=== PATIENT | female | born 1995 | race Caucasian/White ===

== ENCOUNTER 2020-03-01 15:00 | Emergency (ER) | payer MEDICAID, SELFPAY ==
[2020-03-01 15:03] VITALS: BP 136/85; PULSE 70; RESP 18; TEMP 36.8; O2SAT 98; BMI 29.0
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
--- NOTE | 2020-03-02 08:48 | DCPLANNER ---
cadd manager was asked to speak with patient about what options are available to her for shelters. cadd manager spoke with patient, offered to help patient get into a women's correction, patient stated that she did not want to go to a correction. Patient asked behavioral health case manager what her options were with [facility] in getting her court ordered rehab. cadd manager told patient that she would need to call [facility] and speak with them to find out what her options were with getting anything court ordered. cadd manager asked patient if there was anything else that behavioral health case manager could help patient with and she stated not right now. cadd manager did offer one more time to help patient get into a women's correction, but patient stated that she did not want to go to a women's correction that she wanted to go home.
== END 2020-03-01 16:05 | disposition home or self-care (01) ==
LOC: ER 15:37
PROVIDERS: Emergency Provider Nurse Practitioner Family
DX: R42 Dizziness and giddiness (principal); F12.20 Cannabis dependence, uncomplicated; Y04.8XXA Assault by other bodily force, initial encounter
CPT/HCPCS: 12345; 99281

== ENCOUNTER 2020-03-02 18:03 | Inpatient (IN) | payer MEDICAID, SELFPAY ==
[2020-03-02 18:19] VITALS: BP 139/97; PULSE 89; RESP 16; TEMP 36.8; O2SAT 96; BMI 29.0
--- NOTE | 2020-03-02 18:39 | ED_ITS ---
HPI - Psych General: Chief Complaint: Psychiatric Symptoms Stated Complaint: SI Time Seen by Provider: 03/02/20 18:29 Source: patient Mode of arrival: ambulatory Limitations: no limitations History of Present Illness: HPI Narrative: 24-year-old female states she been having increasing depression. She states she has had no will to live and has not had any energy to work or do anything. She states she been having increasing suicidal thoughts. She states she used to be on psych meds but has not been on any recently. Denies any worsening or improving factors. Associated symptoms: Reports depression Review of Systems Const: Denies: fever(s), chills, body aches or change in appetite Eyes: Denies: blurry vision or eye discomfort ENMT: Denies: throat pain or dental pain Card: Denies: chest pain Resp: Denies: dyspnea GI: Denies: abdominal pain, nausea, vomiting or diarrhea : Denies: dysuria Musc: Denies: neck pain or back pain Skin/Breast: Denies: rash Neuro: Denies: headache(s) Psych: Reports: depression Guy/Lymph: Denies: easy bruising All/Imm: Denies: urticaria Physical Exam Const: COMMON NORMALS: no acute distress, patient oriented x3 and healthy appearing HENMT: COMMON NORMALS: normocephalic and atraumatic HEAD & SCALP: normocephalic and atraumatic Eye: COMMON NORMALS: Equal, round and reactive pupils present and EOMs intact bilaterally PUPIL: Yes Equal, round and reactive pupils present Neck/C-Spine: COMMON NORMALS: full ROM and supple Chest: COMMONS NORMALS: normal inspection of the chest and normal palpation of entire chest wall Resp: COMMON NORMALS: normal respiratory effort, No retractions, No use of accessory muscles and clear to auscultation bilaterally AUSCULTATION: clear to auscultation bilaterally Cardio: COMMON NORMALS: regular rate, regular rhythm and No murmurs present (Cardio) RATE: regular rate RHYTHM: regular rhythm GI: COMMON NORMALS: Normal to inspection, nondistended, normoactive bowel sounds present, Soft to palpation, non-tender and no masses PALPATION: Yes Soft to palpation Extremity: COMMON NORMALS: normal to inspection and full ROM Neuro: COMMON NORMALS: patient oriented x3, moves all extremities and no focal motor deficits Psych: COMMON NORMALS: mental status grossly normal, Normal thought process present and cooperative MOOD & AFFECT: Yes depressed mood THOUGHT PROCESS: Normal thought process present THOUGHT CONTENT: Yes Suicidality present Skin: COMMON NORMALS: no rashes or lesions noted and no wounds GENERAL SKIN EXAM: no rashes or lesions noted MDM - Psych MDM Narrative: Medical decision making narrative: Patient presents here with suicidal ideation and voluntarily wants to get help. Patient medically cleared and I spoke to psychiatrist Dr. Soto and will admit to the MPU. She has been stable while here. Lab Data: Labs: Lab Results 03/02/20 03/02/20 03/02/20 Range/Units 18:32 18:32 19:14 WBC 8.9 (4.0-10.0) 10^3/ uL RBC 4.38 (4.1-5.3) 10^6/u L Hgb 12.8 (11.5-15.3) g/dL Hct 40.0 (37.0-47.0) % MCV 91.3 (81-99) fL MCH 29.2 (28.0-34.0) pg MCHC 32.0 (30.0-36.0) g/dL RDW 13.0 (12.1-15.1) % Plt Count 311 (130-400) 10^3/c mm MPV 11.1 H (7.4-10.4) fL Neut % (Auto) 53.0 % Lymph % (Auto) 39.1 % Rincon % (Auto) 5.1 % Eos % (Auto) 1.9 % Baso % (Auto) 0.7 % Neut # (Auto) 4.73 (1.8-7.7) 10^3/u L Lymph # (Auto) 3.5 (0.8-4.8) 10^3/u L Rincon # (Auto) 0.5 (0.2-0.9) 10^3/u L Eos # (Auto) 0.2 (0.0-0.8) 10^3/u L Baso # (Auto) 0.1 (0.0-0.1) 10^3/u L Nucleated RBC % (a uto) 0 % Nucleated RBCs # 0.0 /100WBC HCG, Qual Negative (Negative) Urine Opiates Scre en Negative (Negative) ng/mL Ur Barbiturates Sc reen Negative (Negative) ng/mL Ur Phencyclidine S crn Negative (Negative) ng/mL Ur Amphetamines Sc reen Positive H (Negative) ng/mL U Benzodiazepines Scrn Negative (Negative) ng/mL Urine Cocaine Scre en Negative (Negative) ng/mL U Marijuana (THC) Screen Positive H (Negative) ng/mL Discharge Plan Discharge Patient Disposition: Admitted As Inpatient Clinical Impression: Suicidal ideation Condition: Stable Coding Level of Care Code ED Android Ios Developer for Estrella Hou Exam Comprehensive
[2020-03-02 18:49] LABS: HCG Qualitative Urine. Negative (Negative)
[2020-03-02 19:25] VITALS: BP 123/54; PULSE 78; RESP 16; O2SAT 97
[2020-03-02 19:32] LABS: Amphetamines Screen Urine Positive (Negative); Barbiturates Screen Urine Negative (Negative); Benzodiazepines Screen Urine Negative (Negative); Cocaine Screen Urine Negative (Negative); Opiate Screen Urine Negative (Negative); PCP Screen Urine Negative (Negative); THC Screen Urine Positive (Negative)
[2020-03-02 19:39] LABS: Basophils # 0.1 10^3/uL (0.0-0.1); Basophils % 0.7 %; Eosinophils # 0.2 10^3/uL (0.0-0.8); Eosinophils % 1.9 %; Hemoglobin 12.8 g/dL (11.5-15.3); Lymphocytes # 3.5 10^3/uL (0.8-4.8); Lymphocytes % 39.1 %; Mean Corpuscular Hemoglobin 29.2 pg (28.0-34.0); Mean Corpuscular Volume 91.3 fL (81-99); Mean Platelet Volume 11.1 fL (7.4-10.4); Monocytes # 0.5 10^3/uL (0.2-0.9); Monocytes % 5.1 %; Neutrophils # 4.73 10^3/uL (1.8-7.7); Nucleated Red Blood Cells % 0 %; Platelet Count 311 10^3/cmm (130-400); Red Blood Count 4.38 10^6/uL (4.1-5.3); White Blood Count 8.9 10^3/uL (4.0-10.0)
[2020-03-02 19:52] LABS: Alanine Aminotransferase 16 U/L (0-33); Albumin Level 4.4 g/dL (3.5-5.2); Alkaline Phosphatase 86 IU/L (35-105); Anion Gap 12.5 (5-19); Aspartate Amino Transferase 15 U/L (0-32); Blood Urea Nitrogen 8 mg/dL (6-20); Calcium 9.3 mg/dL (8.5-10.5); Carbon Dioxide 28 mmol/L (22-29); Chloride 105 mmol/L (98-107); Globulin 2.6 g/dL (1.3-4.6); Glomerular Filtration Rate 120.8 mL/min (90-130); Glucose 132 mg/dL (65-115); Osmolality Calculated 294 mOsm/kg (285-295); Potassium 3.5 mmol/L (3.5-5.1); Salicylate 0.5 mg/dL (3-10); Sodium 142 mmol/L (136-145); Total Bilirubin 0.3 mg/dL (0.15-1.2)
[2020-03-02] MEDS: LORazepam 2 mg Tablet PO (19:55)
[2020-03-02 20:07] LABS: Acetaminophen < 5.0 ug/mL (10-30); Alcohol Level < 10 mg/dL (0-10)
[2020-03-02 20:30] VITALS: BP 125/76; PULSE 67; RESP 16; TEMP 36.8; O2SAT 96
[2020-03-02 21:06] VITALS: BP 128/94; PULSE 79; RESP 16; TEMP 36.8; O2SAT 97
[2020-03-02 22:00] VITALS: BP 128/94; PULSE 79; RESP 17; TEMP 36.8; O2SAT 95
[2020-03-03 05:28] VITALS: BP 111/80; PULSE 82; RESP 16; TEMP 37; O2SAT 99
[2020-03-03] MEDS: hyDROXYzine 25 mg Capsule 50 MG PO ×2 (12:31→21:33)
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
[2020-03-03 13:40] VITALS: BP 117/78; PULSE 80; RESP 18; TEMP 36.7; O2SAT 94
[2020-03-03] MEDS: OLANZapine 5 mg ODT PO (17:54)
--- NOTE | 2020-03-03 17:56 | PC.NURSE ---
PRN ZYPREXA PT AT NURSING STATION SCREAMING ABOUT NO ONE WAKING HER UP FOR DINNER. ADMINISTERED ZYPREXA ZYDIS 5 MG SUBLINGUAL. WILL MONITOR FOR MEDICATION EFFECTIVENESS.
[2020-03-03] MEDS: sennosides-docusate Tablet 1 TAB PO (18:47)
[2020-03-03] MEDS: escitalopram 10 mg Tablet PO (18:47)
[2020-03-03] MEDS: trazodone 50 mg Tablet PO (19:46)
[2020-03-03 20:06] VITALS: BP 125/70; PULSE 80; RESP 17; TEMP 36.5; O2SAT 96
[2020-03-03] MEDS: meclizine 25 mg tablet 12.5 MG PO (21:32)
[2020-03-04 06:00] VITALS: BP 132/83; PULSE 68; RESP 17; TEMP 36.6; O2SAT 96
[2020-03-04] MEDS: hyDROXYzine 25 mg Capsule 50 MG PO ×3 (08:01→20:51)
[2020-03-04] MEDS: escitalopram 10 mg Tablet PO (08:02)
[2020-03-04 13:41] VITALS: BP 102/67; PULSE 76; RESP 18; TEMP 37.4; O2SAT 96
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
[2020-03-04] MEDS: propranolol 20 mg Tablet 10 MG PO (19:19)
[2020-03-04] MEDS: acetaminophen 325 mg Tablet 650 MG PO (19:19)
--- NOTE | 2020-03-04 19:20 | PC.NURSE ---
PRN PROPRANOL ADMINISTERED PROPRANOL 10 MG PO FOR INCREASING ANXIETY. WILL MONITOR FOR MEDICATION EFFECTIVENESS.
[2020-03-04 20:14] VITALS: BP 129/85; PULSE 72; RESP 16; TEMP 36.5; O2SAT 96
[2020-03-04] MEDS: trazodone 50 mg Tablet PO (20:51)
[2020-03-05 06:00] VITALS: BP 126/78; PULSE 65; RESP 18; TEMP 36.4; O2SAT 97
[2020-03-05] MEDS: escitalopram 10 mg Tablet PO (08:53)
[2020-03-05] MEDS: hyDROXYzine 25 mg Capsule 50 MG PO ×3 (08:53→21:15)
[2020-03-05] MEDS: propranolol 20 mg Tablet 10 MG PO (11:09)
--- NOTE | 2020-03-05 12:33 | PC.NURSE ---
1109 PRN INDERAL Patient states she is anxious given Inderal 10 mg.
[2020-03-05] MEDS: sennosides-docusate Tablet 1 TAB PO (13:11)
[2020-03-05 13:54] VITALS: BP 142/75; PULSE 100; RESP 18; TEMP 36.9
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
[2020-03-05 20:10] VITALS: BP 113/76; PULSE 60; RESP 18; TEMP 36.6; O2SAT 96
[2020-03-06] MEDS: propranolol 20 mg Tablet 10 MG PO (02:09)
[2020-03-06] MEDS: hyDROXYzine 25 mg Capsule 50 MG PO ×3 (02:13→14:55)
[2020-03-06] MEDS: OLANZapine 5 mg ODT PO (02:13)
[2020-03-06] MEDS: haloperidol 5 mg Tablet PO (02:13)
[2020-03-06 06:00] VITALS: BP 98/65; PULSE 65; RESP 15; TEMP 36.9; O2SAT 97
[2020-03-06] MEDS: escitalopram 10 mg Tablet PO (09:18)
[2020-03-06 13:11] VITALS: BP 98/65; PULSE 65; RESP 15; TEMP 36.9; O2SAT 97
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
== END 2020-03-06 15:30 | disposition home or self-care (01) | DRG 880 ==
LOC: ER 19:43 → NP 19:51
PROVIDERS: Admitting Provider Psychiatry & Neurology Psychiatry; Emergency Provider Emergency Medicine; Visit Provider Psychiatry & Neurology Psychiatry
DX: F41.8 Other specified anxiety disorders (principal); R45.851 Suicidal ideations; F12.20 Cannabis dependence, uncomplicated; F15.10 Other stimulant abuse, uncomplicated
CPT/HCPCS: 12345; 80053; 80306; 80307; 81025; 85025; 99284; J8597

== ENCOUNTER 2020-09-04 10:15 | Inpatient (IN) | payer MEDICAID, SELFPAY ==
[2020-09-04 10:16] VITALS: BP 143/74; PULSE 69; RESP 18; TEMP 37.1; O2SAT 99; BMI 25.8
[2020-09-04] MEDS: LORazepam 1 mg Tablet PO (10:32)
[2020-09-04] MEDS: acetaminophen 500 mg Tablet 1000 MG PO (10:33)
[2020-09-04 10:51] LABS: Basophils # 0.1 10^3/uL (0.0-0.1); Basophils % 0.9 %; Eosinophils # 0.2 10^3/uL (0.0-0.8); Eosinophils % 3.1 %; Hemoglobin 12.2 g/dL (11.5-15.3); Lymphocytes % 31.1 %; Mean Corpuscular HGB Conc 31.3 g/dL (30.0-36.0); Mean Corpuscular Hemoglobin 29.2 pg (28.0-34.0); Mean Corpuscular Volume 93.3 fL (81-99); Mean Platelet Volume 10.8 fL (7.4-10.4); Monocytes # 0.4 10^3/uL (0.2-0.9); Monocytes % 5.6 %; Neutrophils # 3.77 10^3/uL (1.8-7.7); Neutrophils % 59.1 %; Nucleated Red Blood Cells % 0 %; Platelet Count 271 10^3/cmm (130-400); Red Blood Count 4.18 10^6/uL (4.1-5.3); White Blood Count 6.4 10^3/uL (4.0-10.0)
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
[2020-09-04 11:18] LABS: Alanine Aminotransferase 12 U/L (0-33); Albumin Level 3.9 g/dL (3.5-5.2); Alkaline Phosphatase 70 IU/L (35-105); Anion Gap 10.2 (5-19); Aspartate Amino Transferase 13 U/L (0-32); Blood Urea Nitrogen 5 mg/dL (6-20); Calcium 8.7 mg/dL (8.5-10.5); Carbon Dioxide 27 mmol/L (22-29); Chloride 107 mmol/L (98-107); Globulin 2.7 g/dL (1.3-4.6); Glomerular Filtration Rate 119.9 mL/min (90-130); Glucose 101 mg/dL (65-115); Osmolality Calculated 287 mOsm/kg (285-295); Potassium 4.2 mmol/L (3.5-5.1); Sodium 140 mmol/L (136-145); Total Bilirubin 0.3 mg/dL (0.15-1.2); Total Protein 6.6 g/dL (6.6-8.7)
[2020-09-04 11:33] LABS: Acetaminophen < 5.0 ug/mL (10-30); Salicylate < 0.3 mg/dL (3-10)
--- NOTE | 2020-09-04 11:42 | PC.PHAR ---
pt states she takes care of her own medications-pt states she stop taking all her meds a couple months ago-ext med history shows oxcarbazepine 600mg bid last filled on 05/22/20 30d/s-pt states she is only taking tylenol and aspirin prn
[2020-09-04 12:36] VITALS: BP 134/74; PULSE 88; RESP 18; O2SAT 98
[2020-09-04 13:08] VITALS: BP 112/78; PULSE 91; RESP 18; TEMP 36.6; O2SAT 97
[2020-09-04 18:25] LABS: Add Urine Microscopic? YES; Bilirubin Urine Neg (Negative); Blood Urine 3+ (Negative); Glucose Urine UA Norm (Normal); Ketones Urine 1+ (Negative); Leukocyte Esterase Urine Trace (Negative); Nitrate Urine Negative (Negative); Protein Urine 2+ (Negative); Urine Appearance Hazy (CLEAR); Urine Color Red (Yellow); Urobilinogen Urine Norm (Negative); pH Urine 8 (5-7)
[2020-09-04 18:26] LABS: Add Urine Culture? Yes; Bacteria Urine 2+ /hpf; RBC Urine 25-40 /hpf (0-2); Sulfosalicylic Acid Urine Positive (Negative); WBC Urine 15-25 /hpf (0-5)
[2020-09-04 18:35] LABS: Amphetamines Screen Urine Positive (Negative); Barbiturates Screen Urine Negative (Negative); Benzodiazepines Screen Urine Positive (Negative); Cocaine Screen Urine Negative (Negative); Opiate Screen Urine Negative (Negative); PCP Screen Urine Negative (Negative); THC Screen Urine Positive (Negative)
[2020-09-04 18:40] LABS: Alcohol Level < 10 mg/dL (0-10)
[2020-09-04 20:04] VITALS: BP 114/63; PULSE 97; RESP 18; TEMP 36.9; O2SAT 100
[2020-09-05 06:00] VITALS: RESP 18
--- NOTE | 2020-09-05 06:30 | PC.NURSE ---
pt refused vitals/0625/lauren/ 09/05/2020
[2020-09-05] MEDS: OLANZapine 5 mg ODT PO (09:12)
--- NOTE | 2020-09-05 09:26 | PC.NURSE ---
PRN MED PT GIVEN 5MG ZYPREXA FOR AGITATION, WILL CONTINUE TO MONITOR.
--- NOTE | 2020-09-05 09:51 | PC.NURSE ---
PRN MED MED AFFECTIVE, PT IN ROOM RESTING O S/S OF DISTRESS, WILL CONTINUE TO MONITOR.
[2020-09-05] MEDS: haloperidol inj 5 mg/mL INJ 1 mL IM (10:26)
[2020-09-05] MEDS: LORazepam 2 mg/mL INJ 1 mL IM (10:26)
[2020-09-05] MEDS: diphenhydrAMINE 50 mg/mL SDV 1mL IM (10:26)
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
--- NOTE | 2020-09-05 12:29 | PC.NURSE ---
PRN MEDS PT IN BED RESTING O S/S OF DISTRESS, WILL CONTINUE TO MONITOR.
[2020-09-05 13:29] VITALS: BP 110/60; PULSE 55; RESP 16; TEMP 36.8; O2SAT 99
[2020-09-05 19:49] VITALS: BP 94/65; PULSE 76; RESP 14; TEMP 36.9; O2SAT 95
[2020-09-05] MEDS: trazodone 50 mg Tablet PO (22:39)
--- NOTE | 2020-09-05 22:40 | PC.NURSE ---
pt came to desk requesting her sleeping pill. trazodone 50mg po given.
--- NOTE | 2020-09-06 01:10 | PC.NURSE ---
pt resting quietly with both eyes closed.
[2020-09-06 06:00] VITALS: BP 108/68; PULSE 80; RESP 14; TEMP 36.8; O2SAT 95
--- NOTE | 2020-09-06 10:22 | PM.NPN ---
Subjective NPU Subjective: Interval history: Patient initially lying in bed resting, becomes emotional but asked questions about contacting her Patient becomes angry yelling, he should be in [facility]... As well as saying multiple expletives Continues to communicate homicidal ideation towards her Denies any visual hallucinations but reports occasional auditory hallucinations of hearing things Patient reports sleeping well overnight, reports that her appetite is been poor Reports interval irritability, low mood Per staff, occasional verbal agitation but easily redirected Mental Status Exam MSE Comments: Lying in bed, initially calm and cooperative but occasionally irritable and angry with verbal agitation, no physical agitation Speech is low volume, normal rate, fair articulation, not pressured I feel horrible, congruent affect, not labile Alert and oriented to person, place, time, situation Memory and concentration are fair per interview Thought process, linear but brief, no flight of ideas Thought content, no delusions, does not appear to be attending to any internal stimuli, no suicidal but continues to report homicidal ideation towards her Insight and judgment appear to be limited Vitals/I&O/Wt Last Vital Signs Temp 98.3 F 09/06/20 06:00 Pulse 80 09/06/20 06:00 Resp 14 09/06/20 06:00 BP 108/68 09/06/20 06:00 Pulse Ox 95 09/06/20 06:00 Data NPU : 09/04/20 10:40 09/04/20 10:40 A&P Assessment and plan (1) Homicidal ideation: Status: Acute (2) Impulse control disorder: Status: Acute (3) Borderline personality disorder: Status: Acute Additional A&P Information Intermittent emotional outbursts, verbal agitation, reports transient auditory hallucinations, continues to communicate homicidal ideation towards START olanzapine 2.5 mg by mouth twice daily targeting mood, psychotic symptoms Patient would likely benefit from low-dose antidepressant but becomes extremely agitated when discussing this with her Involuntary Hold Information 96 Hour Hold: 96 Hour Involuntary Admission: No Attestations NPU Medical Necessity Statement*: Continues to require psychiatric hospitalization for medication stabilization, coordination for safe discharge Coding Level of Care Code Acute Can Pusher for g Fwd Diagnoses Homicidal ideation R45.850 Impulse control disorder F63.9 Borderline personality disorder F60.3
[2020-09-06] MEDS: OLANZapine 5 mg TABLET 2.5 MG PO ×2 (10:44→20:10)
[2020-09-06] MEDS: LORazepam 2 mg/mL INJ 1 mL IM (12:08)
[2020-09-06] MEDS: haloperidol inj 5 mg/mL INJ 1 mL IM (12:08)
[2020-09-06] MEDS: diphenhydrAMINE 50 mg/mL SDV 1mL IM (12:09)
--- NOTE | 2020-09-06 12:09 | PC.NURSE ---
Addendum entered by García De Los Santos RN 09/06/20 12:41: PRN MEDS PT IN BED SLEEPING/RESTING O S/S OR DISTRESS, WILL CONTINUE TO MONITOR. Original Note: PRN MEDS PT GIVEN 50MG BENADRYL, 5MG HALODOL, & 2MG ATIVAN, FOR [place]EL[place], AGITATION, ANXIETY, SCREAMING, CRYING & OUT OF CONTROL, WILL CONTINUE TO MONITOR.
[2020-09-06 14:00] VITALS: RESP 17
[2020-09-06 19:52] VITALS: RESP 15
[2020-09-07 06:00] VITALS: RESP 16
[2020-09-07] MEDS: OLANZapine 5 mg TABLET 2.5 MG PO ×2 (08:29→22:07)
[2020-09-07] MEDS: acetaminophen 325 mg Tablet 650 MG PO ×2 (12:29→18:01)
[2020-09-07 14:00] VITALS: BP 107/66; PULSE 96; RESP 18; TEMP 36.9; O2SAT 91
--- NOTE | 2020-09-07 16:54 | PM.NPN ---
Subjective NPU Subjective: Interval history: Mara presented today reporting that she has no real explanation for why she has been behaving the way she has. She spent most of her questions talking about when she would be discharged etc. We discussed the 21-day hold paperwork and the fact that we cannot consider discharging her until we got days when she was not requiring as needed medication especially in an IM capacity. She reported that she understood and was served her notice. Mental Status Exam MSE Comments: This is a well-nourished, well-developed white female with hospital scrubs on with limited grooming and eye contact. No abnormal movements except for psychomotor retardation. Mostly cooperative with exam in mild distress. Speech was decreased rate and volume. Mood described as I will note, affect subdued. Thought process organized. Thought content: Patient denied suicidal or homicidal ideation except towards her , there are no delusions reported or noted, she denied any auditory or visual hallucinations. Attention and concentration were limited and memory appeared viable number. She is alert and oriented x3. Insight and judgment are impaired, impulse control is impaired. Vitals/I&O/Wt Last Vital Signs Temp 98.5 F 09/07/20 14:00 Pulse 96 09/07/20 14:00 Resp 18 09/07/20 14:00 BP 107/66 09/07/20 14:00 Pulse Ox 91 09/07/20 14:00 Data NPU : 09/04/20 10:40 09/04/20 10:40 Micro: Microbiology 09/04/20 12:48 Urine Culture - Final Urine,Clean Catch Strep agalactiae - (group b) Microbiology 09/04/20 12:48 Urine,Clean Catch Urine Culture - Final Strep agalactiae - (group b) A&P Assessment and plan (1) Borderline personality disorder: Status: Acute (2) Impulse control disorder: Status: Acute (3) Homicidal ideation: Status: Acute (4) Major depression: Status: Acute (5) Cannabis abuse: Status: Acute (6) Methamphetamine abuse: Status: Acute Additional A&P Information This is a 25-year-old white female with a long history of mental health issues and poor impulse control who presents on a 96-hour hold with continued outburst in the hospital and meltdowns after phone calls with recent initiation of medication still in need of aggressive treatment. 1. Continue current medication. 2. Continue every 15 minute checks for safety. 3. Encourage individual, group and milieu therapies. 4. Encourage sober living treatment after discharge at the highest level of care to which she is willing to commit. Involuntary Hold Information 96 Hour Hold: 96 Hour Involuntary Admission: No Attestations NPU Medical Necessity Statement*: Inpatient hospitalization is medically necessary and the clinically appropriate intervention at this time. We will monitor medications and make changes as indicated. 21-day paperwork submitted. 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
[2020-09-07 22:00] VITALS: RESP 16
--- NOTE | 2020-09-07 23:37 | PC.NURSE ---
Patient out in the hallway [facility]. Respirations taken since patient was uncooperative.
[2020-09-07] MEDS: trazodone 50 mg Tablet PO (23:38)
[2020-09-08 06:00] VITALS: RESP 15
--- NOTE | 2020-09-08 08:21 | DCPLANNER ---
No IMM done due to pt on 96 hr hold and then 21 day hold.
[2020-09-08] MEDS: thiamine 100 mg Tablet PO (08:47)
[2020-09-08] MEDS: multivitamin therapeutic Tablet 1 TAB PO (08:47)
[2020-09-08] MEDS: folic acid 1 mg Tablet PO (08:47)
[2020-09-08] MEDS: OLANZapine 5 mg TABLET 2.5 MG PO ×2 (08:47→19:50)
[2020-09-08 14:00] VITALS: BP 127/79; PULSE 86; RESP 20; TEMP 36.6; O2SAT 97
--- NOTE | 2020-09-08 14:39 | P.PN_ITS ---
Subjective NPU Subjective: Interval history: Dianelys presents today reporting that she does not know why she has to stay. A lengthy conversation about the pulmonary hold and our need to see control behaviors that would indicate to us that she can be safe outside the hospital. She was somewhat phonetic in the conversation but ultimately endorsed that she understood. She reports that she is struggling with her mood dysregulation. Mental Status Exam MSE Comments: This is a well-nourished, well-developed white female with hospital scrubs on with limited grooming and eye contact. No abnormal movements except for psychomotor retardation. Mostly cooperative with exam in mild distress. Speech was decreased rate and volume. Mood described as I am here because I cannot control myself, affect subdued. Thought process organized. Thought content: Patient denied suicidal or homicidal ideation except towards her , there are no delusions reported or noted, she denied any auditory or visual hallucinations. Attention and concentration were limited and memory appeared viable number. She is alert and oriented x3. Insight and judgment are impaired, impulse control is impaired. Vitals/I&O/Wt Last Vital Signs Temp 97.8 F 09/08/20 14:00 Pulse 86 09/08/20 14:00 Resp 20 H 09/08/20 14:00 BP 127/79 09/08/20 14:00 Pulse Ox 97 09/08/20 14:00 Data NPU : 09/04/20 10:40 09/04/20 10:40 A&P Additional A&P Information (1) Borderline personality disorder: (2) Impulse control disorder: (3) Homicidal ideation: (4) Major depression: (5) Cannabis abuse: (6) Methamphetamine abuse: Additional A&P Information This is a 25-year-old white female with a long history of mental health issues and poor impulse control who presents on a 96-hour hold with continued outburst in the hospital and meltdowns after phone calls with recent initiation of medication still in need of aggressive treatment. 1. Continue current medication. 2. Continue every 15 minute checks for safety. 3. Encourage individual, group and milieu therapies. 4. Encourage sober living treatment after discharge at the highest level of care to which she is willing to commit. Involuntary Hold Information 96 Hour Hold: 96 Hour Involuntary Admission: No Attestations NPU Medical Necessity Statement*: Inpatient hospitalization is medically necessary and the clinically appropriate intervention at this time. We will monitor medications and make changes as indicated. 21-day hearing next Friday. Likely will stay 3 to 5 days.. Coding Level of Care Code Acute Flooring Installer for Estrella Hou
[2020-09-08 21:42] VITALS: BP 99/61; PULSE 89; RESP 19; TEMP 36.9; O2SAT 98
[2020-09-09] MEDS: trazodone 50 mg Tablet PO ×2 (01:02→20:54)
--- NOTE | 2020-09-09 01:24 | PC.NURSE ---
Addendum entered by Daphne Pat LPN 09/09/20 02:50: 0138 reassessed pt and observed pt sleeping on left side, will continue to monitor pt until end of shift Original Note: prn 0102 administered 50 mg PO trazadone for a sleep aid, will follow up with pt
[2020-09-09 05:47] VITALS: BP 111/73; PULSE 64; RESP 18; TEMP 36.6; O2SAT 94
[2020-09-09] MEDS: multivitamin therapeutic Tablet 1 TAB PO (08:42)
[2020-09-09] MEDS: thiamine 100 mg Tablet PO (08:42)
[2020-09-09] MEDS: OLANZapine 5 mg TABLET 2.5 MG PO ×2 (08:42→20:46)
[2020-09-09] MEDS: folic acid 1 mg Tablet PO (08:42)
[2020-09-09 14:00] VITALS: BP 116/79; PULSE 100; RESP 20; TEMP 36.9; O2SAT 96
--- NOTE | 2020-09-09 16:33 | P.PN_ITS ---
Subjective NPU Subjective: Interval history: Mara presents today reporting that she is feeling better and continues to endorse a desire to leave as soon as possible. She smiled for the first time this editorial writer and was endorsing an interest in doing better overall. She seems to have accepted her need to manage her emotions as a predicate to her discharge. We discussed the hearing again and the possibility that we could discharge her prior to the hearing if she is able to continue to do well. We discussed the risk-benefit and alternatives of increasing the medication tomorrow in order to filter pulp washer whether the lower dose or higher dose is better. Mental Status Exam MSE Comments: This is a well-nourished, well-developed white female with hospital scrubs on with limited grooming and eye contact. No abnormal movements except for resolving psychomotor retardation. Cooperative with exam in no acute distress. Speech was more normal rate and volume. Mood described as better, affect brighter. Thought process organized. Thought content: Patient denied suicidal or homicidal ideation, there are no delusions reported or noted, she denied any auditory or visual hallucinations. Attention and concentration were limited and memory appeared viable number. She is alert and oriented x3. Insight and judgment are limited, but improving, impulse control is limited. Vitals/I&O/Wt Last Vital Signs Temp 98.4 F 09/09/20 14:00 Pulse 100 09/09/20 14:00 Resp 17 09/09/20 22:00 BP 116/79 09/09/20 14:00 Pulse Ox 96 09/09/20 14:00 Data NPU : 09/04/20 10:40 09/04/20 10:40 A&P Additional A&P Information (1) Borderline personality disorder: (2) Impulse control disorder: (3) Homicidal ideation: (4) Major depression: (5) Cannabis abuse: (6) Methamphetamine abuse: Additional A&P Information This is a 25-year-old white female with a long history of mental health issues and poor impulse control who presents on a 96-hour hold with continued outburst in the hospital and meltdowns after phone calls with recent initiation of medica tion still in need of aggressive treatment. 1. Continue current medication. We will increase Zyprexa to 5 mg twice daily tomorrow. 2. Continue every 15 minute checks for safety. 3. Encourage individual, group and milieu therapies. 4. Encourage sober living treatment after discharge at the highest level of care to which she is willing to commit. Involuntary Hold Information 96 Hour Hold: 96 Hour Involuntary Admission: No Attestations NPU Medical Necessity Statement*: Inpatient hospitalization is medically necessary and the clinically appropriate intervention at this time. We will monitor medications and make changes as indicated. 21-day hearing next Friday. Likely will stay 2-4 days. Coding Level of Care Code Acute Nutrition Assistant for Estrella Hou
--- NOTE | 2020-09-09 20:55 | PC.NURSE ---
Pt requested trazodone for sleep . Trazodone 50mg po given.
[2020-09-09 22:00] VITALS: RESP 17; RESP 20
--- NOTE | 2020-09-09 22:00 | PC.NURSE ---
pt noted resting quietly with both eyes closed.
[2020-09-10 06:00] VITALS: BP 139/77; PULSE 82; RESP 17; TEMP 36.9; O2SAT 96
--- NOTE | 2020-09-10 08:28 | P.PN_ITS ---
Subjective NPU Subjective: Interval history: Mara presents today reporting that she is doing better. We discussed the risk benefits alternatives of increasing her Zyprexa to see if it is a better fit at a higher dose. She understood and agreed to proceed as documented in this note. She continues to be better at managing her anger and outbursts we discussed the possibility of discharge in the next 48 hours. Mental Status Exam MSE Comments: This is a well-nourished, well-developed white female with hospital scrubs on with improved grooming and eye contact. No abnormal movements except for resolving psychomotor retardation. Cooperative with exam in no acute distress. Speech was more normal rate and volume. Mood described as better, affect brighter. Thought process organized. Thought content: Patient denied suicidal or homicidal ideation, there are no delusions reported or noted, she denied any auditory or visual hallucinations. Attention and concentration were limited and memory appeared viable number. She is alert and oriented x3. Insight and judgment are limited, but improving, impulse control is limited. Vitals/I&O/Wt Last Vital Signs Temp 98.4 F 09/10/20 06:00 Pulse 82 09/10/20 06:00 Resp 17 09/10/20 06:00 BP 139/77 09/10/20 06:00 Pulse Ox 96 09/10/20 06:00 Weight last 48 hrs Weight 72.575 kg Data NPU : 09/04/20 10:40 09/04/20 10:40 A&P Additional A&P Information (1) Borderline personality disorder: (2) Impulse control disorder: (3) Homicidal ideation: (4) Major depression: (5) Cannabis abuse: (6) Methamphetamine abuse: Additional A&P Information This is a 25-year-old white female with a long history of mental health issues and poor impulse control who presents on a 96-hour hold with continued outburst in the hospital and meltdowns after phone calls with recent initiation of medication still in need of aggressive treatment. 1. Continue current medication. Increase Zyprexa 5 mg p.o. twice daily 2. Continue every 15 minute checks for safety. 3. Encourage individual, group and milieu therapies. 4. Encourage sober living treatment after discharge at the highest level of care to which she is willing to commit. Involuntary Hold Information 96 Hour Hold: 96 Hour Involuntary Admission: No Attestations NPU Medical Necessity Statement*: Inpatient hospitalization is medically necessary and the clinically appropriate intervention at this time. We will monitor medications and make changes as indicated. 21-day hearing next Friday. Likely will stay 1-3 days. Coding Level of Care Code Acute Building Guard Deputy Sheriff for Estrella Hou
[2020-09-10] MEDS: OLANZapine 5 mg TABLET PO ×2 (08:35→20:31)
[2020-09-10] MEDS: thiamine 100 mg Tablet PO (08:36)
[2020-09-10] MEDS: multivitamin therapeutic Tablet 1 TAB PO (08:36)
[2020-09-10] MEDS: folic acid 1 mg Tablet PO (08:36)
[2020-09-10 14:00] VITALS: BP 120/73; PULSE 116; RESP 20; TEMP 36.7; O2SAT 97
[2020-09-10] MEDS: acetaminophen 325 mg Tablet 650 MG PO (18:25)
[2020-09-10] MEDS: trazodone 50 mg Tablet PO (20:31)
--- NOTE | 2020-09-10 20:35 | PC.NURSE ---
pt requested Trazodone to help her sleep. Trazodone 50mg po give.
[2020-09-10 20:42] VITALS: BP 118/89; PULSE 93; RESP 16; TEMP 36.3; O2SAT 97
--- NOTE | 2020-09-10 21:33 | PC.NURSE ---
Pt in room resting quietly with both eyes closed.
[2020-09-11 05:59] VITALS: BP 119/74; PULSE 82; RESP 16; TEMP 36.7; O2SAT 97
[2020-09-11] MEDS: OLANZapine 5 mg TABLET PO (08:48)
[2020-09-11 13:09] VITALS: BP 117/70; PULSE 88; RESP 16; TEMP 36.7; O2SAT 98
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
[2020-09-11 18:30] VITALS: BP 117/70; PULSE 88; RESP 16; TEMP 36.7; O2SAT 98
[2020-09-11 20:12] VITALS: RESP 20
--- NOTE | 2020-09-11 20:14 | PC.NURSE ---
Pt escorted to ER waiting to hand off to family member.
== END 2020-09-11 20:17 | disposition home or self-care (01) | DRG 886 ==
LOC: ER 12:04 → NP 12:21
PROVIDERS: Admitting Provider Psychiatry & Neurology Psychiatry; Emergency Provider Family Medicine; Visit Provider Psychiatry & Neurology Psychiatry
DX: F63.9 Impulse disorder, unspecified (principal); F60.3 Borderline personality disorder; F32.9 Major depressive disorder, single episode, unspecified; R45.850 Homicidal ideations; F12.10 Cannabis abuse, uncomplicated; F15.10 Other stimulant abuse, uncomplicated; Z63.0 Problems in relationship with spouse or partner; Z86.59 Personal history of other mental and behavioral disorders; Z91.14 Patient's other noncompliance with medication regimen
CPT/HCPCS: 80053; 80306; 80307; 81001; 85025; 87086; 96372; 99285; J1200; J1630; J2060

== ENCOUNTER 2021-02-01 11:22 | Observation (INO) | payer MEDICAID, SELFPAY ==
[2021-02-01] VITALS (44 sets, daily range): BP systolic 107–132; BP diastolic 73–82; PULSE 62–78; RESP 15–27; TEMP 36.8; O2SAT 97–100; BMI 25.0
--- NOTE | 2021-02-01 11:50 | W.ED.PSYCH ---
HPI - Psych General: Chief Complaint: Psychiatric Symptoms Stated Complaint: JOSSUE COVID Time Seen by Provider: 02/01/21 11:26 History of Present Illness: HPI Narrative: This patient was transported to our emergency department by EMS. She apparently is living in a situation that is quite stressful for her. She states that the person she is living with has been very helpful to her and been very manipulative to her. She states that she is progressively become more and more upset by this and is culminated in her having thoughts of harming herself as well as potentially harming the other individual. She has had prior history of depression but takes no daily medications. She was had a prior hospitalization this year but she is somewhat evasive about answering all the questions. She is living with the father of her child who is parent other libertarian. She has a 1-year-old child with him who lives in the same home. She admits to use of marijuana and methamphetamine and her last use of these substances was 2 days ago. He states that others in the home use as well. She denies significant alcohol intake. She has no specific plan on how to harm her self but just states that she feels trapped in her current environment. She states that she was diagnosed as being Covid positive approximately 2 days ago. She has had symptoms of mild cough and body aches 2 days prior to that but is not had any other symptoms since that time. She is unimmunized against COVID-19. complaint: suicidal ideation and feels depressed Duration: getting worse Context: recent drug abuse, not taking psychiatric medications and significant life stressor Associated symptoms: Reports depression, homicidal ideation and suicidal ideation; Deny auditory hallucinations, visual hallucinations or delusions Review of Systems General: Reports: 10 or more systems reviewed and unremarkable except in HPI and below (She had depressive thoughts as noted in HPI with suicidal ideation homicida) Const: Denies: fever(s) or chills ENMT: Denies: throat pain, nasal discharge or nasal congestion Card: Denies: chest pain or palpitations : Denies: flank pain, difficulty voiding, dysuria or vaginal bleeding Skin/Breast: Denies: rash, pruritus or erythema Psych: Reports: depression, suicidal ideation and homicidal ideation; Denies: visual hallucinations or auditory hallucinations [facility] PFSH: Social History Smoking and tobacco status: unknown if ever smoked Physical Exam Narrative: EXAM NARRATIVE: She is intermittently tearful and outspoken. She does make fair eye contact. Speech is somewhat goal-directed but again intermittent tearfulness. Const: COMMON NORMALS: average body habitus, patient oriented x3 and alert GENERAL APPEARANCE: cooperative ORIENTATION/CONSCIOUSNESS: Yes oriented to person, Yes oriented to place and Yes oriented to time HENMT: COMMON NORMALS: normocephalic HEAD & SCALP: normocephalic FACE & SINUS: normal facial exam (Mask per protocol) Eye: COMMON NORMALS: Equal, round and reactive pupils present, EOMs intact bilaterally and no scleral icterus PUPIL: Yes Equal, round and reactive pupils present Neck/C-Spine: COMMON NORMALS: full ROM, no lymphadenopathy and no meningeal signs Chest: COMMONS NORMALS: normal inspection of the chest Resp: COMMON NORMALS: normal respiratory effort, No retractions and No use of accessory muscles Cardio: COMMON NORMALS: regular rate, regular rhythm and Peripheral pulses 2+ throughout RATE: regular rate RHYTHM: regular rhythm PERIPHERAL PULSES: Peripheral pulses 2+ throughout GI: COMMON NORMALS: Normal to inspection, nondistended, normoactive bowel sounds present : COMMON NORMALS: Yes no CVA tenderness BLADDER/KIDNEY EXAM: Yes no CVA tenderness Back/Pelvis: COMMON NORMALS: no CVA tenderness, thoracic and lumbar spine normal to inspection and thoraco-lumbar ROM normal Extremity: COMMON NORMALS: normal to inspection, full ROM and no joint enlargement Neuro: COMMON NORMALS: patient oriented x3 SENSORIUM/ORIENTATION: Yes alert, Yes oriented to person, Yes oriented to place and Yes oriented to time MENINGEAL SIGNS: Yes no meningeal signs SENSORY EXAM: No sensory level loss detected MOTOR EXAM: 5/5 motor strength present throughout and no tremor noted Psych: COMMON NORMALS: Normal thought process present ATTITUDE: Yes evasive ACTIVITY/MOTOR BEHAVIOR: Yes appropriate eye contact MOOD & AFFECT: Yes tearful and Yes Labile affect present THOUGHT PROCESS: Normal thought process present THOUGHT CONTENT: Yes Suicidality present, Yes Homicidality present, No delusions and No Hallucination(s) present MEMORY/COGNITION: Yes memory grossly intact Course Reevaluation(s): Reevaluation #1: patient's become very outspoken and verbal and screaming that she needs a lobotomy etc. We will go ahead and medicate with 5 mg of Haldol IM. Additional Reevaluation(s): Patient is more calm at this time. Consultations: Consultation #1: Spoke with on-call psychiatrist Dr. Soto who agreed to accept the patient. Vital Signs: Vital signs: Vital Signs Temperature 98.2 F 02/01/21 11:27 Pulse Rate 70 02/01/21 11:27 Respiratory Rate 18 02/01/21 11:27 Blood Pressure 128/73 02/01/21 11:27 Pulse Oximetry 99 02/01/21 11:27 MDM - Psych Lab Data: Labs: Lab Results 02/01/21 02/01/21 02/01/21 11:50 11:50 12:00 WBC 4.3 10^3/uL 10^3/ uL (4.0-10.0) RBC 4.78 10^6/uL 10^6 /uL (4.1-5.3) Hgb 14.1 g/dL g/dL (11.5-15.3) Hct 44.0 % % (37.0-47.0) MCV 92.1 fl fl (81-99) MCH 29.5 pg pg (28.0-34.0) MCHC 32.0 g/dL g/dL (30.0-36.0) RDW 12.9 % % (12.1-15.1) Plt Count 194 10^3/cmm 10^3 /cmm (130-400) MPV 11.1 fL H fL (7.4-10.4) Neut % (Auto) 40.0 % % Lymph % (Auto) 51.6 % % Jewell % (Auto) 7.2 % % Eos % (Auto) 0.5 % % Baso % (Auto) 0.5 % % Neut # (Auto) 1.71 10^3/uL L 10 ^3/uL (1.8-7.7) Lymph # (Auto) 2.2 10^3/uL 10^3/ uL (0.8-4.8) Jewell # (Auto) 0.3 10^3/uL 10^3/ uL (0.2-0.9) Eos # (Auto) 0.0 10^3/uL 10^3/ uL (0.0-0.8) Baso # (Auto) 0.0 10^3/uL 10^3/ uL (0.0-0.1) Nucleated RBC % (a uto) 0 % % Nucleated RBCs # 0.0 /100WBC /100W BC Sodium 140 mmol/L mmol/L (136-145) Potassium 4.0 mmol/L mmol/L (3.5-5.1) Chloride 103 mmol/L mmol/L (98-107) Carbon Dioxide 28 mmol/L mmol/L (22-29) Anion Gap 13.0 (5-19) BUN 6 mg/dL mg/dL (6-20) Creatinine 0.6 mg/dL mg/dL (0.5-0.9) GFR Calculation 119.9 mL/min mL/m in (90-130) Glucose 101 mg/dL mg/dL (65-115) Calculated Osmolal ity 288 mOsm/kg mOsm/ kg (285-295) Calcium 9.0 mg/dL mg/dL (8.5-10.5) Total Bilirubin 0.3 mg/dL mg/dL (0.15-1.2) AST 30 U/L U/L (0-32) ALT 48 U/L H U/L (0-33) Alkaline Phosphata se 81 IU/L IU/L (35-105) Total Protein 7.6 g/dL g/dL (6.6-8.7) Albumin 4.1 g/dL g/dL (3.5-5.2) Globulin 3.5 g/dL g/dL (1.3-4.6) HCG, Qual Salicylates < 0.3 mg/dL L mg/ dL (3-10) Urine Opiates Scre en Acetaminophen < 5.0 ug/mL L ug/ mL (10-30) Ur Barbiturates Sc reen Ur Phencyclidine S crn Ur Amphetamines Sc reen U Benzodiazepines Scrn Urine Cocaine Scre en U Marijuana (THC) Screen SARS-CoV-2 Ag (Rap id) Negative (Negative) 02/01/21 02/01/21 13:33 13:33 WBC RBC Hgb Hct MCV MCH MCHC RDW Plt Count MPV Neut % (Auto) Lymph % (Auto) Jewell % (Auto) Eos % (Auto) Baso % (Auto) Neut # (Auto) Lymph # (Auto) Jewell # (Auto) Eos # (Auto) Baso # (Auto) Nucleated RBC % (a uto) Nucleated RBCs # Sodium Potassium Chloride Carbon Dioxide Anion Gap BUN Creatinine GFR Calculation Glucose Calculated Osmolal ity Calcium Total Bilirubin AST ALT Alkaline Phosphata se Total Protein Albumin Globulin HCG, Qual Negative (Negative) Salicylates Urine Opiates Scre en Negative ng/mL ng /mL (Negative) Acetaminophen Ur Barbiturates Sc reen Negative ng/mL ng /mL (Negative) Ur Phencyclidine S crn Negative ng/mL ng /mL (Negative) Ur Amphetamines Sc reen Positive ng/mL H ng/mL (Negative) U Benzodiazepines Scrn Negative ng/mL ng /mL (Negative) Urine Cocaine Scre en Negative ng/mL ng /mL (Negative) U Marijuana (THC) Screen Positive ng/mL H ng/mL (Negative) SARS-CoV-2 Ag (Rap id) Discharge Plan Discharge Patient Disposition: Admitted As Inpatient Clinical Impression: Suicidal ideation, Methamphetamine abuse, Cannabis abuse, Borderline personality disorder Condition: Stable Prescriptions: No Action aspirin 325 mg Tablet 325 mg PO PRN RF: 0 Tylenol Extra Strength 500 mg Tablet 1,000 mg PO PRN RF: 0 trazodone 50 mg Tablet 50 mg PO BEDTIME PRN (Reason: insomnia) 30 Days Qty: 30 RF: 1 olanzapine 5 mg Tablet 5 mg PO 0900,2100 30 Days Qty: 60 RF: 1 Coding Level of Care Code ED Director Technical for [facility] Fwd Exam Comprehensive
--- NOTE | 2021-02-01 12:08 | ECG_ITS ---
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 Measurements Intervals [place] Rate: 75 P: 77 RI: 137 QRS: 90 QRSD: 81 T: 43 QT: 384 QTc: 431 Interpretive Statements SINUS RHYTHM NONSPECIFIC T-WAVE ABNORMALITY Compared to ECG 03/12/2018 11:57:40 ST (T wave) deviation no longer present Early repolarization no longer present T-wave abnormality still present Electronically Signed On 02-02-2021 5:43:20 CDT by Marion Elizabeth M.D. [id number]
[2021-02-01 12:16] LABS: Basophils % 0.5 %; Eosinophils % 0.5 %; Hemoglobin 14.1 g/dL (11.5-15.3); Lymphocytes # 2.2 10^3/uL (0.8-4.8); Lymphocytes % 51.6 %; Mean Corpuscular Hemoglobin 29.5 pg (28.0-34.0); Mean Corpuscular Volume 92.1 fl (81-99); Mean Platelet Volume 11.1 fL (7.4-10.4); Monocytes # 0.3 10^3/uL (0.2-0.9); Monocytes % 7.2 %; Neutrophils # 1.71 10^3/uL (1.8-7.7); Nucleated Red Blood Cells % 0 %; Platelet Count 194 10^3/cmm (130-400); Red Blood Count 4.78 10^6/uL (4.1-5.3); Red Cell Distribution Width 12.9 % (12.1-15.1); White Blood Count 4.3 10^3/uL (4.0-10.0)
[2021-02-01 12:27] LABS: Alanine Aminotransferase 48 U/L (0-33); Albumin Level 4.1 g/dL (3.5-5.2); Alkaline Phosphatase 81 IU/L (35-105); Aspartate Amino Transferase 30 U/L (0-32); Blood Urea Nitrogen 6 mg/dL (6-20); Carbon Dioxide 28 mmol/L (22-29); Chloride 103 mmol/L (98-107); Globulin 3.5 g/dL (1.3-4.6); Glomerular Filtration Rate 119.9 mL/min (90-130); Glucose 101 mg/dL (65-115); Osmolality Calculated 288 mOsm/kg (285-295); Sodium 140 mmol/L (136-145); Total Bilirubin 0.3 mg/dL (0.15-1.2); Total Protein 7.6 g/dL (6.6-8.7)
[2021-02-01 12:30] LABS: Acetaminophen < 5.0 ug/mL (10-30); Salicylate < 0.3 mg/dL (3-10)
[2021-02-01 12:51] LABS: Slide Review Slide Review Perform
[2021-02-01 13:22] LABS: SARS Covid-2 Antigen Negative (Negative)
[2021-02-01 13:44] LABS: HCG Qualitative Urine. Negative (Negative)
[2021-02-01] MEDS: haloperidol inj 5 mg/mL INJ 1 mL IM (13:47)
[2021-02-01 13:52] LABS: Amphetamines Screen Urine Positive (Negative); Barbiturates Screen Urine Negative (Negative); Benzodiazepines Screen Urine Negative (Negative); Cocaine Screen Urine Negative (Negative); Opiate Screen Urine Negative (Negative); PCP Screen Urine Negative (Negative); THC Screen Urine Positive (Negative)
--- NOTE | 2021-02-01 16:49 | P.HP_ITS ---
Providers/Chief Complaint Chief Complaint: SI, COVID History of Present Illness Mara Diop is a 25 year old female with past medical history of borderline personality disorder came in with chief complaint of stress at home, primarily she was to be admitted under psychiatry, needed admission to medical floor as her Covid PCR has been positive at an outside facility 2 days back, she went to get tested as she was having fatigue, non productive cough,loss of taste. rapid antigen done today is negative. Repeat Covid PCR has been sent, psychiatry attending Dr. Soto is of the o blanka that once the PCR is back and if negative she can return to [facility], till that time she needs to be kept in isolation at medical floor. Currently she is complaining of mild cough, denies any ther Covid-like symptoms, saturating well on room air, afebrile, hemodynamically stable. Her other vitals and labs have been reviewed. Review of Systems Const: Denies: fever(s), chills, body aches, change in appetite or diaphoresis Card: Denies: palpitations, edema, swelling of feet/ankles, dyspnea on exertion, orthopnea or leg pain with exertion Resp: Denies: dyspnea, productive cough, wheezing or pain on inspiration GI: Denies: abdominal pain, nausea, vomiting, diarrhea or constipation : Denies: flank pain Musc: Denies: back pain, extremity pain or extremity swelling Neuro: Denies: headache(s), difficulty walking or confusion Medications/Allergies Home Medications Medication Instructions Recorded Confirmed Last Taken Type trazodone 50 mg PO BEDTIME PRN 30 Days #30 09/11/20 02/01/21 Unknown Rx tab Allergies Allergy/AdvReac Type Severity Reaction Status Date / Time No Known Allergies Allergy Verified 02/01/21 14:48 PFSH Acute PFSH: Social History Smoking and tobacco status: unknown if ever smoked Vitals/I&O/Wt Last Vital Signs Temp 98.2 F 02/01/21 11:27 Pulse 70 02/01/21 11:27 Resp 18 02/01/21 11:27 BP 128/73 02/01/21 11:27 Pulse Ox 99 02/01/21 11:27 Weight last 48 hrs Weight 70.307 kg Physical Exam Const: COMMON NORMALS: patient oriented x3 HENMT: COMMON NORMALS: normocephalic and atraumatic HEAD & SCALP: normocephalic and atraumatic Resp: COMMON NORMALS: clear to auscultation bilaterally AUSCULTATION: clear to auscultation bilaterally Cardio: COMMON NORMALS: regular rate, regular rhythm, S1 normal heart sound present, S2 normal heart sound present, No gallops present (Cardio), No murmurs present (Cardio), No rub (Cardio) and Peripheral pulses 2+ throughout RATE: regular rate RHYTHM: regular rhythm HEART SOUNDS: S1 normal heart sound present and S2 normal heart sound present PERIPHERAL PULSES: Peripheral pulses 2+ throughout GI: COMMON NORMALS: Normal to inspection, nondistended, normoactive bowel sounds present, Soft to palpation, non-tender, No hepatosplenomegaly present and no masses AUSCULTATION: Yes normoactive bowel sounds PALPATION: Yes Soft to palpation and Yes No hepatosplenomegaly present RECTAL EXAM: deferred Extremity: COMMON NORMALS: no clubbing, cyanosis or edema and no pedal edema Neuro: COMMON NORMALS: patient oriented x3 Data : 02/01/21 11:50 02/01/21 11:50 A&P Assessment and plan (1) COVID-19: Currently awaiting repeat Covid PCR. No clinical Covid-like symptoms. Status: Acute (2) Suicidal ideation: Appreciate psychiatry consult Status: Acute (3) Methamphetamine abuse: Status: Acute (4) Cannabis abuse: Status: Acute (5) Impulse control disorder: Status: Acute (6) Borderline personality disorder: Status: Acute (7) Major depression: Status: Acute Attestations Medical Necessity Statement*: Patient needs to be in hospital for SI. Anticipated length of stay greater than 2 midnights. Coding Level of Care Code Acute Director Quality Assurance for [facility] Fwd Exam Detailed Diagnoses COVID-19 U07.1 Suicidal ideation R45.851 Methamphetamine abuse F15.10 Cannabis abuse F12.10 Impulse control disorder F63.9 Borderline personality disorder F60.3 Major depression F32.9
[2021-02-01] MEDS: OLANZapine 5 mg ODT PO (17:07)
[2021-02-01] MEDS: enoxaparin 40 mg/0.4 mL Syringe SUBCUT (17:37)
[2021-02-02] VITALS (74 sets, daily range): BP systolic 111–157; BP diastolic 73–113; PULSE 61–106; RESP 0–28; TEMP 35.9–36.9; O2SAT 96–100
[2021-02-02 04:57] LABS: Basophils % 0.5 %; Eosinophils # 0.1 10^3/uL (0.0-0.8); Eosinophils % 1.2 %; Hematocrit 43.7 % (37.0-47.0); Hemoglobin 13.9 g/dL (11.5-15.3); Lymphocytes # 2.6 10^3/uL (0.8-4.8); Lymphocytes % 61.8 %; Mean Corpuscular HGB Conc 31.8 g/dL (30.0-36.0); Mean Corpuscular Hemoglobin 29.2 pg (28.0-34.0); Mean Corpuscular Volume 91.8 fl (81-99); Mean Platelet Volume 11.4 fL (7.4-10.4); Monocytes # 0.3 10^3/uL (0.2-0.9); Monocytes % 7.1 %; Neutrophils # 1.23 10^3/uL (1.8-7.7); Neutrophils % 29.2 %; Nucleated Red Blood Cells % 0 %; Platelet Count 181 10^3/cmm (130-400); Red Blood Count 4.76 10^6/uL (4.1-5.3); Red Cell Distribution Width 12.9 % (12.1-15.1); White Blood Count 4.2 10^3/uL (4.0-10.0)
[2021-02-02 05:17] LABS: Blood Urea Nitrogen 7 mg/dL (6-20); Calcium 8.5 mg/dL (8.5-10.5); Carbon Dioxide 23 mmol/L (22-29); Chloride 104 mmol/L (98-107); Glomerular Filtration Rate 191.5 mL/min (90-130); Glucose 89 mg/dL (65-115); Osmolality Calculated 281 mOsm/kg (285-295); Sodium 137 mmol/L (136-145)
[2021-02-02 05:20] LABS: Anion Gap 14.1 (5-19)
[2021-02-02 05:21] LABS: Potassium 4.1 mmol/L (3.5-5.1)
[2021-02-02 06:06] LABS: Slide Review Slide Review Perform
[2021-02-02] MEDS: hyDROXYzine 25 mg Capsule 50 MG PO ×2 (10:19→18:07)
--- NOTE | 2021-02-02 11:05 | PC.NURSE ---
Patient stated, I just want to go home. I want to see my daughter. It was a mistake coming to the hospital. I can not get comfortable . Raised the head of bed for the patient for comfort. Patient stated stated that she can not get comfortable and said that she is anxious. Gave the patient Vistaril. Tried to call the Patient's father and mother with video and phone chat, so the patient could see her daughter. Was not able to get in contact with them. The patient stated that her tongue felt swollen. Assessed the patient and could not see the back the throat because of the tongue. Patient stated that she did not have this trouble when eating breakfast this morning. Patient does not have any itchiness, hives, or rash. Patient is stable and oxygen is in the high 90s. Patient stated that she has had Vistaril before. Notified the doctor. Patient up to commode. Heart rate is 100, oxygen is 97%, respiration is 14, and blood pressure is 112/99 (106).
--- NOTE | 2021-02-02 11:25 | PC.NURSE ---
Reassessed patient. The swelling of the tongue has decreased. Able to see the back of the throat. Patient still does not have itchiness, hives, rash, or redness. Patient states that she feels that her tongue feels better. Oxygen is 100%, heart rate at 95, and respirations at 18. Patient is back in bed.
--- NOTE | 2021-02-02 11:30 | PC.CHAP ---
Pastoral Care Encounter/Spiritual Assessment Type of Contact [] Declined csr visit [] Patient/Family/Request visit [] Outpatient visit [] Follow-up visit [] Physician referral [] Code/Alert [x] Routine visit [] Staff referral [] Actively dying [] Patient sleeping [] Family support [] [] Out of room [] Palliative care [] [] Receiving care in room [] Pre-surgical visit [] Trauma [] Long length of stay [x] ICU visit [x] Other: covid Relational/Emotional Strength [] Patient feels connected with others/family/visitors/staff [] Distress [] Loneliness/isolation [] Abandonment Spirituality of Patient [] Person of Briseida [] Attends Scientologist of their Briseida [] Believes in Prayer [] Reads Bible or Church materials [] There are Spiritual issues to be addressed Pai Gow Manager Interventions [x] Prayer [] Active listening [] Non-anxious presence [] Spiritual/emotional support [] Crisis/trauma care [] Spiritual counseling [] Bereavement support [] Provided bereavement packet [] Provided Bible/devotional materials [] Provided toy/stuffed animal, coloring book to patient or family member [] Provided Communion [] Anointing/[place] [] Salvation [x] Completed spiritual assessment [] Other: Impact on Illness or Injury [] Angry [] Fearful [] Anxious [] Often cries [] Exhaustion [] Unable to work [] Unable to attend oriental orthodox [] Unable to walk/stand [] Unable to read [] Unable to drive [] Unable to eat/drink [] Unable to sleep [] Unable to be with family [] Patient intubated [] Other: Summary Time spent with patient
--- NOTE | 2021-02-02 12:13 | PC.NURSE ---
Called patient's parents, Josefa and Ascencion, asking if they have [employer] or Face time in order for the patient to see her daughter. Josefa said that the patient's daughter is not with her. Called Ascencion next. Ascencion stated that the patient's daughter is with her father. Asked if I could get the patient's daughter's father's number, but Ascencion stated that he does not have a phone. Updated Ascencion on the patient. Explained that the doctor report stated that the patient would stay in the hospital for at least two nights and that the reason for admin to the hospital is suicidal ideation, stated that a consult with a [facility] doctor was done, stated that the patient ate around half her breakfast, stated that the patient's labs are all normal except for her low creatinine, and asked if he had any questions. Explained to the patient that Joseaf and Ascencion were called. Explained that her daughter is with the father, and that when asked about a phone number Ascencion stated that the daughter's father did not have a phone.
--- NOTE | 2021-02-02 15:32 | PM.PN ---
Subjective Subjective: Interval history: No acute events overnight. Medications: Reviewed: Yes Vitals/I&O/Wt Last Vital Signs Temp 96.7 F L 02/02/21 12:00 Pulse 95 02/02/21 14:00 Resp 13 02/02/21 14:00 BP 136/96 02/02/21 14:00 Pulse Ox 100 02/02/21 14:00 02/02/21 02/02/21 02/02/21 06:59 14:59 22:59 Intake Total 597 / 597 Output Total 0 / 0 1000 / 1000 Balance 0 / 0 -403 / -403 Weight last 48 hrs Weight 70.307 kg Weight 70.307 kg Physical Exam Const: COMMON NORMALS: patient oriented x3 HENMT: COMMON NORMALS: normocephalic and atraumatic HEAD & SCALP: normocephalic and atraumatic Resp: COMMON NORMALS: clear to auscultation bilaterally AUSCULTATION: clear to auscultation bilaterally Cardio: COMMON NORMALS: regular rate, regular rhythm, S1 normal heart sound present, S2 normal heart sound present, No gallops present (Cardio), No murmurs present (Cardio), No rub (Cardio) and Peripheral pulses 2+ throughout RATE: regular rate RHYTHM: regular rhythm HEART SOUNDS: S1 normal heart sound present and S2 normal heart sound present PERIPHERAL PULSES: Peripheral pulses 2+ throughout GI: COMMON NORMALS: Normal to inspection, nondistended, normoactive bowel sounds present, Soft to palpation, non-tender, No hepatosplenomegaly present and no masses AUSCULTATION: Yes normoactive bowel sounds PALPATION: Yes Soft to palpation and Yes No hepatosplenomegaly present RECTAL EXAM: deferred Extremity: COMMON NORMALS: no clubbing, cyanosis or edema and no pedal edema Neuro: COMMON NORMALS: patient oriented x3 Data : 02/02/21 04:27 02/02/21 04:27 A&P Assessment and plan (1) COVID-19: Currently awaiting repeat Covid PCR. No clinical Covid-like symptoms. Status: Acute (2) Suicidal ideation: Appreciate psychiatry consult Status: Acute (3) Methamphetamine abuse: Status: Acute (4) Cannabis abuse: Status: Acute (5) Impulse control disorder: Status: Acute (6) Borderline personality disorder: Status: Acute (7) Major depression: Status: Acute Attestations Medical Necessity Statement*: Currently awaiting Covid PCR. Coding Level of Care Code Acute Clerical Proofreader for [facility] Fwd Diagnoses COVID-19 U07.1 Suicidal ideation R45.851 Methamphetamine abuse F15.10 Cannabis abuse F12.10 Impulse control disorder F63.9 Borderline personality disorder F60.3 Major depression F32.9
[2021-02-02] MEDS: enoxaparin 40 mg/0.4 mL Syringe SUBCUT (16:40)
--- NOTE | 2021-02-02 17:51 | PC.NURSE ---
Patient did not swallow and stated that her jaw is locked up.
--- NOTE | 2021-02-02 18:26 | PC.NURSE ---
All charting was reviewed and confirmed.
--- NOTE | 2021-02-02 18:30 | PC.NURSE ---
Patient stated that she felt like she was unable to swallow. Patient stated that she felt a restriction of swallowing during lunch as well. Patient refused to eat her dinner afterwards. At times the patient slobbers when drinking water. The patient also is able to swallow without coughing or clearing throat afterwards. Patient states that her jaw is locked up and that she feels anxiety. Patient is able to use incentive spectrometry and fluter valve. When using then the jaw returns to normal position. The patient opens mouth and states that it can not return to normal.
--- NOTE | 2021-02-02 18:54 | PC.NURSE ---
Shift Note Frequent safety and comfort rounds continue. Orders and/or nursing care completed as indicated. Patient monitored for response to intervention and treatment(s). Education provided includes reason for hospital stay, medications, and plan of care. Patient verbalized understanding. Patient spent most of the day sleeping. Patient had anxiety during this shift.
--- NOTE | 2021-02-02 19:16 | PC.NURSE ---
Nursing Note: Received Report from Day shift nurse (Melissa BARAJAS). Pt asleep upon arrival not really waking up for assessment. See chart for complete vs and assessments. Pt. currently resting with eyes closed; resp even and non labored. No distress noted at this time.
[2021-02-03] VITALS (27 sets, daily range): BP systolic 103–143; BP diastolic 59–102; PULSE 60–104; RESP 8–22; TEMP 36.6–37.1; O2SAT 93–100
[2021-02-03 05:24] LABS: Anion Gap 13.8 (5-19); Blood Urea Nitrogen 9 mg/dL (6-20); Calcium 8.8 mg/dL (8.5-10.5); Carbon Dioxide 24 mmol/L (22-29); Chloride 105 mmol/L (98-107); Glomerular Filtration Rate 191.5 mL/min (90-130); Glucose 88 mg/dL (65-115); Osmolality Calculated 286 mOsm/kg (285-295); Potassium 3.8 mmol/L (3.5-5.1); Sodium 139 mmol/L (136-145)
[2021-02-03 05:46] LABS: Basophils % 0.4 %; Eosinophils # 0.1 10^3/uL (0.0-0.8); Eosinophils % 1.1 %; Hematocrit 42.5 % (37.0-47.0); Hemoglobin 13.5 g/dL (11.5-15.3); Lymphocytes # 2.7 10^3/uL (0.8-4.8); Lymphocytes % 58.2 %; Mean Corpuscular HGB Conc 31.8 g/dL (30.0-36.0); Mean Corpuscular Hemoglobin 28.8 pg (28.0-34.0); Mean Corpuscular Volume 90.6 fl (81-99); Mean Platelet Volume 11.5 fL (7.4-10.4); Monocytes # 0.3 10^3/uL (0.2-0.9); Neutrophils # 1.52 10^3/uL (1.8-7.7); Neutrophils % 33.3 %; Nucleated Red Blood Cells % 0 %; Platelet Count 190 10^3/cmm (130-400); Red Blood Count 4.69 10^6/uL (4.1-5.3); Red Cell Distribution Width 12.6 % (12.1-15.1); White Blood Count 4.6 10^3/uL (4.0-10.0)
--- NOTE | 2021-02-03 06:10 | PC.NURSE ---
Nurse Note: Shift Summary: Pt alert and oriented x4, moves all extremities and follows commands. Affect flat. Slept majority of shift, resp even and non labored. All vs and assesments as charted. Denies pain. No distress noted at this time.
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
[2021-02-03] MEDS: hyDROXYzine 25 mg Capsule 50 MG PO ×2 (08:24→16:21)
[2021-02-03] MEDS: bisacodyl 5 mg Tablet 10 MG PO (08:31)
--- NOTE | 2021-02-03 08:56 | PC.NURSE ---
Patient stated, I can't believe I done this. This is the most miserable thing ever When asked what makes the patient say that and what can be done to alleviate boredom the patient stated, Its not the boredom, it's the uncomfortableness. I hate it.
--- NOTE | 2021-02-03 15:06 | PM.PN ---
Subjective Subjective: Interval history: No acute events overnight. Medications: Reviewed: Yes Vitals/I&O/Wt Last Vital Signs Temp 97.8 F 02/03/21 14:00 Pulse 85 02/03/21 14:00 Resp 16 02/03/21 14:00 BP 113/72 02/03/21 14:00 Pulse Ox 97 02/03/21 14:00 02/03/21 02/03/21 02/03/21 06:59 14:59 22:59 Intake Total 120 / 1197 835 / 835 Output Total 750 / 1750 600 / 600 Balance -630 / -553 235 / 235 Weight last 48 hrs Weight 70.307 kg Physical Exam Const: COMMON NORMALS: patient oriented x3 HENMT: COMMON NORMALS: normocephalic and atraumatic HEAD & SCALP: normocephalic and atraumatic Resp: COMMON NORMALS: clear to auscultation bilaterally AUSCULTATION: clear to auscultation bilaterally Cardio: COMMON NORMALS: regular rate, regular rhythm, S1 normal heart sound present, S2 normal heart sound present, No gallops present (Cardio), No murmurs present (Cardio), No rub (Cardio) and Peripheral pulses 2+ throughout RATE: regular rate RHYTHM: regular rhythm HEART SOUNDS: S1 normal heart sound present and S2 normal heart sound present PERIPHERAL PULSES: Peripheral pulses 2+ throughout GI: COMMON NORMALS: Normal to inspection, nondistended, normoactive bowel sounds present, Soft to palpation, non-tender, No hepatosplenomegaly present and no masses AUSCULTATION: Yes normoactive bowel sounds PALPATION: Yes Soft to palpation and Yes No hepatosplenomegaly present RECTAL EXAM: deferred Extremity: COMMON NORMALS: no clubbing, cyanosis or edema and no pedal edema Neuro: COMMON NORMALS: patient oriented x3 Data : 02/03/21 04:20 02/03/21 04:20 A&P Assessment and plan (1) COVID-19: Currently awaiting repeat Covid PCR. No clinical Covid-like symptoms. Status: Acute (2) Suicidal ideation: Appreciate psychiatry consult Status: Acute (3) Methamphetamine abuse: Status: Acute (4) Cannabis abuse: Status: Acute (5) Impulse control disorder: Status: Acute (6) Borderline personality disorder: Status: Acute (7) Major depression: Status: Acute Coding Level of Care Code Acute Wire Straightening Machine Operator for Chg Fwd Diagnoses COVID-19 U07.1 Suicidal ideation R45.851 Methamphetamine abuse F15.10 Cannabis abuse F12.10 Impulse control disorder F63.9 Borderline personality disorder F60.3 Major depression F32.9
[2021-02-03 15:07] LABS: Quest SARS-CoV-2 RNA DETECTED (NOT DETECTED)
[2021-02-03] MEDS: enoxaparin 40 mg/0.4 mL Syringe SUBCUT (16:21)
[2021-02-03] MEDS: escitalopram 10 mg Tablet PO (17:19)
--- NOTE | 2021-02-03 17:32 | PM.DCS ---
Discharge Providers Date of Admission: 02/01/21 16:45 Date of Discharge: February 03, 2021 Attending Provider at Admission: Jose Soto MD Attending Provider at Discharge: Karthik Thorne MD Diagnoses at Discharge Discharge Diagnosis (1) COVID-19: Status: Acute (2) Suicidal ideation: Status: Resolved (3) Methamphetamine abuse: Status: Acute (4) Cannabis abuse: Status: Acute (5) Impulse control disorder: Status: Acute (6) Borderline personality disorder: Status: Acute (7) Major depression: Status: Acute Reason for Visit Reason for Visit: SI, COVID Hospital Course Hospital Course Mara Diop is a 25 year old female with past medical history of borderline personality disorder came in with chief complaint of stress at home, primarily she was to be admitted under psychiatry, needed admission to medical floor as her Covid PCR has been positive at an outside facility 2 days back, she went to get tested as she was having fatigue, non productive cough,loss of taste. rapid antigen done today is negative. Repeat Covid PCR was sent, psychiatry attending Dr. Soto was of the opinion that once the PCR is back and if negative she can return to NPU, till that time she needs to be kept in isolation at medical floor. Currently she is complaining of mild cough, denies any ther Covid-like symptoms, saturating well on room air, afebrile, hemodynamically stable. She was kept in medicines with psychiatry on consult. Psychiatry cleared her for discharge as she was no longer suicidal or homicidal.There was no need for hospital stay with regards to her diagnosis of Covid-19, as she was completely asymptomatic. Repeat Covid PCR was positive.She has been asked to quarantine herself for 2 weeks and to monitor her symptoms.Patient was discharged in stable condition to home.She will continue to follow psychiatry as an outpatient. Physical Exam Const: COMMON NORMALS: patient oriented x3 HENMT: COMMON NORMALS: normocephalic and atraumatic HEAD & SCALP: normocephalic and atraumatic Resp: COMMON NORMALS: clear to auscultation bilaterally EFFORT & INSPECTION: Yes symmetric chest movement AUSCULTATION: clear to auscultation bilaterally Cardio: COMMON NORMALS: regular rate, regular rhythm, S1 normal heart sound present, S2 normal heart sound present, No gallops present (Cardio), No murmurs present (Cardio), No rub (Cardio) and Peripheral pulses 2+ throughout RATE: regular rate RHYTHM: regular rhythm HEART SOUNDS: S1 normal heart sound present and S2 normal heart sound present PERIPHERAL PULSES: Peripheral pulses 2+ throughout GI: COMMON NORMALS: Normal to inspection, nondistended, normoactive bowel sounds present, Soft to palpation, non-tender, No hepatosplenomegaly present and no masses AUSCULTATION: Yes normoactive bowel sounds PALPATION: Yes Soft to palpation and Yes No hepatosplenomegaly present RECTAL EXAM: deferred Extremity: COMMON NORMALS: no clubbing, cyanosis or edema and no pedal edema Neuro: COMMON NORMALS: patient oriented x3 Discharge Data Data Completed and Pending: Pending at discharge Category Date Time Status Basic Metabolic P jeff AM LABS Lab 02/04/21 04:00 Ordered Complete Blood Co unt w/Auto AM LABS Lab 02/04/21 04:00 Ordered Labs from last 24 hours 02/03/21 02/03/21 02/01/21 04:20 04:20 16:45 WBC 4.6 RBC 4.69 Hgb 13.5 Hct 42.5 MCV 90.6 MCH 28.8 MCHC 31.8 RDW 12.6 Plt Count 190 MPV 11.5 H Neut % (Auto) 33.3 Lymph % (Auto) 58.2 [place] % (Auto) 7.0 Eos % (Auto) 1.1 Baso % (Auto) 0.4 Neut # (Auto) 1.52 L Lymph # (Auto) 2.7 [place] # (Auto) 0.3 Eos # (Auto) 0.1 Baso # (Auto) 0.0 Nucleated RBC % (a uto) 0 Nucleated RBCs # 0.0 Sodium 139 Potassium 3.8 Chloride 105 Carbon Dioxide 24 Anion Gap 13.8 BUN 9 Creatinine 0.4 L GFR Calculation 191.5 H Glucose 88 Calculated Osmolal ity 286 Calcium 8.8 SARS-CoV-2 RNA (RT -PCR) Detected A Vitals: Last Vital Signs Temp 98.4 F 02/03/21 16:00 Pulse 70 02/03/21 16:00 Resp 15 02/03/21 16:00 BP 113/82 02/03/21 16:00 Pulse Ox 96 02/03/21 16:00 Discharge Plan Discharge Patient Disposition: Home Condition: Stable Prescriptions: New Lexapro 5 mg tablet 5 mg PO DAILY Qty: 30 RF: 1 Zyprexa 5 mg tablet 5 mg PO DAILY Qty: 30 RF: 1 Continued trazodone 50 mg Tablet 50 mg PO BEDTIME PRN (Reason: insomnia) 30 Days Qty: 30 RF: 1 Discharge Orders: Discharge Order (Routine); Ordered 02/03/21 Ordered By: Karthik Thorne Referrals: Jose Soto MD [Physician] - 2 weeks Discharge Diet: Regular Discharge Activity: Resume usual activity Patient Instructions: Depression (ED), Help Prevent Suicide (GEN), Suicide Prevention (ED), Opioid Safety Discharge Attestations Time Spent in Discharge Care*: less than 30 min Specific Discharge Activities: educating patient, educating and/or supporting family/caregiver, discussing with pcp/other providers, discussing with corrections caseworker/social workers/dc planners, documenting/other paperwork and evaluating patient/reviewing data Status at Discharge: Cognitive status at discharge: cognitively intact, Behavioral status at discharge: cooperative, Functional status at discharge: independent ambulation Overall status at discharge: patient is back to baseline Quality Metrics Clinical Quality Measures During this hospital stay, did patient experience: None Coding Level of Care Code Acute Chg FW DC note Diagnoses COVID-19 U07.1 Suicidal ideation R45.851 Methamphetamine abuse F15.10 Cannabis abuse F12.10 Impulse control disorder F63.9 Borderline personality disorder F60.3 Major depression F32.9
--- NOTE | 2021-02-03 18:32 | PC.NURSE ---
All charting reviewed and confirmed.
--- NOTE | 2021-02-03 18:52 | PC.NURSE ---
Shift Note Frequent safety and comfort rounds continue. Orders and/or nursing care completed as indicated. Patient monitored for response to intervention and treatment(s). Education provided includes medication, care plan, and discharge plan. Patient verbalized understanding. Patient took medication for anxiety twice this shift. Patient stated a desire to go home. Patient expressed happiness when discharge was ordered. Patient talked to mother once this shift. Patient talked to father multiple times this shift. Patient voiced understanding to quarantining for two weeks due to positive Covid results. Rounded with Dr. Soto and Mati. Patient waiting for father to come, because he is her ride for discharge. Report given to JENN Zavaleta.
--- NOTE | 2021-02-03 19:47 | DCPLANNER ---
Nursing Note: Discharge: Pt discharged to home at this time. All vs and assessments as charted. Pt transported per w/c per threat monitoring analyst to Hospital entrance where ride awaits. No distress noted at time of discharge.
--- NOTE | 2021-02-06 14:23 | PC.SOCIAL ---
discharge follow up call, pts father returned the call, policy writer sales had called his phone, because patients phone was no longer in service. patient was out shopping for a car. policy writer sales let father know that patient was positive for covid and she was advised to be in isolation x2 weeks, father wasn't aware of this. policy writer sales asked father to have patient call policy writer sales.
== END 2021-02-03 19:46 | disposition home or self-care (01) | DRG 178 ==
LOC: ER 14:28 → ICU 19:24
PROVIDERS: Admitting Provider Psychiatry & Neurology Psychiatry; Emergency Provider Emergency Medicine; Visit Provider Internal Medicine
DX: U07.1 COVID-19 (principal); R45.851 Suicidal ideations; F32.9 Major depressive disorder, single episode, unspecified; F60.3 Borderline personality disorder; F15.10 Other stimulant abuse, uncomplicated; F12.10 Cannabis abuse, uncomplicated; F63.9 Impulse disorder, unspecified
CPT/HCPCS: 36415; 80048; 80053; 80306; 80307; 81025; 85025; 87426; 87635; 93005; 94664; 96372; 99285; G0378; J1630; J1650

== ENCOUNTER 2021-06-11 14:14 | Inpatient (IN) | payer MEDICAID, SELFPAY ==
[2021-06-11 14:15] VITALS: BP 139/77; PULSE 87; RESP 16; TEMP 36.8; O2SAT 100; BMI 24.7
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
[2021-06-11] MEDS: LORazepam 2 mg/mL INJ 1 mL 1 MG IM (14:52)
[2021-06-11] MEDS: haloperidol inj 5 mg/mL INJ 1 mL IM (14:52)
--- NOTE | 2021-06-11 15:04 | PC.PHAR ---
pt unable to verify medications-medications entered are meds that shows has been filled recently on ext med history-notes are made in the pharmacy comments
[2021-06-11 15:17] LABS: Amphetamines Screen Urine Positive (Negative); Barbiturates Screen Urine Negative (Negative); Benzodiazepines Screen Urine Negative (Negative); Cocaine Screen Urine Negative (Negative); Opiate Screen Urine Negative (Negative); PCP Screen Urine Negative (Negative); THC Screen Urine Positive (Negative)
[2021-06-11 15:22] LABS: Basophils # 0.1 10^3/uL (0.0-0.1); Basophils % 0.5 %; Eosinophils # 0.1 10^3/uL (0.0-0.8); Eosinophils % 1.1 %; Hemoglobin 12.2 g/dL (11.5-15.3); Lymphocytes # 2.6 10^3/uL (0.8-4.8); Lymphocytes % 25.2 %; Mean Corpuscular HGB Conc 32.1 g/dL (30.0-36.0); Mean Corpuscular Hemoglobin 28.9 pg (28.0-34.0); Mean Platelet Volume 9.6 fL (7.4-10.4); Monocytes # 0.5 10^3/uL (0.2-0.9); Monocytes % 5.1 %; Neutrophils # 6.87 10^3/uL (1.8-7.7); Neutrophils % 67.8 %; Nucleated Red Blood Cells % 0 %; Platelet Count 323 10^3/cmm (130-400); Red Blood Count 4.22 10^6/uL (4.1-5.3); Red Cell Distribution Width 12.9 % (12.1-15.1); White Blood Count 10.1 10^3/uL (4.0-10.0)
[2021-06-11 15:44] LABS: Alanine Aminotransferase 15 U/L (0-33); Albumin Level 4.5 g/dL (3.5-5.2); Alkaline Phosphatase 71 IU/L (35-105); Anion Gap 14.9 (5-19); Aspartate Amino Transferase 20 U/L (0-32); Blood Urea Nitrogen 11 mg/dL (6-20); Calcium 9.5 mg/dL (8.5-10.5); Carbon Dioxide 24 mmol/L (22-29); Chloride 105 mmol/L (98-107); Globulin 2.8 g/dL (1.3-4.6); Glomerular Filtration Rate 100.4 mL/min (90-130); Glucose 88 mg/dL (65-115); Osmolality Calculated 289 mOsm/kg (285-295); Potassium 3.9 mmol/L (3.5-5.1); Sodium 140 mmol/L (136-145); Total Bilirubin 0.7 mg/dL (0.15-1.2); Total Protein 7.3 g/dL (6.6-8.7)
[2021-06-11 15:46] LABS: Acetaminophen < 5.0 ug/mL (10-30); Alcohol Level < 10 mg/dL (0-10); HCG, Serum Qual Negative (Negative); Salicylate < 0.3 mg/dL (3-10)
[2021-06-11 16:43] VITALS: BP 116/72; PULSE 85; RESP 16; O2SAT 98
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
[2021-06-11] MEDS: OLANZapine 5 mg TABLET PO (21:29)
[2021-06-11 22:00] VITALS: BP 114/55; PULSE 101; RESP 18; TEMP 37.3
[2021-06-12] MEDS: escitalopram 10 mg Tablet 5 MG PO (05:13)
[2021-06-12 06:00] VITALS: BP 109/69; PULSE 74; RESP 17; TEMP 37; O2SAT 94
--- NOTE | 2021-06-12 08:26 | PC.OT ---
OT EVALUATION ORDERS RECEIVED. PATIENT IS SLEEPING SOUNDLY; SNORING. WILL ATTEMPT AGAIN AT A LATER TIME
[2021-06-12] MEDS: lamoTRIgine 25 mg Tablet 50 MG PO (08:51)
[2021-06-12] MEDS: meloxicam 7.5 mg tablet 15 MG PO (08:51)
[2021-06-12] MEDS: lisinopril 10 mg Tablet PO (08:51)
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
[2021-06-12 13:27] VITALS: BP 102/62; PULSE 88; RESP 17; TEMP 36.8; O2SAT 97
[2021-06-12] MEDS: lurasidone 20 mg Tablet PO (16:58)
[2021-06-12] MEDS: OLANZapine 5 mg TABLET PO (20:18)
[2021-06-12 20:41] VITALS: BP 109/68; PULSE 76; RESP 17; TEMP 36.7; O2SAT 97
[2021-06-13 06:00] VITALS: BP 110/71; PULSE 98; RESP 18; TEMP 36.3; O2SAT 99
[2021-06-13] MEDS: lisinopril 10 mg Tablet PO (08:26)
[2021-06-13] MEDS: sertraline 50 mg Tablet PO (08:26)
[2021-06-13] MEDS: lamoTRIgine 25 mg Tablet 50 MG PO (08:26)
[2021-06-13] MEDS: meloxicam 7.5 mg tablet 15 MG PO (08:26)
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
[2021-06-13 14:00] VITALS: BP 124/74; PULSE 83; RESP 16; TEMP 36.8; O2SAT 96
[2021-06-13] MEDS: lurasidone 20 mg Tablet PO (16:05)
[2021-06-13] MEDS: acetaminophen 325 mg Tablet 650 MG PO (16:05)
[2021-06-13] MEDS: cyclobenzaprine 10 mg Tablet 5 MG PO (16:06)
[2021-06-13] MEDS: OLANZapine 5 mg TABLET PO (20:36)
[2021-06-13 21:48] VITALS: BP 135/76; PULSE 90; RESP 16; TEMP 36.5; O2SAT 96
[2021-06-14 06:00] VITALS: BP 122/77; PULSE 87; RESP 16; TEMP 36.3; O2SAT 98
[2021-06-14] MEDS: lisinopril 10 mg Tablet PO (09:31)
[2021-06-14] MEDS: meloxicam 7.5 mg tablet 15 MG PO (09:31)
[2021-06-14] MEDS: lamoTRIgine 25 mg Tablet 50 MG PO (09:31)
[2021-06-14] MEDS: sertraline 50 mg Tablet PO (09:32)
[2021-06-14 14:00] VITALS: BP 111/71; PULSE 77; RESP 16; TEMP 36.4; O2SAT 97
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
[2021-06-14] MEDS: lurasidone 20 mg Tablet PO (17:53)
[2021-06-14] MEDS: OLANZapine 5 mg TABLET PO (21:24)
[2021-06-14] MEDS: docusate sodium 100 mg Capsule 200 MG PO (21:24)
[2021-06-14 22:00] VITALS: BP 116/76; PULSE 82; RESP 18; TEMP 36.8; O2SAT 98
[2021-06-15 06:00] VITALS: BP 111/70; PULSE 95; RESP 16; TEMP 36.6
[2021-06-15] MEDS: meloxicam 7.5 mg tablet 15 MG PO (09:41)
[2021-06-15] MEDS: lisinopril 10 mg Tablet PO (09:41)
[2021-06-15] MEDS: sertraline 50 mg Tablet PO (09:41)
[2021-06-15] MEDS: lamoTRIgine 25 mg Tablet 50 MG PO (09:41)
[2021-06-15] MEDS: docusate sodium 100 mg Capsule 200 MG PO ×2 (11:26→20:19)
[2021-06-15] MEDS: hyDROXYzine 25 mg Capsule 50 MG PO (11:26)
[2021-06-15] MEDS: OLANZapine 5 mg ODT PO (13:25)
[2021-06-15 14:00] VITALS: BP 137/91; PULSE 99; RESP 16; TEMP 36.8; O2SAT 98
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
[2021-06-15] MEDS: lurasidone 20 mg Tablet PO (16:47)
[2021-06-15] MEDS: OLANZapine 5 mg TABLET PO (20:19)
[2021-06-15 20:55] VITALS: BP 110/68; PULSE 83; RESP 15; TEMP 37.2; O2SAT 98
[2021-06-16 06:00] VITALS: BP 121/77; PULSE 76; RESP 16; O2SAT 98
[2021-06-16] MEDS: hyDROXYzine 25 mg Capsule 50 MG PO (06:42)
--- NOTE | 2021-06-16 06:42 | PC.NURSE ---
Patient came to the nurse's station and asked for something for anxiety. I asked her why she is anxious and she said people . I asked her if something happened to get her anxious. Her reply was, I woke up . She said in a very deep sarcastic tone, Isn't it great. It's gonna be great . She got some chocolate milk and vistaril and walked away from the desk.
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
[2021-06-16] MEDS: lamoTRIgine 25 mg Tablet 50 MG PO (10:29)
[2021-06-16] MEDS: sertraline 50 mg Tablet PO (10:29)
[2021-06-16] MEDS: lisinopril 10 mg Tablet PO (10:29)
[2021-06-16] MEDS: meloxicam 7.5 mg tablet 15 MG PO (10:29)
[2021-06-16 10:46] VITALS: BP 121/77; PULSE 76; RESP 16; O2SAT 98
[2021-06-16] MEDS: OLANZapine 5 mg ODT PO (13:44)
== END 2021-06-16 14:11 | disposition home or self-care (01) | DRG 881 ==
LOC: ER 15:59 → NP 06-12 02:54
PROVIDERS: Admitting Provider Psychiatry & Neurology Psychiatry; Emergency Provider Physician Assistant; Visit Provider Psychiatry & Neurology Psychiatry
DX: F32.9 Major depressive disorder, single episode, unspecified (principal); R45.851 Suicidal ideations; T74.11XA Adult physical abuse, confirmed, initial encounter; F15.10 Other stimulant abuse, uncomplicated; F12.10 Cannabis abuse, uncomplicated; F63.9 Impulse disorder, unspecified; F60.3 Borderline personality disorder; Z63.0 Problems in relationship with spouse or partner; Z86.16 Personal history of COVID-19
CPT/HCPCS: 80053; 80306; 80307; 84703; 85025; 96372; 97150; 97165; 99285; J1630; J2060

== ENCOUNTER 2021-07-06 17:11 | Inpatient (IN) | payer MEDICAID, SELFPAY ==
[2021-07-06 17:26] VITALS: BP 152/98; PULSE 93; RESP 18; TEMP 35.9; O2SAT 98; BMI 29.0
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
[2021-07-06 17:44] LABS: Basophils # 0.1 10^3/uL (0.0-0.1); Basophils % 0.6 %; Eosinophils # 0.1 10^3/uL (0.0-0.8); Eosinophils % 0.6 %; Hematocrit 42.5 % (37.0-47.0); Hemoglobin 13.9 g/dL (11.5-15.3); Lymphocytes # 3.5 10^3/uL (0.8-4.8); Lymphocytes % 27.8 %; Mean Corpuscular HGB Conc 32.7 g/dL (30.0-36.0); Mean Corpuscular Hemoglobin 29.5 pg (28.0-34.0); Mean Corpuscular Volume 90.2 fl (81-99); Mean Platelet Volume 9.8 fL (7.4-10.4); Monocytes # 0.6 10^3/uL (0.2-0.9); Monocytes % 4.5 %; Neutrophils # 8.34 10^3/uL (1.8-7.7); Neutrophils % 66.2 %; Nucleated Red Blood Cells % 0 %; Platelet Count 426 10^3/cmm (130-400); Red Blood Count 4.71 10^6/uL (4.1-5.3); Red Cell Distribution Width 13.1 % (12.1-15.1); White Blood Count 12.6 10^3/uL (4.0-10.0)
[2021-07-06 18:06] LABS: Amphetamines Screen Urine Negative (Negative); Barbiturates Screen Urine Negative (Negative); Benzodiazepines Screen Urine Negative (Negative); Cocaine Screen Urine Negative (Negative); Opiate Screen Urine Negative (Negative); PCP Screen Urine Negative (Negative); THC Screen Urine Positive (Negative)
[2021-07-06 18:12] LABS: Alanine Aminotransferase 15 U/L (0-33); Albumin Level 4.7 g/dL (3.5-5.2); Alkaline Phosphatase 86 IU/L (35-105); Anion Gap 17.1 (5-19); Aspartate Amino Transferase 15 U/L (0-32); Blood Urea Nitrogen 13 mg/dL (6-20); Calcium 10.1 mg/dL (8.5-10.5); Carbon Dioxide 22 mmol/L (22-29); Chloride 101 mmol/L (98-107); Globulin 3.2 g/dL (1.3-4.6); Glomerular Filtration Rate 146.9 mL/min (90-130); Glucose 103 mg/dL (65-115); Lipase 23 U/L (13-60); Osmolality Calculated 282 mOsm/kg (285-295); Potassium 4.1 mmol/L (3.5-5.1); Sodium 136 mmol/L (136-145); Thyroid Stimulating Hormone 2.37 uIU/mL (0.27-4.20); Total Bilirubin 0.6 mg/dL (0.15-1.2); Total Protein 7.9 g/dL (6.6-8.7)
[2021-07-06 18:48] LABS: HCG, Serum Qual Negative (Negative)
[2021-07-06 18:53] LABS: Acetaminophen < 5.0 ug/mL (10-30); Salicylate < 0.3 mg/dL (3-10)
[2021-07-06] MEDS: hyDROXYzine 25 mg Capsule 50 MG PO (19:29)
[2021-07-06 19:51] VITALS: BP 129/76; PULSE 104; RESP 20; TEMP 36.7; O2SAT 20
[2021-07-06] MEDS: OLANZapine 5 mg ODT PO (20:20)
[2021-07-06 22:00] VITALS: BP 129/76; PULSE 104; RESP 20; TEMP 36.7; O2SAT 96
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
[2021-07-07 06:00] VITALS: RESP 17
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
[2021-07-07] MEDS: sertraline 50 mg Tablet PO (09:38)
[2021-07-07] MEDS: OLANZapine 5 mg ODT PO (09:38)
[2021-07-07 14:00] VITALS: BP 123/67; PULSE 70; RESP 17; TEMP 36.6; O2SAT 95
[2021-07-07] MEDS: lurasidone 20 mg Tablet PO (17:48)
[2021-07-07 20:32] VITALS: RESP 18
[2021-07-07] MEDS: OLANZapine 5 mg TABLET PO (20:47)
[2021-07-07] MEDS: lamoTRIgine 25 mg Tablet PO (20:47)
[2021-07-08 06:00] VITALS: RESP 16
[2021-07-08] MEDS: sertraline 50 mg Tablet PO (09:21)
[2021-07-08] MEDS: OLANZapine 5 mg ODT PO ×2 (10:06→17:07)
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
[2021-07-08] MEDS: docusate sodium 100 mg Capsule PO (12:17)
[2021-07-08] MEDS: hyDROXYzine 25 mg Capsule 50 MG PO (12:17)
[2021-07-08 14:00] VITALS: BP 144/86; PULSE 123; RESP 18; TEMP 36.6; O2SAT 96
--- NOTE | 2021-07-08 15:01 | PC.NURSE ---
PRN Medications Patient voices increase in anxiety this AM at 1000 AM, Zydis given SL as ordered. Upon assessment reports minimal effectiveness. At 1200 NOON patient reports increased anxiety. RN gave Vistiral 500 MG As ordered. Upon assessment voices effectiveness of anti-anxiety medication. No other concerns voiced.
[2021-07-08] MEDS: lurasidone 20 mg Tablet PO (17:07)
[2021-07-08] MEDS: OLANZapine 5 mg TABLET PO (21:06)
[2021-07-08] MEDS: lamoTRIgine 25 mg Tablet 50 MG PO (21:06)
[2021-07-08] MEDS: trazodone 50 mg Tablet PO (21:07)
[2021-07-09 06:00] VITALS: RESP 18
[2021-07-09] MEDS: meloxicam 7.5 mg tablet 15 MG PO (08:36)
[2021-07-09] MEDS: lamoTRIgine 25 mg Tablet 50 MG PO (08:37)
[2021-07-09] MEDS: sertraline 50 mg Tablet PO ×2 (08:37)
[2021-07-09] MEDS: lisinopril 10 mg Tablet PO (08:37)
[2021-07-09] MEDS: docusate sodium 100 mg Capsule PO (09:56)
[2021-07-09] MEDS: hyDROXYzine 25 mg Capsule 50 MG PO ×2 (09:56→17:30)
--- NOTE | 2021-07-09 09:57 | PC.NURSE ---
Addendum entered by Sarah Fuller LPN 07/09/21 14:53: PRN MED EFFECTIVE NO FURTHER C/O ANXIETY Original Note: PRN VISTARIL 50 MG GIVEN PO PER PT C/O STATED ANXIETY
--- NOTE | 2021-07-09 11:45 | NPU.GN ---
[facility] Unit Group Topic:Mental Health discussion General Mood of Group: Mara did attend and participate in group today. Hygiene was ok and so was demeanor. Mara completed [facility] paperwork with this CSS to get services.
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
[2021-07-09 14:48] VITALS: BP 123/77; PULSE 113; RESP 18; TEMP 36.7; O2SAT 96
[2021-07-09] MEDS: lurasidone 20 mg Tablet PO (16:17)
--- NOTE | 2021-07-09 17:31 | PC.NURSE ---
PRN VISTARIL 50 MG GIVEN PO PER PT C/O STATED ANXIETY
[2021-07-09] MEDS: OLANZapine 5 mg TABLET PO (20:51)
[2021-07-09] MEDS: lamoTRIgine 25 mg Tablet 100 MG PO (20:51)
[2021-07-09 21:23] VITALS: BP 135/75; PULSE 100; RESP 16; TEMP 37.1; O2SAT 96
[2021-07-10 06:00] VITALS: RESP 17
[2021-07-10] MEDS: meloxicam 7.5 mg tablet 15 MG PO (07:42)
[2021-07-10] MEDS: docusate sodium 100 mg Capsule PO (07:42)
[2021-07-10] MEDS: sertraline 50 mg Tablet PO (07:42)
[2021-07-10] MEDS: lisinopril 10 mg Tablet PO (07:42)
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
[2021-07-10 09:18] VITALS: RESP 17
[2021-07-10 10:31] VITALS: BP 135/75; PULSE 100; RESP 17; O2SAT 96
--- NOTE | 2021-07-10 11:16 | NPU.GN ---
[facility] Group Topic:Positive Coping Skills General Mood of Group: Mara did attend group today. She was social and her hygiene was ok. Her demeanor was ok.
== END 2021-07-10 13:02 | disposition home or self-care (01) | DRG 881 ==
LOC: ER 18:33 → NP 19:06
PROVIDERS: Admitting Provider Psychiatry & Neurology Psychiatry; Emergency Provider Emergency Medicine; Visit Provider Psychiatry & Neurology Psychiatry
DX: F32.A Depression, unspecified (principal); R45.851 Suicidal ideations; R45.850 Homicidal ideations; F60.3 Borderline personality disorder; F15.10 Other stimulant abuse, uncomplicated; F19.10 Other psychoactive substance abuse, uncomplicated; Z69.81 Encounter for mental health services for victim of other abuse
CPT/HCPCS: 80053; 80306; 80307; 83690; 84439; 84443; 84703; 85025; 97150; 97165; 99285

== ENCOUNTER → 2021-08-29 11:34 | Outpatient (BNVA) | payer MEDICAID, SELFPAY | PROVIDERS: Visit Provider Counselor Mental Health | DX: F60.3 Borderline personality disorder (principal); F15.10 Other stimulant abuse, uncomplicated | CPT/HCPCS: 90791 ==

== ENCOUNTER 2021-09-23 11:36 | Inpatient (IN) | payer MEDICAID, SELFPAY ==
[2021-09-23 11:51] VITALS: BP 143/87; PULSE 89; RESP 18; TEMP 36.6; O2SAT 99; BMI 29.9
--- NOTE | 2021-09-23 12:08 | ED_ITS ---
HPI - General Adult General: Chief complaint: Altered Mental Status Stated complaint: SI Time Seen by Provider: 09/23/21 11:37 History of Present Illness: 26yo patient w/ hx of depression presenting for worsening depression and suicidal ideation. Patient is currently homeless and released from [facility] rehab for meth use. Patient reports that she has thoughts of hurting herself but does not have any active plan. Patient would like to get help. On arrival, the patient is AAOx3 and cooperative with my evaluation. No focal complaints of chest pain, shortness of breath, palpitat ions, N/V, focal GI/ complaints. Currently denies HI. No complaints of hallucinations. Onset: acute on chronic Duration: ongoing Location: home Severity: severe Associated symptoms: Deny chest pain, dyspnea, nausea, rash, palpitations or vomiting Review of Systems Const: Denies: fever(s) or chills Eyes: Denies: change in vision ENMT: Denies: mouth pain Card: Denies: chest pain or palpitations Resp: Denies: dyspnea or non-productive cough GI: Denies: abdominal pain, nausea, vomiting or diarrhea : Denies: dysuria Musc: Denies: extremity pain Skin/Breast: Denies: rash or new lesions Neuro: Denies: weakness in extremities Psych: Reports: depression Guy/Lymph: Denies: easy bruising PFSH ED PFSH: Medical History Borderline personality disorder Cannabis abuse COVID-19 Impulse control disorder Major depression Methamphetamine abuse Psychiatric care Suicidal ideation Social History Smoking and tobacco status: unknown if ever smoked Physical Exam Const: COMMON NORMALS: alert HENMT: COMMON NORMALS: atraumatic HEAD & SCALP: atraumatic MOUTH: moist mucous membranes not abnormal Eye: COMMON NORMALS: EOMs intact bilaterally and conjunctivae normal CONJUNCTIVA: Yes conjunctivae normal Neck/C-Spine: COMMON NORMALS: full ROM and supple Resp: COMMON NORMALS: normal respiratory effort and clear to auscultation bilaterally AUSCULTATION: clear to auscultation bilaterally Cardio: COMMON NORMALS: regular rate RATE: regular rate GI: COMMON NORMALS: Soft to palpation and non-tender PALPATION: Yes Soft to palpation Extremity: COMMON NORMALS: full ROM Neuro: SENSORIUM/ORIENTATION: Yes alert MOTOR EXAM: No Abnormal motor strength present and Other motor observations present (no focal motor deficits) Psych: COMMON NORMALS: speech normal SPEECH: Yes normal speech MOOD & AFFECT: Yes depressed mood Course Vital Signs: Vital signs: Vital Signs Temperature 97.9 F 09/25/21 11:10 Pulse Rate 69 09/25/21 11:10 Respiratory Rate 16 09/25/21 11:10 Blood Pressure 114/78 09/25/21 11:10 Pulse Oximetry 97 09/25/21 11:10 MDM - General Adult Medical Decision Making [26]yo patient w/ hx of depression and prior polysubstance use presenting for worsening depression and SI. HDS, exam within normal limit Thoughts are linear and organized, and the patient has no AH/VH, or HI. Clinically the patient displays no overt toxidrome; they are well appearing, with low suspicion for toxic ingestion given history and exam. Symptoms unlikely 2/2 anemia, hypothyroidism, infection, or ICH. Workup: CBC, CMP, Lipase, salicylate/tylenol, HCG, ]UDS Lab findings: wnl [1:30pm] On reassessment, labs and workup wnl. Patient is hemodynamically stable with no acute medical complaints. Case discussed with psychiatric provider Dr. Lomeli at [facility] psych inpatient with recommendation for admission Disposition: Psych Lab Data : 09/23/21 11:50 09/23/21 11:50 Laboratory Results WBC 10.2 10^3/uL (4.0-10.0) H 09/23/21 11:50 RBC 4.72 10^6/uL (4.1-5.3) 09/23/21 11:50 Hgb 14.0 g/dL (11.5-15.3) 09/23/21 11:50 Hct 42.0 % (37.0-47.0) 09/23/21 11:50 MCV 89.0 fl (81-99) 09/23/21 11:50 MCH 29.7 pg (28.0-34.0) 09/23/21 11:50 MCHC 33.3 g/dL (30.0-36.0) 09/23/21 11:50 RDW 12.2 % (12.1-15.1) 09/23/21 11:50 Plt Count 324 10^3/cmm (130-400) 09/23/21 11:50 MPV 10.3 fL (7.4-10.4) 09/23/21 11:50 Neut % (Auto) 57.4 % 09/23/21 11:50 Lymph % (Auto) 35.4 % 09/23/21 11:50 Brown % (Auto) 5.3 % 09/23/21 11:50 Eos % (Auto) 1.0 % 09/23/21 11:50 Baso % (Auto) 0.6 % 09/23/21 11:50 Neut # (Auto) 5.85 10^3/uL (1.8-7.7) 09/23/21 11:50 Lymph # (Auto) 3.6 10^3/uL (0.8-4.8) 09/23/21 11:50 Brown # (Auto) 0.5 10^3/uL (0.2-0.9) 09/23/21 11:50 Eos # (Auto) 0.1 10^3/uL (0.0-0.8) 09/23/21 11:50 Baso # (Auto) 0.1 10^3/uL (0.0-0.1) 09/23/21 11:50 Nucleated RBC % (auto) 0 % 09/23/21 11:50 Nucleated RBCs # 0.0 /100WBC 09/23/21 11:50 Sodium 139 mmol/L (136-145) 09/23/21 11:50 Potassium 3.9 mmol/L (3.5-5.1) 09/23/21 11:50 Chloride 104 mmol/L (98-107) 09/23/21 11:50 Carbon Dioxide 25 mmol/L (22-29) 09/23/21 11:50 Anion Gap 13.9 (5-19) 09/23/21 11:50 BUN 10 mg/dL (6-20) 09/23/21 11:50 Creatinine 0.6 mg/dL (0.5-0.9) 09/23/21 11:50 GFR Calculation 119.0 mL/min (90-130) 09/23/21 11:50 Glucose 117 mg/dL (65-115) H 09/23/21 11:50 Calculated Osmolality 288 mOsm/kg (285-295) 09/23/21 11:50 Calcium 9.3 mg/dL (8.5-10.5) 09/23/21 11:50 Total Bilirubin 0.6 mg/dL (0.15-1.2) 09/23/21 11:50 AST 18 U/L (0-32) 09/23/21 11:50 ALT 13 U/L (0-33) 09/23/21 11:50 Alkaline Phosphatase 76 IU/L (35-105) 09/23/21 11:50 Total Protein 7.9 g/dL (6.6-8.7) 09/23/21 11:50 Albumin 4.6 g/dL (3.5-5.2) 09/23/21 11:50 Globulin 3.3 g/dL (1.3-4.6) 09/23/21 11:50 Lipase 29 U/L (13-60) 09/23/21 11:50 HCG, Qual Negative (Negative) 09/23/21 11:50 Salicylates 0.7 mg/dL (3-10) L 09/23/21 11:50 Urine Opiates Screen Negative ng/mL (Negative) 09/23/21 11:45 Acetaminophen < 5.0 ug/mL (10-30) L 09/23/21 11:50 Ur Barbiturates Screen Negative ng/mL (Negative) 09/23/21 11:45 Ur Phencyclidine Scrn Negative ng/mL (Negative) 09/23/21 11:45 Ur Amphetamines Screen Negative ng/mL (Negative) 09/23/21 11:45 U Benzodiazepines Scrn Negative ng/mL (Negative) 09/23/21 11:45 Urine Cocaine Screen Negative ng/mL (Negative) 09/23/21 11:45 U Marijuana (THC) Screen Positive ng/mL (Negative) H 09/23/21 11:45 Discharge Plan Discharge Patient Disposition: Admitted As Inpatient Admit Provider: Bautista Lomeli Clinical Impression: Depression with suicidal ideation Condition: Stable Discharge Diet: Regular Discharge Activity: Resume usual activity Coding Level of Care Code ED Supervisor [place] for [place] Fwd Exam Comprehensive
[2021-09-23 12:16] LABS: Basophils # 0.1 10^3/uL (0.0-0.1); Basophils % 0.6 %; Eosinophils # 0.1 10^3/uL (0.0-0.8); Lymphocytes # 3.6 10^3/uL (0.8-4.8); Lymphocytes % 35.4 %; Mean Corpuscular HGB Conc 33.3 g/dL (30.0-36.0); Mean Corpuscular Hemoglobin 29.7 pg (28.0-34.0); Mean Platelet Volume 10.3 fL (7.4-10.4); Monocytes # 0.5 10^3/uL (0.2-0.9); Monocytes % 5.3 %; Neutrophils # 5.85 10^3/uL (1.8-7.7); Neutrophils % 57.4 %; Nucleated Red Blood Cells % 0 %; Platelet Count 324 10^3/cmm (130-400); Red Blood Count 4.72 10^6/uL (4.1-5.3); Red Cell Distribution Width 12.2 % (12.1-15.1); White Blood Count 10.2 10^3/uL (4.0-10.0)
[2021-09-23 12:25] LABS: Amphetamines Screen Urine Negative (Negative); Barbiturates Screen Urine Negative (Negative); Benzodiazepines Screen Urine Negative (Negative); Cocaine Screen Urine Negative (Negative); Opiate Screen Urine Negative (Negative); PCP Screen Urine Negative (Negative); THC Screen Urine Positive (Negative)
[2021-09-23 12:28] LABS: HCG, Serum Qual Negative (Negative)
[2021-09-23 12:31] LABS: Alanine Aminotransferase 13 U/L (0-33); Albumin Level 4.6 g/dL (3.5-5.2); Alkaline Phosphatase 76 IU/L (35-105); Anion Gap 13.9 (5-19); Aspartate Amino Transferase 18 U/L (0-32); Blood Urea Nitrogen 10 mg/dL (6-20); Calcium 9.3 mg/dL (8.5-10.5); Carbon Dioxide 25 mmol/L (22-29); Chloride 104 mmol/L (98-107); Globulin 3.3 g/dL (1.3-4.6); Glucose 117 mg/dL (65-115); Lipase 29 U/L (13-60); Osmolality Calculated 288 mOsm/kg (285-295); Potassium 3.9 mmol/L (3.5-5.1); Salicylate 0.7 mg/dL (3-10); Sodium 139 mmol/L (136-145); Total Bilirubin 0.6 mg/dL (0.15-1.2); Total Protein 7.9 g/dL (6.6-8.7)
[2021-09-23 12:37] LABS: Acetaminophen < 5.0 ug/mL (10-30)
[2021-09-23 13:38] VITALS: BP 136/61; PULSE 66; RESP 18; TEMP 36.4; O2SAT 94
[2021-09-23 14:51] VITALS: BP 140/90; PULSE 87; RESP 17; O2SAT 98
[2021-09-23] MEDS: OLANZapine 5 mg ODT PO (15:11)
--- NOTE | 2021-09-23 15:40 | PC.NURSE ---
Patient with c/o anxiety. Patient is pacing the halls and has anxious affect. Zydis 5 mg sl given for this.
[2021-09-23 20:49] VITALS: BP 99/63; PULSE 76; RESP 16; TEMP 36.8; O2SAT 99
[2021-09-24 06:00] VITALS: BP 124/82; PULSE 92; RESP 16; TEMP 36.6; O2SAT 98
[2021-09-24] MEDS: lisinopril 10 mg Tablet PO (08:02)
[2021-09-24] MEDS: meloxicam 7.5 mg tablet 15 MG PO (08:02)
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
[2021-09-24 14:00] VITALS: BP 115/76; PULSE 91; RESP 20; TEMP 36.6; O2SAT 98
[2021-09-24] MEDS: OLANZapine 5 mg ODT PO (18:27)
--- NOTE | 2021-09-24 18:30 | PC.NURSE ---
Patient at nurses station with c/o anxiety. Patient is pacing the halls. Zydis 5 mg sl given for this.
[2021-09-24 19:39] VITALS: BP 114/78; PULSE 69; RESP 16; TEMP 36.6; O2SAT 97
[2021-09-24] MEDS: hyDROXYzine 25 mg Capsule 50 MG PO (20:28)
[2021-09-24] MEDS: trazodone 50 mg Tablet PO (20:29)
[2021-09-25] MEDS: lisinopril 10 mg Tablet PO (07:56)
[2021-09-25] MEDS: meloxicam 7.5 mg tablet 15 MG PO (07:56)
[2021-09-25] MEDS: cyclobenzaprine 10 mg Tablet 5 MG PO (07:57)
--- NOTE | 2021-09-25 07:57 | PC.NURSE ---
PRN FLEXERIL 5 MG GIVEN PO PER PT C/O SPASMS
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
[2021-09-25 11:10] VITALS: BP 114/78; PULSE 69; RESP 16; TEMP 36.6; O2SAT 97
== END 2021-09-25 13:21 | disposition home or self-care (01) | DRG 881 ==
LOC: ER 12:08 → NP 13:33
PROVIDERS: Admitting Provider Psychiatry & Neurology Psychiatry; Emergency Provider Emergency Medicine; Visit Provider Psychiatry & Neurology Psychiatry
DX: F32.A Depression, unspecified (principal); R45.851 Suicidal ideations; R45.850 Homicidal ideations; Z59.01 Sheltered homelessness; F15.10 Other stimulant abuse, uncomplicated; F60.3 Borderline personality disorder
CPT/HCPCS: 80053; 80306; 80307; 83690; 84703; 85025; 97150; 97165; 99285

== ENCOUNTER → 2021-11-17 10:40 | Outpatient (BNVA) | payer MEDICAID, SELFPAY | PROVIDERS: Visit Provider Family Medicine Adult Medicine | DX: Z34.90 Encounter for supervision of normal pregnancy, unspecified, unspecified trimester (principal) | CPT/HCPCS: 81025 ==

== ENCOUNTER 2021-11-21 13:51 | Emergency (ER) | payer MEDICAID, SELFPAY ==
[2021-11-21 14:07] VITALS: BP 148/83; PULSE 90; RESP 18; TEMP 36.6; O2SAT 99; BMI 31.4
[2021-11-21 14:22] VITALS: BP 148/83; PULSE 90; RESP 18; TEMP 36.6; O2SAT 99
--- NOTE | 2021-11-21 14:22 | ED_ITS ---
HPI - Back Pain/Injury General: Chief Complaint: Back Pain/Injury Stated Complaint: Lower back pain, hip area Time Seen by Provider: 11/21/21 14:15 Source: patient Mode of arrival: ambulatory Limitations: no limitations History of Present Illness: Patient is a 26-year-old female who presents to ED today with a complaint of chronic lower back pain. Patient states she has had pain for approximately 2 years now. She states over the past 2 weeks it seems to be worse. She states the pain to her lower back is similar to her chronic pain only worse in severity. She does have radiation into her right buttock and down the posterior lateral aspect of her right leg to about her knee. Patient is ambulatory without any difficulty. She has an appointment with PCP scheduled for 12/13. [facility] and [facility] on [facility]. MD elicited complaint: back pain Pertinent past history: prior back pain Onset (ago): year(s) Timing: constant Severity: moderate Similar Symptoms Previously: Yes Location: lumbar spine and right lower back Radiation: buttocks and right upper leg Exacerbating factors: movement and lifting Relieving factors: none Associated symptoms: Reports no associated symptoms; Deny abdominal pain, chills, difficulty walking, dysuria, fatigue, fever(s) or hematuria Work related injury: No Review of Systems Const: Denies: fever(s), chills, body aches, fatigue or malaise Card: Denies: chest pain Resp: Denies: dyspnea GI: Denies: abdominal pain : Denies: flank pain, dysuria or hematuria Musc: Reports: back pain; Denies: neck pain, extremity pain, extremity swelling, joint pain, joint swelling, joint redness, joint warmth or limited range of motion Skin/Breast: Denies: rash Neuro: Denies: headache(s), weakness in extremities, sensory changes, lack of coordination or difficulty walking PFS ED PFSH: Medical History Borderline personality disorder Cannabis abuse COVID-19 Evaluation regarding contraception options Impulse control disorder Major depression Methamphetamine abuse Psychiatric care Suicidal ideation Social History Smoking and tobacco status: current every day smoker Physical Exam Const: COMMON NORMALS: no acute distress, average body habitus, patient oriented x3, no limitations, alert and well nourished GENERAL APPEARANCE: cooperative Neck/C-Spine: COMMON NORMALS: full ROM, no lymphadenopathy and no meningeal signs GENERAL: Yes normal visual inspection CERVICAL SPINE: Yes cervical ROM normal, No Cervical spine tenderness and No Paracervical muscle tenderness : COMMON NORMALS: Yes no CVA tenderness BLADDER/KIDNEY EXAM: Yes no CVA tenderness Back/Pelvis: COMMON NORMALS: no CVA tenderness THORACIC SPINE/UPPER BACK: Yes normal to inspection, No thoracic spinal tenderness, No paraspinal muscle tenderness and No paraspinal muscle spasm LUMBAR SPINE/LOWER BACK: No lumbar spinal tenderness, Yes paraspinal muscle tenderness Lumbar paraspinal muscle tenderness: right and No paraspinal muscle spasm PELVIS: Yes buttock abnormal (TTP R buttock) SACROILIAC JOINTS: Yes SI joint(s) abnormal (TTP R) SACRUM: no tenderness COCCYX: no tenderness Neuro: COMMON NORMALS: patient oriented x3 SENSORIUM/ORIENTATION: Yes alert MENINGEAL SIGNS: Yes no meningeal signs Course Vital Signs: Vital signs: Vital Signs Temperature 97.8 F 11/21/21 14:22 Pulse Rate 90 11/21/21 14:22 Respiratory Rate 18 11/21/21 14:22 Blood Pressure 148/83 11/21/21 14:22 Pulse Oximetry 99 11/21/21 14:22 Oxygen Delivery Me thod 11/21/21 14:22 MDM - Back Pain/Injury Medical Decision Making Patient here with acute on chronic lower back pain. She was recently put on anti-inflammatories and relaxers. We will add steroids. She can follow-up with her PCP on her scheduled visit. I do not see any indication for emergent imagin g on today's visit based on chronicity of symptoms. Discharge Plan Discharge Patient Disposition: Home Clinical Impression: Acute exacerbation of chronic low back pain Condition: Stable Prescriptions: New methylprednisolone [Medrol (Ronal)] 4 mg tablets,dose pack See Rx Instructions .ROUTE .COMPLEX Qty: 21 0RF Rx Instructions: orally per package directions No Action trazodone 50 mg Tablet 50 mg PO BEDTIME PRN (Reason: insomnia) 30 Days Qty: 30 1RF Discharge Orders: Discharge ED (Routine); Ordered 11/21/21 Ordered By: Bonita Morrissey Coding Level of Care Code ED [place] Pin Worker for g Fwmedardo
== END 2021-11-21 14:52 | disposition home or self-care (01) ==
PROVIDERS: Emergency Provider Physician Assistant
DX: G89.29 Other chronic pain (principal); M54.50 Low back pain, unspecified; F17.210 Nicotine dependence, cigarettes, uncomplicated
CPT/HCPCS: 99283

== ENCOUNTER → 2022-01-01 14:17 | Outpatient (BNVA) | payer MEDICAID, SELFPAY | PROVIDERS: Visit Provider Psychiatry & Neurology Neurology | DX: F60.3 Borderline personality disorder (principal) | CPT/HCPCS: 80061; 83036 ==

== ENCOUNTER 2022-01-17 10:41 | Emergency (ER) | payer MEDICAID, SELFPAY ==
[2022-01-03 16:36] VITALS: BP 138/88; BMI 35.0
--- NOTE | 2022-01-17 11:03 | W.ED.GENADLT ---
HPI - General Adult General: Chief complaint: Psychiatric Symptoms Stated complaint: HI Time Seen by Provider: 01/17/22 11:00 History of Present Illness: HPI: [26]yo patient w/ hx of OCD and prior substance use presenting to the emergency room from assisted living for concerns of homicidal ideation. Patient tells me that she was really upset with her service coordinator elderly facility and has plans to hurt this coordinator. Patient tells me that she plans to punch this person if she sees this person again. on arrival, the patient is AAOx3 and cooperative with my evaluation. No focal complaints of chest pain, shortness of breath, palpitations, N/V, focal GI/ complaints. Currently denies HI. No complaints of hallucinations. Onset: acute Duration: ongoing Location: home Severity: severe Associated symptoms: Deny chest pain, dyspnea, nausea, rash, palpitations or vomiting Review of Systems Const: Denies: fever(s) or chills Eyes: Denies: change in vision ENMT: Denies: mouth pain Card: Denies: chest pain or palpitations Resp: Denies: dyspnea or non-productive cough GI: Denies: abdominal pain, nausea, vomiting or diarrhea : Denies: dysuria Musc: Denies: extremity pain Skin/Breast: Denies: rash or new lesions Neuro: Denies: weakness in extremities Psych: Reports: homicidal ideation and other (Normal mood) Guy/Lymph: Denies: easy bruising PFSH ED PFSH: Medical History Borderline personality disorder Cannabis abuse COVID-19 Evaluation regarding contraception options Impulse control disorder Major depression Methamphetamine abuse Psychiatric care Suicidal ideation Family History Other Diabetes Lung disease Rheumatoid arthritis Social History Smoking and tobacco status: current every day smoker e-cigarettes E-Cigarette Details: with nicotine E-cig/vape details: 1 week to go through a tank Quit status (tobacco): considering quitting Second hand smoke exposure: Yes Smoking risk assessment/counseling performed?: Yes Alcohol intake: former Year of sobriety/quit date alcohol: 2021 Adopted: No Caregiver/support person: No Lives independently: No Household members: other Details: SOC Housing: Homeless Marital status: Single Number of children: 2 Highest education level completed: Some College, No Degree service: No Current occupational status: employed 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 Pets and animals: No History of recent travel: No Leisure activites: music Sexually active: No Current gender identity: Female Briseida/Oriental Orthodox: None Special briseida needs: No Agree to transfusion: Yes Financial difficulty paying for basics: Somewhat Hard Female Reproductive History: Para: 2 Spontaneous abortions: Yes Physical Exam Const: COMMON NORMALS: alert HENMT: COMMON NORMALS: atraumatic HEAD & SCALP: atraumatic MOUTH: moist mucous membranes not abnormal Eye: COMMON NORMALS: EOMs intact bilaterally and conjunctivae normal CONJUNCTIVA: Yes conjunctivae normal Neck/C-Spine: COMMON NORMALS: full ROM and supple Resp: COMMON NORMALS: normal respiratory effort and clear to auscultation bilaterally AUSCULTATION: clear to auscultation bilaterally Cardio: COMMON NORMALS: regular rate RATE: regular rate GI: COMMON NORMALS: Soft to palpation and non-tender PALPATION: Yes Soft to palpation Extremity: COMMON NORMALS: full ROM Neuro: SENSORIUM/ORIENTATION: Yes alert MOTOR EXAM: No Abnormal motor strength present and Other motor observations present (no focal motor deficits) Psych: COMMON NORMALS: speech normal SPEECH: Yes normal speech MOOD & AFFECT: Yes euthymic mood Course Vital Signs: Vital signs: Vital Signs Temperature 97.9 F 01/17/22 11:06 Pulse Rate 98 01/17/22 11:06 Respiratory Rate 16 01/17/22 11:06 Blood Pressure 119/83 01/17/22 11:06 Pulse Oximetry 97 01/17/22 11:06 Oxygen Delivery Me thod 01/17/22 11:06 MDM - General Adult Medical Decision Making [26]yo patient w/ hx of OCD and prior polysubstance use presenting for homocidal thoughts with possible plan. HDS, exam within normal limit Thoughts are linear and organized, and the patient has no AH/VH, or HI. Clinically the patient displays no overt toxidrome; they are well appearing, with low suspicion for toxic ingestion given history and exam. Symptoms unlikely 2/2 anemia, hypothyroidism, infection, or ICH. Workup: CBC, CMP, Lipase, salicylate/tylenol, serum ethanol, UDS Lab findings: wnl [12:45pm] On reassessment, labs and workup wnl. Patient is hemodynamically stable with no acute medical complaints. Case discussed with psychiatric provider Dr. Ching at [facility] inpatient who evaluated patient via telepsych and recommended discharge with close follow-up. Dr. Ching recommended zoloft 50mg Qdaily, hydroxyzine 25mg TID, and trazodone 50mg for agitation and anxiety. I have given patient follow up with our foster care case manager to be seen by our outpatient [facility] for homicidal ideation. Patient aware of a call from our foster care case manager to schedule for appointment(s) and verbalizes understanding of the importance of following up. zoloft 50mg Qdaily, hydroxyzine 25mg TID PRN anxiety and agitation, and trazodone 50mg PRN agitation and anxiety. Disposition: Discharge Lab Data : 01/17/22 12:15 01/17/22 12:15 Laboratory Results WBC 8.6 10^3/uL (4.0-10.0) 01/17/22 12:15 RBC 4.51 10^6/uL (4.1-5.3) 01/17/22 12:15 Hgb 13.7 g/dL (11.5-15.3) 01/17/22 12:15 Hct 42.0 % (37.0-47.0) 01/17/22 12:15 MCV 93.1 fl (81-99) 01/17/22 12:15 MCH 30.4 pg (28.0-34.0) 01/17/22 12:15 MCHC 32.6 g/dL (30.0-36.0) 01/17/22 12:15 RDW 13.0 % (12.1-15.1) 01/17/22 12:15 Plt Count 267 10^3/cmm (130-400) 01/17/22 12:15 MPV 9.9 fL (7.4-10.4) 01/17/22 12:15 Neut % (Auto) 59.2 % 01/17/22 12:15 Lymph % (Auto) 34.9 % 01/17/22 12:15 [place] % (Auto) 4.4 % 01/17/22 12:15 Eos % (Auto) 0.9 % 01/17/22 12:15 Baso % (Auto) 0.5 % 01/17/22 12:15 Neut # (Auto) 5.09 10^3/uL (1.8-7.7) 01/17/22 12:15 Lymph # (Auto) 3.0 10^3/uL (0.8-4.8) 01/17/22 12:15 [place] # (Auto) 0.4 10^3/uL (0.2-0.9) 01/17/22 12:15 Eos # (Auto) 0.1 10^3/uL (0.0-0.8) 01/17/22 12:15 Baso # (Auto) 0.0 10^3/uL (0.0-0.1) 01/17/22 12:15 Nucleated RBC % (auto) 0 % 01/17/22 12:15 Nucleated RBCs # 0.0 /100WBC 01/17/22 12:15 Sodium 140 mmol/L (136-145) 01/17/22 12:15 Potassium 4.2 mmol/L (3.5-5.1) 01/17/22 12:15 Chloride 106 mmol/L (98-107) 01/17/22 12:15 Carbon Dioxide 25 mmol/L (22-29) 01/17/22 12:15 Anion Gap 13.2 (5-19) 01/17/22 12:15 BUN 12 mg/dL (6-20) 01/17/22 12:15 Creatinine 0.6 mg/dL (0.5-0.9) 01/17/22 12:15 GFR Calculation 119.0 mL/min (90-130) 01/17/22 12:15 Glucose 98 mg/dL (65-115) 01/17/22 12:15 Calculated Osmolality 290 mOsm/kg (285-295) 01/17/22 12:15 Calcium 9.9 mg/dL (8.5-10.5) 01/17/22 12:15 Total Bilirubin 0.9 mg/dL (0.15-1.2) 01/17/22 12:15 AST 19 U/L (0-32) 01/17/22 12:15 ALT 18 U/L (0-33) 01/17/22 12:15 Alkaline Phosphatase 72 U/L (35-105) 01/17/22 12:15 Total Protein 7.7 g/dL (6.6-8.7) 01/17/22 12:15 Albumin 4.4 g/dL (3.5-5.2) 01/17/22 12:15 Globulin 3.3 g/dL (1.3-4.6) 01/17/22 12:15 Lipase 34 U/L (13-60) 01/17/22 12:15 Urine HCG, Qual Negative (Negative) 01/17/22 13:26 Salicylates < 0.3 mg/dL (3-10) L 01/17/22 12:15 Acetaminophen < 5.0 ug/mL (10-30) L 01/17/22 12:15 Discharge Plan Discharge Patient Disposition: Home Clinical Impression: Aggressive behavior Condition: Stable Prescriptions: New Zoloft 50 mg tablet 25 mg PO DAILY 14 Days Qty: 14 0RF hydroxyzine HCl 25 mg tablet 25 mg PO Q8H PRN (Reason: agitation) Qty: 21 0RF trazodone 50 mg tablet 25 mg PO DAILY PRN (Reason: agitation and insomnia) 20 Days Qty: 20 0RF No Action diclofenac sodium 75 mg tablet,delayed release (DR/EC) 75 mg PO BID medroxyprogesterone [Depo-Provera] 150 mg/mL suspension 150 mg IM Q90D Rx Instructions: Last injection 12.13.21 tizanidine 4 mg tablet 4 mg PO TID PRN (Reason: Muscle Spasm) Tylenol Ex Str Rapid Release 500 mg Tablet 1,000 mg PO TID PRN (Reason: Pain) Discharge Orders: Discharge ED (Routine); Ordered 01/17/22 Ordered By: Elizabeth Dominguez Discharge Diet: Advance as tolerated Discharge Activity: Increase activity as tolerated Patient Instructions: Opioid Safety, Pain Management Activity Restrictions/Additional Instructions: Please come back to the emergency room if you need help, have any hallucinations, or you have any depression or have thoughts about hurting yourself or other people. Coding Level of Care Code ED Java Security Architect for Estrella Fwd Exam Comprehensive
[2022-01-17 11:06] VITALS: BP 119/83; PULSE 98; RESP 16; TEMP 36.6; O2SAT 97; BMI 32.3
--- NOTE | 2022-01-17 12:05 | PC.PHAR ---
pt states she takes care of her own medications-pt states she hasnt taken trazodone 50mg hs (filled 09/25/21 30d/s)hydroxyzine pamoate 25mg 2 cap q6h prn (filled 09/25/21 30d/s)-mobic 15mg daily (filled 08/20/21 30d/s) lisinopril 10mg daily (filled 08/20/21 30d/s) latuda 20mg daily (filled 08/06/21 30d/s) sertraline 50mg daily (filled 08/01/21 30d/s)pt states not taken in months at least 4 months-pt states only taking the medications entered-notes are made in the pharmacy comments
[2022-01-17 12:22] LABS: Basophils % 0.5 %; Eosinophils # 0.1 10^3/uL (0.0-0.8); Eosinophils % 0.9 %; Hemoglobin 13.7 g/dL (11.5-15.3); Lymphocytes % 34.9 %; Mean Corpuscular HGB Conc 32.6 g/dL (30.0-36.0); Mean Corpuscular Hemoglobin 30.4 pg (28.0-34.0); Mean Corpuscular Volume 93.1 fl (81-99); Mean Platelet Volume 9.9 fL (7.4-10.4); Monocytes # 0.4 10^3/uL (0.2-0.9); Monocytes % 4.4 %; Neutrophils # 5.09 10^3/uL (1.8-7.7); Neutrophils % 59.2 %; Nucleated Red Blood Cells % 0 %; Platelet Count 267 10^3/cmm (130-400); Red Blood Count 4.51 10^6/uL (4.1-5.3); White Blood Count 8.6 10^3/uL (4.0-10.0)
[2022-01-17 12:47] LABS: Alanine Aminotransferase 18 U/L (0-33); Albumin Level 4.4 g/dL (3.5-5.2); Alkaline Phosphatase 72 U/L (35-105); Anion Gap 13.2 (5-19); Aspartate Amino Transferase 19 U/L (0-32); Blood Urea Nitrogen 12 mg/dL (6-20); Calcium 9.9 mg/dL (8.5-10.5); Carbon Dioxide 25 mmol/L (22-29); Chloride 106 mmol/L (98-107); Globulin 3.3 g/dL (1.3-4.6); Glucose 98 mg/dL (65-115); Lipase 34 U/L (13-60); Osmolality Calculated 290 mOsm/kg (285-295); Potassium 4.2 mmol/L (3.5-5.1); Sodium 140 mmol/L (136-145); Total Bilirubin 0.9 mg/dL (0.15-1.2); Total Protein 7.7 g/dL (6.6-8.7)
[2022-01-17 12:49] LABS: Acetaminophen < 5.0 ug/mL (10-30); Salicylate < 0.3 mg/dL (3-10)
--- NOTE | 2022-01-17 14:55 | PC.NURSE ---
pt admits to homicidal ideation. 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 When asked about homicidal thoughts, pt reported yes and that she would love to go to her house, pt paused after that. pt then stated that she wishes that person was not alive and that she is a demon and it brings the anger onto her. as pt was discussing these thoughts with nurse, pts voice noted to increase and pt became visibly upset, angry, and tearful. pt denies SI or hallucinations.
[2022-01-17] MEDS: nicotine 21 mg Patch 1 PATCH TRANSDERMA (15:08)
[2022-01-17] MEDS: LORazepam 1 mg Tablet PO (15:28)
[2022-01-17 16:29] VITALS: BP 139/88; PULSE 98; RESP 16; O2SAT 98
[2022-01-17 18:30] LABS: Amphetamines Screen Urine Negative (Negative); Barbiturates Screen Urine Negative (Negative); Benzodiazepines Screen Urine Negative (Negative); Cocaine Screen Urine Negative (Negative); Opiate Screen Urine Negative (Negative); PCP Screen Urine Negative (Negative); THC Screen Urine Positive (Negative)
--- NOTE | 2022-01-18 07:57 | DCPLANNER ---
Addendum entered by Hollie Krueger 02/07/22 10:51: Patient had follow up with [facility] - patient did attend appointment. Original Note: money manager had message to schedule a follow up appointment for patient with C. money manager sent patients information to the scheduling department at [facility] and also to Siobhan Boykin at [facility] for follow up. Patients information will be reviewed. Clinic will call patient with appointment information.
== END 2022-01-17 16:32 | disposition home or self-care (01) ==
PROVIDERS: Emergency Provider Emergency Medicine
DX: R45.6 Violent behavior (principal); F17.290 Nicotine dependence, other tobacco product, uncomplicated
CPT/HCPCS: 36415; 80053; 80306; 80307; 81025; 83690; 85025; 99285

== ENCOUNTER → 2022-01-26 15:58 | Outpatient (BNVA) | payer MEDICAID, SELFPAY ==
[2022-01-03 16:36] VITALS: BP 138/88; BMI 35.0
== END ==
PROVIDERS: Visit Provider Family Medicine Adult Medicine
DX: R11.2 Nausea with vomiting, unspecified (principal)
CPT/HCPCS: 81025

== ENCOUNTER 2022-01-29 08:48 | Emergency (ER) | payer MEDICAID, SELFPAY ==
[2022-01-03 16:36] VITALS: BP 138/88; BMI 35.0
[2022-01-29 09:08] VITALS: BP 127/85; PULSE 90; RESP 18; TEMP 36.6; O2SAT 98; BMI 32.3
[2022-01-29 09:31] VITALS: BP 138/81; PULSE 74; RESP 18; O2SAT 97
--- NOTE | 2022-01-29 09:36 | ED_ITS ---
Documented by User: REECE Meier 01/29/22 10:53 HPI - Nausea/Vomiting/Diarrhea General: Chief complaint: Nausea/Vomiting/Diarrhea Stated complaint: N/V Time Seen by Provider: 01/29/22 09:14 History of Present Illness: Patient is a 26-year-old female that comes to the ED with nausea and vomiting. Symptoms have been on and off for the past 2 weeks. She endorses having chills. Patient receives Depo shot but does not know when her last menstrual period date. She took a test 2 days ago and it was negative. Patient's nausea and vomiting is worse in the morning and she will has episodes of emesis in the morning. The rest of the day from lunch and dinner she has no problems keeping food or fluids down. Denies any fevers, abdominal pain, bladder or bowel symptoms, cough, shortness of breath or any other upper respiratory symptoms. Associated nausea: Yes Associated symtoms: Reports nausea; Denies change in vision, chest pain, dysuria, fatigue, headache(s) or palpit ations Review of Systems Const: Denies: fever(s), chills or fatigue Eyes: Denies: change in vision or eye discomfort ENMT: Denies: throat pain, odynophagia, nasal discharge or nasal congestion Card: Denies: chest pain, palpitations, edema, swelling of feet/ankles, dyspnea on exertion or orthopnea Resp: Denies: dyspnea, productive cough or non-productive cough GI: Reports: nausea and vomiting; Denies: abdominal pain, diarrhea, constipation or hematochezia : Denies: flank pain, dysuria or hematuria Musc: Denies: neck pain, back pain or extremity swelling Skin/Breast: Denies: rash or new lesions Neuro: Denies: headache(s), numbness in extremities or weakness in extremities PFSH ED PFSH: Medical History Borderline personality disorder Cannabis abuse COVID-19 Evaluation regarding contraception options Impulse control disorder Major depression Major depressive disorder, recurrent severe without psychotic features Methamphetamine abuse Nausea alone Psychiatric care Suicidal ideation Surgical History History of knee surgery Status post myringotomy with tube placement of both ears Family History Other Diabetes Lung disease Rheumatoid arthritis Social History Smoking and tobacco status: current every day smoker e-cigarettes E-Cigarette Details: with nicotine E-cig/vape details: 1 week to go through a tank Quit status (tobacco): considering quitting Second hand smoke exposure: Yes Smoking risk assessment/counseling performed?: Yes Alcohol intake: former Year of sobriety/quit date alcohol: 2021 Adopted: No Caregiver/support person: No Lives independently: No Household members: other Details: SOC Housing: Homeless Marital status: Single Number of children: 2 Highest education level completed: Some College, No Degree service: No Current occupational status: employed 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 Pets and animals: No History of recent travel: No Leisure activites: music Sexually active: No Current gender identity: Female Briseida/Islam: None Special briseida needs: No Agree to transfusion: Yes Financial difficulty paying for basics: Somewhat Hard Female Reproductive History: Para: 2 Spontaneous abortions: Yes Physical Exam Const: COMMON NORMALS: patient oriented x3 and alert HENMT: COMMON NORMALS: normocephalic HEAD & SCALP: normocephalic MOUTH: Normal oral and palatal mucosa present THROAT: posterior oropharynx normal and uvula midline Eye: COMMON NORMALS: Equal, round and reactive pupils present and conjunctivae normal GENERAL EYE: appearance normal, both eyes and all related structures CONJUNCTIVA: Yes conjunctivae normal PUPIL: Yes Equal, round and reactive pupils present Neck/C-Spine: COMMON NORMALS: supple GENERAL: Yes normal visual inspection Resp: COMMON NORMALS: normal respiratory effort, No retractions, No use of accessory muscles and clear to auscultation bilaterally AUSCULTATION: clear to auscultation bilaterally Cardio: COMMON NORMALS: regular rate, regular rhythm, S1 normal heart sound present, S2 normal heart sound present, No gallops present (Cardio), No clicks present (Cardio), No murmurs present (Cardio) and Peripheral pulses 2+ throughout RATE: regular rate RHYTHM: regular rhythm HEART SOUNDS: S1 normal heart sound present and S2 normal heart sound present PERIPHERAL PULSES: Peripheral pulses 2+ throughout GI: COMMON NORMALS: Normal to inspection, nondistended, normoactive bowel sounds present, Soft to palpation, non-tender and no masses PALPATION: Yes Soft to palpation : COMMON NORMALS: Yes no CVA tenderness BLADDER/KIDNEY EXAM: Yes no CVA tenderness Back/Pelvis: COMMON NORMALS: no CVA tenderness Extremity: COMMON NORMALS: normal to inspection Neuro: COMMON NORMALS: patient oriented x3 SENSORIUM/ORIENTATION: Yes alert GAIT: Yes Normal gait present Skin: GENERAL SKIN EXAM: dry skin Course Vital Signs: Vital signs: Vital Signs Temperature 97.8 F 01/29/22 09:08 Pulse Rate 62 01/29/22 11:11 Respiratory Rate 18 01/29/22 10:54 Blood Pressure 126/79 01/29/22 11:11 Pulse Oximetry 100 01/29/22 11:11 Oxygen Delivery Me thod 01/29/22 10:54 MDM - Nausea/Vomiting/Diarrhea Medical Decision Making Patient is a 26-year-old female that comes to the ED with nausea and vomiting. Denies any fevers, abdominal pain or UTI symptoms. Symptoms have been going on for the past 2 weeks and she states that the nausea vomiting is worse in the mornings and the resolves the rest of the day. Vitals are stable. Exam is benign and patient has no abdominal tenderness. CBC and CMP were unremarkable. UA shows signs of UTI with a lot of white blood cells and bacteria present. Patient was given IV fluids and Zofran and passed p.o. fluid challenge here in the ED. Patient diagnosed with UTI, nausea and vomiting and was discharged home with a prescription for cefdinir and Zofran. Told to follow-up with PCP in the next week for reevaluation. Return to ED precautions given. Patient understood and agreed with plan. Lab Data I reviewed the patient's lab results. : 01/29/22 09:32 01/29/22 09:32 Laboratory Results WBC 6.6 10^3/uL (4.0-10.0) 01/29/22 09:32 RBC 4.35 10^6/uL (4.1-5.3) 01/29/22 09:32 Hgb 13.3 g/dL (11.5-15.3) 01/29/22 09:32 Hct 39.8 % (37.0-47.0) 01/29/22 09:32 MCV 91.5 fl (81-99) 01/29/22 09:32 MCH 30.6 pg (28.0-34.0) 10/11/22 09:32 MCHC 33.4 g/dL (30.0-36.0) 01/29/22 09:32 RDW 12.4 % (12.1-15.1) 01/29/22 09:32 Plt Count 271 10^3/cmm (130-400) 01/29/22 09:32 MPV 10.2 fL (7.4-10.4) 01/29/22 09:32 Neut % (Auto) 54.5 % 01/29/22 09:32 Lymph % (Auto) 36.4 % 01/29/22 09:32 [place] % (Auto) 6.2 % 01/29/22 09:32 Eos % (Auto) 2.1 % 01/29/22 09:32 Baso % (Auto) 0.5 % 01/29/22 09:32 Neut # (Auto) 3.60 10^3/uL (1.8-7.7) 01/29/22 09:32 Lymph # (Auto) 2.4 10^3/uL (0.8-4.8) 01/29/22 09:32 [place] # (Auto) 0.4 10^3/uL (0.2-0.9) 01/29/22 09:32 Eos # (Auto) 0.1 10^3/uL (0.0-0.8) 01/29/22 09:32 Baso # (Auto) 0.0 10^3/uL (0.0-0.1) 01/29/22 09:32 Nucleated RBC % (auto) 0 % 01/29/22 09:32 Nucleated RBCs # 0.0 /100WBC 01/29/22 09:32 Sodium 139 mmol/L (136-145) 01/29/22 09:32 Potassium 4.6 mmol/L (3.5-5.1) 01/29/22 09:32 Chloride 106 mmol/L (98-107) 01/29/22 09:32 Carbon Dioxide 24 mmol/L (22-29) 01/29/22 09:32 Anion Gap 13.6 (5-19) 01/29/22 09:32 BUN 13 mg/dL (6-20) 01/29/22 09:32 Creatinine 0.7 mg/dL (0.5-0.9) 01/29/22 09:32 GFR Calculation 99.6 mL/min (90-130) 01/29/22 09:32 Glucose 101 mg/dL (65-115) 01/29/22 09:32 Calculated Osmolality 288 mOsm/kg (285-295) 01/29/22 09:32 Calcium 9.7 mg/dL (8.5-10.5) 01/29/22 09:32 Total Bilirubin 0.4 mg/dL (0.15-1.2) 01/29/22 09:32 AST 13 U/L (0-32) 01/29/22 09:32 ALT 14 U/L (0-33) 01/29/22 09:32 Alkaline Phosphatase 68 U/L (35-105) 01/29/22 09:32 Total Protein 7.3 g/dL (6.6-8.7) 01/29/22 09:32 Albumin 4.2 g/dL (3.5-5.2) 01/29/22 09:32 Globulin 3.1 g/dL (1.3-4.6) 01/29/22 09:32 Lipase 33 U/L (13-60) 01/29/22 09:32 HCG, Qual Negative (Negative) 01/29/22 09:32 Urine Color Yellow (Yellow) 01/29/22 09:50 Urine Appearance Clear (CLEAR) 01/29/22 09:50 Urine pH 7 (5-7) 01/29/22 09:50 Ur Specific [place] 1.010 (1.005-1.030) 01/29/22 09:50 Urine Protein Neg (Negative) 01/29/22 09:50 Urine Glucose (UA) Norm (Normal) 01/29/22 09:50 Urine Ketones Negative (Negative) 01/29/22 09:50 Urine Blood Neg (Negative) 01/29/22 09:50 Urine Nitrate Negative (Negative) 01/29/22 09:50 Urine Bilirubin Neg (Negative) 01/29/22 09:50 Urine Urobilinogen Norm mg/dL (Negative) 01/29/22 09:50 Ur Leukocyte Esterase 2+ (Negative) H 01/29/22 09:50 Urine RBC 0-4 /hpf (0-2) H 01/29/22 09:50 Urine WBC 40-55 /hpf (0-5) H 01/29/22 09:50 Ur Squamous Epith Cells 0-4 /hpf (0-5) H 01/29/22 09:50 Amorphous Sediment Not Reportable 01/29/22 09:50 Urine Bacteria 2+ /hpf (NONE) H 01/29/22 09:50 Discharge Plan Discharge Patient Disposition: Home Clinical Impression: UTI (urinary tract infection) Qualifiers: Urinary tract infection type: acute cystitis Hematuria presence: with hematuria Qualified Code(s): N30.01 - Acute cystitis with hematuria Nausea and vomiting Qualifiers: Vomiting type: unspecified Qualified Code(s): R11.2 - Nausea with vomiting, unspecified Condition: Stable Prescriptions: New cefdinir 300 mg capsule 300 mg PO BID 10 Days Qty: 20 0RF ondansetron 4 mg tablet,disintegrating 4 mg PO Q8H PRN (Reason: nausea and vomiting) Qty: 20 0RF No Action ondansetron HCl 4 mg tablet 4 mg PO Q8H PRN (Reason: nausea and vomiting) Qty: 10 0RF diclofenac sodium 75 mg tablet,delayed release (DR/EC) 75 mg PO BID PRN (Reason: Pain) medroxyprogesterone [Depo-Provera] 150 mg/mL suspension 150 mg IM Q90D Rx Instructions: Last injection 12.13.21 tizanidine 4 mg tablet 4 mg PO TID PRN (Reason: Muscle Spasm) acetaminophen [Tylenol Ex Str Rapid Release] 500 mg Tablet 1,000 mg PO TID PRN (Reason: Pain) sertraline [Zoloft] 50 mg tablet 25 mg PO DAILY 14 Days Qty: 14 0RF hydroxyzine HCl 25 mg tablet 25 mg PO Q8H PRN (Reason: agitation) Qty: 21 0RF trazodone 50 mg tablet 25 mg PO DAILY PRN (Reason: agitation and insomnia) 20 Days Qty: 20 0RF Discharge Orders: Discharge ED (Routine); Ordered 01/29/22 Ordered By: Ascencion Diaz Referrals: Jayden Daily MD [Primary Care Provider] - Discharge Diet: Advance as tolerated Discharge Activity: Increase activity as tolerated Patient Instructions: Urinary Tract Infection in Women (DC) Activity Restrictions/Additional Instructions: Follow-up with medical provider as directed in the next 5 to 7 days for reevaluation. Take medications as prescribed. Return to the ER or your medical provider if condition worsens. Please read and understand discharge instructions. Thank you for choosing [facility] for your healthcare needs today. Please realize this is an emergency room and that we are providing you with a medical screening exam and this may not be complete and all inclusive of all the testing and or work up that you may need to determine your ailment or severity of your illness. It is very important that you follow up as instructed or that you return to the Emergency Department should you have concerns or if your condition changes or worsens in any way. Stand Alone Forms: Work/School Release Coding Level of Care Code ED Sander [employer]enc[employer] for Chg Fwd Exam Comprehensive Documented by User: Hubert Lua DO 01/29/22 15:44 HPI - Nausea/Vomiting/Diarrhea General: Chief complaint: Nausea/Vomiting/Diarrhea Stated complaint: N/V Time Seen by Provider: 01/29/22 09:14 [facility] ED PFSH: Medical History Borderline personality disorder Cannabis abuse COVID-19 Evaluation regarding contraception options Impulse control disorder Major depression Major depressive disorder, recurrent severe without psychotic features Methamphetamine abuse Nausea alone Psychiatric care Suicidal ideation Surgical History History of knee surgery Status post myringotomy with tube placement of both ears Family History Other Diabetes Lung disease Rheumatoid arthritis Social History Smoking and tobacco status: current every day smoker e-cigarettes E-Cigarette Details: with nicotine E-cig/vape details: 1 week to go through a tank Quit status (tobacco): considering quitting Second hand smoke exposure: Yes Smoking risk assessment/counseling performed?: Yes Alcohol intake: former Year of sobriety/quit date alcohol: 2021 Adopted: No Caregiver/support person: No Lives independently: No Household members: other Details: SOC Housing: Homeless Marital status: Single Number of children: 2 Highest education level completed: Some College, No Degree service: No Current occupational status: employed 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 Pets and animals: No History of recent travel: No Leisure activites: music Sexually active: No Current gender identity: Female Briseida/Islam: None Special briseida needs: No Agree to transfusion: Yes Financial difficulty paying for basics: Somewhat Hard Course Vital Signs: Vital signs: Vital Signs Temperature 97.8 F 01/29/22 09:08 Pulse Rate 62 01/29/22 11:11 Respiratory Rate 18 01/29/22 10:54 Blood Pressure 126/79 01/29/22 11:11 Pulse Oximetry 100 01/29/22 11:11 Oxygen Delivery Me thod 01/29/22 10:54 MDM - Nausea/Vomiting/Diarrhea Medical Decision Making Patient is a 26-year-old female that comes to the ED with nausea and vomiting. Denies any fevers, abdominal pain or UTI symptoms. Symptoms have been going on for the past 2 weeks and she states that the nausea vomiting is worse in the mornings and the resolves the rest of the day. Vitals are stable. Exam is benign and patient has no abdominal tenderness. CBC and CMP were unremarkable. UA shows signs of UTI with a lot of white blood cells and bacteria present. Patient was given IV fluids and Zofran and passed p.o. fluid challenge here in the ED. Patient diagnosed with UTI, nausea and vomiting and was discharged home with a prescription for cefdinir and Zofran. Told to follow-up with PCP in the next week for reevaluation. Return to ED precautions given. Patient understood and agreed with plan. Chart reviewed and patient discussed with midlevel. Agree with assessment and plan. Lab Data : 01/29/22 09:32 01/29/22 09:32 Laboratory Results WBC 6.6 10^3/uL (4.0-10.0) 01/29/22 09:32 RBC 4.35 10^6/uL (4.1-5.3) 01/29/22 09:32 Hgb 13.3 g/dL (11.5-15.3) 01/29/22 09:32 Hct 39.8 % (37.0-47.0) 01/29/22 09:32 MCV 91.5 fl (81-99) 01/29/22 09:32 MCH 30.6 pg (28.0-34.0) 01/29/22 09: MCHC 33.4 g/dL (30.0-36.0) 01/29/22 09:32 RDW 12.4 % (12.1-15.1) 01/29/22 09:32 Plt Count 271 10^3/cmm (130-400) 01/29/22 09:32 MPV 10.2 fL (7.4-10.4) 01/29/22 09:32 Neut % (Auto) 54.5 % 01/29/22 09:32 Lymph % (Auto) 36.4 % 01/29/22 09:32 [place] % (Auto) 6.2 % 01/29/22 09:32 Eos % (Auto) 2.1 % 01/29/22 09:32 Baso % (Auto) 0.5 % 01/29/22 09:32 Neut # (Auto) 3.60 10^3/uL (1.8-7.7) 01/29/22 09:32 Lymph # (Auto) 2.4 10^3/uL (0.8-4.8) 01/29/22 09:32 [place] # (Auto) 0.4 10^3/uL (0.2-0.9) 01/29/22 09:32 Eos # (Auto) 0.1 10^3/uL (0.0-0.8) 01/29/22 09:32 Baso # (Auto) 0.0 10^3/uL (0.0-0.1) 01/29/22 09:32 Nucleated RBC % (auto) 0 % 01/29/22 09:32 Nucleated RBCs # 0.0 /100WBC 01/29/22 09:32 Sodium 139 mmol/L (136-145) 01/29/22 09:32 Potassium 4.6 mmol/L (3.5-5.1) 01/29/22 09:32 Chloride 106 mmol/L (98-107) 01/29/22 09:32 Carbon Dioxide 24 mmol/L (22-29) 01/29/22 09:32 Anion Gap 13.6 (5-19) 01/29/22 09:32 BUN 13 mg/dL (6-20) 01/29/22 09:32 Creatinine 0.7 mg/dL (0.5-0.9) 01/29/22 09:32 GFR Calculation 99.6 mL/min (90-130) 01/29/22 09:32 Glucose 101 mg/dL (65-115) 01/29/22 09:32 Calculated Osmolality 288 mOsm/kg (285-295) 01/29/22 09:32 Calcium 9.7 mg/dL (8.5-10.5) 01/29/22 09:32 Total Bilirubin 0.4 mg/dL (0.15-1.2) 01/29/22 09:32 AST 13 U/L (0-32) 01/29/22 09:32 ALT 14 U/L (0-33) 01/29/22 09:32 Alkaline Phosphatase 68 U/L (35-105) 01/29/22 09:32 Total Protein 7.3 g/dL (6.6-8.7) 01/29/22 09:32 Albumin 4.2 g/dL (3.5-5.2) 01/29/22 09:32 Globulin 3.1 g/dL (1.3-4.6) 01/29/22 09:32 Lipase 33 U/L (13-60) 01/29/22 09:32 HCG, Qual Negative (Negative) 01/29/22 09:32 Urine Color Yellow (Yellow) 01/29/22 09:50 Urine Appearance Clear (CLEAR) 01/29/22 09:50 Urine pH 7 (5-7) 01/29/22 09:50 Ur Specific [place] 1.010 (1.005-1.030) 01/29/22 09:50 Urine Protein Neg (Negative) 01/29/22 09:50 Urine Glucose (UA) Norm (Normal) 01/29/22 09:50 Urine Ketones Negative (Negative) 01/29/22 09:50 Urine Blood Neg (Negative) 01/29/22 09:50 Urine Nitrate Negative (Negative) 01/29/22 09:50 Urine Bilirubin Neg (Negative) 01/29/22 09:50 Urine Urobilinogen Norm mg/dL (Negative) 01/29/22 09:50 Ur Leukocyte Esterase 2+ (Negative) H 01/29/22 09:50 Urine RBC 0-4 /hpf (0-2) H 01/29/22 09:50 Urine WBC 40-55 /hpf (0-5) H 01/29/22 09:50 Ur Squamous Epith Cells 0-4 /hpf (0-5) H 01/29/22 09:50 Amorphous Sediment Not Reportable 01/29/22 09:50 Urine Bacteria 2+ /hpf (NONE) H 01/29/22 09:50 Discharge Plan Discharge Patient Disposition: Home Clinical Impression: UTI (urinary tract infection) Qualifiers: Urinary tract infection type: acute cystitis Hematuria presence: with hematuria Qualified Code(s): N30.01 - Acute cystitis with hematuria Nausea and vomiting Qualifiers: Vomiting type: unspecified Qualified Code(s): R11.2 - Nausea with vomiting, unspecified Condition: Stable Prescriptions: New cefdinir 300 mg capsule 300 mg PO BID 10 Days Qty: 20 0RF ondansetron 4 mg tablet,disintegrating 4 mg PO Q8H PRN (Reason: nausea and vomiting) Qty: 20 0RF No Action ondansetron HCl 4 mg tablet 4 mg PO Q8H PRN (Reason: nausea and vomiting) Qty: 10 0RF diclofenac sodium 75 mg tablet,delayed release (DR/EC) 75 mg PO BID PRN (Reason: Pain) medroxyprogesterone [Depo-Provera] 150 mg/mL suspension 150 mg IM Q90D Rx Instructions: Last injection 12.13.21 tizanidine 4 mg tablet 4 mg PO TID PRN (Reason: Muscle Spasm) acetaminophen [Tylenol Ex Str Rapid Release] 500 mg Tablet 1,000 mg PO TID PRN (Reason: Pain) sertraline [Zoloft] 50 mg tablet 25 mg PO DAILY 14 Days Qty: 14 0RF hydroxyzine HCl 25 mg tablet 25 mg PO Q8H PRN (Reason: agitation) Qty: 21 0RF trazodone 50 mg tablet 25 mg PO DAILY PRN (Reason: agitation and insomnia) 20 Days Qty: 20 0RF Discharge Orders: Discharge ED (Routine); Ordered 01/29/22 Ordered By: Ascencion Diaz Referrals: Jayden Daily MD [Primary Care Provider] - Discharge Diet: Advance as tolerated Discharge Activity: Increase activity as tolerated Patient Instructions: Urinary Tract Infection in Women (DC) Activity Restrictions/Additional Instructions: Follow-up with medical provider as directed in the next 5 to 7 days for reevaluation. Take medications as prescribed. Return to the ER or your medical provider if condition worsens. Please read and understand discharge instructions. Thank you for choosing [facility] for your healthcare needs today. Please realize this is an emergency room and that we are providing you with a medical screening exam and this may not be complete and all inclusive of all the testing and or work up that you may need to determine your ailment or severity of your illness. It is very important that you follow up as instructed or that you return to the Emergency Department should you have concerns or if your condition changes or worsens in any way. Stand Alone Forms: Work/School Release Coding Level of Care Code ED S[employer]enc[employer] for Estrella Fwmedardo Exam Comprehensive
[2022-01-29 09:46] LABS: Basophils % 0.5 %; Eosinophils # 0.1 10^3/uL (0.0-0.8); Eosinophils % 2.1 %; Hematocrit 39.8 % (37.0-47.0); Hemoglobin 13.3 g/dL (11.5-15.3); Lymphocytes # 2.4 10^3/uL (0.8-4.8); Lymphocytes % 36.4 %; Mean Corpuscular HGB Conc 33.4 g/dL (30.0-36.0); Mean Corpuscular Hemoglobin 30.6 pg (28.0-34.0); Mean Corpuscular Volume 91.5 fl (81-99); Mean Platelet Volume 10.2 fL (7.4-10.4); Monocytes # 0.4 10^3/uL (0.2-0.9); Monocytes % 6.2 %; Neutrophils % 54.5 %; Nucleated Red Blood Cells % 0 %; Platelet Count 271 10^3/cmm (130-400); Red Blood Count 4.35 10^6/uL (4.1-5.3); Red Cell Distribution Width 12.4 % (12.1-15.1); White Blood Count 6.6 10^3/uL (4.0-10.0)
[2022-01-29] MEDS: ondansetron 2 mg/ML SDV 2 mL 4 MG IVP (09:47)
[2022-01-29] MEDS: sodium chloride 0.9% 1,000 ML 999 ML IV (09:47)
[2022-01-29 09:59] LABS: HCG, Serum Qual Negative (Negative)
[2022-01-29 10:01] LABS: Alanine Aminotransferase 14 U/L (0-33); Albumin Level 4.2 g/dL (3.5-5.2); Alkaline Phosphatase 68 U/L (35-105); Anion Gap 13.6 (5-19); Aspartate Amino Transferase 13 U/L (0-32); Blood Urea Nitrogen 13 mg/dL (6-20); Calcium 9.7 mg/dL (8.5-10.5); Carbon Dioxide 24 mmol/L (22-29); Chloride 106 mmol/L (98-107); Globulin 3.1 g/dL (1.3-4.6); Glomerular Filtration Rate 99.6 mL/min (90-130); Glucose 101 mg/dL (65-115); Lipase 33 U/L (13-60); Osmolality Calculated 288 mOsm/kg (285-295); Potassium 4.6 mmol/L (3.5-5.1); Sodium 139 mmol/L (136-145); Total Bilirubin 0.4 mg/dL (0.15-1.2); Total Protein 7.3 g/dL (6.6-8.7)
[2022-01-29 10:26] LABS: Add Urine Culture? Yes; Add Urine Microscopic? YES; Bacteria Urine 2+ /hpf; Bilirubin Urine Neg (Negative); Blood Urine Neg (Negative); Glucose Urine UA Norm (Normal); Ketones Urine Negative (Negative); Leukocyte Esterase Urine 2+ (Negative); Nitrate Urine Negative (Negative); Protein Urine Neg (Negative); RBC Urine 0-4 /hpf (0-2); Squamous Epithelial Cell Urine 0-4 /hpf (0-5); Urine Appearance Clear (CLEAR); Urine Color Yellow (Yellow); Urobilinogen Urine Norm (Negative); WBC Urine 40-55 /hpf (0-5); pH Urine 7 (5-7)
[2022-01-29 10:54] VITALS: BP 110/81; PULSE 62; RESP 18; O2SAT 100
[2022-01-29 11:11] VITALS: BP 126/79; PULSE 62; O2SAT 100
== END 2022-01-29 11:13 | disposition home or self-care (01) ==
PROVIDERS: Emergency Provider Physician Assistant; PCP Family Medicine
DX: R11.2 Nausea with vomiting, unspecified (principal); N30.01 Acute cystitis with hematuria; F17.290 Nicotine dependence, other tobacco product, uncomplicated
CPT/HCPCS: 36415; 80053; 81001; 83690; 84703; 85025; 87086; 96361; 96374; 99284; J2405; J7030

== ENCOUNTER 2022-04-10 12:22 | Emergency (ER) | payer MEDICAID, SELFPAY ==
[2022-01-03 16:36] VITALS: BP 138/88; BMI 35.0
[2022-04-10 12:28] VITALS: BP 133/81; PULSE 85; RESP 15; TEMP 36.5; O2SAT 98
[2022-04-10 12:46] VITALS: BP 145/83; PULSE 74; RESP 18; O2SAT 99
--- NOTE | 2022-04-10 13:37 | XR_ITS ---
WS: [id number] Exam: XR chest 1V portable [id number] Date/Time of Exam: 04/10/2022 1:37 PM Reason For Exam: cough, sob Comparison 03/12/2018. Mild infiltrate in the left lower lobe suspicious for early pneumonia. Right lung is clear. No pleura l effusions. No pneumothorax. Normal cardiomediastinal silhouette and regional bony structures. XR/XR chest 1V portable [id number] IMPRESSION: 1. Mild infiltrate in the left lower lobe suspicious for pneumonia.
--- NOTE | 2022-04-10 13:37 | W.ED.GENADLT ---
HPI - General Adult General: Chief complaint: General Medical Stated complaint: n/v/tomasa,marilyn Time Seen by Provider: 04/10/22 13:36 History of Present Illness: 26-year-old female comes in today for complaints of shortness of breath for 1 month. Patient appears nontoxic. Patient appears in no pain. Patient is concerned that she may be . Associated symptoms: Reports dyspnea Review of Systems Const: Reports: chills Resp: Reports: dyspnea and non-productive cough PFSH ED PFSH: Medical History Borderline personality disorder Cannabis abuse COVID-19 Evaluation regarding contraception options Impulse control disorder Major depression Major depressive disorder, recurrent severe without psychotic features Methamphetamine abuse Nausea alone Psychiatric care Suicidal ideation Surgical History History of knee surgery Status post myringotomy with tube placement of both ears Family History Other Diabetes Lung disease Rheumatoid arthritis Social History Smoking and tobacco status: current every day smoker e-cigarettes E-Cigarette Details: with nicotine E-cig/vape details: 1 week to go through a tank Quit status (tobacco): considering quitting Second hand smoke exposure: Yes Smoking risk assessment/counseling performed?: Yes Alcohol intake: former Year of sobriety/quit date alcohol: 2021 Adopted: No Caregiver/support person: No Lives independently: No Household members: other Details: SOC Housing: Homeless Marital status: Single Number of children: 2 Highest education level completed: Some College, No Degree service: No Current occupational status: employed 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 Pets and animals: No History of recent travel: No Leisure activites: music Sexually active: No Current gender identity: Female Briseida/Judaism: None Special briseida needs: No Agree to transfusion: Yes Financial difficulty paying for basics: Somewhat Hard Female Reproductive History: Para: 2 Spontaneous abortions: Yes Physical Exam Const: COMMON NORMALS: alert HENMT: COMMON NORMALS: normocephalic HEAD & SCALP: normocephalic Resp: COMMON NORMALS: normal respiratory effort AUSCULTATION: wheezes Cardio: COMMON NORMALS: regular rate and regular rhythm RATE: regular rate RHYTHM: regular rhythm Back/Pelvis: COMMON NORMALS: thoracic and lumbar spine normal to inspection Neuro: SENSORIUM/ORIENTATION: Yes alert Skin: COMMON NORMALS: turgor normal GENERAL SKIN EXAM: turgor normal Course Vital Signs: Vital signs: Vital Signs Temperature 97.7 F 04/10/22 12:28 Pulse Rate 74 04/10/22 12:46 Respiratory Rate 18 04/10/22 12:46 Blood Pressure 145/83 04/10/22 12:46 Pulse Oximetry 99 04/10/22 12:46 Oxygen Delivery Me thod 04/10/22 12:46 MDM - General Adult Medical Decision Making 26-year-old female comes in today with cough and congestion for about 2 to 3 weeks. Patient has reported some shortness of breath for the last week. Patient appears nontoxic. Patient has normal respiratory rate. Patient has some wheezing throughout lung mandujano. Patient does routinely vape. Vital signs are normal. Differential diagnosis includes but not limited to pneumonia, bronchitis, COPD, asthma. Chest x-ray noted an infiltrate in the left lower lung. Patient be started on Augmentin 875 mg 2 times a day for the next 7 days. Patient was also given 10 mg of dexamethasone. Encourage fluids rest and follow-up with primary care. Return to ED for new concerns or worsening symptoms. Lab Data 04/10/22 13:10 04/10/22 13:10 Radiology Impressions Chest X-Ray 04/10/22 13:37 IMPRESSION: 1. Mild infiltrate in the left lower lobe suspicious for pneumonia. Laboratory Results WBC 8.0 10^3/uL (4.0-10.0) 04/10/22 13:10 RBC 4.52 10^6/uL (4.1-5.3) 04/10/22 13:10 Hgb 13.4 g/dL (11.5-15.3) 04/10/22 13:10 Hct 41.3 % (37.0-47.0) 04/10/22 13:10 MCV 91.4 fl (81-99) 04/10/22 13:10 MCH 29.6 pg (28.0-34.0) 04/10/22 13:10 MCHC 32.4 g/dL (30.0-36.0) 04/10/22 13:10 RDW 12.5 % (12.1-15.1) 04/10/22 13:10 Plt Count 291 10^3/cmm (130-400) 04/10/22 13:10 MPV 10.3 fL (7.4-10.4) 04/10/22 13:10 Neut % (Auto) 60.2 % 04/10/22 13:10 Lymph % (Auto) 32.3 % 04/10/22 13:10 [place] % (Auto) 5.4 % 04/10/22 13:10 Eos % (Auto) 1.5 % 04/10/22 13:10 Baso % (Auto) 0.5 % 04/10/22 13:10 Neut # (Auto) 4.79 10^3/uL (1.8-7.7) 04/10/22 13:10 Lymph # (Auto) 2.6 10^3/uL (0.8-4.8) 04/10/22 13:10 [place] # (Auto) 0.4 10^3/uL (0.2-0.9) 04/10/22 13:10 Eos # (Auto) 0.1 10^3/uL (0.0-0.8) 04/10/22 13:10 Baso # (Auto) 0.0 10^3/uL (0.0-0.1) 04/10/22 13:10 Nucleated RBC % (auto) 0 % 04/10/22 13:10 Nucleated RBCs # 0.0 /100WBC 04/10/22 13:10 HCG, Qual Negative (Negative) 04/10/22 13:10 Discharge Plan Discharge Patient Disposition: Home Clinical Impression: Pneumonia Qualifiers: Pneumonia type: due to unspecified organism Laterality: left Lung location: lower lobe of lung Qualified Code(s): J18.9 - Pneumonia, unspecified organism Condition: Stable Prescriptions: New amoxicillin-pot clavulanate 875-125 mg tablet 1 tab PO BID Qty: 14 0RF albuterol sulfate 90 mcg/actuation HFA aerosol inhaler 2 inh inhalation Q4H PRN (Reason: shortness of breath or wheezing) Qty: 8.5 0RF No Action ondansetron HCl 4 mg tablet 4 mg PO Q8H PRN (Reason: nausea and vomiting) Qty: 10 0RF diclofenac sodium 75 mg tablet,delayed release (DR/EC) 75 mg PO BID PRN (Reason: Pain) medroxyprogesterone [Depo-Provera] 150 mg/mL suspension 150 mg IM Q90D Rx Instructions: Last injection 12.13.21 ondansetron 4 mg tablet,disintegrating 4 mg PO Q8H PRN (Reason: nausea and vomiting) Qty: 20 0RF tizanidine 4 mg tablet 4 mg PO TID PRN (Reason: Muscle Spasm) acetaminophen [Tylenol Ex Str Rapid Release] 500 mg Tablet 1,000 mg PO TID PRN (Reason: Pain) hydroxyzine HCl 25 mg tablet 25 mg PO Q8H PRN (Reason: agitation) Qty: 21 0RF Discharge Orders: Discharge ED (Routine); Ordered 04/10/22 Ordered By: Jones Lopez Referrals: Jayden Daily MD [Primary Care Provider] - Discharge Diet: Usual diet Discharge Activity: Increase activity as tolerated Patient Instructions: Pneumonia (ED) Activity Restrictions/Additional Instructions: Drink plenty of fluids. Take antibiotics as directed 1 tablet 2 times a day for the next 7 days. Use albuterol inhaler 2 puffs every 4 hours as needed for shortness of breath, persistent coughing, or wheezing. Return to the ER for worsening symptoms such as inability to hold fluids down, no urine output within 8 hours, severe chest pain, or worsening shortness of breath. Coding Level of Care Code ED Integration Technician for Swapnag Fwd Exam Detailed
[2022-04-10 14:05] LABS: Basophils % 0.5 %; Eosinophils # 0.1 10^3/uL (0.0-0.8); Eosinophils % 1.5 %; Hematocrit 41.3 % (37.0-47.0); Hemoglobin 13.4 g/dL (11.5-15.3); Lymphocytes # 2.6 10^3/uL (0.8-4.8); Lymphocytes % 32.3 %; Mean Corpuscular HGB Conc 32.4 g/dL (30.0-36.0); Mean Corpuscular Hemoglobin 29.6 pg (28.0-34.0); Mean Corpuscular Volume 91.4 fl (81-99); Mean Platelet Volume 10.3 fL (7.4-10.4); Monocytes # 0.4 10^3/uL (0.2-0.9); Monocytes % 5.4 %; Neutrophils # 4.79 10^3/uL (1.8-7.7); Neutrophils % 60.2 %; Nucleated Red Blood Cells % 0 %; Platelet Count 291 10^3/cmm (130-400); Red Blood Count 4.52 10^6/uL (4.1-5.3); Red Cell Distribution Width 12.5 % (12.1-15.1)
[2022-04-10 14:15] LABS: HCG, Serum Qual Negative (Negative)
[2022-04-10 14:26] LABS: Alanine Aminotransferase 15 U/L (0-33); Albumin Level 4.5 g/dL (3.5-5.2); Alkaline Phosphatase 83 U/L (35-105); Anion Gap 13.7 (5-19); Aspartate Amino Transferase 17 U/L (0-32); Blood Urea Nitrogen 13 mg/dL (6-20); Calcium 9.6 mg/dL (8.5-10.5); Carbon Dioxide 24 mmol/L (22-29); Chloride 106 mmol/L (98-107); Creatinine Clr Calc Pharmacy 150.3781; Globulin 3.3 g/dL (1.3-4.6); Glucose 74 mg/dL (65-115); Osmolality Calculated 289 mOsm/kg (285-295); Potassium 3.7 mmol/L (3.5-5.1); Sodium 140 mmol/L (136-145); Total Protein 7.8 g/dL (6.6-8.7)
[2022-04-10 14:28] LABS: SARS Covid-2 Antigen negative (Negative)
[2022-04-10] MEDS: dexamethasone 4 mg Tablet 10 MG PO (14:32)
[2022-04-10] MEDS: amoxicillin-clav 875-125 mg Tablet 1 TAB PO (14:32)
[2022-04-10 14:56] LABS: Influenza A by IFA negative (Negative); Influenza B by IFA negative (Negative)
== END 2022-04-10 14:36 | disposition home or self-care (01) ==
PROVIDERS: Emergency Medicine; Emergency Provider Nurse Practitioner Family; PCP Family Medicine
DX: J18.9 Pneumonia, unspecified organism (principal); F17.290 Nicotine dependence, other tobacco product, uncomplicated; Z20.822 Contact with and (suspected) exposure to COVID-19
CPT/HCPCS: 71045; 80053; 84703; 85025; 87426; 87804; 99284; J8540

== ENCOUNTER 2022-04-18 10:55 | Outpatient (CLI) | payer MEDICAID, SELFPAY ==
[2022-01-03 16:36] VITALS: BP 138/88; BMI 35.0
--- NOTE | 2022-04-18 11:06 | MR_ITS ---
WS: [id number] MRI LUMBAR SPINE NONCONTRAST HISTORY: LOW BACK PAIN, LEFT leg pain. COMPARISON: None available. TECHNIQUE: Sagittal and axial multisequence imaging is submitted. 6 nonrib-bearing lumbar vertebral bodies are identified. The sixth lumbar vertebral body will be labe led S1, representing a lumbarized S1 segment. This will be important if surgery is contemplated. Normal lumbar alignment with no compression fractures or marrow edema. Disc desiccation at L5-S1 and S1-S2. Conus terminates normally at L1. L1-L2: Normal. L2-L3: Normal. L3-L4: Mild facet and ligamentum flavum hypertrophy. No stenosis. L4-L5: Mild ligamentum flavum hypertrophy. L5-S1: Very small central disc protrusion and annular fissure. There is mild encroachment upon the ex iting S1 nerve roots bilaterally. Only mild central and bilateral subarticular recess stenosis. Small amount of fluid in the facet joints. S1-S2: Moderate to large central disc protrusion extends caudad to the disc level. Disc extends over a length of 13 mm. There is significant encroachment on the central and LEFT lateral thecal sac exten ding into the subarticular recess. There is contact on the LEFT sacral nerve root. There is additiona l contact on the RIGHT sacral nerve roots but to a lesser extent. Moderate central stenosis. No signi ficant foraminal stenosis. No paravertebral abnormalities. MR/MR lumbar spine wo con* [id number] IMPRESSION: 1. 6 nonrib-bearing lumbar type vertebral bodies are identified. The sixth non rib-bearing vertebral body will be labeled lumbarized S1 for purposes of this e xamination. This will be important if surgery is contemplated in this patient. 2. At the S1-S2 level there is a moderate to large central disc protrusion ext ending caudad from the disc level with significant contact on the LEFT sacral n erve roots. There is contact bilaterally on the sacral nerve roots but greatest on the LEFT in the subarticular recess and moderate central stenosis. 3. Small central disc protrusion at L5-S1 with annular fissure. Mild central a nd bilateral subarticular recess encroachment.
== END 2022-04-18 10:56 | disposition home or self-care (01) ==
LOC: RAD 10:56
PROVIDERS: PCP Family Medicine; Visit Provider Family Medicine
DX: M79.605 Pain in left leg (principal); M51.27 Other intervertebral disc displacement, lumbosacral region
CPT/HCPCS: 72148

== ENCOUNTER 2022-05-03 10:18 | Emergency (ER) | payer MEDICAID, SELFPAY ==
[2022-01-03 16:36] VITALS: BP 138/88; BMI 35.0
[2022-05-03 10:25] VITALS: BP 147/94; PULSE 97; RESP 16; TEMP 36.8; O2SAT 99
[2022-05-03 11:14] VITALS: BP 123/78; PULSE 87; RESP 14; O2SAT 97
[2022-05-03] MEDS: ondansetron 2 mg/ML SDV 2 mL 4 MG IVP (11:18)
[2022-05-03] MEDS: sodium chloride 0.9% 1,000 ML 999 ML IV (11:18)
--- NOTE | 2022-05-03 11:23 | W.ED.ABDPA2 ---
HPI - Abdominal Pain General: Chief Complaint: Abdominal Pain Stated Complaint: N/V x4 days stomach pain Time Seen by Provider: 05/03/22 11:01 Source: patient Mode of arrival: ambulatory Limitations: no limitations History of Present Illness: See nursing assessment. Patient with complaints of mild mid abdominal pain just above the umbilicus that is intermittent. Patient states she has had nausea vomiting and occasional mild diarrhea for 5 days after starting Bactrim antibiotic for staph infection to her right axilla. Patient denies any blood in her stool. She denies any blood in her emesis. She denies any melena. She denies any fever. She states she started the Bactrim prior to onset of symptoms. She only has 1 or 2 doses left of the Bactrim. She feels like the right axilla infection has cleared. Associated Symptoms: Reports diarrhea and nausea; Denies chills, fever(s), hematochezia and melena Review of Systems Const: Denies: fever(s) or chills Eyes: Denies: change in vision ENMT: Denies: throat pain Card: Denies: chest pain or palpitations Resp: Denies: dyspnea or wheezing GI: Reports: abdominal pain, nausea and diarrhea; Denies: hematochezia, melena or mucus in stool : Denies: flank pain Musc: Denies: neck pain or back pain Skin/Breast: Denies: rash or pruritus Neuro: Denies: headache(s) or numbness in extremities Psych: Reports: anxiety (Occasional mild) Guy/Lymph: Denies: enlarged lymph nodes PFSH ED PFSH: Medical History Borderline personality disorder Cannabis abuse COVID-19 Evaluation regarding contraception options Impulse control disorder Major depression Major depressive disorder, recurrent severe without psychotic features Methamphetamine abuse Nausea alone Psychiatric care Suicidal ideation Surgical History History of knee surgery Status post myringotomy with tube placement of both ears Family History Other Diabetes Lung disease Rheumatoid arthritis Social History Smoking and tobacco status: current every day smoker e-cigarettes E-Cigarette Details: with nicotine E-cig/vape details: 1 week to go through a tank Quit status (tobacco): considering quitting Second hand smoke exposure: Yes Smoking risk assessment/counseling performed?: Yes Alcohol intake: former Year of sobriety/quit date alcohol: 2021 Adopted: No Caregiver/support person: No Lives independently: No Household members: other Details: SOC Housing: Homeless Marital status: Single Number of children: 2 Highest education level completed: Some College, No Degree service: No Current occupational status: employed 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 Pets and animals: No History of recent travel: No Leisure activites: music Sexually active: No Current gender identity: Female Briseida/Jehovah'S Witness: None Special briseida needs: No Agree to transfusion: Yes Financial difficulty paying for basics: Somewhat Hard Female Reproductive History: Para: 2 Spontaneous abortions: Yes Physical Exam Const: COMMON NORMALS: no acute distress, patient oriented x3, no limitations and well nourished GENERAL APPEARANCE: cooperative HENMT: COMMON NORMALS: normocephalic and atraumatic HEAD & SCALP: normocephalic and atraumatic FACE & SINUS: normal facial exam Eye: COMMON NORMALS: EOMs intact bilaterally Neck/C-Spine: COMMON NORMALS: full ROM, no lymphadenopathy, supple and no meningeal signs GENERAL: Yes normal visual inspection Lymph: LYMPHATIC: no lymphadenopathy noted Chest: COMMONS NORMALS: normal inspection of the chest and normal palpation of entire chest wall CHEST: No Ecchymosis present and No rash Resp: COMMON NORMALS: normal respiratory effort, No retractions and clear to auscultation bilaterally EFFORT & INSPECTION: No respiratory distress AUSCULTATION: clear to auscultation bilaterally Cardio: COMMON NORMALS: regular rate, regular rhythm and Peripheral pulses 2+ throughout JUGULAR VENOUS DISTENTION: no JVD RATE: regular rate RHYTHM: regular rhythm PERIPHERAL PULSES: Peripheral pulses 2+ throughout GI: COMMON NORMALS: Normal to inspection, nondistended, normoactive bowel sounds present OTHER: No abdominal pain now. Normoactive bowel sounds throughout. No pulsatile masses. No other masses. Obese : COMMON NORMALS: Yes no CVA tenderness BLADDER/KIDNEY EXAM: Yes no CVA tenderness Back/Pelvis: COMMON NORMALS: no CVA tenderness Extremity: COMMON NORMALS: normal to inspection, full ROM and capillary refill normal Neuro: COMMON NORMALS: patient oriented x3, CN's II-XII intact bilaterally, no focal motor deficits and no sensory deficits noted MENINGEAL SIGNS: Yes no meningeal signs Psych: COMMON NORMALS: mental status grossly normal and Normal thought process present THOUGHT PROCESS: Normal thought process present Skin: COMMON NORMALS: no rashes or lesions noted and no wounds GENERAL SKIN EXAM: no rashes or lesions noted Course Vital Signs: Vital signs: Vital Signs Temperature 98.2 F 05/03/22 10:25 Pulse Rate 87 05/03/22 11:14 Respiratory Rate 14 05/03/22 11:14 Blood Pressure 123/78 05/03/22 11:14 Pulse Oximetry 97 05/03/22 11:14 Oxygen Delivery Me thod 05/03/22 10:25 MDM - Abdominal Pain Medical Decision Making Possible side effect of Bactrim use. Possible viral gastroenteritis. Lab Data 05/03/22 11:03 05/03/22 11:03 Labs/Radiology: Laboratory Results WBC 8.8 10^3/uL (4.0-10.0) 05/03/22 11:03 RBC 4.84 10^6/uL (4.1-5.3) 05/03/22 11:03 Hgb 14.1 g/dL (11.5-15.3) 05/03/22 11:03 Hct 44.0 % (37.0-47.0) 05/03/22 11:03 MCV 90.9 fl (81-99) 05/03/22 11:03 MCH 29.1 pg (28.0-34.0) 05/03/22 11:03 MCHC 32.0 g/dL (30.0-36.0) 05/03/22 11:03 RDW 12.5 % (12.1-15.1) 05/03/22 11:03 Plt Count 306 10^3/cmm (130-400) 05/03/22 11:03 MPV 10.6 fL (7.4-10.4) H 05/03/22 11:03 Neut % (Auto) 62.1 % 05/03/22 11:03 Lymph % (Auto) 31.8 % 05/03/22 11:03 [place] % (Auto) 4.5 % 05/03/22 11:03 Eos % (Auto) 0.9 % 05/03/22 11:03 Baso % (Auto) 0.5 % 05/03/22 11:03 Neut # (Auto) 5.44 10^3/uL (1.8-7.7) 05/03/22 11:03 Lymph # (Auto) 2.8 10^3/uL (0.8-4.8) 05/03/22 11:03 [place] # (Auto) 0.4 10^3/uL (0.2-0.9) 05/03/22 11:03 Eos # (Auto) 0.1 10^3/uL (0.0-0.8) 05/03/22 11:03 Baso # (Auto) 0.0 10^3/uL (0.0-0.1) 05/03/22 11:03 Nucleated RBC % (auto) 0 % 05/03/22 11:03 Nucleated RBCs # 0.0 /100WBC 05/03/22 11:03 Sodium 135 mmol/L (136-145) L 05/03/22 11:03 Potassium 3.7 mmol/L (3.5-5.1) 05/03/22 11:03 Chloride 102 mmol/L (98-107) 05/03/22 11:03 Carbon Dioxide 22 mmol/L (22-29) 05/03/22 11:03 Anion Gap 14.7 (5-19) 05/03/22 11:03 BUN 7 mg/dL (6-20) 05/03/22 11:03 Creatinine 0.7 mg/dL (0.5-0.9) 05/03/22 11:03 GFR Calculation 99.6 mL/min (90-130) 05/03/22 11:03 Glucose 95 mg/dL (65-115) 05/03/22 11:03 Calculated Osmolality 278 mOsm/kg (285-295) L 05/03/22 11:03 Calcium 9.4 mg/dL (8.5-10.5) 05/03/22 11:03 Total Bilirubin 0.6 mg/dL (0.15-1.2) 05/03/22 11:03 AST 17 U/L (0-32) 05/03/22 11:03 ALT 14 U/L (0-33) 05/03/22 11:03 Alkaline Phosphatase 103 U/L (35-105) 05/03/22 11:03 Total Protein 8.2 g/dL (6.6-8.7) 05/03/22 11:03 Albumin 4.9 g/dL (3.5-5.2) 05/03/22 11:03 Globulin 3.3 g/dL (1.3-4.6) 05/03/22 11:03 Lipase 40 U/L (13-60) 05/03/22 11:03 HCG, Qual Negative (Negative) 05/03/22 11:03 Urine Color Yellow (Yellow) 05/03/22 11:03 Urine Appearance Clear (CLEAR) 05/03/22 11:03 Urine pH 5 (5-7) 05/03/22 11:03 Ur Specific [place] 1.020 (1.005-1.030) 05/03/22 11:03 Urine Protein Neg (Negative) 05/03/22 11:03 Urine Glucose (UA) Norm (Normal) 05/03/22 11:03 Urine Ketones Negative (Negative) 05/03/22 11:03 Urine Blood 3+ (Negative) H 05/03/22 11:03 Urine Nitrate Negative (Negative) 05/03/22 11:03 Urine Bilirubin Neg (Negative) 05/03/22 11:03 Urine Urobilinogen Neg mg/dL (Negative) 05/03/22 11:03 Ur Leukocyte Esterase Trace (Negative) H 05/03/22 11:03 Urine RBC 0-4 /hpf (0-2) H 05/03/22 11:03 Urine WBC None /hpf (0-5) 05/03/22 11:03 Ur Squamous Epith Cells 0-4 /hpf (0-5) H 05/03/22 11:03 Amorphous Sediment Not Reportable 05/03/22 11:03 Urine Bacteria None /hpf (NONE) 05/03/22 11:03 Urine Mucus 1+ /hpf 05/03/22 11:03 Discharge Plan Discharge Patient Disposition: Home Clinical Impression: Nausea vomiting and diarrhea Abdominal pain Qualifiers: Abdominal location: periumbilical Qualified Code(s): R10.33 - Periumbilical pain Condition: Stable Prescriptions: New ondansetron 4 mg tablet,disintegrating 4 mg PO Q6H PRN (Reason: nausea and vomiting) Qty: 10 1RF No Action diclofenac sodium 75 mg tablet,delayed release (DR/EC) 75 mg PO BID PRN (Reason: Pain) medroxyprogesterone [Depo-Provera] 150 mg/mL suspension 150 mg IM Q90D Rx Instructions: Last injection 12.13.21 ondansetron 4 mg tablet,disintegrating 4 mg PO Q8H PRN (Reason: nausea and vomiting) Qty: 20 0RF sulfamethoxazole-trimethoprim 800-160 mg tablet 1 tab PO BID omeprazole 20 mg capsule,delayed release(DR/EC) 20 mg PO DAILY tizanidine 4 mg tablet 4 mg PO TID PRN (Reason: Muscle Spasm) acetaminophen [Tylenol Ex Str Rapid Release] 500 mg Tablet 1,000 mg PO TID PRN (Reason: Pain) hydroxyzine HCl 25 mg tablet 25 mg PO Q8H PRN (Reason: agitation) Qty: 21 0RF albuterol sulfate 90 mcg/actuation HFA aerosol inhaler 2 inh inhalation Q4H PRN (Reason: shortness of breath or wheezing) Qty: 8.5 0RF Discharge Orders: Discharge ED (Routine); Ordered 05/03/22 Ordered By: Arnol Bull Referrals: Jayden Daily MD [Primary Care Provider] - 4-7 days Discharge Diet: Regular Discharge Activity: Increase activity as tolerated Patient Instructions: Acute Nausea and Vomiting (ED), Acute Diarrhea (ED), Abdominal Pain (ED) Activity Restrictions/Additional Instructions: May take Zofran as needed for nausea. Drink plenty fluids. Avoid caffeine. May take Imodium for diarrhea. Discontinue use of Bactrim antibiotic. Follow-up with family doctor as needed. Stand Alone Forms: Work/School Release Coding Level of Care Code ED Panel Builder for Chg Fwd History Comprehensive Exam Comprehensive Medical Decision Making Moderate Complexity
[2022-05-03 11:35] LABS: Basophils % 0.5 %; Eosinophils # 0.1 10^3/uL (0.0-0.8); Eosinophils % 0.9 %; Hemoglobin 14.1 g/dL (11.5-15.3); Lymphocytes # 2.8 10^3/uL (0.8-4.8); Lymphocytes % 31.8 %; Mean Corpuscular Hemoglobin 29.1 pg (28.0-34.0); Mean Corpuscular Volume 90.9 fl (81-99); Mean Platelet Volume 10.6 fL (7.4-10.4); Monocytes # 0.4 10^3/uL (0.2-0.9); Monocytes % 4.5 %; Neutrophils # 5.44 10^3/uL (1.8-7.7); Neutrophils % 62.1 %; Nucleated Red Blood Cells % 0 %; Platelet Count 306 10^3/cmm (130-400); Red Blood Count 4.84 10^6/uL (4.1-5.3); Red Cell Distribution Width 12.5 % (12.1-15.1); White Blood Count 8.8 10^3/uL (4.0-10.0)
[2022-05-03 11:37] LABS: Add Urine Microscopic? YES; Bilirubin Urine Neg (Negative); Blood Urine 3+ (Negative); Glucose Urine UA Norm (Normal); Ketones Urine Negative (Negative); Leukocyte Esterase Urine Trace (Negative); Nitrate Urine Negative (Negative); Protein Urine Neg (Negative); Urine Appearance Clear (CLEAR); Urine Color Yellow (Yellow); Urobilinogen Urine Neg (Negative); pH Urine 5 (5-7)
[2022-05-03 11:39] LABS: Add Urine Culture? No; Mucus Urine 1+ /hpf; RBC Urine 0-4 /hpf (0-2); Squamous Epithelial Cell Urine 0-4 /hpf (0-5)
[2022-05-03 11:40] LABS: HCG, Serum Qual Negative (Negative)
[2022-05-03 11:42] LABS: Alanine Aminotransferase 14 U/L (0-33); Albumin Level 4.9 g/dL (3.5-5.2); Alkaline Phosphatase 103 U/L (35-105); Anion Gap 14.7 (5-19); Aspartate Amino Transferase 17 U/L (0-32); Blood Urea Nitrogen 7 mg/dL (6-20); Calcium 9.4 mg/dL (8.5-10.5); Carbon Dioxide 22 mmol/L (22-29); Chloride 102 mmol/L (98-107); Globulin 3.3 g/dL (1.3-4.6); Glomerular Filtration Rate 99.6 mL/min (90-130); Glucose 95 mg/dL (65-115); Lipase 40 U/L (13-60); Osmolality Calculated 278 mOsm/kg (285-295); Potassium 3.7 mmol/L (3.5-5.1); Sodium 135 mmol/L (136-145); Total Bilirubin 0.6 mg/dL (0.15-1.2); Total Protein 8.2 g/dL (6.6-8.7)
== END 2022-05-03 12:21 | disposition home or self-care (01) ==
PROVIDERS: Physician Assistant; Emergency Provider Family Medicine; PCP Family Medicine
DX: R11.2 Nausea with vomiting, unspecified (principal); R19.7 Diarrhea, unspecified; R10.33 Periumbilical pain; F17.290 Nicotine dependence, other tobacco product, uncomplicated
CPT/HCPCS: 80053; 81001; 83690; 84703; 85025; 96361; 96374; 99284; J2405; J7030

== ENCOUNTER 2022-06-29 07:36 | Inpatient (IN) | payer MEDICAID, SELFPAY ==
[2022-01-03 16:36] VITALS: BP 138/88; BMI 35.0
[2022-06-29 07:44] VITALS: BMI 29.0
[2022-06-29 07:57] VITALS: BP 161/86; PULSE 83; RESP 18; O2SAT 98
[2022-06-29 08:02] VITALS: TEMP 36.8
[2022-06-29 08:16] LABS: Add Urine Microscopic? YES; Bilirubin Urine Neg (Negative); Blood Urine Neg (Negative); Glucose Urine UA Norm (Normal); Ketones Urine Negative (Negative); Leukocyte Esterase Urine 1+ (Negative); Nitrate Urine Negative (Negative); Protein Urine Neg (Negative); Specific Gravity, Urine 1.015 (1.005-1.030); Urine Appearance Hazy (CLEAR); Urine Color Yellow (Yellow); Urobilinogen Urine Norm (Negative); pH Urine 6 (5-7)
--- NOTE | 2022-06-29 08:17 | ED.C_ITS ---
Documented by User: REECE Meier 06/29/22 12:14 HPI - Psych General: Chief Complaint: Psychiatric Symptoms Stated Complaint: SI Time Seen by Provider: 06/29/22 07:41 History of Present Illness: Patient is a 27-year-old female comes to the ED with SI and HI. Patient has a history of methamphetamine abuse, borderline personality disorder, depression. She has been sober from methamphetamine for over 6 months. She currently lives at [facility] and she is having increased depression and anxiety there. She has not been able to find her medications, so she has not been taking them for the past couple days. She is having SI but denies any plan. Patient states that she wants to give up. 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 Denies any auditory or visual hallucinations. Associated symptoms: Reports depression, homicidal ideation and suicidal ideation; Deny auditory hallucinations or visual hallucinations Review of Systems Const: Denies: fever(s), chills or fatigue Eyes: Denies: change in vision or eye discomfort ENMT: Denies: throat pain, odynophagia, nasal discharge or nasal congestion Card: Denies: chest pain, palpitations, edema, swelling of feet/ankles, dyspnea on exertion or orthopnea Resp: Denies: dyspnea, productive cough or non-productive cough GI: Denies: abdominal pain, nausea, vomiting, diarrhea, constipation or hematochezia : Denies: flank pain, dysuria or hematuria Musc: Denies: neck pain, back pain or extremity swelling Skin/Breast: Denies: rash or new lesions Neuro: Denies: headache(s), numbness in extremities or weakness in extremities Psych: Reports: anxiety, depression, suicidal ideation and homicidal ideation; Denies: visual hallucinations or auditory hallucinations [facility] ED PFSH: Medical History (Updated 06/29/22 @ 11:54 by Hubert Lua DO) Borderline personality disorder Cannabis abuse COVID-19 Evaluation regarding contraception options Impulse control disorder Major depression Major depressive disorder, recurrent episode with anxious distress Major depressive disorder, recurrent severe without psychotic features Methamphetamine abuse Nausea alone Psychiatric care Suicidal ideation Surgical History History of knee surgery Status post myringotomy with tube placement of both ears Family History Other Diabetes Lung disease Rheumatoid arthritis Social History Smoking and tobacco status: current every day smoker e-cigarettes E-Cigarette Details: with nicotine E-cig/vape details: 1 week to go through a tank Quit status (tobacco): considering quitting Second hand smoke exposure: Yes Smoking risk assessment/counseling performed?: Yes Alcohol intake: former Year of sobriety/quit date alcohol: 2021 Adopted: No Caregiver/support person: No Lives independently: No Household members: other Details: SOC Housing: Homeless Marital status: Single Number of children: 2 Highest education level completed: Some College, No Degree service: No Current occupational status: employed 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 Pets and animals: No Leisure activites: music Sexually active: No Current gender identity: Female Briseida/Moravian: None Special briseida needs: No Agree to transfusion: Yes Financial difficulty paying for basics: Somewhat Hard Female Reproductive History: Para: 2 Spontaneous abortions: Yes Physical Exam Const: COMMON NORMALS: patient oriented x3 HENMT: COMMON NORMALS: normocephalic HEAD & SCALP: normocephalic MOUTH: Normal oral and palatal mucosa present THROAT: posterior oropharynx normal and uvula midline Neck/C-Spine: COMMON NORMALS: supple GENERAL: Yes normal visual inspection Resp: COMMON NORMALS: normal respiratory effort, No retractions, No use of accessory muscles and clear to auscultation bilaterally AUSCULTATION: clear to auscultation bilaterally Cardio: COMMON NORMALS: regular rate, regular rhythm, S1 normal heart sound present, S2 normal heart sound present, No gallops present (Cardio), No clicks present (Cardio), No murmurs present (Cardio) and Peripheral pulses 2+ throughout RATE: regular rate RHYTHM: regular rhythm HEART SOUNDS: S1 normal heart sound present and S2 normal heart sound present PERIPHERAL PULSES: Peripheral pulses 2+ throughout GI: COMMON NORMALS: Normal to inspection, nondistended, normoactive bowel sounds present, Soft to palpation, non-tender and no masses PALPATION: Yes Soft to palpation : COMMON NORMALS: Yes no CVA tenderness BLADDER/KIDNEY EXAM: Yes no CVA tenderness Back/Pelvis: COMMON NORMALS: no CVA tenderness Extremity: COMMON NORMALS: normal to inspection Neuro: COMMON NORMALS: patient oriented x3 GAIT: Yes Normal gait present Psych: COMMON NORMALS: speech normal APPEARANCE: Yes grossly normal ATTITUDE: Yes calm ACTIVITY/MOTOR BEHAVIOR: Yes appropriate eye contact SPEECH: Yes normal speech MOOD & AFFECT: Yes sad and Yes tearful THOUGHT CONTENT: Yes Suicidality present and Yes Homicidality present Skin: GENERAL SKIN EXAM: dry skin Course Vital Signs: Vital signs: Vital Signs Temperature 98.0 F 06/29/22 11:02 Pulse Rate 65 06/29/22 11:02 Respiratory Rate 16 06/29/22 11:02 Blood Pressure 121/78 06/29/22 11:02 Pulse Oximetry 97 06/29/22 11:02 Oxygen Delivery Me thod 06/29/22 11:04 MDM - Psych Medical Decision Making Chart reviewed and patient discussed with midlevel. Agree with assessment and plan. Dr. Soto was notified and he accepts admission of patient. Patient seen and evaluated and orders written for admission admit for suicidal homicidal ideation. Lab Data 06/29/22 08:27 06/29/22 08:27 Laboratory Results WBC 6.9 10^3/uL (4.0-10.0) 06/29/22 08:27 RBC 4.53 10^6/uL (4.1-5.3) 06/29/22 08:27 Hgb 13.1 g/dL (11.5-15.3) 06/29/22 08:27 Hct 40.8 % (37.0-47.0) 06/29/22 08:27 MCV 90.1 fl (81-99) 06/29/22 08:27 MCH 28.9 pg (28.0-34.0) 06/29/22 08:27 MCHC 32.1 g/dL (30.0-36.0) 06/29/22 08:27 RDW 12.6 % (12.1-15.1) 06/29/22 08:27 Plt Count 271 10^3/cmm (130-400) 06/29/22 08:27 MPV 10.8 fL (7.4-10.4) H 06/29/22 08:27 Neut % (Auto) 64.6 % 06/29/22 08:27 Lymph % (Auto) 28.4 % 06/29/22 08:27 [place] % (Auto) 3.9 % 06/29/22 08:27 Eos % (Auto) 2.2 % 06/29/22 08:27 Baso % (Auto) 0.6 % 06/29/22 08:27 Neut # (Auto) 4.45 10^3/uL (1.8-7.7) 06/29/22 08:27 Lymph # (Auto) 2.0 10^3/uL (0.8-4.8) 06/29/22 08:27 [place] # (Auto) 0.3 10^3/uL (0.2-0.9) 06/29/22 08:27 Eos # (Auto) 0.2 10^3/uL (0.0-0.8) 06/29/22 08:27 Baso # (Auto) 0.0 10^3/uL (0.0-0.1) 06/29/22 08:27 Nucleated RBC % (auto) 0 % 06/29/22 08:27 Nucleated RBCs # 0.0 /100WBC 06/29/22 08:27 Sodium 141 mmol/L (136-145) 06/29/22 08:27 Potassium 4.0 mmol/L (3.5-5.1) 06/29/22 08:27 Chloride 108 mmol/L (98-107) H 06/29/22 08:27 Carbon Dioxide 22 mmol/L (22-29) 06/29/22 08:27 Anion Gap 15.0 (5-19) 06/29/22 08:27 BUN 6 mg/dL (6-20) 06/29/22 08:27 Creatinine 0.6 mg/dL (0.5-0.9) 06/29/22 08:27 GFR Calculation 118.2 mL/min (90-130) 06/29/22 08:27 Glucose 119 mg/dL (65-115) H 06/29/22 08:27 Calculated Osmolality 291 mOsm/kg (285-295) 06/29/22 08:27 Calcium 9.4 mg/dL (8.5-10.5) 06/29/22 08:27 Total Bilirubin 0.6 mg/dL (0.15-1.2) 06/29/22 08:27 AST 14 U/L (0-32) 06/29/22 08:27 ALT 14 U/L (0-33) 06/29/22 08:27 Alkaline Phosphatase 79 U/L (35-105) 06/29/22 08:27 Total Protein 7.2 g/dL (6.6-8.7) 06/29/22 08:27 Albumin 4.2 g/dL (3.5-5.2) 06/29/22 08:27 Globulin 3.0 g/dL (1.3-4.6) 06/29/22 08:27 HCG, Qual Negative (Negative) 06/29/22 08:27 Urine Color Yellow (Yellow) 06/29/22 07:58 Urine Appearance Hazy (CLEAR) A 06/29/22 07:58 Urine pH 6 (5-7) 06/29/22 07:58 Ur Specific [place] 1.015 (1.005-1.030) 06/29/22 07:58 Urine Protein Neg (Negative) 06/29/22 07:58 Urine Glucose (UA) Norm (Normal) 06/29/22 07:58 Urine Ketones Negative (Negative) 06/29/22 07:58 Urine Blood Neg (Negative) 06/29/22 07:58 Urine Nitrate Negative (Negative) 06/29/22 07:58 Urine Bilirubin Neg (Negative) 06/29/22 07:58 Urine Urobilinogen Norm mg/dL (Negative) 06/29/22 07:58 Ur Leukocyte Esterase 1+ (Negative) H 06/29/22 07:58 Urine RBC None /hpf (0-2) 06/29/22 07:58 Urine WBC 25-40 /hpf (0-5) H 06/29/22 07:58 Ur Squamous Epith Cells 15-25 /hpf (0-5) H 06/29/22 07:58 Amorphous Sediment Not Reportable 06/29/22 07:58 Urine Bacteria 2+ /hpf (NONE) H 06/29/22 07:58 Urine Mucus 2+ /hpf 06/29/22 07:58 Salicylates < 0.3 mg/dL (3-10) L 06/29/22 08:27 Urine Opiates Screen Negative ng/mL (Negative) 06/29/22 07:58 Acetaminophen < 5.0 ug/mL (10-30) L 06/29/22 08:27 Ur Barbiturates Screen Negative ng/mL (Negative) 06/29/22 07:58 Ur Phencyclidine Scrn Negative ng/mL (Negative) 06/29/22 07:58 Ur Amphetamines Screen Negative ng/mL (Negative) 06/29/22 07:58 U Benzodiazepines Scrn Negative ng/mL (Negative) 06/29/22 07:58 Urine Cocaine Screen Negative ng/mL (Negative) 06/29/22 07:58 U Marijuana (THC) Screen Positive ng/mL (Negative) H 06/29/22 07:58 Ethyl Alcohol < 10 mg/dL (0-10) 06/29/22 08:27 Discharge Plan Discharge Patient Disposition: Admitted As Inpatient Admit Provider: Jose Soto Clinical Impression: Depression with suicidal ideation, Borderline personality disorder Condition: Stable Sign Out Sign Out Data: Patient Sign Out occurred on 06/29/22 at 09:58. Patient's care was discussed, an d care was transferred from to Hubert Lua DO. Coding Level of Care Code ED Evp Operations for Chg Fwd Documented by User: Hubert Lua DO 06/29/22 11:54 HPI - Psych General: Chief Complaint: Psychiatric Symptoms Stated Complaint: SI Time Seen by Provider: 06/29/22 07:41 PFSH ED PFSH: Medical History (Updated 06/29/22 @ 11:54 by Hubert Lua DO) Borderline personality disorder Cannabis abuse COVID-19 Evaluation regarding contraception options Impulse control disorder Major depression Major depressive disorder, recurrent episode with anxious distress Major depressive disorder, recurrent severe without psychotic features Methamphetamine abuse Nausea alone Psychiatric care Suicidal ideation Surgical History History of knee surgery Status post myringotomy with tube placement of both ears Family History Other Diabetes Lung disease Rheumatoid arthritis Social History Smoking and tobacco status: current every day smoker e-cigarettes E-Cigarette Details: with nicotine E-cig/vape details: 1 week to go through a tank Quit status (tobacco): considering quitting Second hand smoke exposure: Yes Smoking risk assessment/counseling performed?: Yes Alcohol intake: former Year of sobriety/quit date alcohol: 2021 Adopted: No Caregiver/support person: No Lives independently: No Household members: other Details: SOC Housing: Homeless Marital status: Single Number of children: 2 Highest education level completed: Some College, No Degree service: No Current occupational status: employed 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 Pets and animals: No Leisure activites: music Sexually active: No Current gender identity: Female Briseida/Moravian: None Special briseida needs: No Agree to transfusion: Yes Financial difficulty paying for basics: Somewhat Hard Course Vital Signs: Vital signs: Vital Signs Temperature 98.0 F 06/29/22 11:02 Pulse Rate 65 06/29/22 11:02 Respiratory Rate 16 06/29/22 11:02 Blood Pressure 121/78 06/29/22 11:02 Pulse Oximetry 97 06/29/22 11:02 Oxygen Delivery Me thod 06/29/22 11:04 MDM - Psych Medical Decision Making Chart reviewed and patient discussed with midlevel. Agree with assessment and plan. Patient seen and evaluated and orders written for admission admit for suicidal homicidal ideation. Medical Records I reviewed the patient's medical records. Lab Data I reviewed the patient's lab results. 06/29/22 08:27 06/29/22 08:27 Laboratory Results WBC 6.9 10^3/uL (4.0-10.0) 06/29/22 08:27 RBC 4.53 10^6/uL (4.1-5.3) 06/29/22 08:27 Hgb 13.1 g/dL (11.5-15.3) 06/29/22 08:27 Hct 40.8 % (37.0-47.0) 06/29/22 08:27 MCV 90.1 fl (81-99) 06/29/22 08:27 MCH 28.9 pg (28.0-34.0) 06/29/22 08:27 MCHC 32.1 g/dL (30.0-36.0) 06/29/22 08:27 RDW 12.6 % (12.1-15.1) 06/29/22 08:27 Plt Count 271 10^3/cmm (130-400) 06/29/22 08:27 MPV 10.8 fL (7.4-10.4) H 06/29/22 08:27 Neut % (Auto) 64.6 % 06/29/22 08:27 Lymph % (Auto) 28.4 % 06/29/22 08:27 [place] % (Auto) 3.9 % 06/29/22 08:27 Eos % (Auto) 2.2 % 06/29/22 08:27 Baso % (Auto) 0.6 % 06/29/22 08:27 Neut # (Auto) 4.45 10^3/uL (1.8-7.7) 06/29/22 08:27 Lymph # (Auto) 2.0 10^3/uL (0.8-4.8) 06/29/22 08:27 [place] # (Auto) 0.3 10^3/uL (0.2-0.9) 06/29/22 08:27 Eos # (Auto) 0.2 10^3/uL (0.0-0.8) 06/29/22 08:27 Baso # (Auto) 0.0 10^3/uL (0.0-0.1) 06/29/22 08:27 Nucleated RBC % (auto) 0 % 06/29/22 08: Nucleated RBCs # 0.0 /100WBC 06/29/22 08:27 Sodium 141 mmol/L (136-145) 06/29/22 08:27 Potassium 4.0 mmol/L (3.5-5.1) 06/29/22 08:27 Chloride 108 mmol/L (98-107) H 06/29/22 08:27 Carbon Dioxide 22 mmol/L (22-29) 06/29/22 08:27 Anion Gap 15.0 (5-19) 06/29/22 08:27 BUN 6 mg/dL (6-20) 06/29/22 08:27 Creatinine 0.6 mg/dL (0.5-0.9) 06/29/22 08:27 GFR Calculation 118.2 mL/min (90-130) 06/29/22 08:27 Glucose 119 mg/dL (65-115) H 06/29/22 08:27 Calculated Osmolality 291 mOsm/kg (285-295) 06/29/22 08:27 Calcium 9.4 mg/dL (8.5-10.5) 06/29/22 08:27 Total Bilirubin 0.6 mg/dL (0.15-1.2) 06/29/22 08:27 AST 14 U/L (0-32) 06/29/22 08:27 ALT 14 U/L (0-33) 06/29/22 08:27 Alkaline Phosphatase 79 U/L (35-105) 06/29/22 08:27 Total Protein 7.2 g/dL (6.6-8.7) 06/29/22 08:27 Albumin 4.2 g/dL (3.5-5.2) 06/29/22 08:27 Globulin 3.0 g/dL (1.3-4.6) 06/29/22 08:27 HCG, Qual Negative (Negative) 06/29/22 08:27 Urine Color Yellow (Yellow) 06/29/22 07:58 Urine Appearance Hazy (CLEAR) A 06/29/22 07:58 Urine pH 6 (5-7) 06/29/22 07:58 Ur Specific [place] 1.015 (1.005-1.030) 06/29/22 07:58 Urine Protein Neg (Negative) 06/29/22 07:58 Urine Glucose (UA) Norm (Normal) 06/29/22 07:58 Urine Ketones Negative (Negative) 06/29/22 07:58 Urine Blood Neg (Negative) 06/29/22 07:58 Urine Nitrate Negative (Negative) 06/29/22 07:58 Urine Bilirubin Neg (Negative) 06/29/22 07:58 Urine Urobilinogen Norm mg/dL (Negative) 06/29/22 07:58 Ur Leukocyte Esterase 1+ (Negative) H 06/29/22 07:58 Urine RBC None /hpf (0-2) 06/29/22 07:58 Urine WBC 25-40 /hpf (0-5) H 06/29/22 07:58 Ur Squamous Epith Cells 15-25 /hpf (0-5) H 06/29/22 07:58 Amorphous Sediment Not Reportable 06/29/22 07:58 Urine Bacteria 2+ /hpf (NONE) H 06/29/22 07:58 Urine Mucus 2+ /hpf 06/29/22 07:58 Salicylates < 0.3 mg/dL (3-10) L 06/29/22 08:27 Urine Opiates Screen Negative ng/mL (Negative) 06/29/22 07:58 Acetaminophen < 5.0 ug/mL (10-30) L 06/29/22 08:27 Ur Barbiturates Screen Negative ng/mL (Negative) 06/29/22 07:58 Ur Phencyclidine Scrn Negative ng/mL (Negative) 06/29/22 07:58 Ur Amphetamines Screen Negative ng/mL (Negative) 06/29/22 07:58 U Benzodiazepines Scrn Negative ng/mL (Negative) 06/29/22 07:58 Urine Cocaine Screen Negative ng/mL (Negative) 06/29/22 07:58 U Marijuana (THC) Screen Positive ng/mL (Negative) H 06/29/22 07:58 Ethyl Alcohol < 10 mg/dL (0-10) 06/29/22 08:27 Discharge Plan Discharge Patient Disposition: Admitted As Inpatient Admit Provider: Jose Soto Clinical Impression: Depression with suicidal ideation, Borderline personality disorder Condition: Stable Sign Out Sign Out Data: Patient Sign Out occurred on 06/29/22 at 09:58. Patient's care was discussed, and care was transferred from to Hubert Lua DO. Coding Level of Care Code ED Evp Operations for Estrella Hou
[2022-06-29 08:19] LABS: Add Urine Culture? No; Bacteria Urine 2+ /hpf; Mucus Urine 2+ /hpf; Squamous Epithelial Cell Urine 15-25 /hpf (0-5); WBC Urine 25-40 /hpf (0-5)
[2022-06-29 08:20] LABS: Amphetamines Screen Urine Negative (Negative); Barbiturates Screen Urine Negative (Negative); Benzodiazepines Screen Urine Negative (Negative); Cocaine Screen Urine Negative (Negative); Opiate Screen Urine Negative (Negative); PCP Screen Urine Negative (Negative); THC Screen Urine Positive (Negative)
[2022-06-29] MEDS: hyDROXYzine 25 mg Capsule 50 MG PO ×2 (08:21→20:40)
[2022-06-29 08:58] LABS: Basophils % 0.6 %; Eosinophils # 0.2 10^3/uL (0.0-0.8); Eosinophils % 2.2 %; Hematocrit 40.8 % (37.0-47.0); Hemoglobin 13.1 g/dL (11.5-15.3); Lymphocytes % 28.4 %; Mean Corpuscular HGB Conc 32.1 g/dL (30.0-36.0); Mean Corpuscular Hemoglobin 28.9 pg (28.0-34.0); Mean Corpuscular Volume 90.1 fl (81-99); Mean Platelet Volume 10.8 fL (7.4-10.4); Monocytes # 0.3 10^3/uL (0.2-0.9); Monocytes % 3.9 %; Neutrophils # 4.45 10^3/uL (1.8-7.7); Neutrophils % 64.6 %; Nucleated Red Blood Cells % 0 %; Platelet Count 271 10^3/cmm (130-400); Red Blood Count 4.53 10^6/uL (4.1-5.3); Red Cell Distribution Width 12.6 % (12.1-15.1); White Blood Count 6.9 10^3/uL (4.0-10.0)
[2022-06-29 09:13] LABS: HCG, Serum Qual Negative (Negative)
[2022-06-29 09:16] LABS: Alanine Aminotransferase 14 U/L (0-33); Albumin Level 4.2 g/dL (3.5-5.2); Alkaline Phosphatase 79 U/L (35-105); Aspartate Amino Transferase 14 U/L (0-32); Blood Urea Nitrogen 6 mg/dL (6-20); Calcium 9.4 mg/dL (8.5-10.5); Carbon Dioxide 22 mmol/L (22-29); Chloride 108 mmol/L (98-107); Creatinine Clr Calc Pharmacy 149.0354; Glomerular Filtration Rate 118.2 mL/min (90-130); Glucose 119 mg/dL (65-115); Osmolality Calculated 291 mOsm/kg (285-295); Sodium 141 mmol/L (136-145); Total Bilirubin 0.6 mg/dL (0.15-1.2); Total Protein 7.2 g/dL (6.6-8.7)
[2022-06-29 09:19] LABS: Acetaminophen < 5.0 ug/mL (10-30); Alcohol Level < 10 mg/dL (0-10); Salicylate < 0.3 mg/dL (3-10)
[2022-06-29 11:02] VITALS: BP 121/78; PULSE 65; RESP 16; TEMP 36.7; O2SAT 97
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
[2022-06-29 14:00] VITALS: BP 107/68; PULSE 68; RESP 20; TEMP 37.2; O2SAT 97
[2022-06-29] MEDS: BuSPIRONE 10 mg Tablet PO ×2 (17:29→17:30)
[2022-06-29] MEDS: ondansetron 4 MG Tablet PO (20:40)
[2022-06-29] MEDS: trazodone 100 mg Tablet PO (20:40)
[2022-06-29 20:43] VITALS: BP 123/71; PULSE 84; RESP 16; TEMP 36.9; O2SAT 98; BMI 34.2
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
[2022-06-30] MEDS: ondansetron 4 MG Tablet PO (06:43)
[2022-06-30] MEDS: hyDROXYzine 25 mg Capsule 50 MG PO ×2 (09:50→22:28)
[2022-06-30] MEDS: BuSPIRONE 10 mg Tablet PO ×2 (09:56→17:16)
--- NOTE | 2022-06-30 09:57 | PC.NURSE ---
Documentation showed pt received Buspar twice yesterday so AM dose for 06/30/22 already has entry. Contacted pharmacy. Their records show only one pill dispensed so directed to enter today's dose as unscheduled. Pt received her buspar.
[2022-06-30] MEDS: OLANZapine 5 mg ODT PO (10:12)
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
--- NOTE | 2022-06-30 10:32 | PC.NURSE ---
Checked on pt; she was resting in bed rocking back and forth. Said she was feeling a little better but still jittery. Pt denied thoughts of self-harm at this time and contracted to be safe while here. Up to get a toothbrush, then returned to her room.
[2022-06-30 14:00] VITALS: BP 135/84; PULSE 80; RESP 18; TEMP 36.4; O2SAT 97
[2022-06-30] MEDS: acetaminophen 325 mg Tablet 650 MG PO (17:15)
[2022-06-30 22:00] VITALS: BP 104/71; PULSE 74; RESP 16; TEMP 36.7; O2SAT 98
[2022-06-30] MEDS: trazodone 100 mg Tablet PO (22:29)
[2022-07-01] MEDS: ondansetron 4 MG Tablet PO (04:29)
[2022-07-01 06:00] VITALS: BP 108/61; PULSE 80; RESP 18; TEMP 36.3; O2SAT 96
[2022-07-01] MEDS: hyDROXYzine 25 mg Capsule 50 MG PO (07:33)
[2022-07-01] MEDS: promethazine 25 mg/mL SDV 1 mL IM (07:46)
[2022-07-01] MEDS: BuSPIRONE 10 mg Tablet PO ×3 (08:45→21:43)
[2022-07-01] MEDS: OLANZapine 5 mg ODT PO (11:02)
--- NOTE | 2022-07-01 14:45 | W.PM.NPUPNS ---
Subjective NPU Subjective: Patient is a 27-year-old female admitted with depression and suicidal ideation. She had reported having previously lived in a [place] [facility] and stated that she was overwhelmed by her poor living situation. She had reported no methamphetamine use in 10 months. She had reported that she had been struggling with depression with sleep continuity disruption and diminished energy for several weeks. She states that she wanted to continue to remain compliant with her medications and stated that she had not been treated for depression in several months. Mental Status Exam MSE Comments: This is an overweight versus obese white female with hospital scrubs on with limited grooming and eye contact. No abnormal movements except for psychomotor agitation.? She was mostly cooperative with exam in mild to moderate distress.? Speech was normal in rate and normal volume.? Mood described as stressed , affect was mood congruent and restricted in range.? Thought process organized.? Thought content: Patient denied suicidal or homicidal ideations, there are no delusions noted and no evidence of any clear paranoia today. She denied any auditory or visual hallucinations.? Attention and concentration were limited and memory appeared mostly reliable but none were formally tested.? She is alert and oriented x3.? Insight and judgment are limited, impulse control is impaired. Vitals/I&O/Wt Last Vital Signs Temp 97.4 F L 07/01/22 06:00 Pulse 80 07/01/22 06:00 Resp 18 07/01/22 06:00 BP 108/61 07/01/22 06:00 Pulse Ox 96 07/01/22 06:00 O2 Del Method 07/01/22 06:00 Weight last 48 hrs Weight 96.218 kg Data NPU 06/29/22 08:27 06/29/22 08:27 A&P Assessment and plan (1) Borderline personality disorder: (2) Suicidal ideation: (3) Methamphetamine use disorder, severe, in sustained remission: (4) Nausea alone: (5) Anxiety: Plan This is a 27-year-old homeless female with a history of borderline personality disorder, methamphetamine use significant anxiety who presents with a reporting sobriety with overwhelming anxiety. Plan: 1. Continue current medication. Continue BuSpar to 10 mg p.o. tid and add cymbalta 30mg in am to target depression. 2. Continue every 15 minute checks for safety. 3. Encourage individual, group and milieu therapies. 4. Encourage sober living treatment after discharge at the highest level of care to which she is willing to commit. Involuntary Hold Information 96 Hour Hold: 96 Hour Involuntary Admission: No Attestations NPU Medical Necessity Statement*: Inpatient hospitalization is medically necessary and the clinically appropriate intervention at this time. We will initiate medications and make changes as indicated with likely length of stay being 3-5 days Coding Level of Care Code Acute Code for g Fwd Diagnoses Borderline personality disorder F60.3 Suicidal ideation R45.851 Methamphetamine use disorder, severe, in sustained remission F15.21 Nausea alone R11.0 Anxiety F41.9
[2022-07-01 18:13] VITALS: BP 122/76; PULSE 76; RESP 18; TEMP 36.3; O2SAT 98
[2022-07-01] MEDS: acetaminophen 325 mg Tablet 650 MG PO (18:19)
[2022-07-01 20:59] VITALS: BP 112/67; PULSE 72; RESP 16; O2SAT 95
[2022-07-01] MEDS: trazodone 100 mg Tablet PO (21:46)
[2022-07-02] MEDS: ondansetron 4 MG Tablet PO (05:58)
[2022-07-02 06:00] VITALS: BP 145/86; PULSE 91; RESP 18; TEMP 37.1; O2SAT 98
[2022-07-02] MEDS: duloxetine 30 mg Capsule PO (08:33)
[2022-07-02] MEDS: BuSPIRONE 10 mg Tablet PO ×3 (08:33→18:08)
[2022-07-02] MEDS: hyDROXYzine 25 mg Capsule 50 MG PO (13:36)
[2022-07-02] MEDS: nicotine 2 mg Gum BUCCAL (14:22)
[2022-07-02] MEDS: tizanidine 4 mg Tablet PO (14:35)
[2022-07-02] MEDS: acetaminophen 325 mg Tablet 650 MG PO (15:25)
[2022-07-02] MEDS: OLANZapine 5 mg ODT PO (15:30)
--- NOTE | 2022-07-02 15:35 | PC.NURSE ---
PRN MED PT GIVEN 5MG ZYPREXA ZYDIS FOR STATED ANXIETY/AGITATION, WILL CONTINUE TO MONITOR.
[2022-07-02] MEDS: nicotine 4 mg lozenge MUCOUS MEM (16:55)
--- NOTE | 2022-07-02 17:19 | P.NPUPN_ITS ---
Subjective NPU Subjective: Patient is a 27-year-old female admitted with depression and suicidal ideation. And reported feeling a little better today. She had endorsed a period of extended depression for several months. She had reported no methamphetamine use in several drip days. She was unable to identify any tr iggers but stated that she continued to remain motivated to work and to be off of any substances. She had reported a history of poor frustration tolerance and frequent mood fluctuations. Patient was redirectable and reported no side effects from her medications. She denied any feelings of hopelessness or worthlessness at this time. Mental Status Exam MSE Comments: This is an overweight versus obese white female with hospital scrubs on with limited grooming and eye contact. No abnormal movements except for psychomotor agitation.? She was mostly cooperative with exam in mild distress.? Speech was normal in rate and normal volume.? Mood described as stressed , affect was mood congruent and restricted in range.? Thought process organized.? Thought content: Patient denied suicidal or homicidal ideations, there are no delusions noted and no evidence of any clear paranoia today. She denied any auditory or visual hallucinations.? Attention and concentration were limited and memory appeared mostly reliable but none were formally tested.? She is alert and oriented x3.? Insight and judgment are limited, impulse control is impaired. Vitals/I&O/Wt Last Vital Signs Temp 98.7 F 07/02/22 06:00 Pulse 91 07/02/22 06:00 Resp 18 07/02/22 06:00 BP 145/86 07/02/22 06:00 Pulse Ox 98 07/02/22 06:00 O2 Del Method 07/02/22 06:00 Data NPU 06/29/22 08:27 06/29/22 08:27 A&P Assessment and plan (1) Borderline personality disorder: (2) Suicidal ideation: (3) Methamphetamine use disorder, severe, in sustained remission: (4) Nausea alone: (5) Anxiety: Plan This is a 27-year-old homeless female with a history of borderline personality disorder, methamphetamine use significant anxiety who presents with a reporting sobriety with overwhelming anxiety. Plan: 1. Continue current medication. Decrease buspar 10mg bid and increase cymbalta to 60 in am to target depression. 2. Continue every 15 minute checks for safety. 3. Encourage individual, group and milieu therapies. 4. Encourage sober living treatment after discharge at the highest level of care to which she is willing to commit. Involuntary Hold Information 96 Hour Hold: 96 Hour Involuntary Admission: No Attestations NPU Medical Necessity Statement*: Inpatient hospitalization is medically necessary and the clinically appropriate intervention at this time. We will initiate medications and make changes as indicated with likely length of stay being 3-5 days Coding Level of Care Code Acute Code for [facility] Fwd Diagnoses Borderline personality disorder F60.3 Suicidal ideation R45.851 Methamphetamine use disorder, severe, in sustained remission F15.21 Nausea alone R11.0 Anxiety F41.9
[2022-07-02 22:00] VITALS: BP 123/77; PULSE 78; RESP 15; TEMP 36.6; O2SAT 96
[2022-07-02] MEDS: trazodone 100 mg Tablet PO (23:55)
--- NOTE | 2022-07-02 23:55 | PC.NURSE ---
PRN trazodone given as ordered for sleep per pt request.
[2022-07-03] MEDS: hyDROXYzine 25 mg Capsule 50 MG PO ×2 (04:17→10:29)
[2022-07-03] MEDS: ondansetron 4 MG Tablet PO (04:17)
--- NOTE | 2022-07-03 04:18 | PC.NURSE ---
prn vistaril given for anxiety and zofran for nausea given as ordered per pt request.
[2022-07-03 06:00] VITALS: BP 176/75; PULSE 88; TEMP 36.8; O2SAT 98
[2022-07-03] MEDS: tizanidine 4 mg Tablet PO ×2 (06:14→11:55)
[2022-07-03] MEDS: acetaminophen 325 mg Tablet 650 MG PO (06:14)
[2022-07-03] MEDS: duloxetine 30 mg Capsule 60 MG PO (08:56)
[2022-07-03] MEDS: BuSPIRONE 10 mg Tablet PO (08:56)
[2022-07-03] MEDS: ibuprofen 600 mg Tablet PO (08:57)
[2022-07-03 14:00] VITALS: BP 125/81; PULSE 81; RESP 20; TEMP 36.6; O2SAT 98
--- NOTE | 2022-07-03 15:53 | P.NPUDS_ITS ---
Diagnoses at Discharge Discharge Diagnosis (1) Borderline personality disorder: Status: Acute (2) Suicidal ideation: Status: Resolved (3) Methamphetamine use disorder, severe, in sustained remission: Status: Acute (4) Anxiety: Status: Acute Reason for Visit Reason for Visit: SI/HI Brief History: History of Present Illness Mara Dipo is a 27 year old female who presented to the emergency department with the following report: Chief Complaint: Psychiatric Symptoms Stated Complaint: SI Time Seen by Provider: 06/29/22 07:41 History of Present Illness:?? Patient is a 27-year-old female comes to the ED with SI and HI.? Patient has a history of methamphetamine abuse, borderline personality disorder, depression.? She has been sober from methamphetamine for over 6 months.? She currently lives [facility] [place] [facility] and she is having increased depression and anxiety there.? She has not been able to find her medications, so she has not been taking them for the past couple days.? She is having SI but denies any plan.? Patient states that she wants to give up. ? She is also having HI towards staff at the [place] [facility] and towards fellow coworkers at her job.? Denies any auditory or visual hallucinations. Associated symptoms: Reports depression, homicidal ideation and suicidal ideation; Deny auditory hallucinations or visual hallucinations She is admitted to the neuropsychiatric unit for the treatment of those issues.? She presented this morning audibly vomiting in the hallways.? She reports that has been a new and common phenomenon in the mornings she not sure if is related to her anxiety.? She reports that she came to the hospital because she has been completely overwhelmed in her current living environment at least.? She reports that they have had bedbugs and that the process of trying to limit the bedbugs and keep her circumstances under control has been a bit much.? She had to pack her stuff away and then they did not spray and then she had to try to find out where her pills were etc.? She was that she went to rehab before she went to [facility] and feels she is been doing fine for recovery aspect but reports feeling overwhelmed that she wants to go back to rehab.? 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 She had struggled with methamphetamine in her UDS was negative except for cannabis.? She has been following up with her outpatient services and saw a provider at [facility] earlier this month.? We discussed the risk benefits and alternatives of increasing her BuSpar and she understood agreed proceed as is documented in this note.? An excerpt of that outpatient evaluation is included below for context. Per her 06/20/2022 [facility] outpatient psychiatric evaluation: [facility] History and Physical Time In: 14:03 Time Out: 14:44 Chief Complaint: Anxiety, want to try Buspar or something. History of Present Illness: Patient is here for a psych evaluation for possibility of adding a medication for anxiety. Says she has been taking the hydroxyzine for a long time, at least a couple of years, but says it's not helping her anxiety. Her symptoms of anxiety are: increased heart rate, upset stomach, shaking. Had previously been prescribed sertraline for mood/anxiety symptoms but has not been adherent to that medication. She has taken various other medications (noted below in past psych history), but has not been adherent to a medication regimen for any extended period of time; not sure about efficacy of medications for mood/anxiety. She feels more anxious than depressed, she says. Anger triggers:mostly work-related when she feels like there is not respect/communication between herself in her work environment and other department workers. Says she hasn't been sleeping as well since she hadn't been taking the trazodone; she had been taking? trazodone 50 mg-one or two tablets at bedtime, if needed with sleep benefit. She would like to resume that medication, if possible. Usually energy is crappy, but yesterday and today, it's good. She is physically active on the job (in environmental which she reports some of wanting to provider); no other routine physical exercise. Appetite is last month, pretty lousy, but the last week or two, pretty good. Weight has increased over the past 3 months. Caffeine intake: Drinks one or two 20 oz caffeinated drinks per day; drinks at least 20 oz of regular tea per day. Drinks soda late in the evening. Occasionally has an Energy drinks. Nicotine: Hasn't smoked cigarettes for three days with intent to stop; she has gone for 3 weeks without vaping. Doesn't want to use the patch; says she thinks she can do it on her own. Denies alcohol intake. Smoked marijuana every day, the past week, prior to that occasional use. Denies other illicit substance. Hospital Course Hospital Course During the hospitalization, patient had routine laboratory studies which were within normal limits except for few outliers.? Additionally there was a general medical evaluation which was also within normal limits and revealed no new acute processes other than the cut/lacerations related to the issues surrounding his admission.. At the time of discharge, he denied psychosis or lethality.? Mood and anxiety were well managed.? Patient endorsed a plan to avoid all drugs of abuse and follow-up with the aftercare recommendations of the treatment team.? Patient was evaluated and deemed to be absent credible lethality, and had achieved the maximum benefit from an inpatient hospitalization, so was discharged. Involuntary Hold Information 96 Hour Hold: 96 Hour Involuntary Admission: No Mental Status Exam MSE Comments: This is an overweight versus obese white female with hospital scrubs on with limited grooming and good eye contact. No abnormal movements except for psychomotor agitation.? She was mostly cooperative with exam in mild distress.? Speech was normal in rate and normal volume.? Mood described as okay , affect was mood congruent. Thought process organized.? Thought content: Patient denied suicidal or homicidal ideation. , There are no delusions noted and no evidence of any clear paranoia today. She denied any auditory or visual hallucinations.? Attention and concentration were limited and memory appeared mostly reliable but none were formally tested.? She is alert and oriented x3.? Insight and judgment are fair. Her impulse control is limited but at baseline. Discharge Data Studies Completed and Pending: Laboratory Results WBC 6.9 10^3/uL (4.0- 10.0) 06/29/22 08:27 RBC 4.53 10^6/uL (4.1 -5.3) 06/29/22 08:27 Hgb 13.1 g/dL (11.5-1 5.3) 06/29/22 08:27 Hct 40.8 % (37.0-47.0 ) 06/29/22 08:27 MCV 90.1 fl (81-99) 06/29/22 08:27 MCH 28.9 pg (28.0-34. 0) 06/29/22 08:27 MCHC 32.1 g/dL (30.0-3 6.0) 06/29/22 08: RDW 12.6 % (12.1-15.1 ) 06/29/22 08:27 Plt Count 271 10^3/cmm (130 -400) 06/29/22 08:27 MPV 10.8 fL (7.4-10.4 ) H 06/29/22 08:27 Neut % (Auto) 64.6 % 06/29/22 08: Lymph % (Auto) 28.4 % 06/29/22 08:27 Yuba % (Auto) 3.9 % 06/29/22 08:27 Eos % (Auto) 2.2 % 06/29/22 08:27 Baso % (Auto) 0.6 % 06/29/22 08: Neut # (Auto) 4.45 10^3/uL (1.8 -7.7) 06/29/22 08:27 Lymph # (Auto) 2.0 10^3/uL (0.8- 4.8) 06/29/22 08:27 [place]uba # (Auto) 0.3 10^3/uL (0.2- 0.9) 06/29/22 08:27 Eos # (Auto) 0.2 10^3/uL (0.0- 0.8) 06/29/22 08:27 Baso # (Auto) 0.0 10^3/uL (0.0- 0.1) 06/29/22 08:27 Nucleated RBC % (a uto) 0 % 06/29/22 08: Nucleated RBCs # 0.0 /100WBC 06/29/22 08:27 Sodium 141 mmol/L (136-1 45) 06/29/22 08:27 Potassium 4.0 mmol/L (3.5-5 .1) 06/29/22 08: Chloride 108 mmol/L (98-10 7) H 06/29/22 08:27 Carbon Dioxide 22 mmol/L (22-29) 06/29/22 08:27 Anion Gap 15.0 (5-19) 06/29/22 08:27 BUN 6 mg/dL (6-20) 06/29/22 08:27 Creatinine 0.6 mg/dL (0.5-0. 9) 06/29/22 08:27 GFR Calculation 118.2 mL/min (90- 130) 06/29/22 08:27 Glucose 119 mg/dL (65-115 ) H 06/29/22 08:27 Calculated Osmolal ity 291 mOsm/kg (285- 295) 06/29/22 08:27 Calcium 9.4 mg/dL (8.5-10 .5) 06/29/22 08:27 Total Bilirubin 0.6 mg/dL (0.15-1 .2) 06/29/22 08:27 AST 14 U/L (0-32) 06/29/22 08:27 ALT 14 U/L (0-33) 06/29/22 08:27 Alkaline Phosphata se 79 U/L (35-105) 06/29/22 08:27 Total Protein 7.2 g/dL (6.6-8.7 ) 06/29/22 08:27 Albumin 4.2 g/dL (3.5-5.2 ) 06/29/22 08:27 Globulin 3.0 g/dL (1.3-4.6 ) 06/29/22 08:27 HCG, Qual Negative (Negati ve) 06/29/22 08:27 Urine Color Yellow (Yellow) 06/29/22 07:58 Urine Appearance Hazy (CLEAR) A 06/29/22 07:58 Urine pH 6 (5-7) 06/29/22 07:58 Ur Specific Gravit y 1.015 (1.005-1.0 30) 06/29/22 07:58 Urine Protein Neg (Negative) 06/29/22 07:58 Urine Glucose (UA) Norm (Normal) 06/29/22 07:58 Urine Ketones Negative (Negati ve) 06/29/22 07:58 Urine Blood Neg (Negative) 06/29/22 07:58 Urine Nitrate Negative (Negati ve) 06/29/22 07:58 Urine Bilirubin Neg (Negative) 06/29/22 07:58 Urine Urobilinogen Norm mg/dL (Negat kwame) 06/29/22 07:58 Ur Leukocyte Avis ase 1+ (Negative) H 06/29/22 07:58 Urine RBC None /hpf (0-2) 06/29/22 07:58 Urine WBC 25-40 /hpf (0-5) H 06/29/22 07:58 Ur Squamous Epith Cells 15-25 /hpf (0-5) H 06/29/22 07:58 Amorphous Sediment Not Reportable 06/29/22 07:58 Urine Bacteria 2+ /hpf (NONE) H 06/29/22 07:58 Urine Mucus 2+ /hpf 06/29/22 07:58 Salicylates < 0.3 mg/dL (3-10 ) L 06/29/22 08:27 Urine Opiates Scre en Negative ng/mL (N egative) 06/29/22 07:58 Acetaminophen < 5.0 ug/mL (10-3 0) L 06/29/22 08:27 Ur Barbiturates Sc reen Negative ng/mL (N egative) 06/29/22 07:58 Ur Phencyclidine S crn Negative ng/mL (N egative) 06/29/22 07:58 Ur Amphetamines Sc reen Negative ng/mL (N egative) 06/29/22 07:58 U Benzodiazepines Scrn Negative ng/mL (N egative) 06/29/22 07:58 Urine Cocaine Scre en Negative ng/mL (N egative) 06/29/22 07:58 U Marijuana (THC) Screen Positive ng/mL (N egative) H 06/29/22 07:58 Ethyl Alcohol < 10 mg/dL (0-10) 06/29/22 08:27 Vitals: Last Vital Signs Temp 98 F 07/03/22 14:00 Pulse 81 07/03/22 14:00 Resp 20 H 07/03/22 14:00 BP 125/81 07/03/22 14:00 Pulse Ox 98 07/03/22 14:00 O2 Del Method 07/03/22 06:00 Discharge Plan Discharge Patient Disposition: Home Condition: Stable Prescriptions: New duloxetine 30 mg Capsule,Delayed Release(Dr/Ec) 60 mg PO DAILY 30 Days Qty: 60 1RF Continued medroxyprogesterone [Depo-Provera] 150 mg/mL suspension 150 mg IM Q90D Rx Instructions: Last injection 12.13.21 trazodone 50 mg tablet 100 mg PO .q hs PRN (Reason: insomnia) Qty: 60 0RF Rx Instructions: Take one or two at bedtime, if needed for insomnia omeprazole 20 mg capsule,delayed release(DR/EC) 20 mg PO DAILY tizanidine 4 mg tablet 4 mg PO TID PRN (Reason: Muscle Spasm) acetaminophen 500 mg Tablet 1,000 mg PO TID PRN (Reason: Pain) ondansetron 4 mg tablet,disintegrating 4 mg PO TID PRN (Reason: nausea and vomiting) Discontinued buspirone 10 mg tablet 10 mg PO BID Qty: 60 0RF Rx Instructions: For first 4 days:take 1/2 tablet morning and afternoon, then increase one tab twice a day Discharge Orders: Discharge Order (Routine); Ordered 07/03/22 Ordered By: Cristopher Ching Referrals: Jayden Daily MD [Primary Care Provider] - Sonali Ball APRN [Nurse Practitioner] - 07/09/22 9:45 am (Follow up) Discharge Diet: Usual diet Discharge Activity: Resume usual activity Patient Instructions: Duloxetine (By mouth), Mood Disorders (DC), Opioid Safety Discharge Attestations NPU Time Spent in Discharge Care*: less than 30 min Specific Discharge Activities: Specific discharge activities: educating patient, documenting/other paperwork and evaluating patient/reviewing data Status at Discharge: Cognitive status at discharge: cognitively intact , Behavioral status at discharge: cooperative , Coding Level of Care Code Acute Chg FW DC note Diagnoses Borderline personality disorder F60.3 Suicidal ideation R45.851 Methamphetamine use disorder, severe, in sustained remission F15.21 Anxiety F41.9
[2022-07-03 16:08] VITALS: BP 125/81; PULSE 81; RESP 20; TEMP 36.6; O2SAT 98
== END 2022-07-03 16:36 | disposition home or self-care (01) | DRG 883 ==
LOC: ER 09:58 → NP 11:05
PROVIDERS: Physician Assistant; Admitting Provider Psychiatry & Neurology Psychiatry; Emergency Provider Family Medicine; PCP Family Medicine; Visit Provider Psychiatry & Neurology Psychiatry
DX: F60.3 Borderline personality disorder (principal); R45.851 Suicidal ideations; F41.9 Anxiety disorder, unspecified; R45.850 Homicidal ideations; F15.21 Other stimulant dependence, in remission; F17.290 Nicotine dependence, other tobacco product, uncomplicated; Z59.01 Sheltered homelessness; Z59.1 Inadequate housing
CPT/HCPCS: 80053; 80306; 80307; 81001; 84703; 85025; 96372; 97150; 97165; 99238; 99285; J2550; Q0162

== ENCOUNTER 2022-08-22 15:41 | Emergency (ER) | payer MEDICAID, SELFPAY ==
[2022-01-03 16:36] VITALS: BP 138/88; BMI 35.0
[2022-08-22 15:48] VITALS: BP 156/89; PULSE 94; RESP 18; TEMP 36.8; O2SAT 98; BMI 33.5
--- NOTE | 2022-08-22 17:05 | W.ED.BACK ---
HPI - Back Pain/Injury General: Chief Complaint: Back Pain/Injury Stated Complaint: back pain Time Seen by Provider: 08/22/22 17:03 History of Present Illness: 27-year-old female comes in today with complaints of constipation and back pain. Patient reports a history of chronic back pain and has not been recently taking her medication. Patient reports no recent bowel movement in the last 4 to 5 days. Patient is homeless and cannot reside at the skilled nursing due to being kicked out. Patient appears nontoxic. Patient appears in no pain. Associated symptoms: Reports abdominal pain Review of Systems General: Reports: 10 or more systems reviewed and unremarkable except in HPI and below Card: Denies: chest pain Resp: Denies: dyspnea GI: Reports: abdominal pain and constipation : Denies: difficulty voiding Skin/Breast: Denies: rash Neuro: Denies: headache(s) PFSH ED PFSH: Medical History (Updated 08/22/22 @ 18:07 by KIERRA Burnette) Borderline personality disorder Cannabis abuse COVID-19 Evaluation regarding contraception options Impulse control disorder Major depression Major depressive disorder, recurrent episode with anxious distress Major depressive disorder, recurrent severe without psychotic features Methamphetamine abuse Nausea alone Psychiatric care Suicidal ideation Surgical History History of knee surgery Status post myringotomy with tube placement of both ears Family History Other Diabetes Lung disease Rheumatoid arthritis Social History Smoking and tobacco status: current every day smoker e-cigarettes E-Cigarette Details: with nicotine E-cig/vape details: 1 week to go through a tank Quit status (tobacco): considering quitting Second hand smoke exposure: Yes Smoking risk assessment/counseling performed?: Yes Alcohol intake: former Year of sobriety/quit date alcohol: 2021 Substance/Drug Use: former Date of last use: 08/10 Adopted: No Caregiver/support person: No Lives independently: No Household members: other Details: SOC Housing: Homeless Marital status: Single Number of children: 2 Highest education level completed: Some College, No Degree service: No Current occupational status: employed 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 Pets and animals: No Leisure activites: music Sexually active: No Do you think of yourself as: Straight/Heterosexual Current gender identity: Female Briseida/Jainism: None Special briseida needs: No Agree to transfusion: Yes Financial difficulty paying for basics: Somewhat Hard Female Reproductive History: Para: 2 Spontaneous abortions: Yes Physical Exam Const: COMMON NORMALS: alert HENMT: COMMON NORMALS: normocephalic HEAD & SCALP: normocephalic THROAT: posterior oropharynx normal Neck/C-Spine: COMMON NORMALS: full ROM Chest: COMMONS NORMALS: normal inspection of the chest Resp: COMMON NORMALS: normal respiratory effort and clear to auscultation bilaterally AUSCULTATION: clear to auscultation bilaterally Cardio: COMMON NORMALS: regular rate and regular rhythm RATE: regular rate RHYTHM: regular rhythm GI: COMMON NORMALS: Soft to palpation AUSCULTATION: Yes normoactive bowel sounds PALPATION: Yes Soft to palpation Back/Pelvis: COMMON NORMALS: thoracic and lumbar spine normal to inspection Extremity: COMMON NORMALS: full ROM Neuro: SENSORIUM/ORIENTATION: Yes alert Skin: COMMON NORMALS: turgor normal GENERAL SKIN EXAM: turgor normal Course Vital Signs: Vital signs: Vital Signs Temperature 98.2 F 08/22/22 15:48 Pulse Rate 94 08/22/22 15:48 Respiratory Rate 18 08/22/22 15:48 Blood Pressure 156/89 08/22/22 15:48 Pulse Oximetry 98 08/22/22 15:48 Oxygen Delivery Me thod Room Air 08/22/22 15:48 MDM - Back Pain/Injury Medical Decision Making 27-year-old female comes in today for complaints of abdominal pain and back pain. On exam patient appears nontoxic. Abdomen soft nontender. Skin is warm and dry. Vital signs are normal. Differential diagnosis includes but not limited to constipation, chronic low back pain, bowel obstruction, homelessness. Exam was unremarkable. X-ray of the KUB noted constipation. Recommended milk of magnesia and hydration. Patient reported understanding with recommendations for follow-up or return. Labs Radiology Impressions KUB X-Ray 08/22/22 17:15 IMPRESSION: Increased stool content in the colon suggestive of constipation with nonspecific nonobstructive bowel gas pattern. Discharge Plan Discharge Patient Disposition: Home Clinical Impression: Constipation Qualifiers: Constipation type: unspecified constipation type Qualified Code(s): K59.00 - Constipation, unspecified Condition: Stable Prescriptions: New Milk Of Magnesia Concentrated 2,400 mg/10 mL suspension 15 ml PO BID PRN (Reason: constipation) Qty: 1000 0RF No Action medroxyprogesterone [Depo-Provera] 150 mg/mL suspension 150 mg IM Q90D Rx Instructions: Last injection 12.13.21 trazodone 50 mg tablet 100 mg PO .q hs PRN (Reason: insomnia) Qty: 30 0RF Rx Instructions: Take one or two at bedtime, if needed for insomnia omeprazole 20 mg capsule,delayed release(DR/EC) 20 mg PO DAILY tizanidine 4 mg tablet 4 mg PO TID PRN (Reason: Muscle Spasm) acetaminophen 500 mg Tablet 1,000 mg PO TID PRN (Reason: Pain) ondansetron 4 mg tablet,disintegrating 4 mg PO TID PRN (Reason: nausea and vomiting) duloxetine 30 mg Capsule,Delayed Release(Dr/Ec) 60 mg PO DAILY 30 Days Qty: 60 1RF Discharge Orders: Discharge ED (Routine); Ordered 08/22/22 Ordered By: Jones Lopez Referrals: Stephany Ha, KARATE BLACK BELT-C [Primary Care Provider] - Discharge Diet: Usual diet Discharge Activity: Increase activity as tolerated Patient Instructions: Constipation (ED) Activity Restrictions/Additional Instructions: Use milk of magnesia 2 times a day as needed for constipation. Drink plenty of water with medication. Follow-up with primary care for further instruction. Return to ED for new concerns. Coding Level of Care Code ED Polisher Implant for Estrella Hou
--- NOTE | 2022-08-22 17:15 | XRR_ITS ---
PROCEDURE INFORMATION: Exam: XR Abdomen Exam date and time: 08/22/2022 5:55 PM Age: 27 years old Clinical indication: Abdominal pain; Other: Constipation TECHNIQUE: Imaging protocol: Radiologic exam of the abdomen. Views: Frontal supine view of the abdomen. 1 View. COMPARISON: MR lumbar spine wo con* [id number] 04/18/2022 11:37 AM FINDINGS: Gastrointestinal tract: Mild nonspecific mixed bowel gas pattern, without bowel obstruction. Increased stool content in the colon suggestive of constipation. No indication of free air. No abnormal calcifications are seen. Bones/joints: Visualized osseous structures show no acute abnormality. XR/XR KUB [id number] IMPRESSION: Increased stool content in the colon suggestive of constipation with nonspecific nonobstructive bowel gas pattern.
[2022-08-22 18:00] VITALS: PULSE 134; RESP 16; O2SAT 98
[2022-08-22 18:52] VITALS: PULSE 134; RESP 16; O2SAT 98
--- NOTE | 2022-08-22 18:54 | PC.NURSE ---
FERMENTING CELLAR DROPPER NOTIFIED OF PT HEART RATE. NO VERBAL ORDERS GIVEN AT THIS TIME.
== END 2022-08-22 18:56 | disposition home or self-care (01) ==
PROVIDERS: Emergency Provider Nurse Practitioner Family; PCP Nurse Practitioner Family
DX: K59.00 Constipation, unspecified (principal); F17.290 Nicotine dependence, other tobacco product, uncomplicated
CPT/HCPCS: 74018; 99283

== ENCOUNTER 2022-08-22 19:53 | Inpatient (IN) | payer MEDICAID, SELFPAY ==
[2022-01-03 16:36] VITALS: BP 138/88; BMI 35.0
[2022-08-22 20:01] VITALS: BP 150/88; PULSE 90; RESP 18; TEMP 36.9; O2SAT 96; BMI 33.5
[2022-08-22 20:15] LABS: Basophils # 0.1 10^3/uL (0.0-0.1); Basophils % 0.4 %; Eosinophils % 0.1 %; Hemoglobin 13.4 g/dL (11.5-15.3); Lymphocytes # 3.1 10^3/uL (0.8-4.8); Lymphocytes % 22.5 %; Mean Corpuscular HGB Conc 32.7 g/dL (30.0-36.0); Mean Corpuscular Hemoglobin 29.1 pg (28.0-34.0); Mean Corpuscular Volume 88.9 fl (81-99); Monocytes # 0.8 10^3/uL (0.2-0.9); Monocytes % 6.2 %; Neutrophils # 9.57 10^3/uL (1.8-7.7); Neutrophils % 70.4 %; Nucleated Red Blood Cells % 0 %; Platelet Count 340 10^3/cmm (130-400); Red Blood Count 4.61 10^6/uL (4.1-5.3); Red Cell Distribution Width 12.5 % (12.1-15.1); White Blood Count 13.6 10^3/uL (4.0-10.0)
--- NOTE | 2022-08-22 20:16 | CTR_ITS ---
PROCEDURE INFORMATION: Exam: CT Abdomen And Pelvis Without Contrast Exam date and time: 08/22/2022 8:55 PM Age: 27 years old Clinical indication: Abdominal pain; Additional info: Abd pain TECHNIQUE: Imaging protocol: Computed tomography of the abdomen and pelvis without contrast. Radiation optimization: All CT scans at this facility use at least one of these dose optimization techniques: automated exposure control; mA and/or kV adjustment per patient size (includes targeted exams where dose is matched to clinical indication); or iterative reconstruction. REPORTING DATA: Count of CT and Cardiac NM exams in prior 12 months: This patient has received 0 known CTs and 0 known cardiac nuclear medicine studies in the 12 months prior to the current study. COMPARISON: CR (ABDOMEN, ) 08/22/2022 5:55 PM RADIATION DOSE METRICS: Total DLP (mGy-cm): 771 FINDINGS: Lungs: No infiltrate or effusion is seen within the lung bases. Liver: Normal. No mass. Gallbladder and bile ducts: Partial gallbladder distention and gallbladder is otherwise unremarkable. No biliary ductal dilatation. Pancreas: Normal. No ductal dilation. Spleen: Normal. No splenomegaly. Adrenal glands: Normal. No mass. Kidneys and ureters: Normal. No hydronephrosis. Stomach and bowel: Gastric distention with air, fluid, and gastric contents are seen within the stomach. In addition, small amount of oral contrast is seen within the stomach and proximal duodenum. Mild hyperdense appearance of stool in the colon could indicate mild diluted oral contrast. Increased stool content in the colon. No bowel obstruction, though gastric distention could be associated with gastric stasis or recent ingestion. Appendix: No evidence of appendicitis. Intraperitoneal space: Unremarkable. No free air. No significant fluid collection. Vasculature: Unremarkable. No abdominal aortic aneurysm. Lymph nodes: Unremarkable. No enlarged lymph nodes. Urinary bladder: Suboptimal urinary bladder distention. Reproductive: Unremarkable as visualized. Bones/joints: Mild degenerative disc disease lumbosacral junction. No acute osseous abnormality. Soft tissues: Unremarkable. CT/CT abdomen pelvis wo con [id number] IMPRESSION: 1. Gastric distention could be associated with recent ingestion and/or gastric stasis. 2. Increased stool content in the colon and correlate clinically for constipation. 3. Mild degenerative disc disease lumbosacral junction.
[2022-08-22 20:32] LABS: HCG Qualitative Urine. Negative (Negative)
[2022-08-22 20:33] LABS: Amphetamines Screen Urine Positive (Negative); Barbiturates Screen Urine Negative (Negative); Benzodiazepines Screen Urine Negative (Negative); Cocaine Screen Urine Negative (Negative); Opiate Screen Urine Negative (Negative); PCP Screen Urine Negative (Negative); THC Screen Urine Positive (Negative)
--- NOTE | 2022-08-22 20:34 | ED.C_ITS ---
HPI - Psych General: Chief Complaint: Psychiatric Symptoms Stated Complaint: SI Time Seen by Provider: 08/22/22 19:56 Source: patient Mode of arrival: ambulatory Limitations: no limitations History of Present Illness: 27-year-old female who states that she is suicidal. She states that she is feeling worthless she is homeless she is got chronic pain and severe pain and cannot get the money. She states that she has been having thoughts of killing herself with a plan of walking into traffic. She has had some constipation as well she is seen here once today for constipation. Associated symptoms: Reports depression and suicidal ideation Review of Systems Const: Denies: fever(s), chills, body aches or change in appetite ENMT: Denies: throat pain or dental pain Card: Denies: chest pain Resp: Denies: dyspnea GI: Reports: abdominal pain and constipation; Denies: nausea, vomiting or diarrhea : Denies: dysuria Musc: Reports: back pain; Denies: neck pain Skin/Breast: Denies: rash Neuro: Denies: headache(s) Psych: Reports: depression and suicidal ideation [facility] ED PFSH: Medical History Borderline personality disorder Cannabis abuse COVID-19 Evaluation regarding contraception options Impulse control disorder Major depression Major depressive disorder, recurrent episode with anxious distress Major depressive disorder, recurrent severe without psychotic features Methamphetamine abuse Nausea alone Psychiatric care Suicidal ideation Surgical History History of knee surgery Status post myringotomy with tube placement of both ears Family History Other Diabetes Lung disease Rheumatoid arthritis Social History Smoking and tobacco status: current every day smoker e-cigarettes E-Cigarette Details: with nicotine E-cig/vape details: 1 week to go through a tank Quit status (tobacco): considering quitting Second hand smoke exposure: Yes Smoking risk assessment/counseling performed?: Yes Alcohol intake: former Year of sobriety/quit date alcohol: 2021 Substance/Drug Use: former Date of last use: 08/10 Adopted: No Caregiver/support person: No Lives independently: No Household members: other Details: SOC Housing: Homeless Marital status: Single Number of children: 2 Highest education level completed: Some College, No Degree service: No Current occupational status: employed 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 Pets and animals: No Leisure activites: music Sexually active: No Do you think of yourself as: Straight/Heterosexual Current gender identity: Female Briseida/Episcopalian: None Special briseida needs: No Agree to transfusion: Yes Financial difficulty paying for basics: Somewhat Hard Female Reproductive History: Para: 2 Spontaneous abortions: Yes Physical Exam Const: COMMON NORMALS: no acute distress, patient oriented x3 and healthy appearing HENMT: COMMON NORMALS: normocephalic and atraumatic HEAD & SCALP: normocephalic and atraumatic Eye: COMMON NORMALS: conjunctivae normal CONJUNCTIVA: Yes conjunctivae normal Neck/C-Spine: COMMON NORMALS: full ROM and supple Chest: COMMONS NORMALS: normal inspection of the chest and normal palpation of entire chest wall Resp: COMMON NORMALS: normal respiratory effort, No retractions, No use of accessory muscles and clear to auscultation bilaterally AUSCULTATION: clear to auscultation bilaterally Cardio: COMMON NORMALS: regular rate, regular rhythm and No murmurs present (Cardio) RATE: regular rate RHYTHM: regular rhythm GI: COMMON NORMALS: Normal to inspection, nondistended, normoactive bowel sounds present, Soft to palpation, non-tender and no masses PALPATION: Yes Soft to palpation Extremity: COMMON NORMALS: normal to inspection and full ROM Neuro: COMMON NORMALS: patient oriented x3, moves all extremities and no focal motor deficits Psych: COMMON NORMALS: mental status grossly normal, Normal thought process present and cooperative MOOD & AFFECT: Yes depressed mood THOUGHT PROCESS: Normal thought process present THOUGHT CONTENT: Yes Suicidality present Skin: COMMON NORMALS: no rashes or lesions noted and no wounds GENERAL SKIN EXAM: no rashes or lesions noted Course Vital Signs: Vital signs: Vital Signs Temperature 98.5 F 08/22/22 20:01 Pulse Rate 90 08/22/22 20:01 Respiratory Rate 18 08/22/22 20:01 Blood Pressure 150/88 08/22/22 20:01 Pulse Oximetry 96 08/22/22 20:01 [facility] - Psych Medical Decision Making Patient presents for suicidal ideation along with some constipation CT scan showed no other findings she is medically cleared I spoke to psychiatrist will admit to the psych howe. Lab Data 08/22/22 20:05 08/22/22 20:05 Radiology Impressions Abdomen/Pelvis CT 08/22/22 20:16 IMPRESSION: 1. Gastric distention could be associated with recent ingestion and/or gastric stasis. 2. Increased stool content in the colon and correlate clinically for constipation. 3. Mild degenerative disc disease lumbosacral junction. Laboratory Results WBC 13.6 10^3/uL (4.0-10.0) H 08/22/22 20:05 RBC 4.61 10^6/uL (4.1-5.3) 08/22/22 20:05 Hgb 13.4 g/dL (11.5-15.3) 08/22/22 20:05 Hct 41.0 % (37.0-47.0) 08/22/22 20:05 MCV 88.9 fl (81-99) 08/22/22 20:05 MCH 29.1 pg (28.0-34.0) 08/22/22 20:05 MCHC 32.7 g/dL (30.0-36.0) 08/22/22 20:05 RDW 12.5 % (12.1-15.1) 08/22/22 20:05 Plt Count 340 10^3/cmm (130-400) 08/22/22 20:05 MPV 10.0 fL (7.4-10.4) 08/22/22 20:05 Neut % (Auto) 70.4 % 08/22/22 20:05 Lymph % (Auto) 22.5 % 08/22/22 20:05 [place] % (Auto) 6.2 % 08/22/22 20:05 Eos % (Auto) 0.1 % 08/22/22 20:05 Baso % (Auto) 0.4 % 08/22/22 20:05 Neut # (Auto) 9.57 10^3/uL (1.8-7.7) H 08/22/22 20:05 Lymph # (Auto) 3.1 10^3/uL (0.8-4.8) 08/22/22 20:05 [place] # (Auto) 0.8 10^3/uL (0.2-0.9) 08/22/22 20:05 Eos # (Auto) 0.0 10^3/uL (0.0-0.8) 08/22/22 20:05 Baso # (Auto) 0.1 10^3/uL (0.0-0.1) 08/22/22 20:05 Nucleated RBC % (auto) 0 % 08/22/22 20:05 Nucleated RBCs # 0.0 /100WBC 08/22/22 20:05 Sodium 142 mmol/L (136-145) 08/22/22 20:05 Potassium 3.5 mmol/L (3.5-5.1) 08/22/22 20:05 Chloride 105 mmol/L (98-107) 08/22/22 20:05 Carbon Dioxide 25 mmol/L (22-29) 08/22/22 20:05 Anion Gap 15.5 (5-19) 08/22/22 20:05 BUN 10 mg/dL (6-20) 08/22/22 20:05 Creatinine 0.7 mg/dL (0.5-0.9) 08/22/22 20:05 GFR Calculation 98.9 mL/min (90-130) 08/22/22 20:05 Glucose 123 mg/dL (65-115) H 08/22/22 20:05 Calculated Osmolality 294 mOsm/kg (285-295) 08/22/22 20:05 Calcium 9.7 mg/dL (8.5-10.5) 08/22/22 20:05 Total Bilirubin 0.5 mg/dL (0.15-1.2) 08/22/22 20:05 AST 18 U/L (0-32) 08/22/22 20:05 ALT 19 U/L (0-33) 08/22/22 20:05 Alkaline Phosphatase 95 U/L (35-105) 08/22/22 20:05 Total Protein 7.5 g/dL (6.6-8.7) 08/22/22 20:05 Albumin 4.5 g/dL (3.5-5.2) 08/22/22 20:05 Globulin 3.0 g/dL (1.3-4.6) 08/22/22 20:05 HCG, Qual Negative (Negative) 08/22/22 20:14 Salicylates < 0.3 mg/dL (3-10) L 08/22/22 20:05 Urine Opiates Screen Negative ng/mL (Negative) 08/22/22 20:14 Acetaminophen < 5.0 ug/mL (10-30) L 08/22/22 20:05 Ur Barbiturates Screen Negative ng/mL (Negative) 08/22/22 20:14 Ur Phencyclidine Scrn Negative ng/mL (Negative) 08/22/22 20:14 Ur Amphetamines Screen Positive ng/mL (Negative) H 08/22/22 20:14 U Benzodiazepines Scrn Negative ng/mL (Negative) 08/22/22 20:14 Urine Cocaine Screen Negative ng/mL (Negative) 08/22/22 20:14 U Marijuana (THC) Screen Positive ng/mL (Negative) H 08/22/22 20:14 Ethyl Alcohol < 10 mg/dL (0-10) 08/22/22 20:05 Discharge Plan Discharge Patient Disposition: Admitted As Inpatient Clinical Impression: Suicidal ideation, Constipation Condition: Stable Coding Level of Care Code ED Fishery Division Chief for Estrella Hou
[2022-08-22 20:40] LABS: Alanine Aminotransferase 19 U/L (0-33); Albumin Level 4.5 g/dL (3.5-5.2); Alkaline Phosphatase 95 U/L (35-105); Anion Gap 15.5 (5-19); Aspartate Amino Transferase 18 U/L (0-32); Blood Urea Nitrogen 10 mg/dL (6-20); Calcium 9.7 mg/dL (8.5-10.5); Carbon Dioxide 25 mmol/L (22-29); Chloride 105 mmol/L (98-107); Glomerular Filtration Rate 98.9 mL/min (90-130); Glucose 123 mg/dL (65-115); Osmolality Calculated 294 mOsm/kg (285-295); Potassium 3.5 mmol/L (3.5-5.1); Sodium 142 mmol/L (136-145); Total Bilirubin 0.5 mg/dL (0.15-1.2); Total Protein 7.5 g/dL (6.6-8.7)
[2022-08-22 20:41] LABS: Acetaminophen < 5.0 ug/mL (10-30); Alcohol Level < 10 mg/dL (0-10); Salicylate < 0.3 mg/dL (3-10)
[2022-08-22] MEDS: lactulose oral liq 20 gm/30 mL UDC 30 GM PO (20:43)
[2022-08-22 21:23] VITALS: RESP 14
--- NOTE | 2022-08-22 21:39 | PC.NURSE ---
08/22/22 at 2125 Patient 96 Hour Hold Rights have been read aloud to patient. Patient acknowledges verbal understanding of the same. A copy of the Patient Rights have been provided to the patient. Cullen Soto, chief merchandising officer, was present at bedside.
[2022-08-22 22:00] VITALS: BP 156/101; PULSE 104; RESP 18; TEMP 37; O2SAT 97
[2022-08-22 22:14] VITALS: PULSE 89; RESP 14
--- NOTE | 2022-08-22 22:29 | PC.NURSE ---
2200-pt admitted to [facility] from ED on 96 hold that expires 08/28/22 @2049. arrived calm and cooperative but reporting severe pain in her abdomen. reports constipation. states she has tried to digitally remove the hard stool but was unsuccessful. body/safety check performed with no contraband or skin issues noted. reports current si with no plan. denies hi avh. states she has been noncompliant with home medications because she feels they are not working. admits to marijuana and meth use. reports she is homeless and jobless. pt loud when talking and seems anxious but is cooperative with assessment. pt states she was admitted to [facility] recently but could not recall the date. no other issues voiced or noted at this time.
[2022-08-22] MEDS: acetaminophen 325 mg Tablet 650 MG PO (23:50)
[2022-08-23 06:00] VITALS: RESP 16
[2022-08-23] MEDS: acetaminophen 325 mg Tablet 650 MG PO ×3 (08:23→22:29)
--- NOTE | 2022-08-23 09:13 | PC.OT ---
OT Danny Attempted - Patient asleep in room at time of evaluation, will attempt again later.
--- NOTE | 2022-08-23 13:54 | P.NPUHP_ITS ---
Providers/Chief Complaint Admitting Physician: Jose Soto MD Primary Care Provider: Stephany Ha-C Chief Complaint: SI HPI NPU History of Present Illness Mara Diop is a 27 year old female presented to the emergency department with the following report: Chief Complaint: Psychiatric Symptoms Stated Complaint: SI Time Seen by Provider: 08/22/22 19:56 Source: patient Mode of arrival: ambulatory Limitations: no limitations History of Present Illness: 27-year-old female who states that she is suicidal. She states that she is fee ling worthless she is homeless she is got chronic pain and severe pain and cannot get the money. She states that she has been having thoughts of killing herself with a plan of walking into traffic. She has had some constipation as well she is seen here once today for constipation. Associated symptoms: Reports depression and suicidal ideation. He was admitted to the neuropsychiatric unit for definitive treatment of those issues. She presents today reporting that things been tough recently. That there were compounding issues that led to her returning to the hospital and feeling suicidal. However impositions she did not mention her active addiction. She ultimately acknowledged that the addiction may have played some role that she was downplaying the significance of that role. She reports that her main issue is that she is in pain all the time and does not have a clear solution for that. She reports that due to her cannabis use she could not be accepted at any pain clinics so she has that issue of attempting to manage her pain. Additionally she reports having constipation and vet making things hard. She reports that the combination of all these things is that she is not managing her life well, not having income, homeless and feels like everything is useless and she might as well kill himself. We talked about medications for her psychiatric issues and she reports that she discontinued those since her last hospitalization which was about 7 weeks ago. An excerpt of that discharge summary from June 2022 is included below for context and the fact that there have been no substantive changes. She is not taking the medications from that stay and denies the need for psychiatric medications. We long discussion about the futility of that situation that she is coming to a psychiatric unit for her feeling of being overwhelmed and suicidal but not open to psychiatric medications as part of the solution. We discussed that we are not a pain clinic and will not be in the process of deciding different pain medications to start which might make this a difficult process given her position on psychiatric medication. We discussed the risks, benefits and alternatives of initiating new medications versus restarting possible old medications and she understood and agreed to proceed as is documented in this note Per her 07/03/2022 [facility] inpatient psychiatric discharge summary: Discharge Diagnosis (1) Borderline personality disorder: Status: Acute (2) Suicidal ideation: Status: Resolved (3) Methamphetamine use disorder, severe, in sustained remission: Status: Acute (4) Anxiety: Status: Acute Reason for Visit Reason for Visit: SI/HI Brief History: History of Present Illness Mara Alta Diop is a 27 year old female who presented to the emergency department with the following report: Chief Complaint: Psychiatric Symptoms Stated Complaint: SI Time Seen by Provider: 06/29/22 07:41 History of Present Illness: Patient is a 27-year-old female comes to the ED with SI and HI. Patient has a history of methamphetamine abuse, borderline personality disorder, depression. She has been sober from methamphetamine for over 6 months. She currently lives [facility] and she is having increa sed depression and anxiety there. She has not been able to find her medications, so she has not been taking them for the past couple days. She is having SI but denies any plan. Patient states that she wants to give up. She is also having HI towards staff at the [facility] and towards fellow coworkers at her job. Denies any auditory or visual hallucinations. Associated symptoms: Reports depression, homicidal ideation and suicidal ideation; Deny auditory hallucinations or visual hallucinations She is admitted to the neuropsychiatric unit for the treatment of those issues. She presented this morning audibly vomiting in the hallways. She reports that has been a new and common phenomenon in the mornings she not sure if is related to her anxiety. She reports that she came to the hospital because she has been completely overwhelmed in her current living environment at least. She reports that they have had bedbugs and that the process of trying to limit the bedbugs and keep her circumstances under control has been a bit much. She had to pack her stuff away and then they did not spray and then she had to try to find out where her pills were etc. She was that she went to rehab before she went to [facility] and feels she is been doing fine for recovery aspect but reports f eeling overwhelmed that she wants to go back to rehab. 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 She had struggled with methamphetamine in her UDS was negative except for cannabis. She has been foll owing up with her outpatient services and saw a provider at [facility] earlier this month. We discussed the risk benefits and alternatives of increasing her BuSpar and she understood agreed proceed as is documented in this note. An excerpt of that outpatient evaluation is included below for context. Per her 06/20/2022 [facility] outpatient psychiatric evaluation: [facility] History and Physical Time In: 14:03 Time Out: 14:44 Chief Complaint: Anxiety, want to try Buspar or something. History of Present Illness: Patient is here for a psych evaluation for possibility of adding a medication for anxiety. Says she has been taking the hydroxyzine for a long time, at least a couple of years, but says it's not helping her anxiety. Her symptoms of anxiety are: increased heart rate, upset stomach, shaking. Had previously been prescribed sertraline for mood/anxiety symptoms but has not been adherent to that medication. She has taken various other medications (noted below in past psych history), but has not been adherent to a medication regimen for any extended period of time; not sure about efficacy of medications for mood/anxiety. She feels more anxious than depressed, she says. Anger triggers:mostly work-related when she feels like there is not respect/communication between herself in her work environment and other department workers. Says she hasn't been sleeping as well since she hadn't been taking the trazodone; she had been taking trazodone 50 mg-one or two tablets at bedtime, if needed with sleep benefit. She would like to resume that medication, if possible. Usually energy is crappy, but yesterday and today, it's good. She is physically active on the job (in environmental which she reports some of wanting to provider); no other routine physical exercise. Appetite is last month, pretty lousy, but the last week or two, pretty good. Weight has increased over the past 3 months. Caffeine intake: Drinks one or two 20 oz caffeinated drinks per day; drinks at least 20 oz of regular tea per day. Drinks soda late in the evening. Occasionally has an Energy drinks. Nicotine: Hasn't smoked cigarettes for three days with intent to stop; she has gone for 3 weeks without vaping. Doesn't want to use the patch; says she thinks she can do it on her own. Denies alcohol intake. Smoked marijuana every day, the past week, prior to that occasional use. Denies other illicit substance. Hospital Course Hospital Course During the hospitalization, patient had routine laboratory studies which were within normal limits except for few outliers. Additionally there was a general medical evaluation which was also within normal limits and revealed no new acute processes other than the cut/lacerations related to the issues surrounding his admission.. At the time of discharge, he denied psychosis or lethality. Mood and anxiety were well managed. Patient endorsed a plan to avoid all drugs of abuse and follow-up with the aftercare recommendations of the treatment team. Patient was evaluated and deemed to be absent credible lethality, and had achieved the maximum benefit from an inpatient hospitalization, so was discharged. Meds NPU Home Medications Medication Instructions Recorded Confirmed Last Taken Type medroxyprogesterone 150 mg/mL 150 mg IM Q90D 01/01/22 08/22/22 05/27/22 History intramuscular suspension (Depo-Provera) acetaminophen 500 mg tablet 1,000 mg PO TID PRN Pain 01/17/22 08/22/22 Unknown History (Acetaminophen Extra Strength) omeprazole 20 mg capsule,delayed 20 mg PO DAILY 05/03/22 08/22/22 Unknown History release ondansetron 4 mg disintegrating 4 mg PO TID PRN nausea and vomiting 06/29/22 08/22/22 Unknown History tablet duloxetine 30 mg capsule,delayed 60 mg PO DAILY 30 days #60 caps 07/03/22 08/22/22 Unknown Rx release trazodone 50 mg tablet 100 mg PO .q hs PRN insomnia #30 07/22/22 08/22/22 Unknown Rx tabs cyclobenzaprine 10 mg tablet 10 mg PO TID PRN Muscle Spasm 08/22/22 08/22/22 Unknown History magnesium hydroxide 2,400 mg/10 mL 15 ml PO BID PRN constipation 08/22/22 08/22/22 Unknown Rx oral suspension (Milk Of Magnesia #1,000 mL Concentrated) tizanidine 4 mg tablet (Zanaflex) 4 mg PO TID PRN Muscle Spasm 08/22/22 08/22/22 Unknown History Allergies Allergy/AdvReac Type Severity Reaction Status Date / Time sulfamethoxazole Allergy Intermediate ADR-Gastrointestinal Verified 07/09/22 13:54 [From Bactrim] Upset trimethoprim [From Bactrim] Allergy Intermediate ADR-Gastrointestinal Verified 07/09/22 13:54 Upset PFSH NPU PFSH: Medical History Borderline personality disorder Cannabis abuse COVID-19 Evaluation regarding contraception options Impulse control disorder Major depression Major depressive disorder, recurrent episode with anxious distress Major depressive disorder, recurrent severe without psychotic features Methamphetamine abuse Nausea alone Psychiatric care Suicidal ideation Surgical History History of knee surgery Status post myringotomy with tube placement of both ears Family History Other Diabetes Lung disease Rheumatoid arthritis Social History Smoking and tobacco status: current every day smoker e-cigarettes E-Cigarette Details: with nicotine E-cig/vape details: 1 week to go through a tank Quit status (tobacco): considering quitting Second hand smoke exposure: Yes Smoking risk assessment/counseling performed?: Yes Alcohol intake: former Year of sobriety/quit date alcohol: 2021 Substance/Drug Use: former Date of last use: 08/10 Adopted: No Caregiver/support person: No Lives independently: No Household members: other Details: SOC Housing: Homeless Marital status: Single Number of children: 2 Highest education level completed: Some College, No Degree service: No Current occupational status: employed 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 Pets and animals: No Leisure activites: music Sexually active: No Do you think of yourself as: Straight/Heterosexual Current gender identity: Female Briseida/Buddhism: None Special briesida needs: No Agree to transfusion: Yes Financial difficulty paying for basics: Somewhat Hard Female Reproductive History: Para: 2 Spontaneous abortions: Yes Mental Status Exam MSE Comments: This is an obese white female with hospital scrubs on with limited grooming and eye contact. No abnormal movements except for psychomotor agitation.? Mostly cooperative with exam in mild to moderate distress.? Speech was increased rate and volume.? Mood described as in pain, affect irritable.? Thought process organized.? Thought content: Patient endorsed suicidal but denied homicidal ideations, there are no delusions noted but she does endorse some mild paranoia, she denied any auditory or visual hallucinations.? Attention and concentration were limited and memory appeared mostly reliable but none were formally tested.? She is alert and oriented x3.? Insight and judgment are limited, impulse control is impaired. Vitals/I&O/Wt Last Vital Signs Temp 98.6 F 08/22/22 22:00 Pulse 89 08/22/22 22:14 Resp 16 08/23/22 06:00 BP 156/101 08/22/22 22:00 Pulse Ox 97 08/22/22 22:00 O2 Del Method Room Air 08/22/22 22:00 Weight last 48 hrs Weight 94.347 kg Data NPU 08/22/22 20:05 08/22/22 20:05 A&P Assessment and plan (1) Borderline personality disorder: (2) Suicidal ideation: (3) Methamphetamine use disorder, severe, in sustained remission: (4) Nausea alone: (5) Anxiety: Plan This is a 27-year-old homeless female with a history of borderline personality disorder, methamphetamine use significant anxiety who presents reporting s with overwhelming anxiety. Plan: 1. Continue current medication. Increase BuSpar to 10 mg p.o. nightly and consider increasing vet in a day or 2 to 50 mg p.o. 3 times daily. Consider SSRI. 2. Continue every 15 minute checks for safety. 3. Encourage individual, group and milieu therapies. 4. Encourage sober living treatment after discharge at the highest level of care to which she is willing to commit. Involuntary Hold Information 96 Hour Hold: 96 Hour Involuntary Admission: Yes 96 Hour Hold Ending Date: 08/28/22 96 Hour Hold Ending Time: 20:50 Attestations NPU Medical Necessity Statement*: Inpatient hospitalization is medically necessary and the clinically appropriate intervention at this time. We will initiate medications and make changes as indicated. She will be in the hospital for over 2 midnights. Likely length of stay 3-5 days Coding Level of Care Code Acute Code for [facility] Fwd Diagnoses Borderline personality disorder F60.3 Suicidal ideation R45.851 Methamphetamine use disorder, severe, in sustained remission F15.21 Nausea alone R11.0 Anxiety F41.9
[2022-08-23 14:00] VITALS: BP 117/78; PULSE 94; RESP 16; TEMP 36.6; O2SAT 95
--- NOTE | 2022-08-23 15:59 | PC.OT ---
OT Eval Attempted - Patient asleep at time of evaluation.
--- NOTE | 2022-08-23 20:00 | PC.NURSE ---
Pt refused 20:00 assessment stating get out I'm sleeping . Pt appeared in no distress, but irritable.
[2022-08-24] MEDS: acetaminophen 325 mg Tablet 650 MG PO ×2 (02:55→11:10)
[2022-08-24] MEDS: hyDROXYzine 25 mg Capsule 50 MG PO ×2 (02:56→18:16)
--- NOTE | 2022-08-24 07:49 | W.PM.NPUPNS ---
Subjective NPU Subjective: Patient presented today reporting that she is feeling somewhat better. She was still basically isolative and lying in bed. She continued to endorse her position that psychiatric medications are helpful and she still trying to manage her pain issues. She denied any changes from yesterday. We discussed Dr. Ching being here tomorrow and that he will continue the process of clearing out what to do next but that without a clear mental health strategy this was likely be a short stay. Mental Status Exam MSE Comments: This is an obese white female with hospital scrubs on with limited grooming and eye contact. No abnormal movements except for psychomotor retardation.? Mostly cooperative with exam in mild distress.? Speech was increased rate and volume.? Mood described as tired but still in pain, affect irritable.? Thought process organized.? Thought content: Patient endorsed suicidal but denied homicidal ideations, there are no delusions noted but she does endorse some mild paranoia, she denied any auditory or visual hallucinations.? Attention and concentration were limited and memory appeared mostly reliable but none were formally tested.? She is alert and oriented x3.? Insight and judgment are limited, impulse control is impaired. Vitals/I&O/Wt Last Vital Signs Temp 97.9 F 08/24/22 21:12 Pulse 95 08/24/22 21:12 Resp 16 08/24/22 21:12 BP 122/79 08/24/22 21:12 Pulse Ox 98 08/24/22 21:12 O2 Del Method Room Air 08/24/22 14:00 Data NPU 08/22/22 20:05 08/22/22 20:05 A&P Assessment and plan (1) Borderline personality disorder: (2) Suicidal ideation: (3) Methamphetamine use disorder, severe, in sustained remission: (4) Nausea alone: (5) Anxiety: Plan This is a 27-year-old homeless female with a history of borderline personality disorder, methamphetamine use significant anxiety who presents reporting s with overwhelming anxiety. Plan: 1. Continue current medication. Attempt to restart medication she is currently refusing. 2. Continue every 15 minute checks for safety. 3. Encourage individual, group and milieu therapies. 4. Encourage sober living treatment after discharge at the highest level of care to which she is willing to commit. Involuntary Hold Information 96 Hour Hold: 96 Hour Involuntary Admission: Yes 96 Hour Hold Ending Date: 08/28/22 96 Hour Hold Ending Time: 20:50 Attestations NPU Medical Necessity Statement*: Inpatient hospitalization is medically necessary and the clinically appropriate intervention at this time. We will initiate medications and make changes as indicated. Likely length of stay 2-4 days Coding Level of Care Code Acute Code for [facility] Fwd Diagnoses Borderline personality disorder F60.3 Suicidal ideation R45.851 Methamphetamine use disorder, severe, in sustained remission F15.21 Nausea alone R11.0 Anxiety F41.9
[2022-08-24] MEDS: OLANZapine 5 mg ODT PO (11:10)
[2022-08-24] MEDS: bisacodyl 5 mg Tablet 10 MG PO (12:58)
[2022-08-24 14:00] VITALS: BP 107/64; PULSE 110; RESP 16; TEMP 37; O2SAT 97
[2022-08-24] MEDS: ibuprofen 600 mg Tablet PO (18:15)
[2022-08-24] MEDS: trazodone 50 mg Tablet PO (20:28)
[2022-08-24 21:12] VITALS: BP 122/79; PULSE 95; RESP 16; TEMP 36.6; O2SAT 98
[2022-08-25] MEDS: acetaminophen 325 mg Tablet 650 MG PO ×3 (04:07→15:24)
[2022-08-25] MEDS: hyDROXYzine 25 mg Capsule 50 MG PO ×2 (04:08→11:31)
[2022-08-25 06:00] VITALS: BP 97/67; PULSE 88; RESP 18; TEMP 36.3; O2SAT 97
--- NOTE | 2022-08-25 08:23 | PC.NURSE ---
SHIFT ASSESSMENT PT UP FOR BREAKFAST, WENT BACK TO LAY DOWN IN ROOM, NURSING STAFF TO ROOM TO DO PHYSICAL SHIFT ASSESSMENT. PT C/O FEELING NUMB AROUND HER ASSHOLE INQUIRED TO WEATHER OR NOT SHE WILL NEED SURGERY. SUPERVISOR DOG LICENSE OFFICER REPORTED LARGE BOWEL MOVEMENT LAST NIGHT DURING THEIR SHIFT.
[2022-08-25] MEDS: ibuprofen 600 mg Tablet PO (08:30)
--- NOTE | 2022-08-25 11:32 | PC.NURSE ---
PRN VISTARIL 50 MG GIVEN PO PER PT C/O STATED ANXIETY. PREVIOUSLY ASLEEP IN BED IN ROOM, CAME UP TO THE DESK SAYING NOW I CAN'T URINATE. EDUCATED TO SPEAK TO PHYSICIAN ABOUT TROUBLE URINATING, IF THE NEED TO GET A BLADDER SCAN STAFF WILL WITH PHYSICIAN REQUEST.
[2022-08-25 14:00] VITALS: BP 120/85; PULSE 118; RESP 18; O2SAT 95
--- NOTE | 2022-08-25 16:08 | P.NPUPN_ITS ---
Subjective NPU Subjective: Patient is a 27-year-old white female with a history of borderline personality disorder, bipolar depression and methamphetamine abuse. She had endorsed suicidal ideation and stated that she has been constipated for several days. She had reported abdominal discomfort. She states that she cannot feel her rectum and stated that she had been living in her car for several days. She had endorsed that her depression had remained severe and that her pain was unbearable and she stated that she had not wanted to take Cymbalta due to it making her more dry in her mouth. She had reported a previous history of hypomania from an SSRI. She stated that she had recently lost her job and acknowledged that she may have used methamphetamine recently. She had stated that it had been helpful for her pain. She had continued to isolate herself on the milieu. Mental Status Exam MSE Comments: This is an obese white female with hospital scrubs on with limited grooming and or eye contact. No abnormal movements except for psychomotor retardation.? Mostly cooperative with exam in mild distress.? Speech was normal in regards to rate rhythm and prosody. Mood described as terrible. Her affect was mood congruent and dysphoric. Thought process was organized.? Thought content: Patient endorsed suicidal but denied homicidal ideations, there are no delusions noted but she did endorse some mild paranoia.She denied any auditory or visual hallucinations.? Attention and concentration were limited and memory appeared mostly reliable but none were formally tested.? She is alert and oriented x3.? Insight and judgment are limited. impulse control is impaired. Vitals/I&O/Wt Last Vital Signs Temp 97.4 F L 08/25/22 06:00 Pulse 118 H 08/25/22 14:00 Resp 18 08/25/22 14:00 BP 120/85 08/25/22 14:00 Pulse Ox 95 08/25/22 14:00 O2 Del Method Room Air 08/24/22 14:00 Data NPU 08/22/22 20:05 08/22/22 20:05 A&P Assessment and plan (1) Borderline personality disorder: (2) Suicidal ideation: (3) Methamphetamine use disorder, severe, in sustained remission: (4) Nausea alone: (5) Anxiety: Plan This is a 27-year-old homeless female with a history of borderline personality disorder, methamphetamine use, depressed mood admitted with suicidal ideation and extreme anxiety. Plan: 1. We will start Latuda 20mg at [facility] to target bipolar depression. I am attempting to avoid the use of SSRIs given her history of hypomanic symptoms. 2. Continue every 15 minute checks for safety. 3. Encourage individual, group and milieu therapies. 4. Encourage sober living treatment after discharge at the highest level of care to which she is willing to commit. Involuntary Hold Information 96 Hour Hold: 96 Hour Involuntary Admission: Yes 96 Hour Hold Ending Date: 08/28/22 96 Hour Hold Ending Time: 20:50 Attestations NPU Medical Necessity Statement*: Inpatient hospitalization is medically necessary and the clinically appropriate intervention at this time. We will initiate medications and make changes as indicated. Her likely length of stay 2-4 days. Coding Level of Care Code Acute Code for [facility] Fw Diagnoses Borderline personality disorder F60.3 Suicidal ideation R45.851 Methamphetamine use disorder, severe, in sustained remission F15.21 Nausea alone R11.0 Anxiety F41.9
[2022-08-25] MEDS: lurasidone 20 mg Tablet PO (17:24)
[2022-08-25] MEDS: trazodone 50 mg Tablet PO (20:01)
[2022-08-25 20:05] VITALS: BP 131/88; PULSE 86; RESP 18; O2SAT 96
[2022-08-26] MEDS: hyDROXYzine 25 mg Capsule 50 MG PO ×3 (00:02→17:13)
[2022-08-26] MEDS: ibuprofen 600 mg Tablet PO ×2 (00:02→11:21)
[2022-08-26] MEDS: OLANZapine 5 mg ODT PO ×2 (00:43→20:36)
--- NOTE | 2022-08-26 00:45 | PC.NURSE ---
Patient continued to shut door when doing q15 min check, this RN explained the reasoning of having to keep it cracked. She stated I'm just gonna start fucking circling you since you won't leave me alone . This RN explained again the reasoning of leaving it cracked, to which she replied I just want to start fucking hitting people as she started hitting her hand with her fist. Security happened to be on the floor at the moment so he spoke to her. Patient given Zydis 5mg.
[2022-08-26] MEDS: acetaminophen 325 mg Tablet 650 MG PO ×2 (08:36→17:15)
[2022-08-26] MEDS: lactulose oral liq 20 gm/30 mL UDC 10 GM PO (08:43)
--- NOTE | 2022-08-26 08:47 | PC.NURSE ---
Lactulose given to patient to help move bowels. Patient upset, crying in pain located in her back. Patient states that she has had two loose BMs since she has been here. Will continue to monitor.
[2022-08-26 09:47] LABS: Bilirubin Urine Neg (Negative); Blood Urine Neg (Negative); Glucose Urine UA Norm (Normal); Ketones Urine Negative (Negative); Leukocyte Esterase Urine 2+ (Negative); Nitrate Urine Positive (Negative); Protein Urine Neg (Negative); Specific Gravity, Urine 1.015 (1.005-1.030); Urine Appearance Cloudy (CLEAR); Urine Color Yellow (Yellow); Urobilinogen Urine Norm (Negative); pH Urine 5 (5-7)
[2022-08-26 09:48] LABS: Add Urine Culture? Yes; Bacteria Urine 3+ /hpf; Squamous Epithelial Cell Urine 0-4 /hpf (0-5); WBC Urine 15-25 /hpf (0-5)
[2022-08-26 14:00] VITALS: BP 125/79; PULSE 114; RESP 16; TEMP 36.5; O2SAT 98
--- NOTE | 2022-08-26 16:44 | P.NPUPN_ITS ---
Subjective NPU Subjective: Patient is a 27-year-old white female with a history of borderline personality disorder, bipolar depression and methamphetamine abuse. Patient continued to report having continued back pain issues and remained severely constipated despite having been given lactulose. Patient was agreeable to soapsuds enemas and reported that she had difficulties with urinating and continued to have difficulty passing her stool. She had endorsed fleeting suicidal ideation today. She had continue to isolate herself in the room but was spending more time walking. She did not report any side effects from the initiation of Latuda. She had reported continued mood fluctuations and reported still feeling depressed. She reported no cravings for any methamphetamine at this time. Mental Status Exam MSE Comments: This is an obese white female with hospital scrubs on with limited grooming and or eye contact. No abnormal movements except for psychomotor retardation.? She appeared cooperative with exam in moderate distress.? Speech was normal in regards to rate rhythm and prosody. Mood described as okay. Her affect was mood incongruent and labile. Thought process was organized.? Thought content: P atient minimized any suicidal or homicidal ideation. there are no delusions noted although she had reported mistrust of others. .She denied any auditory or visual hallucinations.? Attention and concentration were limited and memory appeared mostly reliable but none were formally tested.? She is alert and oriented x3.? Insight and judgment are limited. impulse control is impaired. Vitals/I&O/Wt Last Vital Signs Temp 97.4 F L 08/25/22 06:00 Pulse 86 08/25/22 20:05 Resp 18 08/25/22 20:05 BP 131/88 08/25/22 20:05 Pulse Ox 96 08/25/22 20:05 O2 Del Method Room Air 08/25/22 20:05 08/26/22 08/26/22 08/26/22 06:59 14:59 22:59 Intake Total 240 / 240 Balance 240 / 240 Weight last 48 hrs Weight 93.621 kg Data NPU 08/22/22 20:05 08/22/22 20:05 A&P Assessment and plan (1) Borderline personality disorder: (2) Suicidal ideation: (3) Methamphetamine use disorder, severe, in sustained remission: (4) Nausea alone: (5) Anxiety: Plan This is a 27-year-old homeless female with a history of borderline personality disorder, methamphetamine use, depressed mood admitted with suicidal ideation and extreme anxiety. Plan: 1. Increase Latuda 40mg at night to target bipolar depression. 2. Continue every 15 minute checks for safety. 3. Encourage individual, group and milieu therapies. 4. Encourage sober living treatment after discharge at the highest level of care to which she is willing to commit. Involuntary Hold Information 96 Hour Hold: 96 Hour Involuntary Admission: Yes 96 Hour Hold Ending Date: 08/28/22 96 Hour Hold Ending Time: 20:50 Attestations NPU Medical Necessity Statement*: Inpatient hospitalization is medically necessary and the clinically appropriate intervention at this time. We will initiate medications and make changes as indicated. Her likely length of stay 2-4 days. Coding Level of Care Code Acute Code for [facility] Diagnoses Borderline personality disorder F60.3 Suicidal ideation R45.851 Methamphetamine use disorder, severe, in sustained remission F15.21 Nausea alone R11.0 Anxiety F41.9
[2022-08-26] MEDS: lurasidone 80 mg Tablet 40 MG PO (17:46)
[2022-08-26 20:04] VITALS: BP 99/67; PULSE 78; RESP 16; TEMP 36.6; O2SAT 98
[2022-08-26] MEDS: trazodone 50 mg Tablet PO ×2 (20:36→22:04)
[2022-08-27] MEDS: hyDROXYzine 25 mg Capsule 50 MG PO ×2 (01:28→19:28)
[2022-08-27 05:15] VITALS: BP 136/74; PULSE 127; RESP 20; O2SAT 93
[2022-08-27] MEDS: acetaminophen 325 mg Tablet 650 MG PO (09:52)
[2022-08-27] MEDS: ibuprofen 600 mg Tablet PO (12:37)
[2022-08-27] MEDS: bisacodyl 5 mg Tablet 10 MG PO (12:38)
--- NOTE | 2022-08-27 13:07 | XRR_ITS ---
PROCEDURE INFORMATION: Exam: XR Abdomen Exam date and time: 08/27/2022 1:03 PM Age: 27 years old Clinical indication: Constipation; Additional info: Follow up with constipation. TECHNIQUE: Imaging protocol: Radiologic exam of the abdomen. Views: 2 Views. Upright and supine views. COMPARISON: CT abdomen pelvis con [id number] 08/22/2022 8:55 PM FINDINGS: Gastrointestinal tract: Mild bowel dilatation and prominent stool, in the setting of reported constipation. Prominent gastric fluid. Intraperitoneal space: No free air. Bones/joints: Unremarkable . XR/XR abdomen min 2V [id number] IMPRESSION: 1. Prominent stool, in the setting of reported constipation. 2. Prominent gastric fluid and mild bowel dilatation.
[2022-08-27 14:00] VITALS: BP 113/77; PULSE 89; RESP 16; TEMP 36.6; O2SAT 95
--- NOTE | 2022-08-27 14:49 | W.PM.NPUPNS ---
Subjective NPU Subjective: Patient is a 27-year-old white female with a history of borderline personality disorder, bipolar depression and methamphetamine abuse. The patient had continued reports significant abdominal discomfort with continued constipation despite efforts to relieve it including enemas. Patient's abdominal x-ray continued to show evidence of significant fecal impaction. She had reported that she was ready to start in a new situation and reported that her mood had been less volatile with the increase in Latuda. She had reported some reduction in irritability. She had shown evidence of improved motivation and reported struggles with managing sobriety. She had acknowledged having used methamphetamine and stated that she would be motivated to consider a more regimented substance abuse treatment program that focuses on methamphetamine abuse. The patient reported no suicidal thoughts today. She did report considerable pain in her back and reported having muscle spasms. Patient had endorsed having frequent shifts in mood but reported that her sleep had been better last night. Mental Status Exam MSE Comments: This is an obese white female with hospital scrubs on with poor grooming and fair eye contact today. She was friendly and cooperative on interview. There was mild evidence of psychomotor retardation..? She appeared cooperative with exam but appeared to be in some pain.? Speech was normal in regards to rate rhythm and prosody. Mood described as better. Her affect was restricted with decreased lability noted. Thought process was linear and organized.? Thought content: Patient minimized any suicidal or homicidal ideation. There are no delusions noted although she had reported mistrust of others. She denied any auditory or visual hallucinations.? Attention and concentration were limited and memory appeared mostly reliable but none were formally tested.? She is alert and oriented x3.? Insight and judgment are limited. Impulse control is impaired. Vitals/I&O/Wt Last Vital Signs Temp 97.9 F 08/26/22 20:04 Pulse 127 H 08/27/22 05:15 Resp 20 H 08/27/22 05:15 BP 136/74 08/27/22 05:15 Pulse Ox 93 08/27/22 05:15 O2 Del Method Room Air 08/27/22 05:15 Weight last 48 hrs Weight 93.621 kg Data NPU 08/22/22 20:05 08/22/22 20:05 Micro: Microbiology 08/26/22 08:51 Urine Culture - Preliminary Urine,Clean Catch Gram Negative Rods Microbiology 08/26/22 08:51 Urine,Clean Catch Urine Culture - Preliminary Gram Negative Rods A&P Assessment and plan (1) Borderline personality disorder: (2) Suicidal ideation: (3) Methamphetamine use disorder, severe, in sustained remission: (4) Nausea alone: (5) Anxiety: Plan This is a 27-year-old homeless female with a history of borderline personality disorder, methamphetamine use, depressed mood admitted with suicidal ideation and extreme anxiety. Plan: 1. Continue Latuda 40mg at night to target bipolar depression. Doxycycline 100mg bid for UTI. 2. Continue every 15 minute checks for safety. 3. Encourage individual, group and milieu therapies. 4. Encourage sober living treatment after discharge at the highest level of care to which she is willing to commit. Involuntary Hold Information 96 Hour Hold: 96 Hour Involuntary Admission: Yes 96 Hour Hold Ending Date: 08/28/22 96 Hour Hold Ending Time: 20:50 Attestations NPU Medical Necessity Statement*: Inpatient hospitalization is medically necessary and the clinically appropriate intervention at this time. We will initiate medications and make changes as indicated. Her likely length of stay 2-4 days. Coding Level of Care Code Acute Code for [facility]wd Diagnoses Borderline personality disorder F60.3 Suicidal ideation R45.851 Methamphetamine use disorder, severe, in sustained remission F15.21 Nausea alone R11.0 Anxiety F41.9
[2022-08-27] MEDS: peg /e-lyte soln 4,000 mL Btl 1500 ML PO (15:26)
[2022-08-27] MEDS: lurasidone 80 mg Tablet 40 MG PO (17:53)
[2022-08-27] MEDS: doxycycline 100 mg Tablet PO (17:54)
--- NOTE | 2022-08-27 18:03 | PC.NURSE ---
Golytely first administered to patient at 1518 on 08/27/22.
[2022-08-27] MEDS: trazodone 50 mg Tablet PO (20:23)
[2022-08-27] MEDS: OLANZapine 5 mg ODT PO (20:23)
[2022-08-27 22:00] VITALS: BP 121/79; PULSE 95; RESP 18; TEMP 36.9; O2SAT 96
[2022-08-28] MEDS: hyDROXYzine 25 mg Capsule 50 MG PO ×3 (01:14→22:05)
[2022-08-28] MEDS: acetaminophen 325 mg Tablet 650 MG PO ×2 (01:14→09:05)
[2022-08-28] MEDS: trazodone 50 mg Tablet PO ×2 (01:37→22:05)
[2022-08-28 06:00] VITALS: RESP 18
[2022-08-28] MEDS: bisacodyl 5 mg Tablet 10 MG PO (09:06)
[2022-08-28] MEDS: doxycycline 100 mg Tablet PO ×2 (09:25→18:01)
--- NOTE | 2022-08-28 09:26 | PC.NURSE ---
PT STATES SHE WILL NOT TAKE LATUDA ANYMORE DO TO HAVING [facility] DOCTOR INFORMED.
[2022-08-28 13:06] VITALS: BP 125/75; PULSE 97; RESP 15; TEMP 36.5; O2SAT 95
--- NOTE | 2022-08-28 15:14 | P.CONIM_ITS ---
Providers/Reason For Consult Consulting Physician/Specialty*: Karthik royal/internal medicine Reason for Consult*: Severe constipation Attending Physician: Jose Soto MD Primary Care Provider: Stephany Ha History of Present Illness History of Present Illness 27-year-old homeless female with a history of borderline personality disorder, methamphetamine use, depressed mood admitted with suicidal ideation and extreme anxiety. Medicine was consulted for management of significant symptomatic constipation. CT abdomen and pelvis as well as x-ray abdomen: Which showed significant constipation. Patient was given GoLytely by the primary team, with no significant, bowel movements. Routine labs have been ordered. Review of Systems General: Reports: 10 or more systems reviewed and unremarkable except in HPI and below Const: Denies: fever(s), chills, body aches, change in appetite or diaphoresis Card: Denies: palpitations, edema, swelling of feet/ankles, dyspnea on exertion, orthopnea or leg pain with exertion Resp: Denies: dyspnea, productive cough, wheezing or pain on inspiration GI: Reports: constipation; Denies: abdominal pain, nausea, vomiting or diarrhea : Denies: flank pain Musc: Denies: back pain, extremity pain or extremity swelling Neuro: Denies: headache(s), difficulty walking or confusion Medications/Allergies Home Medications Medication Instructions Recorded Confirmed Last Taken Type medroxyprogesterone 150 mg/mL 150 mg IM Q90D 01/01/22 08/22/22 05/27/22 History intramuscular suspension (Depo-Provera) acetaminophen 500 mg tablet 1,000 mg PO TID PRN Pain 01/17/22 08/22/22 Unknown History (Acetaminophen Extra Strength) omeprazole 20 mg capsule,delayed 20 mg PO DAILY 05/03/22 08/22/22 Unknown History release ondansetron 4 mg disintegrating 4 mg PO TID PRN nausea and vomiting 06/29/22 08/22/22 Unknown History tablet duloxetine 30 mg capsule,delayed 60 mg PO DAILY 30 days #60 caps 07/03/22 08/22/22 Unknown Rx release trazodone 50 mg tablet 100 mg PO .q hs PRN insomnia #30 07/22/22 08/22/22 Unknown Rx tabs cyclobenzaprine 10 mg tablet 10 mg PO TID PRN Muscle Spasm 08/22/22 08/22/22 Unknown History magnesium hydroxide 2,400 mg/10 mL 15 ml PO BID PRN constipation 08/22/22 08/22/22 Unknown Rx oral suspension (Milk Of Magnesia #1,000 mL Concentrated) tizanidine 4 mg tablet (Zanaflex) 4 mg PO TID PRN Muscle Spasm 08/22/22 08/22/22 Unknown History Allergies Allergy/AdvReac Type Severity Reaction Status Date / Time sulfamethoxazole Allergy Intermediate ADR-Gastrointestinal Verified 07/09/22 13:54 [From Bactrim] Upset trimethoprim [From Bactrim] Allergy Intermediate ADR-Gastrointestinal Verified 07/09/22 13:54 Upset Current Medications Generic Name Dose Route Start Last Admin Trade Name Freq PRN Reason Stop Dose Admin Acetaminophen 650 mg 08/22/22 21:59 08/28/22 09:05 Acetaminophen 325 Mg Tablet PO 650 mg Q4H PRN Administration MILD PAIN Bisacodyl 10 mg 08/24/22 11:12 08/28/22 09:06 Bisacodyl 5 Mg Tablet PO 10 mg DAILY PRN Administration CONSTIPATION Doxycycline Monohydrate 100 mg 08/27/22 18:00 08/28/22 09:25 Doxycycline 100 Mg Tablet PO 09/03/22 17:59 100 mg BID LIAM Administration Protocol Hydroxyzine Pamoate 50 mg 08/22/22 21:59 08/28/22 09:12 Hydroxyzine 25 Mg Capsule PO 50 mg Q6H PRN Administration ANXIETY Ibuprofen 600 mg 08/23/22 13:18 08/27/22 12:37 Ibuprofen 600 Mg Tablet PO 600 mg Q6H PRN Administration MODERATE PAIN Lactulose 10 gm 08/25/22 04:11 08/26/22 08:43 Lactulose Oral Liq 20 Gm/30 Ml Udc PO 10 gm DAILY PRN Administration CONSTIPATION Lurasidone HCl 40 mg 08/26/22 18:00 08/27/22 17:53 Lurasidone 80 Mg Tablet PO 40 mg 1800 LIAM Administration Olanzapine 5 mg 08/22/22 21:59 08/27/22 20:23 Olanzapine 5 Mg Odt PO 5 mg Q4H PRN Administration Agitation/Psychosis Trazodone HCl 50 mg 08/22/22 21:59 08/28/22 01:37 Trazodone 50 Mg Tablet PO 50 mg BEDTIME PRN Administration SLEEP PFSH Acute PFSH: Medical History Borderline personality disorder Cannabis abuse COVID-19 Evaluation regarding contraception options Impulse control disorder Major depression Major depressive disorder, recurrent episode with anxious distress Major depressive disorder, recurrent severe without psychotic features Methamphetamine abuse Nausea alone Psychiatric care Suicidal ideation Surgical History History of knee surgery Status post myringotomy with tube placement of both ears Family History Other Diabetes Lung disease Rheumatoid arthritis Social History Smoking and tobacco status: current every day smoker e-cigarettes E-Cigarette Details: with nicotine E-cig/vape details: 1 week to go through a tank Quit status (tobacco): considering quitting Second hand smoke exposure: Yes Smoking risk assessment/counseling performed?: Yes Alcohol intake: former Year of sobriety/quit date alcohol: 2021 Substance/Drug Use: former Date of last use: 08/10 Adopted: No Caregiver/support person: No Lives independently: No Household members: other Details: SOC Housing: Homeless Marital status: Single Number of children: 2 Highest education level completed: Some College, No Degree service: No Current occupational status: employed 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 Pets and animals: No Leisure activites: music Sexually active: No Do you think of yourself as: Straight/Heterosexual Current gender identity: Female Briseida/Church: None Special briseida needs: No Agree to transfusion: Yes Financial difficulty paying for basics: Somewhat Hard Female Reproductive History: Para: 2 Spontaneous abortions: Yes Vitals/I&O/Wt Last Vital Signs Temp 97.7 F 08/28/22 13:06 Pulse 97 08/28/22 13:06 Resp 15 08/28/22 13:06 BP 125/75 08/28/22 13:06 Pulse Ox 95 08/28/22 13:06 O2 Del Method Room Air 08/27/22 22:00 08/28/22 08/28/22 08/28/22 06:59 14:59 22:59 Output Total 950 / 950 Balance -950 / -950 Data 08/29/22 08:04 08/29/22 08:04 Micro: Microbiology 08/26/22 08:51 Urine Culture - Final Urine,Clean Catch Escherichia coli A&P Assessment and plan (1) Constipation: Plan 27-year-old homeless female with a history of borderline personality disorder, methamphetamine use, depressed mood admitted with suicidal ideation and extreme anxiety.Medicine was consulted for management of significant symptomatic constipation. Constipation: CT abdomen and pelvis as well as x-ray abdomen: Which showed significant constipation. Has received GoLytely by the primary team Currently she is on lactulose as well as milk of magnesia. If she fails to respond she will need surgery consult for manual disimpaction. Consult Attestations Medical Necessity Statement: Per primary team. Coding Level of Care Code Acute Code for [facility] Fw Diagnoses Constipation K59.00
[2022-08-28] MEDS: lactulose oral liq 20 gm/30 mL UDC 30 GM PO ×3 (15:29→20:06)
--- NOTE | 2022-08-28 16:26 | W.PM.NPUPNS ---
Subjective NPU Subjective: Patient is a 27-year-old white female with a history of borderline personality disorder, bipolar depression and methamphetamine abuse. The patient had reported more frequent nightmares and refused her Latuda last night. She had acknowledged that she continued to have intense periods of mood swings and was agreeable to a switch in her medications. She continued to report significant pain that she had battled fecal impaction. The patient had requested a medical consult. She had expressed desire to consider a [place] care facility when stabilized here. She had reported an extended history of frequent mood shifts and reported no cravings for any drugs at this time. Mental Status Exam MSE Comments: This is an obese white female with hospital scrubs on with poor grooming and fair eye contact today. She was friendly and cooperative on interview. There was continued evidence of psychomotor retardation. She appeared cooperative with exam but appeared to be in some significant pain. Speech was normal in regards to rate rhythm and prosody. Mood described as not so good her affect was flat today. Thought process was linear and organized.? Thought content: Patient minimized any suicidal or homicidal ideation. There are no delusions noted. She did appear suspicious of others intentions. She denied any auditory or visual hallucinations.? Attention and concentration were limited and memory appeared mostly reliable but none were formally tested.? She is alert and oriented x3.? Insight and judgment are limited. Impulse control is impaired. Vitals/I&O/Wt Last Vital Signs Temp 97.7 F 08/28/22 13:06 Pulse 97 08/28/22 13:06 Resp 15 08/28/22 13:06 BP 125/75 08/28/22 13:06 Pulse Ox 95 08/28/22 13:06 O2 Del Method Room Air 08/27/22 22:00 08/28/22 08/28/22 08/28/22 06:59 14:59 22:59 Output Total 950 / 950 Balance -950 / -950 Data NPU 08/22/22 20:05 08/22/22 20:05 Micro: Microbiology 08/26/22 08:51 Urine Culture - Final Urine,Clean Catch Escherichia coli Microbiology 08/26/22 08:51 Urine,Clean Catch Urine Culture - Final Escherichia coli A&P Assessment and plan (1) Borderline personality disorder: (2) Suicidal ideation: (3) Methamphetamine use disorder, severe, in sustained remission: (4) Nausea alone: (5) Anxiety: Plan This is a 27-year-old homeless female with a history of borderline personality disorder, methamphetamine use, depressed mood admitted with suicidal ideation and extreme anxiety. Plan: 1. Discontinue Latuda secondary to nightmares. Will begin Seroquel 150 mg XR to target bipolar depression. Doxycycline 100mg bid for UTI. 2. Continue every 15 minute checks for safety. 3. Encourage individual, group and milieu therapies. 4. Encourage sober living treatment after discharge at the highest level of care to which she is willing to commit. 5. Appreciate [facility] consult for patient's constipation. Involuntary Hold Information 96 Hour Hold: 96 Hour Involuntary Admission: Yes 96 Hour Hold Ending Date: 08/28/22 96 Hour Hold Ending Time: 20:50 Attestations NPU Medical Necessity Statement*: Inpatient hospitalization is medically necessary and the clinically appropriate intervention at this time. We will initiate medications and make changes as indicated. Her likely length of stay 2-4 days. Coding Level of Care Code Acute Code for [facility] Diagnoses Borderline personality disorder F60.3 Suicidal ideation R45.851 Methamphetamine use disorder, severe, in sustained remission F15.21 Nausea alone R11.0 Anxiety F41.9
--- NOTE | 2022-08-28 17:07 | CTR_ITS ---
PROCEDURE INFORMATION: Exam: CT Abdomen And Pelvis With Contrast Exam date and time: 08/28/2022 7:11 PM Age: 27 years old Clinical indication: Abdominal pain; Additional info: Constipation TECHNIQUE: Imaging protocol: Computed tomography of the abdomen and pelvis with contrast. Radiation optimization: All CT scans at this facility use at least one of these dose optimization techniques: automated exposure control; mA and/or kV adjustment per patient size (includes targeted exams where dose is matched to clinical indication); or iterative reconstruction. Contrast material: OMNI 350; Contrast volume: 100 ml; Contrast route: INTRAVENOUS (IV); Other contrast: Oral, OMNI 350 , 30 WITH WATER, TWO 20OZ CUPS WITH 15ML EACH, ONE HOUR DRINK FOR FIRST AND SECOND JUST BEFORE SCAN. ; REPORTING DATA: Count of CT and Cardiac NM exams in prior 12 months: This patient has received [address] and 0 known cardiac nuclear medicine studies in the 12 months prior to the current study. COMPARISON: CT abdomen pelvis wo con [id number] 08/22/2022 8:55 PM RADIATION DOSE METRICS: Total DLP (mGy-cm): 769 FINDINGS: Liver: Normal. No mass. Gallbladder and bile ducts: Normal. No calcified stones. No ductal dilation. Pancreas: Normal. No ductal dilation. Spleen: Normal. No splenomegaly. Adrenal glands: Normal. No mass. Kidneys and ureters: Normal. No hydronephrosis. Stomach and bowel: Unremarkable. No obstruction. No mucosal thickening. Appendix: The appendix is normal. Intraperitoneal space: Unremarkable. No free air. No significant fluid collection. Vasculature: Unremarkable. No abdominal aortic aneurysm. Lymph nodes: Unremarkable. No enlarged lymph nodes. Urinary bladder: Unremarkable as visualized. Reproductive: The uterus and ovaries appear normal. Bones/joints: Unremarkable. No acute fracture. Soft tissues: Unremarkable. CT/CT abdomen pelvis w con* [id number] IMPRESSION: No acute abnormality is seen in the abdomen or pelvis.
--- NOTE | 2022-08-28 17:45 | PC.NURSE ---
inserted 20guage peripheral iv cath in right forearm, flushed with 10ml normal saline. pt handled procedure well.
--- NOTE | 2022-08-28 18:06 | PC.NURSE ---
1st cup of oral contrast started
[2022-08-28 18:31] LABS: Basophils # 0.1 10^3/uL (0.0-0.1); Basophils % 0.6 %; Eosinophils # 0.2 10^3/uL (0.0-0.8); Eosinophils % 1.6 %; Hematocrit 43.8 % (37.0-47.0); Hemoglobin 13.8 g/dL (11.5-15.3); Lymphocytes # 3.3 10^3/uL (0.8-4.8); Lymphocytes % 33.7 %; Mean Corpuscular HGB Conc 31.5 g/dL (30.0-36.0); Mean Corpuscular Hemoglobin 28.7 pg (28.0-34.0); Mean Corpuscular Volume 91.1 fl (81-99); Monocytes # 0.5 10^3/uL (0.2-0.9); Monocytes % 5.4 %; Neutrophils # 5.74 10^3/uL (1.8-7.7); Neutrophils % 58.3 %; Nucleated Red Blood Cells % 0 %; Platelet Count 344 10^3/cmm (130-400); Red Blood Count 4.81 10^6/uL (4.1-5.3); Red Cell Distribution Width 12.6 % (12.1-15.1); White Blood Count 9.9 10^3/uL (4.0-10.0)
[2022-08-28 18:53] LABS: Alanine Aminotransferase 29 U/L (0-33); Albumin Level 4.5 g/dL (3.5-5.2); Alkaline Phosphatase 86 U/L (35-105); Anion Gap 15.9 (5-19); Aspartate Amino Transferase 20 U/L (0-32); Blood Urea Nitrogen 11 mg/dL (6-20); Calcium 9.6 mg/dL (8.5-10.5); Carbon Dioxide 23 mmol/L (22-29); Chloride 107 mmol/L (98-107); Globulin 3.1 g/dL (1.3-4.6); Glomerular Filtration Rate 118.2 mL/min (90-130); Glucose 103 mg/dL (65-115); Osmolality Calculated 294 mOsm/kg (285-295); Potassium 3.9 mmol/L (3.5-5.1); Sodium 142 mmol/L (136-145); Total Bilirubin 0.5 mg/dL (0.15-1.2); Total Protein 7.6 g/dL (6.6-8.7)
[2022-08-28] MEDS: iohexol 350 mg/mL 500 mL Btl (per mL) IV (19:20)
[2022-08-28] MEDS: iohexol 350 mg/mL 500 mL Btl (per mL) PO (19:25)
[2022-08-28 19:53] VITALS: BP 140/89; PULSE 107; RESP 17; TEMP 37; O2SAT 98
[2022-08-28] MEDS: magnesium hydroxide 30 mL UDC PO (20:07)
[2022-08-29 06:00] VITALS: RESP 16
--- NOTE | 2022-08-29 08:03 | PC.NURSE ---
Per Dr. Thorne pt is to continue 30mg lactulose 3 times daily to induce bowel movements. Continue with tylenol for pain relief.
[2022-08-29 08:29] LABS: Basophils # 0.1 10^3/uL (0.0-0.1); Basophils % 0.8 %; Eosinophils # 0.2 10^3/uL (0.0-0.8); Eosinophils % 2.7 %; Hemoglobin 13.2 g/dL (11.5-15.3); Lymphocytes # 2.6 10^3/uL (0.8-4.8); Mean Corpuscular HGB Conc 32.2 g/dL (30.0-36.0); Mean Corpuscular Hemoglobin 28.9 pg (28.0-34.0); Mean Corpuscular Volume 89.9 fl (81-99); Mean Platelet Volume 10.2 fL (7.4-10.4); Monocytes # 0.5 10^3/uL (0.2-0.9); Monocytes % 7.6 %; Neutrophils # 3.68 10^3/uL (1.8-7.7); Neutrophils % 51.6 %; Nucleated Red Blood Cells % 0 %; Platelet Count 297 10^3/cmm (130-400); Red Blood Count 4.56 10^6/uL (4.1-5.3); Red Cell Distribution Width 12.8 % (12.1-15.1); White Blood Count 7.1 10^3/uL (4.0-10.0)
[2022-08-29] MEDS: magnesium hydroxide 30 mL UDC PO ×2 (08:34→17:29)
[2022-08-29] MEDS: acetaminophen 325 mg Tablet 650 MG PO (08:35)
[2022-08-29] MEDS: zinc oxide oint 30 gm 1 APPLIC TOPICAL ×2 (08:35→18:10)
[2022-08-29] MEDS: doxycycline 100 mg Tablet PO ×2 (08:35→17:29)
[2022-08-29 08:47] LABS: Alanine Aminotransferase 24 U/L (0-33); Albumin Level 3.9 g/dL (3.5-5.2); Alkaline Phosphatase 83 U/L (35-105); Anion Gap 17.3 (5-19); Aspartate Amino Transferase 17 U/L (0-32); Blood Urea Nitrogen 11 mg/dL (6-20); Calcium 9.4 mg/dL (8.5-10.5); Carbon Dioxide 21 mmol/L (22-29); Chloride 102 mmol/L (98-107); Globulin 2.8 g/dL (1.3-4.6); Glomerular Filtration Rate 118.2 mL/min (90-130); Glucose 92 mg/dL (65-115); Osmolality Calculated 281 mOsm/kg (285-295); Potassium 4.3 mmol/L (3.5-5.1); Sodium 136 mmol/L (136-145); Total Bilirubin 0.9 mg/dL (0.15-1.2); Total Protein 6.7 g/dL (6.6-8.7)
[2022-08-29] MEDS: lactulose oral liq 20 gm/30 mL UDC 30 GM PO ×3 (11:16→20:31)
[2022-08-29 14:00] VITALS: BP 113/77; PULSE 99; RESP 18; TEMP 36.7; O2SAT 96
--- NOTE | 2022-08-29 16:44 | PM.PN ---
Subjective Subjective: Patient is having watery stool. Medications: Medication Review Details: Generic Name Dose Route Start Last Admin Trade Name Freq PRN Reason Stop Dose Admin Acetaminophen 650 mg 08/22/22 21:59 08/29/22 08:35 Acetaminophen 32 5 Mg Tablet PO 650 mg Q4H PRN Administration MILD PAIN Bisacodyl 10 mg 08/24/22 11:12 08/28/22 09:06 Bisacodyl 5 Mg T ablet PO 10 mg DAILY PRN Administration CONSTIPATION Doxycycline Monohy drate 100 mg 08/27/22 18:00 08/29/22 08:35 Doxycycline 100 Mg Tablet PO 09/03/22 17:59 100 mg BID LIAM Administration Protocol Hydroxyzine Pamoat e 50 mg 08/22/22 21:59 08/28/22 22:05 Hydroxyzine 25 M g Capsule PO 50 mg Q6H PRN Administration ANXIETY Ibuprofen 600 mg 08/23/22 13:18 08/27/22 12:37 Ibuprofen 600 Mg Tablet PO 600 mg Q6H PRN Administration MODERATE PAIN Lactulose 10 gm 08/25/22 04:11 08/26/22 08:43 Lactulose Oral L iq 20 Gm/30 Ml Udc PO 10 gm DAILY PRN Administration CONSTIPATION Lactulose 30 gm 08/28/22 15:30 08/28/22 20:07 Lactulose Oral L iq 20 Gm/30 Ml Udc PO Not Given Q1H LIAM Protocol Lactulose 30 gm 08/29/22 10:05 08/29/22 14:39 Lactulose Oral L iq 20 Gm/30 Ml Udc PO 30 gm TID LIAM Administration Magnesium Hydroxid e 30 ml 08/28/22 18:00 08/29/22 08:34 Magnesium Hydrox lemuel 30 Ml Udc PO 30 ml BID LIAM Administration Olanzapine 5 mg 08/22/22 21:59 08/27/22 20:23 Olanzapine 5 Mg Odt PO 5 mg Q4H PRN Administration Agitation/Psychos is Trazodone HCl 50 mg 08/22/22 21:59 08/28/22 22:05 Trazodone 50 Mg Tablet PO 50 mg BEDTIME PRN Administration SLEEP Zinc Oxide 1 applic 08/29/22 08:18 08/29/22 08:35 Zinc Oxide Oint 30 Gm TOPICAL 1 applic PRN PRN Administration SKIN PROTECTANT Vitals/I&O/Wt Last Vital Signs Temp 98.0 F 08/29/22 14:00 Pulse 99 08/29/22 14:00 Resp 18 08/29/22 14:00 BP 113/77 08/29/22 14:00 Pulse Ox 96 08/29/22 14:00 O2 Del Method Room Air 08/28/22 19:53 Physical Exam Const: COMMON NORMALS: patient oriented x3 HENMT: COMMON NORMALS: normocephalic and atraumatic HEAD & SCALP: normocephalic and atraumatic Resp: COMMON NORMALS: clear to auscultation bilaterally EFFORT & INSPECTION: Yes symmetric chest movement AUSCULTATION: clear to auscultation bilaterally Cardio: COMMON NORMALS: regular rate, regular rhythm, S1 normal heart sound present, S2 normal heart sound present, No gallops present (Cardio), No murmurs present (Cardio), No rub (Cardio) and Peripheral pulses 2+ throughout RATE: regular rate RHYTHM: regular rhythm HEART SOUNDS: S1 normal heart sound present and S2 normal heart sound present PERIPHERAL PULSES: Peripheral pulses 2+ throughout GI: COMMON NORMALS: Normal to inspection, nondistended, normoactive bowel sounds present, Soft to palpation, non-tender, No hepatosplenomegaly present and no masses AUSCULTATION: Yes normoactive bowel sounds PALPATION: Yes Soft to palpation and Yes No hepatosplenomegaly present RECTAL EXAM: deferred Extremity: COMMON NORMALS: no clubbing, cyanosis or edema and no pedal edema Neuro: COMMON NORMALS: patient oriented x3 Data 08/29/22 08:04 08/29/22 08:04 Micro: Microbiology 08/26/22 08:51 Urine Culture - Final Urine,Clean Catch Escherichia coli A&P Assessment and plan (1) Constipation: Plan 27-year-old homeless female with a history of borderline personality disorder, methamphetamine use, depressed mood admitted with suicidal ideation and extreme anxiety.Medicine was consulted for management of significant symptomatic constipation. Constipation: CT abdomen and pelvis as well as x-ray abdomen: Which showed significant constipation. Has received GoLytely by the primary team Currently she is on lactulose as well as milk of magnesia. If she fails to respond she will need surgery consult for manual disimpaction. Attestations Medical Necessity Statement*: Per primary team Coding Level of Care Code Acute Code for g Fwd Diagnoses Constipation K59.00
--- NOTE | 2022-08-29 17:19 | P.NPUPN_ITS ---
Subjective NPU Subjective: Patient is a 27-year-old white female with a history of borderline personality disorder, bipolar depression and methamphetamine abuse. The patient continued to have mood lability. Remained on a bowel protocol to help with significant constipation. She had reported no nightmares since the discontinuation of Latuda. She had continued to appear irritable with frequent shifts in mood reported by the patient. She had endorsed some depressed episodes as well. She had continue to minimize the significance of her substance abuse at this time. Mental Status Exam MSE Comments: This is an obese white female with hospital scrubs on with poor grooming and fair eye contact today. She was friendly and cooperative on interview. There was continued evidence of psychomotor retardation. She appeared cooperative with exam less pain as she was walking through the hallway. Her speech was normal in regards to rate rhythm and prosody. Mood described as terrible her affect was labile and intense. Thought process was linear and organized.? Thought content: Patient minimized any suicidal or homicidal ideation. There are no delusions noted. She did appear suspicious of others intentions. She denied any auditory or visual hallucinations.? Attention and concentration were limited and memory appeared mostly reliable but none were formally tested.? She is alert and oriented x3.? Insight and judgment are limited. Impulse control is impaired. Vitals/I&O/Wt Last Vital Signs Temp 98.0 F 08/29/22 14:00 Pulse 99 08/29/22 14:00 Resp 18 08/29/22 14:00 BP 113/77 08/29/22 14:00 Pulse Ox 96 08/29/22 14:00 O2 Del Method Room Air 08/28/22 19:53 Data NPU 08/29/22 08:04 08/29/22 08:04 Micro: Microbiology 08/26/22 08:51 Urine Culture - Final Urine,Clean Catch Escherichia coli Microbiology 08/26/22 08:51 Urine,Clean Catch Urine Culture - Final Escherichia coli A&P Assessment and plan (1) Borderline personality disorder: (2) Suicidal ideation: (3) Methamphetamine use disorder, severe, in sustained remission: (4) Nausea alone: (5) Anxiety: Plan This is a 27-year-old homeless female with a history of borderline personality disorder, methamphetamine use, depressed mood admitted with suicidal ideation and extreme anxiety. Plan: 1. Discontinue Latuda secondary to nightmares. Seroquel XR 50mg at night to target irritability and depression. Doxycycline 100mg bid for UTI. 2. Continue every 15 minute checks for safety. 3. Encourage individual, group and milieu therapies. 4. Encourage sober living treatment after discharge at the highest level of care to which she is willing to commit. 5. Appreciate [facility] consult for patient's constipation. Involuntary Hold Information 96 Hour Hold: 96 Hour Involuntary Admission: Yes 96 Hour Hold Ending Date: 08/28/22 96 Hour Hold Ending Time: 20:50 Attestations NPU Medical Necessity Statement*: Inpatient hospitalization is medically necessary and the clinically appropriate intervention at this time. We will initiate medications and make changes as indicated. Her likely length of stay 2-4 days. Coding Level of Care Code Acute Code for [facility] Fwd Diagnoses Borderline personality disorder F60.3 Suicidal ideation R45.851 Methamphetamine use disorder, severe, in sustained remission F15.21 Nausea alone R11.0 Anxiety F41.9
[2022-08-29] MEDS: quetiapine XR (24HR) 50 mg Tablet PO (20:30)
[2022-08-29 22:00] VITALS: BP 129/87; PULSE 103; RESP 19; O2SAT 97
[2022-08-30 06:00] VITALS: RESP 17
[2022-08-30 07:29] LABS: Basophils # 0.1 10^3/uL (0.0-0.1); Eosinophils # 0.3 10^3/uL (0.0-0.8); Hematocrit 40.9 % (37.0-47.0); Lymphocytes # 2.9 10^3/uL (0.8-4.8); Lymphocytes % 35.5 %; Mean Corpuscular HGB Conc 31.8 g/dL (30.0-36.0); Mean Corpuscular Hemoglobin 28.5 pg (28.0-34.0); Mean Corpuscular Volume 89.7 fl (81-99); Mean Platelet Volume 9.9 fL (7.4-10.4); Monocytes # 0.6 10^3/uL (0.2-0.9); Monocytes % 7.7 %; Neutrophils # 4.35 10^3/uL (1.8-7.7); Neutrophils % 52.7 %; Nucleated Red Blood Cells % 0 %; Platelet Count 307 10^3/cmm (130-400); Red Blood Count 4.56 10^6/uL (4.1-5.3); Red Cell Distribution Width 12.7 % (12.1-15.1); White Blood Count 8.3 10^3/uL (4.0-10.0)
[2022-08-30 08:02] LABS: Alanine Aminotransferase 20 U/L (0-33); Alkaline Phosphatase 87 U/L (35-105); Aspartate Amino Transferase 15 U/L (0-32); Blood Urea Nitrogen 11 mg/dL (6-20); Calcium 9.1 mg/dL (8.5-10.5); Carbon Dioxide 22 mmol/L (22-29); Chloride 104 mmol/L (98-107); Globulin 2.7 g/dL (1.3-4.6); Glomerular Filtration Rate 118.2 mL/min (90-130); Glucose 97 mg/dL (65-115); Osmolality Calculated 289 mOsm/kg (285-295); Sodium 140 mmol/L (136-145); Total Bilirubin 0.9 mg/dL (0.15-1.2); Total Protein 6.7 g/dL (6.6-8.7)
[2022-08-30 08:08] LABS: Anion Gap 18.1 (5-19); Potassium 4.1 mmol/L (3.5-5.1)
--- NOTE | 2022-08-30 08:31 | PC.NURSE ---
Did not administer morning meds due to orders of NPO for surgery today
[2022-08-30 14:00] VITALS: BP 158/74; PULSE 120; RESP 18; TEMP 36.6; O2SAT 96
--- NOTE | 2022-08-30 16:11 | XRR_ITS ---
PROCEDURE INFORMATION: Exam: XR Abdomen Exam date and time: 08/30/2022 5:03 PM Age: 27 years old Clinical indication: Abdominal pain; Acute; Additional info: Abodominal pain TECHNIQUE: Imaging protocol: Radiologic exam of the abdomen. Views: 2 Views. Upright and supine views. COMPARISON: CT abdomen pelvis w con* [id number] 08/28/2022 7:11 PM FINDINGS: Gastrointestinal tract: Normal. No bowel dilation. Intraperitoneal space: Normal. No free air. Bones/joints: Unremarkable for age. XR/XR abdomen min 2V [id number] IMPRESSION: No acute findings.
--- NOTE | 2022-08-30 16:15 | P.NPUPN_ITS ---
Subjective NPU Subjective: Patient is a 27-year-old white female with a history of borderline personality disorder, bipolar depression and methamphetamine abuse. She had reported mood fluctuations and continued irritability. She had reported that her suicidal ideation was less frequent. She had reported some difficulties with sleep secondary to abdominal discomfort. She had reported at the time of this note that her loose stools had diminished. She had remained on a bowel protocol and continue reports having felt that her stomach was full with significant problems with passing a bowel movement. The patient's reported no side effects from her Seroquel at this time. She had reported not having headaches or nightmares for the past 2 days since the Latuda was discontinued. She had [facility] when stabilized here. Mental Status Exam MSE Comments: This is an obese white female with hospital scrubs on with poor grooming and fair eye contact today. She was friendly and cooperative on interview. There was evidence of mild psychomotor retardation appreciated. She appeared cooperative with exam less pain as she was walking through the hallway. Her speech was normal in regards to rate rhythm and prosody. Mood described as a little better. Thought process was linear and organized.? Thought content: Patient minimized any suicidal or homicidal ideation. There are no delusions noted. She appeared less suspicious today. She denied any auditory or visual hallucinations.? Attention and concentration were limited and memory appeared mostly reliable but none were formally tested.? She is alert and oriented x3.? Insight and judgment are limited. Impulse control is impaired. Vitals/I&O/Wt Last Vital Signs Temp 98 F 08/30/22 14:00 Pulse 120 H 08/30/22 14:00 Resp 18 08/30/22 14:00 BP 158/74 08/30/22 14:00 Pulse Ox 96 08/30/22 14:00 O2 Del Method Room Air 08/30/22 14:00 08/30/22 08/30/22 08/30/22 06:59 14:59 22:59 Intake Total 0 / 0 Output Total 600 / 600 Balance -600 / -600 Data NPU 08/30/22 07:07 08/30/22 07:07 A&P Assessment and plan (1) Borderline personality disorder: (2) Suicidal ideation: (3) Methamphetamine use disorder, severe, in sustained remission: (4) Nausea alone: (5) Anxiety: Plan This is a 27-year-old homeless female with a history of borderline personality disorder, methamphetamine use, depressed mood admitted with suicidal ideation and extreme anxiety. Plan: 1. Increase Seroquel XR 100mg at night to target irritability and depression. Doxycycline 100mg bid for UTI. 2. Continue every 15 minute checks for safety. 3. Encourage individual, group and milieu therapies. 4. Encourage sober living treatment after discharge at the highest level of care to which she is willing to commit. 5. Appreciate [facility] consult for patient's constipation. Repeat order of Abdominal film and contact surgery if manual impaction is necessary. Involuntary Hold Information 96 Hour Hold: 96 Hour Involuntary Admission: Yes 96 Hour Hold Ending Date: 08/28/22 96 Hour Hold Ending Time: 20:50 Attestations NPU Medical Necessity Statement*: Inpatient hospitalization is medically necessary and the clinically appropriate intervention at this time. We will initiate medications and make changes as indicated. Her likely length of stay 2-4 days. Coding Level of Care Code Acute Code for [facility] Fw Diagnoses Borderline personality disorder F60.3 Suicidal ideation R45.851 Methamphetamine use disorder, severe, in sustained remission F15.21 Nausea alone R11.0 Anxiety F41.9
[2022-08-30] MEDS: lactulose oral liq 20 gm/30 mL UDC 30 GM PO ×2 (16:36→17:36)
[2022-08-30] MEDS: magnesium hydroxide 30 mL UDC PO (17:36)
[2022-08-30] MEDS: doxycycline 100 mg Tablet PO (17:36)
[2022-08-30] MEDS: quetiapine XR (24HR) 50 mg Tablet 100 MG PO (20:14)
[2022-08-30 22:00] VITALS: BP 133/83; PULSE 88; RESP 17; TEMP 36.9; O2SAT 97
--- NOTE | 2022-08-30 23:32 | PC.NURSE ---
Called and spoke with Dr Scott regarding patient and the numbness in her perineal, L buttock and rectal area. She called back to get more information from the patient. Bladder scanned patient 91ml. Awaiting further orders. Patient resting
--- NOTE | 2022-08-31 00:32 | MRR_ITS ---
PROCEDURE INFORMATION: Exam: MR Lumbar Spine Without Contrast Exam date and time: 08/31/2022 11:25 AM Age: 27 years old Clinical indication: Low back pain and sciatica; Bilateral; Additional info: Pain, numbness in buttock on left TECHNIQUE: Imaging protocol: Magnetic resonance imaging of the lumbar spine without contrast. COMPARISON: MR lumbar spine wo con* [id number] 04/18/2022 11:37 AM FINDINGS: Bones/joints: There is moderate facet arthropathy at the L4-L5 and L5-S1 levels. Edematous endplate degenerative changes are present at the L5-S1 level. No fracture. Normal alignment. Spinal cord: Visualized cord, conus medullaris and cauda equina are unremarkable without compression. L1-L2: No significant disc bulge or herniation. No severe spinal canal stenosis. No significant neural foraminal narrowing. L2-L3: No significant disc bulge or herniation. No severe spinal canal stenosis. No significant neural foraminal narrowing. L3-L4: No significant disc bulge or herniation. No severe spinal canal stenosis. No significant neural foraminal narrowing. L4-L5: Minimal disc bulge. No severe spinal canal stenosis. No significant neural foraminal narrowing. L5-S1: Small facet joint effusions. There are posterior osteophytes and a disc bulge with a superimposed midline/bilateral paracentral disc extrusion severely narrowing the canal. Cauda equina are crowded and or compressed at this level. Mild bilateral neural foraminal narrowing. Soft tissues: Unremarkable. MR/MR lumbar spine wo con* [id number] IMPRESSION: 1. At the L5-S1 level there is facet arthropathy, posterior osteophytes and a disc bulge with a superimposed midline/bilateral paracentral disc extrusion narrowing the canal. Cauda equina are crowded and or compressed. 2. Edematous endplate degenerative changes are present at the L5-S1 level.
--- NOTE | 2022-08-31 00:33 | PM.MISC ---
Miscellaneous Note Purpose of Documentation: RN called patient having back pain. Discussed with patient. She says she has been having back pain chronically for a long time however in march 2022 had an MRI lumbar done as outpatient which showed: 1.? 6 nonrib-bearing lumbar type vertebral bodies are identified. The sixth nonrib-bearing vertebral body will be labeled lumbarized S1 for purposes of this examination. This will be important if surgery is contemplated in this patient. 2.? At the S1-S2 level there is a moderate to large central disc protrusion extending caudad from the disc level with significant contact on the LEFT sacral nerve roots. There is contact bilaterally on the sacral nerve roots but greatest on the LEFT in the subarticular recess and moderate central stenosis. 3.? Small central disc protrusion at L5-S1 with annular fissure. Mild central and bilateral subarticular recess encroachment.. She was supposed to go to physical therapy and pain management however was unable to due to having a positive drug screen. She states about 7 days ago she started experiencing sudden onset constipation and numbness and pain in her left buttock area extending into left side of vagina. She denies lower extremity weakness, numbness or saddle anesthesia. She is able to walk normally. At this point she does have stool incontinence since she has been on lactulose last few days along with go lytely. Patient states she has not had much urine output in last few days. all of her symptoms started around 7 days ago. She states she came to ER and was treated for constipation and sent home. She returned to ER stating she is suicidal so she gets admitted. She denies being suicidal at this time. We have checked a bladder scan: 91 ML. Patient agreeable to schwartz catheter if urinary retention present. Will order NS bolus 1L x1 as fluid challenge. She is also agreeable to rectal tube if needed. I have ordered MRI lumbar spine as follow up for AM as MRI services are unavailable at this time. Have ordered dexamethasone 10 mg IV x1 We currently do not have spine surgery available at our hospital. Patient has been having symptoms for close to 7 days now. Day team to follow up. Patient in agreement with above plan. Updated RN over the phone and everyone in agreement. Telehealth was used to talk to patient. She provided consent for it.
[2022-08-31] MEDS: sodium chloride 0.9% 1,000 ML 999 ML IV (01:35)
[2022-08-31] MEDS: dexamethasone 10 mg/mL INJ IVP (01:35)
--- NOTE | 2022-08-31 01:43 | PC.NURSE ---
0115 20ga SL started in R hand after 2 attempts, IVF NS 1000ml to run WO. Dexamethasone 10mg IVP given over 2 min. SL removed after IVFs infused
[2022-08-31] MEDS: acetaminophen 325 mg Tablet 650 MG PO ×2 (01:54→07:51)
[2022-08-31 06:00] VITALS: RESP 16
[2022-08-31 07:38] LABS: Basophils % 0.2 %; Hematocrit 41.7 % (37.0-47.0); Hemoglobin 13.5 g/dL (11.5-15.3); Lymphocytes # 1.5 10^3/uL (0.8-4.8); Lymphocytes % 15.5 %; Mean Corpuscular HGB Conc 32.4 g/dL (30.0-36.0); Mean Corpuscular Hemoglobin 29.2 pg (28.0-34.0); Mean Corpuscular Volume 90.1 fl (81-99); Mean Platelet Volume 9.9 fL (7.4-10.4); Monocytes # 0.1 10^3/uL (0.2-0.9); Monocytes % 0.8 %; Neutrophils # 8.16 10^3/uL (1.8-7.7); Nucleated Red Blood Cells % 0 %; Platelet Count 331 10^3/cmm (130-400); Red Blood Count 4.63 10^6/uL (4.1-5.3); Red Cell Distribution Width 12.4 % (12.1-15.1); White Blood Count 9.8 10^3/uL (4.0-10.0)
[2022-08-31 08:03] LABS: Alanine Aminotransferase 18 U/L (0-33); Albumin Level 4.2 g/dL (3.5-5.2); Alkaline Phosphatase 91 U/L (35-105); Aspartate Amino Transferase 14 U/L (0-32); Blood Urea Nitrogen 12 mg/dL (6-20); Calcium 8.9 mg/dL (8.5-10.5); Carbon Dioxide 19 mmol/L (22-29); Chloride 104 mmol/L (98-107); Glomerular Filtration Rate 118.2 mL/min (90-130); Glucose 175 mg/dL (65-115); Osmolality Calculated 284 mOsm/kg (285-295); Sodium 135 mmol/L (136-145); Total Bilirubin 0.5 mg/dL (0.15-1.2); Total Protein 7.2 g/dL (6.6-8.7)
[2022-08-31 08:20] LABS: Anion Gap 16.1 (5-19); Potassium 4.1 mmol/L (3.5-5.1)
[2022-08-31] MEDS: doxycycline 100 mg Tablet PO ×2 (08:40→17:48)
[2022-08-31] MEDS: bisacodyl 5 mg Tablet 10 MG PO (08:41)
[2022-08-31 14:00] VITALS: BP 112/74; PULSE 76; RESP 20; TEMP 36.6; O2SAT 98
--- NOTE | 2022-08-31 14:33 | P.NPUPN_ITS ---
Subjective NPU Subjective: Patient is a 27-year-old white female with a history of borderline personality disorder, bipolar depression and methamphetamine abuse. Patient had endorsed depressed mood but stated that she was feeling less irritable. The patient had continue to report having loose stools and stated that she continued to have difficulties with voiding. Patient had been scheduled today for a MRI to rule out cauda equina. She had reported some increase in appetite as she had continued to report some back pain as well. She had been on stool softeners as well and there did not appear to be any evidence on CT of a need for a disimpaction at this time. She denied any nightmares or headaches currently. She denied any feelings of hopelessness and was stating that she felt more motivated to go to the senior care. She had reported having occasional awakenings at night last night but reports that she was able to fall back asleep later. Mental Status Exam MSE Comments: This is an obese white female with hospital scrubs on with poor grooming and fair eye contact today. She was friendly and cooperative on interview. There was evidence of mild psychomotor retardation appreciated. She appeared cooperat kwame with exam less pain as she was walking through the hallway. Her speech was normal in regards to rate rhythm and prosody. Mood described as okay. Thought process was linear and organized.? Thought content: Patient minimized any suicidal or homicidal ideation. There are no delusions noted. She did not appear to be responding to internal stimuli. She denied any auditory or visual hallucinations.? Attention and concentration were limited and memory appeared mostly reliable but none were formally tested.? She is alert and oriented x3.? Insight and judgment are limited. Impulse control appeared to be improving.. Vitals/I&O/Wt Last Vital Signs Temp 98.4 F 08/30/22 22:00 Pulse 88 08/30/22 22:00 Resp 16 08/31/22 06:00 BP 133/83 08/30/22 22:00 Pulse Ox 97 08/30/22 22:00 O2 Del Method Room Air 08/30/22 22:00 08/30/22 08/31/22 08/31/22 22:59 06:59 14:59 Intake Total 0 / 0 999.99 / 999.99 Output Total 600 / 1200 Balance -600 / -1200 999.99 / -200.01 Data NPU 08/31/22 07:25 08/31/22 07:25 A&P Assessment and plan (1) Bipolar depression: (2) Borderline personality disorder: (3) Suicidal ideation: (4) Methamphetamine use disorder, severe, in sustained remission: (5) Nausea alone: (6) Anxiety: Plan This is a 27-year-old homeless female with a history of borderline personality disorder, methamphetamine use, depressed mood admitted with suicidal ideation and extreme anxiety. Plan: 1. Increase Seroquel XR 150mg at night to target irritability and depression. Doxycycline 100mg bid for UTI. Awaiting results of MRI back, evaluate for cauda equina syndrome. 2. Continue every 15 minute checks for safety. 3. Encourage individual, group and milieu therapies. 4. Encourage sober living treatment after discharge at the highest level of care to which she is willing to commit. 5. Appreciate [facility] consult for patient's constipation. Involuntary Hold Information 96 Hour Hold: 96 Hour Involuntary Admission: Yes 96 Hour Hold Ending Date: 08/28/22 96 Hour Hold Ending Time: 20:50 Attestations NPU Medical Necessity Statement*: Inpatient hospitalization is medically necessary and the clinically appropriate intervention at this time. We will initiate medications and make changes as ind icated. Her likely length of stay 2-3 days. Coding Level of Care Code Acute Code for [facility] Fw Diagnoses Bipolar depression F31.9 Borderline personality disorder F60.3 Suicidal ideation R45.851 Methamphetamine use disorder, severe, in sustained remission F15.21 Nausea alone R11.0 Anxiety F41.9
--- NOTE | 2022-08-31 15:01 | PM.PN ---
Subjective Subjective: Patient had an MRI for lower back pain today, lately she has also started complaining of difficulty passing urine. Medications: Medication Review Details: Generic Name Dose Route Start Last Admin Trade Name Mayda PRN Reason Stop Dose Admin Acetaminophen 650 mg 08/22/22 21:59 08/31/22 07:51 Acetaminophen 32 5 Mg Tablet PO 650 mg Q4H PRN Administration MILD PAIN Bisacodyl 10 mg 08/24/22 11:12 08/31/22 08:41 Bisacodyl 5 Mg T ablet PO 10 mg DAILY PRN Administration CONSTIPATION Doxycycline Monohy drate 100 mg 08/27/22 18:00 08/31/22 08:40 Doxycycline 100 Mg Tablet PO 09/03/22 17:59 100 mg BID LIAM Administration Protocol Hydroxyzine Pamoat e 50 mg 08/22/22 21:59 08/28/22 22:05 Hydroxyzine 25 M g Capsule PO 50 mg Q6H PRN Administration ANXIETY Ibuprofen 600 mg 08/23/22 13:18 08/27/22 12:37 Ibuprofen 600 Mg Tablet PO 600 mg Q6H PRN Administration MODERATE PAIN Lactulose 10 gm 08/25/22 04:11 08/26/22 08:43 Lactulose Oral L iq 20 Gm/30 Ml Udc PO 10 gm DAILY PRN Administration CONSTIPATION Olanzapine 5 mg 08/22/22 21:59 08/27/22 20:23 Olanzapine 5 Mg Odt PO 5 mg Q4H PRN Administration Agitation/Psychos is Trazodone HCl 50 mg 08/22/22 21:59 08/28/22 22:05 Trazodone 50 Mg Tablet PO 50 mg BEDTIME PRN Administration SLEEP Zinc Oxide 1 applic 08/29/22 08:18 08/29/22 18:10 Zinc Oxide Oint 30 Gm TOPICAL 1 applic PRN PRN Administration SKIN PROTECTANT Vitals/I&O/Wt Last Vital Signs Temp 98.4 F 08/30/22 22:00 Pulse 88 08/30/22 22:00 Resp 16 08/31/22 06:00 BP 133/83 08/30/22 22:00 Pulse Ox 97 08/30/22 22:00 O2 Del Method Room Air 08/30/22 22:00 08/31/22 08/31/22 08/31/22 06:59 14:59 22:59 Intake Total 999.99 / 999.99 Balance 999.99 / -200.01 Physical Exam Const: COMMON NORMALS: patient oriented x3 HENMT: COMMON NORMALS: normocephalic and atraumatic HEAD & SCALP: normocephalic and atraumatic Resp: COMMON NORMALS: clear to auscultation bilaterally EFFORT & INSPECTION: Yes symmetric chest movement AUSCULTATION: clear to auscultation bilaterally Cardio: COMMON NORMALS: regular rate, regular rhythm, S1 normal heart sound present, S2 normal heart sound present, No gallops present (Cardio), No murmurs present (Cardio), No rub (Cardio) and Peripheral pulses 2+ throughout RATE: regular rate RHYTHM: regular rhythm HEART SOUNDS: S1 normal heart sound present and S2 normal heart sound present PERIPHERAL PULSES: Peripheral pulses 2+ throughout GI: COMMON NORMALS: Normal to inspection, nondistended, normoactive bowel sounds present, Soft to palpation, non-tender, No hepatosplenomegaly present and no masses AUSCULTATION: Yes normoactive bowel sounds PALPATION: Yes Soft to palpation and Yes No hepatosplenomegaly present RECTAL EXAM: deferred Extremity: COMMON NORMALS: no clubbing, cyanosis or edema and no pedal edema Neuro: COMMON NORMALS: patient oriented x3 Data 08/31/22 07:25 08/31/22 07:25 A&P Assessment and plan (1) Constipation: Plan 27-year-old homeless female with a history of borderline personality disorder, methamphetamine use, depressed mood admitted with suicidal ideation and extreme anxiety.Medicine was consulted for management of significant symptomatic constipation. Constipation: Constipation with now possible developing urinary incontinence. CT abdomen and pelvis as well as x-ray abdomen: Which showed significant constipation. Has received GoLytely by the primary team She was on lactulose and milk of magnesia MRI of lumbar spine has shown: 1At the L5-S1 level there is facet arthropathy, posterior osteophytes and a disc bulge with a superimposed midline/bilateral paracentral disc extrusion narrowing the canal. Cauda equina are crowded and or compressed. Edematous endplate degenerative changes are present at the L5-S1 level. In View of the concerning MRI findings, please consult spine surgery for further management. For now continue her on dexamethasone, pain control. Medicine will sign off. Attestations Medical Necessity Statement*: Per primary team Coding Level of Care Code Acute Code for [facility] Fwd Diagnoses Constipation K59.00
[2022-08-31] MEDS: dexamethasone 10 mg/mL INJ IM (16:21)
[2022-08-31] MEDS: hyDROXYzine 25 mg Capsule 50 MG PO (16:58)
[2022-08-31 20:14] VITALS: BP 132/83; PULSE 93; RESP 18; TEMP 36.7; O2SAT 96
[2022-08-31] MEDS: OLANZapine 5 mg ODT PO (20:15)
[2022-08-31] MEDS: quetiapine XR (24HR) 50 mg Tablet 150 MG PO (20:55)
[2022-09-01] MEDS: doxycycline 100 mg Tablet PO ×2 (08:24→17:32)
[2022-09-01] MEDS: bisacodyl 5 mg Tablet 10 MG PO (08:27)
[2022-09-01] MEDS: dexamethasone 10 mg/mL INJ IM (08:28)
[2022-09-01] MEDS: hyDROXYzine 25 mg Capsule 50 MG PO (12:07)
[2022-09-01] MEDS: acetaminophen 325 mg Tablet 650 MG PO (12:07)
[2022-09-01 12:14] LABS: Add Urine Microscopic? YES; Bilirubin Urine Neg (Negative); Blood Urine 2+ (Negative); Glucose Urine UA Norm (Normal); Ketones Urine Negative (Negative); Leukocyte Esterase Urine Trace (Negative); Nitrate Urine Negative (Negative); Protein Urine Neg (Negative); Specific Gravity, Urine 1.005 (1.005-1.030); Urine Appearance Clear (CLEAR); Urine Color Colorless (Yellow); Urobilinogen Urine Norm (Negative); pH Urine 7 (5-7)
[2022-09-01 12:15] LABS: Add Urine Culture? No; Bacteria Urine TRACE /hpf; RBC Urine 0-4 /hpf (0-2); Squamous Epithelial Cell Urine 0-4 /hpf (0-5)
[2022-09-01 12:28] LABS: Basophils % 0.1 %; Hematocrit 38.4 % (37.0-47.0); Hemoglobin 12.7 g/dL (11.5-15.3); Lymphocytes # 1.6 10^3/uL (0.8-4.8); Lymphocytes % 9.5 %; Mean Corpuscular HGB Conc 33.1 g/dL (30.0-36.0); Mean Corpuscular Hemoglobin 29.6 pg (28.0-34.0); Mean Corpuscular Volume 89.5 fl (81-99); Mean Platelet Volume 9.9 fL (7.4-10.4); Monocytes # 0.4 10^3/uL (0.2-0.9); Monocytes % 2.4 %; Neutrophils % 86.9 %; Nucleated Red Blood Cells % 0 %; Platelet Count 344 10^3/cmm (130-400); Red Blood Count 4.29 10^6/uL (4.1-5.3); Red Cell Distribution Width 12.7 % (12.1-15.1); White Blood Count 16.4 10^3/uL (4.0-10.0)
[2022-09-01 12:33] LABS: Amphetamines Screen Urine Negative (Negative); Barbiturates Screen Urine Negative (Negative); Benzodiazepines Screen Urine Negative (Negative); Cocaine Screen Urine Negative (Negative); Opiate Screen Urine Negative (Negative); PCP Screen Urine Negative (Negative); THC Screen Urine Positive (Negative)
--- NOTE | 2022-09-01 12:42 | PM.CONSULT ---
Providers/Reason For Consult Consulting Physician/Specialty*: psychiatry Reason for Consult*: numbness Attending Physician: Jose Soto MD Primary Care Provider: Stephany Ha-Megan History of Present Illness History of Present Illness Mara Diop is a 27 year old female with a past history of IV drug abuse, current history of cannabis use, major depression, borderline personality disorder, currently admitted to neuropsychiatric unit, hospitalist team was consulted due to concerns for numbness, lack of stooling, difficulty urinating, with complaints of back pain. 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 She does report IV drug abuse, but reports that her last use was over a year ago, no history of complications from IV drug abuse. She tells me that she has been here at the neuropsychiatric unit for the last 10 days, she has been having more than usual low back pain, for the last 2 weeks, she had been noticing that she started develop numbness around her anus, along her left gluteus, with constipation, and difficulty urinating. Since she has been here she tells me that that numbness is slowly creeping anteriorly, extending from around the anus, around the left gluteus, around to the left anterior thigh, involving left area over her bladder, that extending to the left part of her vagina and her perineum. She also reports difficulty urinating at times, but was able to urinate this morning, she was able to urinate overnight and her postvoid residual was 61 cc. She also reports constipation, throughout the last 2 weeks, she does report difficulty straining, no bloody or black stools, she did have a bowel movement yesterday but it was small. She denies any numbness or tingling of her toes, of her legs. She denies any weakness or trouble coordinating of her lower extremities. No weakness in her feet, and her calves and her thighs, normal trouble coordinating, no falls. Denies any fevers, no chills, no cough Review of Systems Const: Denies: fever(s) Eyes: Denies: change in vision ENMT: Denies: throat pain Card: Denies: chest pain Resp: Denies: dyspnea GI: Denies: abdominal pain : Reports: difficulty voiding; Denies: flank pain Musc: Reports: back pain Skin/Breast: Denies: rash Neuro: Reports: sensory changes; Denies: headache(s), numbness in extremities or weakness in extremities Psych: Denies: anxiety Medications/Allergies Home Medications Medication Instructions Recorded Confirmed Last Taken Type medroxyprogesterone 150 mg/mL 150 mg IM Q90D 01/01/22 08/22/22 05/27/22 History intramuscular suspension (Depo-Provera) acetaminophen 500 mg tablet 1,000 mg PO TID PRN Pain 01/17/22 08/22/22 Unknown History (Acetaminophen Extra Strength) omeprazole 20 mg capsule,delayed 20 mg PO DAILY 05/03/22 08/22/22 Unknown History release ondansetron 4 mg disintegrating 4 mg PO TID PRN nausea and vomiting 06/29/22 08/22/22 Unknown History tablet duloxetine 30 mg capsule,delayed 60 mg PO DAILY 30 days #60 caps 07/03/22 08/22/22 Unknown Rx release trazodone 50 mg tablet 100 mg PO .q hs PRN insomnia #30 07/22/22 08/22/22 Unknown Rx tabs cyclobenzaprine 10 mg tablet 10 mg PO TID PRN Muscle Spasm 08/22/22 08/22/22 Unknown History magnesium hydroxide 2,400 mg/10 mL 15 ml PO BID PRN constipation 08/22/22 08/22/22 Unknown Rx oral suspension (Milk Of Magnesia #1,000 mL Concentrated) tizanidine 4 mg tablet (Zanaflex) 4 mg PO TID PRN Muscle Spasm 08/22/22 08/22/22 Unknown History bisacodyl 5 mg tablet,delayed 10 mg PO DAILY PRN Constipation 30 09/01/22 Unknown Rx release days #60 tabs quetiapine 150 mg tablet,extended 150 mg PO QPM 30 days #30 tabs 09/01/22 Unknown Rx release 24 hr Allergies Allergy/AdvReac Type Severity Reaction Status Date / Time sulfamethoxazole Allergy Intermediate ADR-Gastrointestinal Verified 07/09/22 13:54 [From Bactrim] Upset trimethoprim [From Bactrim] Allergy Intermediate ADR-Gastrointestinal Verified 07/09/22 13:54 Upset Current Medications Generic Name Dose Route Start Last Admin Trade Name Freq PRN Reason Stop Dose Admin Acetaminophen 650 mg 08/22/22 21:59 09/01/22 12:07 Acetaminophen 325 Mg Tablet PO 650 mg Q4H PRN Administration MILD PAIN Bisacodyl 10 mg 08/24/22 11:12 09/01/22 08:27 Bisacodyl 5 Mg Tablet PO 10 mg DAILY PRN Administration CONSTIPATION Dexamethasone 10 mg 08/31/22 16:00 09/01/22 08:28 Dexamethasone 10 Mg/Ml Inj IM 10 mg DAILY LIAM Administration Doxycycline Monohydrate 100 mg 08/27/22 18:00 09/01/22 08:24 Doxycycline 100 Mg Tablet PO 09/03/22 17:59 100 mg BID LIAM Administration Protocol Hydroxyzine Pamoate 50 mg 08/22/22 21:59 09/01/22 12:07 Hydroxyzine 25 Mg Capsule PO 50 mg Q6H PRN Administration ANXIETY Ibuprofen 600 mg 08/23/22 13:18 08/27/22 12:37 Ibuprofen 600 Mg Tablet PO 600 mg Q6H PRN Administration MODERATE PAIN Lactulose 10 gm 08/25/22 04:11 08/26/22 08:43 Lactulose Oral Liq 20 Gm/30 Ml Udc PO 10 gm DAILY PRN Administration CONSTIPATION Olanzapine 5 mg 08/22/22 21:59 08/31/22 20:15 Olanzapine 5 Mg Odt PO 5 mg Q4H PRN Administration Agitation/Psychosis Quetiapine Fumarate 150 mg 08/31/22 21:00 08/31/22 20:55 Quetiapine Xr (24hr) 50 Mg Tablet PO 150 mg BEDTIME LIAM Administration Trazodone HCl 50 mg 08/22/22 21:59 08/28/22 22:05 Trazodone 50 Mg Tablet PO 50 mg BEDTIME PRN Administration SLEEP Zinc Oxide 1 applic 08/29/22 08:18 08/29/22 18:10 Zinc Oxide Oint 30 Gm TOPICAL 1 applic PRN PRN Administration SKIN PROTECTANT PFSH Acute PFSH: Medical History Borderline personality disorder Cannabis abuse COVID-19 Evaluation regarding contraception options Impulse control disorder Major depression Major depressive disorder, recurrent episode with anxious distress Major depressive disorder, recurrent severe without psychotic features Methamphetamine abuse Nausea alone Psychiatric care Suicidal ideation Surgical History History of knee surgery Status post myringotomy with tube placement of both ears Family History Other Diabetes Lung disease Rheumatoid arthritis Social History Smoking and tobacco status: current every day smoker e-cigarettes E-Cigarette Details: with nicotine E-cig/vape details: 1 week to go through a tank Quit status (tobacco): considering quitting Second hand smoke exposure: Yes Smoking risk assessment/counseling performed?: Yes Alcohol intake: former Year of sobriety/quit date alcohol: 2021 Substance/Drug Use: former Date of last use: 08/10 Adopted: No Caregiver/support person: No Lives independently: No Household members: other Details: SOC Housing: Homeless Marital status: Single Number of children: 2 Highest education level completed: Some College, No Degree service: No Current occupational status: employed 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 Pets and animals: No Leisure activites: music Sexually active: No Do you think of yourself as: Straight/Heterosexual Current gender identity: Female Briseida/Yarsanism: None Special briseida needs: No Agree to transfusion: Yes Financial difficulty paying for basics: Somewhat Hard Female Reproductive History: Para: 2 Spontaneous abortions: Yes Vitals/I&O/Wt Last Vital Signs Temp 98.1 F 08/31/22 20:14 Pulse 93 08/31/22 20:14 Resp 18 08/31/22 20:14 BP 132/83 08/31/22 20:14 Pulse Ox 96 08/31/22 20:14 O2 Del Method Room Air 08/30/22 22:00 Weight last 48 hrs Weight 91.444 kg Physical Exam Const: COMMON NORMALS: no acute distress and patient oriented x3 GENERAL APPEARANCE: cooperative, well kempt and well developed HENMT: COMMON NORMALS: normocephalic, Normal external nose present and oropharynx normal HEAD & SCALP: normocephalic FACE & SINUS: normal facial exam NOSE: Normal external nose present MOUTH: Normal oral and palatal mucosa present THROAT: posterior oropharynx normal Eye: COMMON NORMALS: Equal, round and reactive pupils present, EOMs intact bilaterally, conjunctivae normal and no scleral icterus CONJUNCTIVA: Yes conjunctivae normal PUPIL: Yes Equal, round and reactive pupils present Neck/C-Spine: COMMON NORMALS: full ROM, no lymphadenopathy, no meningeal signs, no JVD, Thyroid normal and No carotid bruits THYROID: Thyroid normal Lymph: LYMPHATIC: no lymphadenopathy noted Chest: COMMONS NORMALS: normal inspection of the chest Resp: COMMON NORMALS: normal respiratory effort, No retractions, No use of accessory muscles and clear to auscultation bilaterally AUSCULTATION: clear to auscultation bilaterally Cardio: COMMON NORMALS: no JVD, regular rate, regular rhythm, S1 normal heart sound present, S2 normal heart sound present, No murmurs present (Cardio) and Peripheral pulses 2+ throughout RATE: regular rate RHYTHM: regular rhythm HEART SOUNDS: S1 normal heart sound present and S2 normal heart sound present PERIPHERAL PULSES: Peripheral pulses 2+ throughout GI: COMMON NORMALS: Normal to inspection, nondistended, normoactive bowel sounds present, Soft to palpation, non-tender and No hepatosplenomegaly present PALPATION: Yes Soft to palpation and Yes No hepatosplenomegaly present : COMMON NORMALS: Yes no CVA tenderness BLADDER/KIDNEY EXAM: Yes no CVA tenderness Back/Pelvis: COMMON NORMALS: no CVA tenderness Extremity: COMMON NORMALS: normal to inspection, full ROM, capillary refill normal, no calf tenderness and no pedal edema Neuro: COMMON NORMALS: patient oriented x3, CN's II-XII intact bilaterally, moves all extremities and no focal motor deficits MENINGEAL SIGNS: Yes no meningeal signs Psych: COMMON NORMALS: mental status grossly normal, Normal thought process present, cooperative and speech normal APPEARANCE: Yes well kempt SPEECH: Yes normal speech THOUGHT PROCESS: Normal thought process present Skin: COMMON NORMALS: turgor normal and no jaundice GENERAL SKIN EXAM: turgor normal Data 09/01/22 12:10 08/31/22 07:25 Micro: Microbiology 09/01/22 12:10 Blood Culture - Preliminary Blood SPECIMEN COLLECTED 09/01/22 12:18 Blood Culture - Preliminary Blood SPECIMEN COLLECTED A&P Assessment and plan (1) Low back pain: (2) Cauda equina syndrome: (3) Constipation: Plan Cauda equina syndrome -On examination she does have lack of pinprick sensation, along the perianal region more on the left, along the left gluteus medius and yocasta, around the left part of the vaginal wall, left perineum, above the bladder on the left, -She has good strength in bilateral thighs, good strength bilateral calves, good ankle and toe raises, good strength in her Achilles tendon bilaterally -Her qucd-vm-capq is abnormal -She is able to walk without any difficulty -Does have perianal numbness, with decreased stooling and complaints of constipation -Does have complaints of retaining urine, but was bladder scanned last night at 61 cc -received Decadron last night -Her MRI of the lumbar spine done 08/31/2022 showed L5-S1: Small facet joint effusions. There are posterior osteophytes and a disc bulge with a superimposed midline/bilateral paracentral disc extrusion severely narrowing the canal. Cauda equina are crowded and or compressed at this level. Mild bilateral neural foraminal narrowing. Compared to MRI 04/18/2022 L5-S1: Very small central disc protrusion and annular fissure. There is mild encroachment upon the exiting S1 nerve roots bilaterally. Only mild central and bilateral subarticular recess stenosis. Small amount of fluid in the facet joints. S1-S2: Moderate to large central disc protrusion extends caudad to the disc level. Disc extends over a length of 13 mm. There is significant encroachment on the central and LEFT lateral thecal sac extending into the subarticular recess. There is contact on the LEFT sacral nerve root. There is additional contact on the RIGHT sacral nerve roots but to a lesser extent. Moderate central stenosis. No significant foraminal stenosis. -I did discuss the case with Dr. Guallpa, at [facility] neurosurgery after discussion of the case in detail, he felt that there is nothing emergently that needs to be done, no emergency surgery needed, potentially this could be a slowly progressive cauda equina syndrome, at some point down the line she is going to need a decompression, how ever if her symptoms acutely worsen specially her strength in the lower extremities in the calves, then it it would be urgent, or complete lack of stooling and urination Plan -I am going to move her to the general medical floors -Blood work including CBC, CMP, ESR, urine drug screen, blood cultures -Neurochecks -PT OT -Decadron 10 mg IV push every 24 hours -Started on a bowel regimen -Bladder as needed, monitor postvoid residual -If there is any acute worsening of her symptoms, overnight then we will reach out to neurosurgery again -However if she is stable, I will have Dr. Swenson see her in the morning, await his recommendations -Full code -Lovenox for DVT prophylaxis -Regular diet -N.p.o. over midnight just in case she needs possible surgery Spoke to neurosurgery Spoke to psychiatry Spoke to nursing staff Diagnoses Low back pain M54.50 Cauda equina syndrome G83.4 Constipation K59.00
[2022-09-01 13:09] LABS: Thyroid Stimulating Hormone 0.34 uIU/mL (0.27-4.20)
[2022-09-01 13:14] LABS: Erythrocyte Sedimentation Rate 11 mm/hr (0-15)
[2022-09-01 13:20] LABS: Alanine Aminotransferase 15 U/L (0-33); Albumin Level 4.2 g/dL (3.5-5.2); Alkaline Phosphatase 82 U/L (35-105); Anion Gap 18.6 (5-19); Aspartate Amino Transferase 10 U/L (0-32); Blood Urea Nitrogen 10 mg/dL (6-20); Calcium 9.1 mg/dL (8.5-10.5); Carbon Dioxide 19 mmol/L (22-29); Chloride 103 mmol/L (98-107); Creatine Phosphokinase 26 U/L (26-192); Glomerular Filtration Rate 118.2 mL/min (90-130); Glucose 177 mg/dL (65-115); Osmolality Calculated 287 mOsm/kg (285-295); Potassium 3.6 mmol/L (3.5-5.1); Sodium 137 mmol/L (136-145); Total Bilirubin 0.3 mg/dL (0.15-1.2); Total Protein 7.2 g/dL (6.6-8.7)
[2022-09-01 14:00] VITALS: BP 107/62; PULSE 85; RESP 16; TEMP 36.8; O2SAT 98
[2022-09-01] MEDS: OLANZapine 5 mg ODT PO (14:02)
--- NOTE | 2022-09-01 16:37 | P.NPUPN_ITS ---
Subjective NPU Subjective: Patient is a 27-year-old white female with a history of borderline personality disorder, bipolar depression and methamphetamine abuse. The patient had reported that she felt less depressed. She reported that she was motivated to get help with her back pain. She reported no side effects from her Seroquel at this time. She had stated that once she was medically stable she was willing to go to the jail in [facility] to reside with continued compliance with her medication regimen. Mental Status Exam MSE Comments: This is an obese white female with hospital scrubs on with poor grooming and fair eye contact today. She was friendly and cooperative on interview. There was evidence of mild psychomotor retardation appreciated. She appeared cooperative with exam less pain as she was walking through the hallway. Her speech was normal in regards to rate rhythm and prosody. Mood described as okay. Her affect was euthymic. Thought process was linear and organized.? Thought content: Patient minimized any suicidal or homicidal ideation. There are no delusions noted. She did not appear to be responding to internal stimuli. She denied any auditory or visual hallucinations.? Attention and concentration were limited and memory appeared mostly reliable but none were formally tested.? She is alert and oriented x3.? Insight and judgment are limited. Impulse control appeared to be improving.. Vitals/I&O/Wt Last Vital Signs Temp 98.3 F 09/01/22 14:00 Pulse 85 09/01/22 14:00 Resp 16 09/01/22 14:00 BP 107/62 09/01/22 14:00 Pulse Ox 98 09/01/22 14:00 O2 Del Method Room Air 09/01/22 14:00 Weight last 48 hrs Weight 91.444 kg Data NPU 09/01/22 12:10 09/01/22 12:10 Micro: Microbiology 09/01/22 12:10 Blood Culture - Preliminary Blood SPECIMEN COLLECTED 09/01/22 12:18 Blood Culture - Preliminary Blood SPECIMEN COLLECTED Microbiology 09/01/22 12:10 Blood Blood Culture - Preliminary SPECIMEN COLLECTED 09/01/22 12:18 Blood Blood Culture - Preliminary SPECIMEN COLLECTED A&P Assessment and plan (1) Bipolar depression: (2) Borderline personality disorder: (3) Suicidal ideation: (4) Methamphetamine use disorder, severe, in sustained remission: (5) Nausea alone: (6) Anxiety: Plan This is a 27-year-old homeless female with a history of borderline personality disorder, methamphetamine use, depressed mood admitted with suicidal ideation and extreme anxiety. Plan: 1. Continue Seroquel XR 150mg at night to target irritability and depression. Doxycycline 100mg bid for UTI. Awaiting results of MRI back, evaluate for cauda equina syndrome. 2. Continue every 15 minute checks for safety. 3. Encourage individual, group and milieu therapies. 4. Encourage sober living treatment after discharge at the highest level of care to which she is willing to commit. 5. Patient is psychiatrically stable to go home today although patient may benefit from evaluation for her back through neurosurgery. Involuntary Hold Information 96 Hour Hold: 96 Hour Involuntary Admission: Yes 96 Hour Hold Ending Date: 08/28/22 96 Hour Hold Ending Time: 20:50 Attestations NPU Medical Necessity Statement*: Patient be discharged psychiatrically today. Coding Level of Care Code Acute Code for [facility] Fwd Diagnoses Bipolar depression F31.9 Borderline personality disorder F60.3 Suicidal ideation R45.851 Methamphetamine use disorder, severe, in sustained remission F15.21 Nausea alone R11.0 Anxiety F41.9
--- NOTE | 2022-09-01 16:50 | PC.NURSE ---
Transfer order put in to go to [facility]. Report called to [facility] nurse to room 266. Patient belongings taken with her to [facility] floor.
[2022-09-01 16:58] VITALS: BP 130/85; PULSE 86; RESP 18; TEMP 36.6; O2SAT 96
[2022-09-01 17:21] VITALS: BP 107/62; PULSE 85; RESP 16; TEMP 36.8
[2022-09-01] MEDS: docusate sodium 100 mg Capsule PO (17:32)
[2022-09-01] MEDS: enoxaparin 40 mg/0.4 mL Syringe SUBCUT (17:33)
[2022-09-01 17:51] LABS: Estmated Average Glucose 111; Hemoglobin A1C 5.5 % (4.0-6.0)
[2022-09-01 18:13] LABS: Vitamin B12 345 pg/mL (232-1245)
[2022-09-01 18:14] LABS: Folate Level 9.3 ng/mL (4.8-37.3)
[2022-09-01] MEDS: dexamethasone 10 mg/mL INJ IVP (18:25)
[2022-09-01] MEDS: pantoprazole 40 mg SDV IVP (18:25)
[2022-09-01] MEDS: sodium chloride 0.9% 1,000 ML 50 ML IV (18:26)
[2022-09-01] MEDS: polyethylene glycol 3350 Pkt 17 gm PO (18:26)
[2022-09-01 18:48] LABS: HIV 1 & 2 Antibody Non-Reactive (Non-Reactiv); HIV 1 & 2 Antigen Non-Reactive (Non-Reactiv)
[2022-09-01 20:00] VITALS: BP 135/83; PULSE 73; RESP 17; TEMP 36.8; O2SAT 96
[2022-09-01] MEDS: quetiapine XR (24HR) 50 mg Tablet 150 MG PO (20:46)
[2022-09-01 21:32] LABS: Hepatitis A Antibody IgM Non-Reactive (Nonreactive); Hepatitis B Core IgM Non-Reactive (Nonreactive); Hepatitis B Surface Antigen Non-Reactive (Nonreactive); Hepatitis C Virus Antibody Non-Reactive (Nonreactive)
[2022-09-02] VITALS (20 sets, daily range): BP systolic 94–164; BP diastolic 52–97; PULSE 55–130; RESP 16–18; TEMP 36.2–37.2; O2SAT 95–100
--- NOTE | 2022-09-02 | XR_ITS ---
WS: [id number] Lumbar spine, C-arm fluoroscopy view, 09/02/2022 Clinical Data: L5-S1 microdiscectomy Comparison: None. Findings: Dr. Swenson performed a posterior lumbar decompression. XR/XR lumbar spine [id number] Impression: Posterior lumbar decompression.
--- NOTE | 2022-09-02 03:54 | PC.NURSE ---
Patient asked aid when doing vital signs if this was the last time tonight. Aid replied yes, until 0700 Patient replied okay but I don't want any vitals taken after 0900 .
--- NOTE | 2022-09-02 06:33 | P.CONIM_ITS ---
Providers/Reason For Consult Consulting Physician/Specialty*: Ortho spine Reason for Consult*: Back pain Attending Physician: Jose Soto MD Primary Care Provider: Stephany Ha History of Present Illness History of Present Illness Mara Diop is a 27 year old female who was presented with increased low back pain perineal numbness and tingling consistent with saddle anesthesia. She reported difficulty controlling urine and constipation. She denies any specific injury to her low back. She states she is had back pain for a number of years. She does admit that in the last 2 weeks the symptoms have progressively gotten worse. She denies any leg pain she reports all back and buttock pain with numbness in her perineal region. She admits that she is homeless. She admits to having suicidal and neuro psychiatric admission the last 10 to 12 days. She is comfortable in bed in room 266. She states she is wearing a diaper due to leaking of urine. She does have a nicotine history which she states she stopped couple months ago but does have an IV drug history, whiskey, methamphetamine history that she states she last used about 2 weeks ago. She denies any weakness in her legs all of her pain is localized into her low back buttock region. She states she has been sleeping in her car. Review of Systems Const: Denies: fever(s) Eyes: Denies: change in vision ENMT: Denies: throat pain Card: Denies: chest pain Resp: Denies: dyspnea GI: Denies: abdominal pain : Reports: difficulty voiding; Denies: flank pain Musc: Reports: back pain Skin/Breast: Denies: rash Neuro: Reports: sensory changes; Denies: headache(s), numbness in extremities or weakness in extremities Psych: Denies: anxiety Medications/Allergies Home Medications Medication Instructions Recorded Confirmed Last Taken Type medroxyprogesterone 150 mg/mL 150 mg IM Q90D 01/01/22 08/22/22 05/27/22 History intramuscular suspension (Depo-Provera) acetaminophen 500 mg tablet 1,000 mg PO TID PRN Pain 01/17/22 08/22/22 Unknown History (Acetaminophen Extra Strength) omeprazole 20 mg capsule,delayed 20 mg PO DAILY 05/03/22 08/22/22 Unknown History release ondansetron 4 mg disintegrating 4 mg PO TID PRN nausea and vomiting 06/29/22 08/22/22 Unknown History tablet duloxetine 30 mg capsule,delayed 60 mg PO DAILY 30 days #60 caps 07/03/22 08/22/22 Unknown Rx release trazodone 50 mg tablet 100 mg PO .q hs PRN insomnia #30 07/22/22 08/22/22 Unknown Rx tabs cyclobenzaprine 10 mg tablet 10 mg PO TID PRN Muscle Spasm 08/22/22 08/22/22 Unknown History magnesium hydroxide 2,400 mg/10 mL 15 ml PO BID PRN constipation 08/22/22 08/22/22 Unknown Rx oral suspension (Milk Of Magnesia #1,000 mL Concentrated) tizanidine 4 mg tablet (Zanaflex) 4 mg PO TID PRN Muscle Spasm 08/22/22 08/22/22 Unknown History bisacodyl 5 mg tablet,delayed 10 mg PO DAILY PRN Constipation 30 09/01/22 Unknown Rx release days #60 tabs quetiapine 150 mg tablet,extended 150 mg PO QPM 30 days #30 tabs 09/01/22 Unknown Rx release 24 hr Allergies Allergy/AdvReac Type Severity Reaction Status Date / Time sulfamethoxazole Allergy Intermediate ADR-Gastrointestinal Verified 07/09/22 13:54 [From Bactrim] Upset trimethoprim [From Bactrim] Allergy Intermediate ADR-Gastrointestinal Verified 07/09/22 13:54 Upset Current Medications Generic Name Dose Route Start Last Admin Trade Name Freq PRN Reason Stop Dose Admin Acetaminophen 650 mg 08/22/22 21:59 09/01/22 12:07 Acetaminophen 325 Mg Tablet PO 650 mg Q4H PRN Administration MILD PAIN Bisacodyl 10 mg 08/24/22 11:12 09/01/22 08:27 Bisacodyl 5 Mg Tablet PO 10 mg DAILY PRN Administration CONSTIPATION Dexamethasone 10 mg 09/01/22 16:58 09/01/22 18:25 Dexamethasone 10 Mg/Ml Inj IVP 10 mg Q24H LIAM Administration Docusate Sodium 100 mg 09/01/22 18:00 09/01/22 17:32 Docusate Sodium 100 Mg Capsule PO 100 mg BID LIAM Administration Doxycycline Monohydrate 100 mg 08/27/22 18:00 09/01/22 17:32 Doxycycline 100 Mg Tablet PO 09/03/22 17:59 100 mg BID LIAM Administration Protocol Enoxaparin Sodium 40 mg 09/01/22 16:58 09/01/22 17:33 Enoxaparin 40 Mg/0.4 Ml Syringe SUBCUT 40 mg Q24H LIAM Administration Hydroxyzine Pamoate 50 mg 08/22/22 21:59 09/01/22 12:07 Hydroxyzine 25 Mg Capsule PO 50 mg Q6H PRN Administration ANXIETY Sodium Chloride 1,000 mls @ 50 mls/hr 09/01/22 16:58 09/01/22 18:26 Sodium Chloride 0.9% IV 50 mls/hr .Q20H LIAM Administration Ibuprofen 600 mg 08/23/22 13:18 08/27/22 12:37 Ibuprofen 600 Mg Tablet PO 600 mg Q6H PRN Administration MODERATE PAIN Lactulose 10 gm 08/25/22 04:11 08/26/22 08:43 Lactulose Oral Liq 20 Gm/30 Ml Udc PO 10 gm DAILY PRN Administration CONSTIPATION Olanzapine 5 mg 08/22/22 21:59 09/01/22 14:02 Olanzapine 5 Mg Odt PO 5 mg Q4H PRN Administration Agitation/Psychosis Pantoprazole Sodium 40 mg 09/01/22 16:58 09/01/22 18:25 Pantoprazole 40 Mg Sdv IVP 40 mg Q24H LIAM Administration Polyethylene Glycol 17 gm 09/01/22 16:58 09/01/22 18:26 Polyethylene Glycol 3350 Pkt 17 Gm PO 17 gm Q24H LIAM Administration Quetiapine Fumarate 150 mg 08/31/22 21:00 09/01/22 20:46 Quetiapine Xr (24hr) 50 Mg Tablet PO 150 mg BEDTIME LIAM Administration Trazodone HCl 50 mg 08/22/22 21:59 08/28/22 22:05 Trazodone 50 Mg Tablet PO 50 mg BEDTIME PRN Administration SLEEP Zinc Oxide 1 applic 08/29/22 08:18 08/29/22 18:10 Zinc Oxide Oint 30 Gm TOPICAL 1 applic PRN PRN Administration SKIN PROTECTANT PFSH Acute PFSH: Medical History Borderline personality disorder Cannabis abuse COVID-19 Evaluation regarding contraception options Impulse control disorder Major depression Major depressive disorder, recurrent episode with anxious distress Major depressive disorder, recurrent severe without psychotic features Methamphetamine abuse Nausea alone Psychiatric care Suicidal ideation Surgical History History of knee surgery Status post myringotomy with tube placement of both ears Family History Other Diabetes Lung disease Rheumatoid arthritis Social History Smoking and tobacco status: current every day smoker e-cigarettes E-Cigarette Details: with nicotine E-cig/vape details: 1 week to go through a tank Quit status (tobacco): considering quitting Second hand smoke exposure: Yes Smoking risk assessment/counseling performed?: Yes Alcohol intake: former Year of sobriety/quit date alcohol: 2021 Substance/Drug Use: former Date of last use: 08/10 Adopted: No Caregiver/support person: No Lives independently: No Household members: other Details: SOC Housing: Homeless Marital status: Single Number of children: 2 Highest education level completed: Some College, No Degree service: No Current occupational status: employed 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 Pets and animals: No Leisure activites: music Sexually active: No Do you think of yourself as: Straight/Heterosexual Current gender identity: Female Briseida/Anabaptist: None Special briseida needs: No Agree to transfusion: Yes Financial difficulty paying for basics: Somewhat Hard Female Reproductive History: Para: 2 Spontaneous abortions: Yes Vitals/I&O/Wt Last Vital Signs Temp 98.1 F 09/02/22 03:52 Pulse 79 09/02/22 03:52 Resp 16 09/02/22 03:52 BP 102/65 09/02/22 03:52 Pulse Ox 97 09/02/22 03:52 O2 Del Method Room Air 09/02/22 03:52 09/01/22 09/01/22 09/02/22 14:59 22:59 06:59 Intake Total 240 / 240 Output Total 1000 / 1000 800 / 1800 Balance -1000 / -1000 -560 / -1560 Weight last 48 hrs Weight 201 lb 9.6 oz Physical Exam Narrative: Patient is alert orient x3 has a good general appearance normal mood and affect. Patient presents with normal gait. Demonstrates dorsiflexion and plantarflexion without difficulty. Exhibits normal coordination and normal stability. Moderate palpatory and percussion pain throughout the paraspinous musculature of the thoracolumbar spine. No obvious curvature in the forward bend test. Examination reveals normal alignment, normal functional range of motion of the thoracolumbar spine with Flexion to 75 degrees, extends 25 degree s, laterally bends 30 degrees symmetrically. Normal sensation to light touch through all dermatomal layers. Normal sensation light touch down both lower extremities with 5/5 motor strength throughout all motor groups. No palpable pain over the SI joints bilaterally. Negative Bautista and Fabere sign. Negative straight leg raise bilaterally. Skin is clear warm with normal sensation to light touch, calves are supple with no medial thigh tenderness, negative Homans' sign. No palpable lymphadenopathy bilaterally. Reflexes are 1+ and symmetric about the knees and Achilles. No hyperreflexia or clonus. Downgoing Babinski's bilaterally. Dorsalis pedis and posterior tibial pulses are 2+. No palpable edema bilaterally. HENMT: COMMON NORMALS: normocephalic and atraumatic HEAD & SCALP: normocephalic and atraumatic Resp: COMMON NORMALS: normal respiratory effort Cardio: COMMON NORMALS: regular rate and regular rhythm RATE: regular rate RHYTHM: regular rhythm GI: COMMON NORMALS: Soft to palpation and non-tender PALPATION: Yes Soft to palpation : COMMON NORMALS: Yes no CVA tenderness BLADDER/KIDNEY EXAM: Yes no CVA tenderness Back/Pelvis: COMMON NORMALS: no CVA tenderness Psych: COMMON NORMALS: cooperative Data 09/01/22 12:10 09/01/22 12:10 Micro: Microbiology 09/01/22 12:10 Blood Culture - Preliminary Blood SPECIMEN COLLECTED 09/01/22 12:18 Blood Culture - Preliminary Blood SPECIMEN COLLECTED MRI: Radiologist's impression: MR/MR lumbar spine wo con* [id number] IMPRESSION: 1. ? At the L5-S1 level there is facet arthropathy, posterior osteophytes and a disc bulge with a superimposed midline/bilateral paracentral disc extrusion narrowing the canal. Cauda equina are crowded and or compressed. 2. ? Edematous endplate degenerative changes are present at the L5-S1 level. A&P Assessment and plan (1) Herniated nucleus pulposus, L5-S1: Reviewed the MRI scan with the patient at length. She is been unable to control bowel bladder. Discussed treatment options and involve a surgical decompression at L5-S1 versus injections at the pain clinic. Given the nature of her symptoms and the space-occupying disc extrusion certainly would be concerned of worsening symptoms with injection. She has been NPO. Will discuss with Dr. Swenson date L5-S1 discectomy. Discussed at length with her with her nicotine history as well as IV drug history certainly increased risk of infection. More than 50% of the time spent with the patient today involved coordination of care, counseling and discussion of conservative versus surgical treatment optio ns. Total amount of time spent with the patient was 35 minutes. (2) DDD (degenerative disc disease), lumbosacral: Coding Level of Care Code Acute Code for g Fwd Diagnoses Herniated nucleus pulposus, L5-S1 M51.27 DDD (degenerative disc disease), lumbosacral M51.37 Time Spent (min) 35
--- NOTE | 2022-09-02 06:52 | ECG_ITS ---
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 Measurements Intervals [place] Rate: 63 P: 60 WI: 123 QRS: 77 QRSD: 89 T: 21 QT: 378 QTc: 389 Interpretive Statements SINUS RHYTHM NONSPECIFIC ST & T-WAVE ABNORMALITY Compared to ECG 02/01/2021 12:38:35 No significant changes Electronically Signed On 09-03-2022 0:26:37 CDT by Dewayne Aldridge M.D. [email or web address] [id number]
[2022-09-02] MEDS: ceFAZolin 2,000 MG in sodium chloride 0.9% (plus) 50 ML 100 MG IV ×3 (07:54→20:13)
[2022-09-02] MEDS: doxycycline 100 mg Tablet PO (08:00)
[2022-09-02] MEDS: docusate sodium 100 mg Capsule PO (08:00)
--- NOTE | 2022-09-02 08:43 | PC.OT ---
OT EVALUATION ORDERS RECEIVED. HOLD AT THIS TIME DUE TO POSSIBLE SURGERY.
--- NOTE | 2022-09-02 10:11 | PC.NURSE ---
There has been some confusion with the d/c summary that was placed by Dr. Ching, consultation from medicine and Ortho Spine, and progress notes. Upon documentation review, Dr. Ching appeared to have d/c'd patient from his service and patient will be remaining on medicine and ortho spine services. I spoke with Dr. Montes De Oca and he is in agreement to be made attending physician. I called and spoke with Registration and vernon Montes De Oca attending, Dr. Swenson as consulting physician, and Dr. Ching as an other physician.
--- NOTE | 2022-09-02 10:13 | ANES.PREANE2 ---
Pre-Anesthetic Assessment Height/Weight: Height 1.68 m Weight 91.444 kg Temp Pulse Resp BP Pulse Ox O2 Del Method 98.1 F 79 18 136/87 95 Room Air 09/02/22 09:12 09/02/22 09:12 09/02/22 09:12 09/02/22 09:12 09/02/22 09:12 09/02/22 09:12 Preop Diagnosis: Herniated nucleus pulposus L5-S1, intractable back pain Operation Date: 09/02/22 17:20 Proposed Procedures p L5/S1 microdiscectomy(Not Applicable) - Shay Swenson DO Operation Date: 09/02/22 17:00 Proposed Procedures p l5/s1 microdiscectomy(Not Applicable) - Shay Swenson DO Familial anesthetic complications: None Was Beta Delaney taken within 24 hours: N/A Was Clonidine taken within 24 hours: N/A Last intake: Intake Last Liquid Date 09/01/22 Last Liquid Time 22:00 Last Solid Date 09/01/22 Last Solid Time 22:50 Social No alcohol and No tobacco former smoker, meth 2 weeks ago Exam alert, oriented x 3, clear to auscultation bilaterally and regular rate & rhythm Airway Mallampati: Class II Dentition: full Anesthetic Plan ASA status: 2 Anesthesia: General Risk of > 500 ml blood loss (7ml/kg in children): No Medications/Allergies Home Medications Medication Instructions Recorded Confirmed Last Taken Type medroxyprogesterone 150 mg/mL 150 mg IM Q90D 01/01/22 08/22/22 05/27/22 History intramuscular suspension (Depo-Provera) acetaminophen 500 mg tablet 1,000 mg PO TID PRN Pain 01/17/22 08/22/22 Unknown History (Acetaminophen Extra Strength) omeprazole 20 mg capsule,delayed 20 mg PO DAILY 05/03/22 08/22/22 Unknown History release ondansetron 4 mg disintegrating 4 mg PO TID PRN nausea and vomiting 06/29/22 08/22/22 Unknown History tablet duloxetine 30 mg capsule,delayed 60 mg PO DAILY 30 days #60 caps 07/03/22 08/22/22 Unknown Rx release trazodone 50 mg tablet 100 mg PO .q hs PRN insomnia #30 07/22/22 08/22/22 Unknown Rx tabs cyclobenzaprine 10 mg tablet 10 mg PO TID PRN Muscle Spasm 08/22/22 08/22/22 Unknown History magnesium hydroxide 2,400 mg/10 mL 15 ml PO BID PRN constipation 08/22/22 08/22/22 Unknown Rx oral suspension (Milk Of Magnesia #1,000 mL Concentrated) tizanidine 4 mg tablet (Zanaflex) 4 mg PO TID PRN Muscle Spasm 08/22/22 08/22/22 Unknown History bisacodyl 5 mg tablet,delayed 10 mg PO DAILY PRN Constipation 30 09/01/22 Unknown Rx release days #60 tabs quetiapine 150 mg tablet,extended 150 mg PO QPM 30 days #30 tabs 09/01/22 Unknown Rx release 24 hr Allergies Allergy/AdvReac Type Severity Reaction Status Date / Time sulfamethoxazole Allergy Intermediate ADR-Gastrointestinal Verified 07/09/22 13:54 [From Bactrim] Upset trimethoprim [From Bactrim] Allergy Intermediate ADR-Gastrointestinal Verified 07/09/22 13:54 Upset Additional Medication Information Generic Name Dose Route Start Last Admin Trade Name Freq PRN Reason Stop Dose Admin Acetaminophen 650 mg 08/22/22 21:59 08/31/22 07:51 Acetaminophen 325 Mg Tablet PO 650 mg Q4H PRN Administration MILD PAIN Bisacodyl 10 mg 08/24/22 11:12 08/31/22 08:41 Bisacodyl 5 Mg Tablet PO 10 mg DAILY PRN Administration CONSTIPATION Doxycycline Monohydrate 100 mg 08/27/22 18:00 08/31/22 08:40 Doxycycline 100 Mg Tablet PO 09/03/22 17:59 100 mg BID LIAM Administration Protocol Hydroxyzine Pamoate 50 mg 08/22/22 21:59 08/28/22 22:05 Hydroxyzine 25 Mg Capsule PO 50 mg Q6H PRN Administration ANXIETY Ibuprofen 600 mg 08/23/22 13:18 08/27/22 12:37 Ibuprofen 600 Mg Tablet PO 600 mg Q6H PRN Administration MODERATE PAIN Lactulose 10 gm 08/25/22 04:11 08/26/22 08:43 Lactulose Oral Liq 20 Gm/30 Ml Udc PO 10 gm DAILY PRN Administration CONSTIPATION Olanzapine 5 mg 08/22/22 21:59 08/27/22 20:23 Olanzapine 5 Mg Odt PO 5 mg Q4H PRN Administration Agitation/Psychosis Trazodone HCl 50 mg 08/22/22 21:59 08/28/22 22:05 Trazodone 50 Mg Tablet PO 50 mg BEDTIME PRN Administration SLEEP Zinc Oxide 1 applic 08/29/22 08:18 08/29/22 18:10 Zinc Oxide Oint 30 Gm TOPICAL 1 applic PRN PRN Administration SKIN PROTECTANT [facility] Anesthesia Medical History Borderline personality disorder Cannabis abuse COVID-19 Evaluation regarding contraception options Impulse control disorder Major depression Major depressive disorder, recurrent episode with anxious distress Major depressive disorder, recurrent severe without psychotic features Methamphetamine abuse Nausea alone Psychiatric care Suicidal ideation Surgical History History of knee surgery Status post myringotomy with tube placement of both ears Family History Other Diabetes Lung disease Rheumatoid arthritis Social History Smoking and tobacco status: current every day smoker e-cigarettes E-Cigarette Details: with nicotine E-cig/vape details: 1 week to go through a tank Quit status (tobacco): considering quitting Second hand smoke exposure: Yes Smoking risk assessment/counseling performed?: Yes Alcohol intake: former Year of sobriety/quit date alcohol: 2021 Substance/Drug Use: former Date of last use: 08/10 Adopted: No Caregiver/support person: No Lives independently: No Household members: other Details: SOC Housing: Homeless Marital status: Single Number of children: 2 Highest education level completed: Some College, No Degree service: No Current occupational status: employed 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 Pets and animals: No Leisure activites: music Sexually active: No Do you think of yourself as: Straight/Heterosexual Current gender identity: Female Briseida/Catholic: None Special briseida needs: No Agree to transfusion: Yes Financial difficulty paying for basics: Somewhat Hard Female Reproductive History Para: 2 Spontaneous abortions: Yes Data Anesthesia 09/01/22 12:10 09/01/22 12:10 Short CBC 09/01/22 Range/Units 12:10 WBC 16.4 H (4.0-10.0) 10^3/uL Hgb 12.7 (11.5-15.3) g/dL Hct 38.4 (37.0-47.0) % MCV 89.5 (81-99) fl Plt Count 344 (130-400) 10^3/cmm Neut % (Auto) 86.9 % Neut # (Auto) 14.20 H (1.8-7.7) 10^3/uL BMP 09/01/22 12:10 Sodium 137 Potassium 3.6 Chloride 103 Carbon Dioxide 19 L BUN 10 Creatinine 0.6 Glucose 177 H Calcium 9.1 Cardiac Enzymes 09/01/22 Range/Units 12:10 Creatine Kinase 26 (26-192) U/L Liver Function 09/01/22 Range/Units 12:10 Total Bilirubin 0.3 (0.15-1.2) mg/dL AST 10 (0-32) U/L ALT 15 (0-33) U/L Alkaline Phosphatase 82 (35-105) U/L Albumin 4.2 (3.5-5.2) g/dL Urine 09/01/22 Range/Units 11:30 Urine Color Colorless (Yellow) Urine Appearance Clear (CLEAR) Urine pH 7 (5-7) Ur Specific [place] 1.005 (1.005-1.030) Urine Protein Neg (Negative) Urine Glucose (UA) Norm (Normal) Urine Ketones Negative (Negative) Urine Nitrate Negative (Negative) Urine Bilirubin Neg (Negative) Ur Leukocyte Esterase Trace H (Negative) Urine RBC 0-4 H (0-2) /hpf Urine WBC 5-10 H (0-5) /hpf Coags 09/01/22 12:10 ESR 11 Microbiology 09/01/22 12:10 Blood Culture - Preliminary Blood SPECIMEN COLLECTED 09/01/22 12:18 Blood Culture - Preliminary Blood SPECIMEN COLLECTED Cardiac Studies: No Data to Display
[2022-09-02] MEDS: sodium chloride 0.9% 1,000 ML 30 ML IV (10:16)
--- NOTE | 2022-09-02 11:04 | W.PM.OPSUD ---
Surgery/Procedure H&P Update DATE OF PROCEDURE: September 02, 2022 DATE H&P PERFORMED: 09/02/22 H&P UPDATE INFORMATION: I have reviewed H&P completed within last 30 days, I have examined patient prior to procedure and No changes to prior documentation PREOP DIAGNOSIS: Herniated nucleus pulposus L5-S1, intractable back pain PLANNED PROCEDURE: Operation Date: 09/02/22 17:20 Proposed Procedures p L5/S1 microdiscectomy(Not Applicable) - Shay Swenson DO Operation Date: 09/02/22 17:00 Proposed Procedures p l5/s1 microdiscectomy(Not Applicable) - Shay Swenson DO
[2022-09-02] MEDS: lidocaine-epi 1% 20 mL INJ INJECTION (12:19)
[2022-09-02] MEDS: vancomycin 1,000 MG SDV 1000 MG XX (12:20)
--- NOTE | 2022-09-02 13:16 | PM.OP ---
Operative Report Date of procedure: September 02, 2022 Pre-op diagnosis: Preop Diagnosis Herniated nucleus pulposus L5-S1, intractable back pain Post-op diagnosis: same Procedure done: 1. left L5/S1 Laminectomy with partial facetectomy and diskectomy Surgeon: Shay Swenson Winch Truck Operator: Macario Gonzales Winch Truck Operator: The surgical oncologist, Macario Gonzales, PAC was needed for his expertise under the microscope. He was important and necessary throughout the procedure to complete in a safe and timely manner. He assisted with patient positioning prepping and draping tissue retraction suctioning of the operative field protection of the dural sac and tissue closure Estimated blood loss (mL): 5 Procedure: 1. left L5/S1 Laminectomy with partial facetectomy and diskectomy Patient is brought to the operative suite. After undergoing anesthesia they are placed in the prone position. All areas of impingement are well padded. Patient is then prepped and draped in the normal sterile fashion. A skin incision is made over the L5/S1 level. This is confirmed under c-arm guidance. A series of dilators are passed and the tubular retractor is docked on the L5 lamina. A bovie is used to clear the soft tissue off the lamina and the L 5/S1 facet joint. A high speed bunny is then used to perform the laminectomy and take down the medial aspect of the L 5/S1 facet joint. A kerrison rongeure was then used to take down the remaining lamina and smooth the edge of the laminectomy up to the point where the ligamentum flavum attaches. Attention was then brought to the medial aspect of the facet joint. The remaining medial aspect of the superior and inferior aspect of the facet joint were taken down with the kerrison from the pedicle of L5 to S1. The facet joint had significant hypertrophy. Attention was then brought to the Ligamentum Flavum. The ligament was taken down from the lamina of L5 to S1 and out medially to the remaining facet joint. The ligament was thick. The dura was then exposed. The dura was in good repair. S1 nerve root was retracted medially and disc was removed with micropituitary's the space was irrigated out. Until all the 3 disc fragments were removed. The L5 nerve was then traced with a curette out the L5/S1 foramen and found to be adequately decompressed. The S1 nerve was traced with a curette around the S1 pedicle. The lateral recess was opened with a kerrison helping to further decompress the S1 nerve. Wound is then irrigated copiously with saline and surgiflo is used to stop any bleeding. The tubular retractor is removed and the wound is closed with vicryl and monocryl suture. Glue is then used to protect the wound. A sterile dressing is then placed. Patient was then placed in the supine position and transferred to the PACU in stable condition.
[2022-09-02] MEDS: HYDROcodone-acetaminophen 10-325 mg Tablet PO ×2 (13:49→19:19)
[2022-09-02] MEDS: lactated ringers 1,000 ML 90 ML IV (13:49)
--- NOTE | 2022-09-02 15:18 | PM.PN ---
Subjective Subjective: Patient was seen this morning, she is in preop, she does report she had a bowel movement this morning, did urinate, but there is report difficulty urinating at times trouble pooping, her numbness persists, she is worried about going home too soon after surgery, Vitals/I&O/Wt Last Vital Signs Temp 97.1 F L 09/02/22 12:56 Pulse 55 L 09/02/22 13:59 Resp 18 09/02/22 13:59 BP 141/80 09/02/22 13:27 Pulse Ox 100 09/02/22 13:59 O2 Del Method Room Air 09/02/22 13:59 09/02/22 09/02/22 09/02/22 06:59 14:59 22:59 Intake Total 240 / 240 2250 / 2250 Output Total 800 / 1800 Balance -560 / -1560 2240 / 2240 Weight last 48 hrs Weight 91.444 kg Physical Exam Const: COMMON NORMALS: no acute distress and patient oriented x3 Resp: COMMON NORMALS: normal respiratory effort, No retractions, No use of accessory muscles and clear to auscultation bilaterally AUSCULTATION: clear to auscultation bilaterally Cardio: COMMON NORMALS: regular rate, regular rhythm, S1 normal heart sound present and S2 normal heart sound present RATE: regular rate RHYTHM: regular rhythm HEART SOUNDS: S1 normal heart sound present and S2 normal heart sound present GI: COMMON NORMALS: Normal to inspection, nondistended, normoactive bowel sounds present, non-tender and No hepatosplenomegaly present PALPATION: Yes No hepatosplenomegaly present Extremity: COMMON NORMALS: no pedal edema Neuro: COMMON NORMALS: patient oriented x3 Psych: COMMON NORMALS: mental status grossly normal Data 09/01/22 12:10 09/01/22 12:10 Micro: Microbiology 09/01/22 12:10 Blood Culture - Preliminary Blood NEGATIVE TO DATE 09/01/22 12:18 Blood Culture - Preliminary Blood NEGATIVE TO DATE A&P Assessment and plan (1) Low back pain: (2) Cauda equina syndrome: (3) Constipation: Plan Cauda equina syndrome -On examination she does have lack of pinprick sensation, along the perianal region more on the left, along the left gluteus medius and yocasta, around the left part of the vaginal wall, left perineum, above the bladder on the left, -She has good strength in bilateral thighs, good strength bilateral calves, good ankle and toe raises, good strength in her Achilles tendon bilaterally -Her [id number] is abnormal -She is able to walk without any difficulty -Does have perianal numbness, with decreased stooling and complaints of constipation -Does have complaints of retaining urine, but was bladder scanned last night at 61 cc -received Decadron last night -Her MRI of the lumbar spine done 08/31/2022 showed L5-S1: Small facet joint effusions. There are posterior osteophytes and a disc bulge with a superimposed midline/bilateral paracentral disc extrusion severely narrowing the canal. Cauda equina are crowded and or compressed at this level. Mild bilateral neural foraminal narrowing. Compared to MRI 04/18/2022 L5-S1: Very small central disc protrusion and annular fissure. There is mild encroachment upon the exiting S1 nerve roots bilaterally. Only mild central and bilateral subarticular recess stenosis. Small amount of fluid in the facet joints. S1-S2: Moderate to large central disc protrusion extends caudad to the disc level. Disc extends over a length of 13 mm. There is significant encroachment on the central and LEFT lateral thecal sac extending into the subarticular recess. There is contact on the LEFT sacral nerve root. There is additional contact on the RIGHT sacral nerve roots but to a lesser extent. Moderate central stenosis. No significant foraminal stenosis. -I did discuss the case with Dr. Guallpa, at [facility] neurosurgery after discussion of the case in detail, he felt that there is nothing emergently that needs to be done, no emergency surgery needed, potentially this could be a slowly progressive cauda equina syndrome, at some point down the line she is going to need a decompression, how ever if her symptoms acutely worsen specially her strength in the lower extremities in the calves, then it it would be urgent, or complete lack of stooling and urination Plan -Is going for back surgery today -Monitor blood culture -Neurochecks -PT OT -Decadron 10 mg IV push every 24 hours -On bowel regimen -Bladder as needed, monitor postvoid residual -Full code -Lovenox for DVT prophylaxis -Currently n.p.o. Spoke to neurosurgery Spoke to psychiatry Spoke to nursing staff Attestations Medical Necessity Statement*: Patient requires hospitalization for concerns for cauda equina syndrome, proceeding with back surgery Diagnoses Low back pain M54.50 Cauda equina syndrome G83.4 Constipation K59.00
--- NOTE | 2022-09-02 15:25 | ANE.PACU2 ---
Inpatient post-anesthesia follow up: Airway intact: Yes Vital signs: Temperature 97.1 F Pulse Rate 55 Respiratory Rate 18 Blood Pressure 141/80 Pulse Oximetry 100 Oxygen Delivery Me thod Room Air Oxygen Flow Rate Fraction of Inspir ed Oxygen Hydration adequate: Yes Nausea and vomiting: No Pain level: 1 Mental status: Baseline
[2022-09-03] VITALS (7 sets, daily range): BP systolic 98–116; BP diastolic 59–73; PULSE 62–94; RESP 15–17; TEMP 36.7–36.9; O2SAT 96–97
[2022-09-03] MEDS: HYDROcodone-acetaminophen 10-325 mg Tablet PO ×2 (01:05→07:03)
[2022-09-03] MEDS: lactated ringers 1,000 ML 90 ML IV (01:06)
[2022-09-03] MEDS: ceFAZolin 2,000 MG in sodium chloride 0.9% (plus) 50 ML 100 MG IV (04:24)
--- NOTE | 2022-09-03 07:26 | P.PN_ITS ---
Subjective Subjective: POD 1 Patient resting comfortably. Reports improvement of her symptoms. Denies any chest pain, shortness of breath, headaches Vitals/I&O/Wt Last Vital Signs Temp 98.2 F 09/03/22 03:37 Pulse 86 09/03/22 03:37 Resp 16 09/03/22 03:37 BP 98/59 09/03/22 03:37 Pulse Ox 96 09/03/22 03:37 O2 Del Method Room Air 09/03/22 01:40 09/02/22 09/03/22 09/03/22 22:59 06:59 14:59 Intake Total 770 / 3020 1250 / 4270 Output Total 1100 / 1110 1000 / 2110 Balance -330 / 1910 250 / 2160 Physical Exam Narrative: Patient presents alert and oriented x3 with a good general appearance normal mood and affect. Normal coordination normal stability. Mild tenderness around the incisional site with the incision appear to be clean and dry. No signs of erythema or drainage. No signs of infection. Patient denies any fevers or chills. 5/5 motor strength both lower extremities with negative straight leg raise bilaterally. Calves are supple no medial thigh tenderness. Pulses are 2+ at the dorsalis pedis and posterior tibial region. Good capillary refill thro ughout normal sensation light touch both lower extremities. Data 09/01/22 12:10 09/01/22 12:10 Micro: Microbiology 09/01/22 12:10 Blood Culture - Preliminary Blood NEGATIVE TO DATE 09/01/22 12:18 Blood Culture - Preliminary Blood NEGATIVE TO DATE A&P Assessment and plan (1) Status post lumbar laminectomy: Physical therapy to mobilize. No bending lifting or twisting. Show nerve glide exercises. We will discharge home we will have her follow-up in the office in 1 week's time for a wound check. Continue incentive spirometry for pulmonary toilet. Discussed no nicotine use or methamphetamine or drug other drug use. Attestations Medical Necessity Statement*: Defer to medical team Coding Level of Care Code Acute Code for Chg Fwd Diagnoses Status post lumbar laminectomy Z98.890
[2022-09-03] MEDS: docusate sodium 100 mg Capsule PO (08:21)
[2022-09-03 09:35] LABS: Basophils % 0.1 %; Eosinophils % 0.1 %; Hematocrit 39.1 % (37.0-47.0); Hemoglobin 12.6 g/dL (11.5-15.3); Lymphocytes # 4.8 10^3/uL (0.8-4.8); Lymphocytes % 33.4 %; Mean Corpuscular HGB Conc 32.2 g/dL (30.0-36.0); Mean Corpuscular Hemoglobin 29.1 pg (28.0-34.0); Mean Corpuscular Volume 90.3 fl (81-99); Mean Platelet Volume 10.1 fL (7.4-10.4); Monocytes % 6.7 %; Neutrophils # 8.55 10^3/uL (1.8-7.7); Neutrophils % 59.2 %; Nucleated Red Blood Cells % 0 %; Platelet Count 285 10^3/cmm (130-400); Red Blood Count 4.33 10^6/uL (4.1-5.3); Red Cell Distribution Width 12.3 % (12.1-15.1); White Blood Count 14.4 10^3/uL (4.0-10.0)
--- NOTE | 2022-09-03 09:48 | P.DS_ITS ---
Discharge Providers Date of Admission: 08/22/22 21:53 Date of Discharge: September 03, 2022 Attending Provider at Admission: Jose Soto MD Attending Provider at Discharge: Darrick Montes De Oca MD Primary Care Provider: Stephany HaP-C Diagnoses at Discharge Discharge Diagnosis (1) Status post lumbar laminectomy: Status: Acute Reason for Visit Reason for Visit: SI Hospital Course Hospital Course Mara Diop is a 27 year old female with a past history of IV drug abuse, current history of cannabis use, major depression, borderline personality disorder, currently admitted to neuropsychiatric unit, hospitalist team was consulted due to concerns for numbness, lack of stooling, difficulty urinating, with complaints of back pain.? 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 She does report IV drug abuse, but reports that her last use was over a year ago, no history of complications from IV drug abuse.? She tells me that she has been here at the neuropsychiatric unit for the last 10 days, she has been having more than usual low back pain, for the last 2 weeks, she had been noticing that she started develop numbness around her anus, along her left gluteus, with constipation, and difficulty urinating.? Since she has been here she tells me that that numbness is slowly creeping anteriorly, extending from around the anus, around the left gluteus, around to the left anterior thigh, involving left area over her bladder, that extending to the left part of her vagina and her perineum.? She also reports difficulty urinating at times, but was able to urinate this morning, she was able to urinate overnight and her postvoid residual was 61 cc.? She also reports constipation, throughout the last 2 weeks, she does report difficulty straining, no bloody or black stools, she did have a bowel movement yesterday but it was small.? She denies any numbness or tingling of her toes, of her legs.? She denies any weakness or trouble coordinating of her lower extremities.? No weakness in her feet, and her calves and her thighs, normal trouble coordinating, no falls.? Denies any fevers, no chills, no cough Cauda equina syndrome -On examination she does have lack of pinprick sensation, along the perianal region more on the left, along the left gluteus medius and yocasta, around the left part of the vaginal wall, left perineum, above the bladder on the left, -She has good strength in bilateral thighs, good strength bilateral calves, good ankle and toe raises, good strength in her Achilles tendon bilaterally -Her [id number] is abnormal -She is able to walk without any difficulty -Does have perianal numbness, with decreased stooling and complaints of constipation -Does have complaints of retaining urine, but was bladder scanned last night at 61 cc -She was receiving Decadron -Her MRI of the lumbar spine done 08/31/2022 showed L5-S1: Small facet joint effusions. There are posterior osteophytes and a disc bulge with a superimposed midline/bilateral paracentral disc extrusion severely narrowing the canal. Cauda equina are crowded and or compressed at this level. Mild bilateral neural foraminal narrowing. Compared to MRI 04/18/2022 L5-S1: Very small central disc protrusion and annular fissure. There is mild encroachment upon the exiting S1 nerve roots bilaterally. Only mild central and bilateral subarticular recess stenosis. Small amount of fluid in the facet joints. S1-S2: Moderate to large central disc protrusion extends caudad to the disc level. Disc extends over a length of 13 mm. There is significant encroachment on the central and LEFT lateral thecal sac extending into the subarticular recess. There is contact on the LEFT sacral nerve root. There is additional contact on the RIGHT sacral nerve roots but to a lesser extent. Moderate central stenosis. No significant foraminal stenosis. -I did discuss the case with Dr. Guallpa, at [facility] after discussion of the case in detail, he felt that there is nothing emergently that needs to be done, no emergency surgery needed, potentially this could be a slowly progressive cauda equina syndrome, at some point down the line she is going to need a decompression, how ever if her symptoms acutely worsen specially her strength in the lower extremities in the calves, then it it would be urgent, or complete lack of stooling and urination -Patient was monitored on MedSurg for 24 hours, orthopedic spine surgery was consulted, given patient's persistent symptomatology they recommended surgical intervention, patient underwent L5-S1 laminectomy with partial facetectomy and discectomy, tolerated procedure well, received PT OT, pain control, monitored after surgical intervention. Overall she clinically proved, ambulating without significant symptomatology, urinating appropriately, having stooling appropriately, her numbness persisted, I advised her to monitor. Follow-up with orthopedic spine surgery as outpatient. If she were to have any trouble ambulating, worsening symptomatology go to the emergency room. Discharged with pain control to be used sparingly for pain, continue ambulation. I have discharged her on cefdinir for UTI Physical Exam Const: COMMON NORMALS: no acute distress and patient oriented x3 Resp: COMMON NORMALS: normal respiratory effort, No retractions, No use of accessory muscles and clear to auscultation bilaterally AUSCULTATION: clear to auscultation bilaterally Cardio: COMMON NORMALS: regular rate, regular rhythm, S1 normal heart sound present and S2 normal heart sound present RATE: regular rate RHYTHM: regular rhythm HEART SOUNDS: S1 normal heart sound present and S2 normal heart sound present GI: COMMON NORMALS: Normal to inspection, nondistended, normoactive bowel sounds present and non-tender Extremity: COMMON NORMALS: no pedal edema Neuro: COMMON NORMALS: patient oriented x3 Psych: COMMON NORMALS: mental status grossly normal Discharge Data Studies Completed and Pending Completed Studies During Hospitalization Category Date Time Status CT abdomen pelvis w con* [id number] Routine Cat Scan 08/28/22 17:[address] abdomen pelvis wo con [id number] Stat Cat Scan 08/22/22 20:16 Completed XR abdomen min 2V [id number] Routine Exams 08/27/22 13:07 Completed XR abdomen min 2V [id number] Routine Exams 08/30/22 16:11 Completed MR lumbar spine wo con* [id number] Urgent MRI 08/31/22 00:32 Completed Pending at discharge Category Date Time Status XR lumbar spine 1V [id number] Routine Exams 09/02/22 Taken Blood Culture Stat Lab 09/01/22 12:10 Results CMP [Comprehensive Metabolic Panel] Stat Lab 09/03/22 09:13 Received OR HCG Qualitative Urine Stat Lab 09/02/22 06:50 Ordered Radiology Impressions Abdomen/Pelvis CT 08/28/22 17:07 IMPRESSION: No acute abnormality is seen in the abdomen or pelvis. Abdomen X-Ray 08/30/22 16:11 IMPRESSION: No acute findings. Lumbar Spine MRI 08/31/22 00:32 IMPRESSION: 1. At the L5-S1 level there is facet arthropathy, posterior osteophytes and a disc bulge with a superimposed midline/bilateral paracentral disc extrusion narrowing the canal. Cauda equina are crowded and or compressed. 2. Edematous endplate degenerative changes are present at the L5-S1 level. Laboratory Results WBC 14.4 10^3/uL (4.0-10.0) H 09/03/22 09:13 RBC 4.33 10^6/uL (4.1-5.3) 09/03/22 09:13 Hgb 12.6 g/dL (11.5-15.3) 09/03/22 09:13 Hct 39.1 % (37.0-47.0) 09/03/22 09:13 MCV 90.3 fl (81-99) 09/03/22 09:13 MCH 29.1 pg (28.0-34.0) 09/03/22 09:13 MCHC 32.2 g/dL (30.0-36.0) 09/03/22 09:13 RDW 12.3 % (12.1-15.1) 09/03/22 09:13 Plt Count 285 10^3/cmm (130-400) 09/03/22 09:13 MPV 10.1 fL (7.4-10.4) 09/03/22 09:13 Neut % (Auto) 59.2 % 09/03/22 09:13 Lymph % (Auto) 33.4 % 09/03/22 09:13 [place] % (Auto) 6.7 % 09/03/22 09:13 Eos % (Auto) 0.1 % 09/03/22 09:13 Baso % (Auto) 0.1 % 09/03/22 09:13 Neut # (Auto) 8.55 10^3/uL (1.8-7.7) H 09/03/22 09:13 Lymph # (Auto) 4.8 10^3/uL (0.8-4.8) 09/03/22 09:13 [place] # (Auto) 1.0 10^3/uL (0.2-0.9) H 09/03/22 09:13 Eos # (Auto) 0.0 10^3/uL (0.0-0.8) 09/03/22 09:13 Baso # (Auto) 0.0 10^3/uL (0.0-0.1) 09/03/22 09:13 Nucleated RBC % (auto) 0 % 09/03/22 09:13 Nucleated RBCs # 0.0 /100WBC 09/03/22 09:13 ESR 11 mm/hr (0-15) 09/01/22 12:10 Sodium 137 mmol/L (136-145) 09/01/22 12:10 Potassium 3.6 mmol/L (3.5-5.1) 09/01/22 12:10 Chloride 103 mmol/L (98-107) 09/01/22 12:10 Carbon Dioxide 19 mmol/L (22-29) L 09/01/22 12:10 Anion Gap 18.6 (5-19) 09/01/22 12:10 BUN 10 mg/dL (6-20) 09/01/22 12:10 Creatinine 0.6 mg/dL (0.5-0.9) 09/01/22 12:10 GFR Calculation 118.2 mL/min (90-130) 09/01/22 12:10 Glucose 177 mg/dL (65-115) H 09/01/22 12:10 Estimat Average Glucose 111 09/01/22 12:10 Hemoglobin A1c 5.5 % (4.0-6.0) 09/01/22 12:10 Calculated Osmolality 287 mOsm/kg (285-295) 09/01/22 12:10 Calcium 9.1 mg/dL (8.5-10.5) 09/01/22 12:10 Total Bilirubin 0.3 mg/dL (0.15-1.2) 09/01/22 12:10 AST 10 U/L (0-32) 09/01/22 12:10 ALT 15 U/L (0-33) 09/01/22 12:10 Alkaline Phosphatase 82 U/L (35-105) 09/01/22 12:10 Creatine Kinase 26 U/L (26-192) 09/01/22 12:10 Total Protein 7.2 g/dL (6.6-8.7) 09/01/22 12:10 Albumin 4.2 g/dL (3.5-5.2) 09/01/22 12:10 Globulin 3.0 g/dL (1.3-4.6) 09/01/22 12:10 Vitamin B12 345 pg/mL (232-1245) 09/01/22 12:10 Folate 9.3 ng/mL (4.8-37.3) 09/01/22 12:10 TSH 0.34 uIU/mL (0.27-4.20) 09/01/22 12:10 HCG, Qual Negative (Negative) 08/22/22 20:14 Ser , Semi-Qnt 1.00 mIU/mL 09/01/22 12:10 Urine Color Colorless (Yellow) 09/01/22 11:30 Urine Appearance Clear (CLEAR) 09/01/22 11:30 Urine pH 7 (5-7) 09/01/22 11:30 Ur Specific [place] 1.005 (1.005-1.030) 09/01/22 11:30 Urine Protein Neg (Negative) 09/01/22 11:30 Urine Glucose (UA) Norm (Normal) 09/01/22 11:30 Urine Ketones Negative (Negative) 09/01/22 11:30 Urine Blood 2+ (Negative) H 09/01/22 11:30 Urine Nitrate Negative (Negative) 09/01/22 11:30 Urine Bilirubin Neg (Negative) 09/01/22 11:30 Urine Urobilinogen Norm mg/dL (Negative) 09/01/22 11:30 Ur Leukocyte Esterase Trace (Negative) H 09/01/22 11:30 Urine RBC 0-4 /hpf (0-2) H 09/01/22 11:30 Urine WBC 5-10 /hpf (0-5) H 09/01/22 11:30 Ur Squamous Epith Cells 0-4 /hpf (0-5) H 09/01/22 11:30 Amorphous Sediment Not Reportable 09/01/22 11:30 Urine Bacteria Trace /hpf (NONE) 09/01/22 11:30 Salicylates < 0.3 mg/dL (3-10) L 08/22/22 20:05 Urine Opiates Screen Negative ng/mL (Negative) 09/01/22 11:30 Acetaminophen < 5.0 ug/mL (10-30) L 08/22/22 20:05 Ur Barbiturates Screen Negative ng/mL (Negative) 09/01/22 11:30 Ur Phencyclidine Scrn Negative ng/mL (Negative) 09/01/22 11:30 Ur Amphetamines Screen Negative ng/mL (Negative) 09/01/22 11:30 U Benzodiazepines Scrn Negative ng/mL (Negative) 09/01/22 11:30 Urine Cocaine Screen Negative ng/mL (Negative) 09/01/22 11:30 U Marijuana (THC) Screen Positive ng/mL (Negative) H 09/01/22 11:30 Ethyl Alcohol < 10 mg/dL (0-10) 08/22/22 20:05 Hepatitis A IgM Ab Non-reactive (Nonreactive) 09/01/22 12:10 Hep Bs Antigen Non-reactive (Nonreactive) 09/01/22 12:10 Hep B Core IgM Ab Non-reactive (Nonreactive) 09/01/22 12:10 Hepatitis C Antibody Non-reactive (Nonreactive) 09/01/22 12:10 HIV 1&2 Ab & HIV 1 Ag Non-reactive (Non-Reactiv) 09/01/22 12:10 HIV 1&2 Antibody Non-reactive (Non-Reactiv) 09/01/22 12:10 Vitals Last Vital Signs Temp 98.1 F 09/03/22 07:00 Pulse 62 09/03/22 07:00 Resp 15 09/03/22 07:00 BP 106/70 09/03/22 07:00 Pulse Ox 96 09/03/22 07:00 O2 Del Method Room Air 09/03/22 07:00 Discharge Plan Discharge Patient Disposition: Home Condition: Stable Prescriptions: New quetiapine 150 mg tablet extended release 24 hr 150 mg PO QPM 30 Days Qty: 30 1RF bisacodyl 5 mg Tablet,Delayed Release (Dr/Ec) 10 mg PO DAILY PRN (Reason: Constipation) 30 Days Qty: 60 0RF hydrocodone-acetaminophen 10-325 mg Tablet 1 - 2 tab PO Q4H PRN (Reason: post op pain) Qty: 40 0RF cefdinir 300 mg capsule 300 mg PO BID 5 Days Qty: 10 0RF Continued medroxyprogesterone [Depo-Provera] 150 mg/mL suspension 150 mg IM Q90D Rx Instructions: Inject 1mL subcut every 3 months trazodone 50 mg tablet 100 mg PO .q hs PRN (Reason: insomnia) Qty: 30 0RF Rx Instructions: Take one or two at bedtime, if needed for insomnia omeprazole 20 mg capsule,delayed release(DR/EC) 20 mg PO DAILY Rx Instructions: Take one capsule by mouth every day. Zanaflex 4 mg tablet 4 mg PO TID PRN (Reason: Muscle Spasm) cyclobenzaprine 10 mg tablet 10 mg PO TID PRN (Reason: Muscle Spasm) acetaminophen [Acetaminophen Extra Strength] 500 mg Tablet 1,000 mg PO TID PRN (Reason: Pain) ondansetron 4 mg tablet,disintegrating 4 mg PO TID PRN (Reason: nausea and vomiting) duloxetine 30 mg Capsule,Delayed Release(Dr/Ec) 60 mg PO DAILY 30 Days Qty: 60 1RF magnesium hydroxide [Milk Of Magnesia Concentrated] 2,400 mg/10 mL suspension 15 ml PO BID PRN (Reason: constipation) Qty: 1000 0RF Discharge Orders: Discharge Order (Routine); Ordered 09/03/22 Ordered By: Macario Gonzales Referrals: Shay Swenson DO [Physician] - 09/17/22 2:15 pm Sonali Ball APRN [Nurse Practitioner] - 09/12/22 8:45 am Stephany Ha FNP-C [Primary Care Provider] - 09/18/22 2:45 pm Discharge Diet: Advance as tolerated Discharge Activity: Limit activity as instructed Patient Instructions: Oxycodone, Rapid Release (By mouth) (ETH-Oxydose, Oxy IR,..., Quetiapine (By mouth) (Seroquel, Seroquel XR, Seroquel XR 14-Day..., Bisacodyl (By mouth), Depression (ED), Help Prevent Suicide (GEN), Suicide Prevention (GEN), Laminectomy (GEN), Opioid Safety Activity Restrictions/Additional Instructions: Thank you for [facility] for your care! The following is a list of instructions, from your provider, to follow upon your discharge to ensure you have the optimal recovery from your recent injury or surgery. Follow-up care is a lou part of your treatment and safety. Be sure to make and go to all appointments and call your doctor if you are having problems. If you do not already have a follow-up appointment made, call Dr. Swenson's] office in the next 1-3 days to make follow up appointment for 1 weeks at [phone]. It is also a good idea to know your test results and keep a list of the medicines you take. Medications will be prescribed for you at your provider's discretion. These medications are to be used as instructed; if they are taken more often that prescribed they will not be refilled early and in most cases will not be refilled at all. > When a refill is needed,you should contact radha callahan 2-3 business days before your prescription runs out. Medications will NOT be refilled by oracle financial application developer providers after hours! > Many pain medications contain Tylenol (Acetaminophen). Do not consume more than 4,000 mg of Tylenol per day in total with any combination ofmedi cations. > Pain medications can cause constipation. Please use an over the counter stool softener as directed, while taking pain medications. Consult your local pharmacist with questions or recommendations on stool softeners. If constipation persists, contact our office or your primary care provider. > While under our care, you are not to receive pain medications or other controlled substances from any other provider unless our office is notified and approves. Any attempts to do so will result in refusal to prescribe any further pain medications and possible dismissal from our practice. Your wound and/or dressing should remain clean and dry for 2 days after surgery. On postoperative day 2 (48 hours after your surgery) the dressing (if present) should be removed and it is okay to shower and get the incision wet. Pad dry afterwards. No further dressing should be required from that point on. Do not put any creams or ointments on theincision > It is normal for there to be a small amount of discharge (bloody or blood tinged) present from a surgical wound for the first 1-3days. > The wound should be examined twice a day for signs of infection. Mild redness or bruising is to be expected but indications that an infection maybe starting would include; An increase in redness, swelling, or discharge, a foul odor present around the incision, and/or a fever greater than 101 ?F ? Showering is permitted, however we ask that you do not take a bath, sit in a whirlpool / Jacuzzi, or go swimming for 1 month. For only the first 2 days after surgery, lt will be necessary for you to cover your wound/dressing with plastic and tape to keep it dry. ? Walking is essential for the healing process after surgery. We would like you to slowly advance your walking. This should be done on relatively flat clear ground (inside or out) or can be done on a treadmill. Remember this goal does not have to happen all at once, slowly increase your distance and duration. This can be broken into more more than one walk per day as tolerated. Patients who walk as directed after surgery rarely require Physical Therapy. In the unlikely event this issue arises your provider will direct hospital staff to make the appropriate arrangements. ? No lifting over 5 pounds {a gallon of milk) or bending/twisting until further notice. Each of these activities places an unnecessary amount of stress onto the body and can impede the delicate healing process. > Instead of bending at the waist, keep your back straight and bend at the knees. > Instead of twisting your torso, keep your back straight and turn your entire body with your feet. ? You may sleep in any position which makes you comfortable. Many patients find comfort sleeping in a reclining chair. It is not abnormal to have difficulty sleeping for the first several weeks following your surgery. We recommend trying Benadry! or Tylenol PM as directed to help with your sleeping difficulties. Both medications are over the counter and available without prescription. ? NO SMOKING!!! Smoking dramatically increases the probability of developing postoperative wound infections. ? Common complaints after lumbar and/or thoracic spine surgery include, but are not limited to: numbness and/or tingling in the legs, pain around the incision and surrounding tissues, muscle spasms, or stiffness of the middle to low back. Contact our office if these symptoms persist or if an acute change occurs. ? No driving for the first 3-5days, and not while taking narcotics until seen at your follow-up appointment and cleared. There are no restrictions for riding on short trips, however if you take a longer trip, arrangements should be made to make regular stops to get out of the vehicle and stretch . ? Swelling is an unfortunate event that will take place with any surgery and is the primary source of your postoperative discomfort. While walking and regular approved activities helps control inflammation, there are additional steps you can take to minimizeswelling. > Place ice over the surgical site and surrounding tissue for twenty sola shakira, followed by applying a low/medium heat (heating pad) for an additional twenty minutes every 1-2 hours as needed for painrelief. > You may use of over the counter anti-inflammatory medications (Ibuprofen, Motrin, Aleve, Advil, etc) as directed on the package label. These types of medicines wm significantly reduce the amount of discomfort you experience after surgery from swelling. It should be noted that if you have and allergy to any of these medications, or a history of ulcers or kidney disease you should consult you primary care provider prior to starting these medications. Discharge Attestations Time Spent in Discharge Care*: greater than 30 min Status at Discharge: Cognitive status at discharge: cognitively intact , Behavioral status at discharge: cooperative , Quality Metrics Clinical Quality Measures [ No reported AMI, CVA or VTE this stay] Coding Level of Care Code 45922 Total time (in minutes) for Discharge: 45 Diagnoses Status post lumbar laminectomy Z98.890
[2022-09-03 09:56] LABS: Alanine Aminotransferase 11 U/L (0-33); Albumin Level 3.8 g/dL (3.5-5.2); Alkaline Phosphatase 73 U/L (35-105); Anion Gap 14.9 (5-19); Aspartate Amino Transferase 10 U/L (0-32); Blood Urea Nitrogen 12 mg/dL (6-20); Calcium 9.2 mg/dL (8.5-10.5); Carbon Dioxide 24 mmol/L (22-29); Chloride 100 mmol/L (98-107); Globulin 2.7 g/dL (1.3-4.6); Glomerular Filtration Rate 118.2 mL/min (90-130); Glucose 98 mg/dL (65-115); Osmolality Calculated 280 mOsm/kg (285-295); Potassium 3.9 mmol/L (3.5-5.1); Sodium 135 mmol/L (136-145); Total Bilirubin 0.3 mg/dL (0.15-1.2); Total Protein 6.5 g/dL (6.6-8.7)
--- NOTE | 2022-09-03 15:08 | PC.NURSE ---
Discussed discharge medications, continued medications and follow up appointments with patient at 1215. Patient had questions about medications which were answered. Patient discharged with medicaid ride at 1441.
--- NOTE | 2022-09-03 17:10 | P.NPUDS_ITS ---
Diagnoses at Discharge Discharge Diagnosis (1) Constipation: Status: Acute Reason for Visit Reason for Visit: SI Brief History: History of Present Illness Mara Diop is a 27 year old female presented to the emergency department with the following report: Chief Complaint: Psychiatric Symptoms Stated Complaint: SI Time Seen by Provider: 08/22/22 19:56 Source: patient Mode of arrival: ambulatory Limitations: no limitations History of Present Illness:?? 27-year-old female who states that she is suicidal.? She states that she is feeling worthless she is homeless she is got chronic pain and severe pain and cannot get the money.? She states that she has been having thoughts of killing herself with a plan of walking into traffic.? She has had some constipation as well she is seen here once today for constipation. ? Associated symptoms: Reports depression and suicidal ideation. He was admitted to the neuropsychiatric unit for definitive treatment of those issues.? She presents today reporting that things been tough recently.? That there were compounding issues that led to her returning to the hospital and feeling suicidal.? However impositions she did not mention her active addiction.? She ultimately acknowledged that the addiction may have played some role that she was downplaying the significance of that role.? She reports that her main issue is that she is in pain all the time and does not have a clear solution for that.? She reports that due to her cannabis use she could not be accepted at any pain clinics so she has that issue of attempting to manage her pain.? Additionally she reports having constipation and vet making things hard.? She reports that the combination of all these things is that she is not managing her life well, not having income, homeless and feels like everything is useless and she might as well kill himself.? We talked about medications for her psychiatric issues and she reports that she discontinued those since her last hospitalization which was about 7 weeks ago.? An excerpt of that discharge summary from June 2022 is included below for context and the fact that there have been no substantive changes.? She is not taking the medications from that stay and denies the need for psychiatric medications.? We long discussion about the futility of that situation that she is coming to a psychiatric unit for her feeling of being overwhelmed and suicidal but not open to psychiatric medications as part of the solution.? We discussed that we are not a pain clinic and will not be in the process of deciding different pain medications to start which might make this a difficult process given her position on psychiatric medication.? We discussed the risks, benefits and alternatives of initiating new medications versus restarting possible old medications and she understood and agreed to proceed as is documented in this note Per her 07/03/2022 [facility] inpatient psychiatric discharge summary: Discharge Diagnosis (1) Borderline personality disorder: ? ? ? Status: Acute (2) Suicidal ideation: ? ? ? Status: Resolved (3) Methamphetamine use disorder, severe, in sustained remission: ? ? ? Status: Acute (4) Anxiety: ? ? ? Status: Acute Reason for Visit Reason for Visit:?? SI/HI? Brief History: History of Present Illness Mara Alta Diop is a 27 year old female who presented to the emergency department with the following report: Chief Complaint: Psychiatric Symptoms Stated Complaint: SI Time Seen by Provider: 06/29/22 07:41 History of Present Illness:?? Patient is a 27-year-old female comes to the ED with SI and HI.? Patient has a history of methamphetamine abuse, borderline personality disorder, depression.? She has been sober from methamphetamine for over 6 months.? [facility] and she is having increased depression and anxiety there.? She has not been able to find her medications, so she has not been taking them for the past couple days.? She is having SI but denies any plan.? Patient states that she wants to give up. ? She is also having HI towards staff at the homeless pen[facility]ent[facility] and towards fellow coworkers at her job.? Denies any auditory or visual hallucinations. Associated symptoms: Reports depression, homicidal ideation and suicidal ideation; Deny auditory hallucinations or visual hallucinations She is admitted to the neuropsychiatric unit for the treatment of those issues.? She presented this morning audibly vomiting in the hallways.? She reports that has been a new and common phenomenon in the mornings she not sure if is related to her anxiety.? She reports that she came to the hospital because she has been completely overwhelmed in her current living environment at least.? She reports that they have had bedbugs and that the process of trying to limit the bedbugs and keep her circumstances under control has been a bit much.? She had to pack her stuff away and then they did not spray and then she had to try to find out where her pills were etc.? She was that she went to rehab before she went to [facility] and feels she is been doing fine for recovery aspect but reports feeling overwhelmed that she wants to go back to rehab.? 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 She had struggled with methamphetamine in her UDS was negative except for cannabis.? She has been following up with her outpatient services and saw a provider at [facility] [place] earlier this month.? We discussed the risk benefits and alternatives of increasing her BuSpar and she understood agreed proceed as is documented in this note.? An excerpt of that outpatient evaluation is included below for context. Per her 06/20/2022 [facility] [place] outpatient psychiatric evaluation: [facility] [place] History and Physical Time In: 14:03 Time Out: 14:44 Chief Complaint: Anxiety, want to try Buspar or something. History of Present Illness: Patient is here for a psych evaluation for possibility of adding a medication for anxiety. Says she has been taking the hydroxyzine for a long time, at ast a couple of years, but says it's not helping her anxiety. Her symptoms of anxiety are: increased heart rate, upset stomach, shaking. Had previously been prescribed sertraline for mood/anxiety symptoms but has not been adherent to that medication. She has taken various other medications (noted below in past psych history), but has not been adherent to a medication regimen for any extended period of time; not sure about efficacy of medications for mood/anxiety. She feels more anxious than depressed, she says. Anger triggers:mostly work-related when she feels like there is not respect/communication between herself in her work environment and other department workers. Says she hasn't been sleeping as well since she hadn't been taking the trazodone; she had been taking? trazodone 50 mg-one or two tablets at bedtime, if needed with sleep benefit. She would like to resume that medication, if possible. Usually energy is crappy, but yesterday and today, it's good. She is physically active on the job (in environmental which she reports some of wanting to provider); no other routine physical exercise. Appetite is last month, pretty lousy, but the last week or two, pretty good. Weight has increased over the past 3 months. Caffeine intake: Drinks one or two 20 oz caffeinated drinks per day; drinks at least 20 oz of regular tea per day. Drinks soda late in the evening. Occasionally has an Energy drinks. Nicotine: Hasn't smoked cigarettes for three days with intent to stop; she has gone for 3 weeks without vaping. Doesn't want to use the patch; says she thinks she can do it on her own. Denies alcohol intake. Smoked marijuana every day, the past week, prior to that occasional use. Denies other illicit substance. Hospital Course Hospital Course At the time of discharge, lethality was denied and psychosis was resolving. Mood and anxiety were well managed. Patient endorsed a plan to avoid all drugs of abuse and follow-up with the aftercare recommendations of the treatment team. Patient was evaluated and deemed to be absent credible lethality, and had achieved the maximum benefit from an inpatient hospitalization, so was discharged. Patient had been treated initially for significant constipation and reported some problems with urinary incontinence. After multiple trials of various medications to relieve constipation and move her bowels and after multiple scans and MRI was repeated out of concern that the patient may be having some immediately emergent process such as cauda equina syndrome. Medicine was consulted and the patient was deemed to be psychiatrically stable and was transferred to the [facility] team for either transfer for surgery or for a further spinal evaluation to determine whether surgery was necessary. She had appeared stable on her Seroquel at the time of discharge. She had expressed interest in remaining off of methamphetamine and information was given on virtual treatment for methamphetamine dependence through [facility]. Mara Diop is a 27 year old female with a past history of IV drug abuse, current history of cannabis use, major depression, borderline personality disorder, currently admitted to neuropsychiatric unit, hospitalist team was consulted due to concerns for numbness, lack of stooling, difficulty urinating, with complaints of back pain.? 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 She does report IV drug abuse, but reports that her last use was over a year ago, no history of complications from IV drug abuse.? She tells me that she has been here at the neuropsychiatric unit for the last 10 days, she has been having more than usual low back pain, for the last 2 weeks, she had been noticing that she started develop numbness around her anus, along her left gluteus, with constipation, and difficulty urinating.? Since she has been here she tells me that that numbness is slowly creeping anteriorly, extending from around the anus, around the left gluteus, around to the left anterior thigh, involving left area over her bladder, that extending to the left part of her vagina and her perineum.? She also reports difficulty urinating at times, but was able to uri dima this morning, she was able to urinate overnight and her postvoid residual was 61 cc.? She also reports constipation, throughout the last 2 weeks, she does report difficulty straining, no bloody or black stools, she did have a bowel movement yesterday but it was small.? She denies any numbness or tingling of her toes, of her legs.? She denies any weakness or trouble coordinating of her lower extremities.? No weakness in her feet, and her calves and her thighs, normal trouble coordinating, no falls.? Denies any fevers, no chills, no cough Cauda equina syndrome -On examination she does have lack of pinprick sensation, along the perianal region more on the left, along the left gluteus medius and yocasta, around the left part of the vaginal wall, left perineum, above the bladder on the left, -She has good strength in bilateral thighs, good strength bilateral calves, good ankle and toe raises, good strength in her Achilles tendon bilaterally -Her [id number] is abnormal -She is able to walk without any difficulty -Does have perianal numbness, with decreased stooling and complaints of constipation -Does have complaints of retaining urine, but was bladder scanned last night at 61 cc -She was receiving Decadron -Her MRI of the lumbar spine done 08/31/2022 showed L5-S1: Small facet joint effusions. There are posterior osteophytes and a disc bulge with a superimposed midline/bilateral paracentral disc extrusion severely narrowing the canal. Cauda equina are crowded and or compressed at this level. Mild bilateral neural foraminal narrowing. Compared to MRI 04/18/2022 L5-S1: Very small central disc protrusion and annular fissure. There is mild encroachment upon the exiting S1 nerve roots bilaterally. Only mild central and bilateral subarticular recess stenosis. Small amount of fluid in the facet joints. S1-S2: Moderate to large central disc protrusion extends caudad to the disc level. Disc extends over a length of 13 mm. There is significant encroachment on the central and LEFT lateral thecal sac extending into the subarticular recess. There is contact on the LEFT sacral nerve root. There is additional contact on the RIGHT sacral nerve roots but to a lesser extent. Moderate central stenosis. No significant foraminal stenosis. -I did discuss the case with Dr. Guallpa, at [facility] neurosurgery after discussion of the case in detail, he felt that there is nothing emergently that needs to be done, no emergency surgery needed, potentially this could be a slowly progressive cauda equina syndrome, at some point down the line she is going to need a decompression, how ever if her symptoms acutely worsen specially her strength in the lower extremities in the calves, then it it would be urgent, or complete lack of stooling and urination -Patient was monitored on MedSurg for 24 hours, orthopedic spine surgery was consulted, given patient's persistent symptomatology they recommended surgical intervention, patient underwent L5-S1 laminectomy with partial facetectomy and discectomy, tolerated procedure well, received PT OT, pain control, monitored after surgical intervention. Overall she clinically proved, ambulating without significant symptomatology, urinating appropriately, having stooling appropriately, her numbness persisted, I advised her to monitor. Follow-up with orthopedic spine surgery as outpatient. If she were to have any trouble ambulating, worsening symptomatology go to the emergency room. Discharged with pain control to be used sparingly for pain, continue ambulation. I have discharged her on cefdinir for UTI Involuntary Hold Information 96 Hour Hold: 96 Hour Involuntary Admission: Yes 96 Hour Hold Ending Date: 08/28/22 96 Hour Hold Ending Time: 20:50 Mental Status Exam MSE Comments: This is an obese white female with hospital scrubs on with poor grooming and fair eye contact today. She was friendly and cooperative on interview. There was evidence of mild psychomotor retardation appreciated. She appeared cooperative with exam less pain as she was walking through the hallway. Her speech was normal in regards to rate rhythm and prosody. Mood described as b kristen. Her affect was brighter. Thought process was linear and organized.? Thought content: Patient minimized any suicidal or homicidal ideation. There are no delusions noted. She did not appear to be responding to internal stimuli. She denied any auditory or visual hallucinations.? Attention and concentration were limited and memory appeared mostly reliable but none were formally tested.? She is alert and oriented x3.? Insight and judgment are improved. Impulse control appeared to be improving. Discharge Data Studies Completed and Pending: Completed Studies During Hospitalization Category Date Time Status CT abdomen pelvis w con* [id number] Rout ine Cat Scan 08/28/22 17:[address] abdomen pelvis wo con [id number] Stat Cat Scan 08/22/22 20:16 Completed XR abdomen min 2V [id number] Routine Exams 08/27/22 13:07 Completed XR abdomen min 2V [id number] Routine Exams 08/30/22 16:11 Completed MR lumbar spine w o con* [id number] Urgen t MRI 08/31/22 00:32 Completed Pending at discharge Category Date Time Status Blood Culture Sta t Lab 09/01/22 11:26 Ordered CBC Auto Diff [Co mplete Blood Count w/Auto] Routine Lab 09/01/22 11:25 Ordered Comprehensive Met abolic Panel Routi ne Lab 09/01/22 11:26 Ordered Creatine Phosphok inase Routine Lab 09/01/22 11:26 Ordered Drug Screen, Urin e Routine Lab 09/01/22 11:30 Received Erythrocyte Sedim entation Rate Rout ine Lab 09/01/22 11:25 Ordered HCG Quantitative Routine Lab 09/01/22 11:26 Ordered Thyroid Stimulati ng Hormone Routine Lab 09/01/22 11:26 Ordered Urinalysis Routin e Lab 09/01/22 11:30 Results Radiology Impressions Abdomen/Pelvis CT 08/28/22 17:07 IMPRESSION: No acute abnormality is seen in the abdomen or pelvis. Abdomen X-Ray 08/30/22 16:11 IMPRESSION: No acute findings. Lumbar Spine MRI 08/31/22 00:32 IMPRESSION: 1. At the L5-S1 level there is facet arthropathy, posterior osteophytes and a disc bulge with a superimposed midline/bilateral paracentral disc extrusion narrowing the canal. Cauda equina are crowded and or compressed. 2. Edematous endplate degenerative changes are present at the L5-S1 level. Laboratory Results WBC 9.8 10^3/uL (4.0- 10.0) 05/13/23 07:25 RBC 4.63 10^6/uL (4.1 -5.3) 08/31/22 07:25 Hgb 13.5 g/dL (11.5-1 5.3) 08/31/22 07:25 Hct 41.7 % (37.0-47.0 ) 08/31/22 07:25 MCV 90.1 fl (81-99) 08/31/22 07:25 MCH 29.2 pg (28.0-34. 0) 08/31/22 07:25 MCHC 32.4 g/dL (30.0-3 6.0) 08/31/22 07:25 RDW 12.4 % (12.1-15.1 ) 08/31/22 07:25 Plt Count 331 10^3/cmm (130 -400) 08/31/22 07:25 MPV 9.9 fL (7.4-10.4) 08/31/22 07:25 Neut % (Auto) 83.0 % 08/31/22 07:25 Lymph % (Auto) 15.5 % 08/31/22 07:25 [place] % (Auto) 0.8 % 08/31/22 07:25 Eos % (Auto) 0.0 % 08/31/22 07:25 Baso % (Auto) 0.2 % 08/31/22 07:25 Neut # (Auto) 8.16 10^3/uL (1.8 -7.7) H 08/31/22 07:25 Lymph # (Auto) 1.5 10^3/uL (0.8- 4.8) 08/31/22 07:25 [place] # (Auto) 0.1 10^3/uL (0.2- 0.9) L 08/31/22 07:25 Eos # (Auto) 0.0 10^3/uL (0.0- 0.8) 08/31/22 07:25 Baso # (Auto) 0.0 10^3/uL (0.0- 0.1) 08/31/22 07:25 Nucleated RBC % (a uto) 0 % 08/31/22 07:25 Nucleated RBCs # 0.0 /100WBC 08/31/22 07:25 Sodium 135 mmol/L (136-1 45) L 08/31/22 07:25 Potassium 4.1 mmol/L (3.5-5 .1) 08/31/22 07:25 Chloride 104 mmol/L (98-10 7) 08/31/22 07:25 Carbon Dioxide 19 mmol/L (22-29) L 08/31/22 07:25 Anion Gap 16.1 (5-19) 08/31/22 07:25 BUN 12 mg/dL (6-20) 08/31/22 07:25 Creatinine 0.6 mg/dL (0.5-0. 9) 08/31/22 07:25 GFR Calculation 118.2 mL/min (90- 130) 08/31/22 07:25 Glucose 175 mg/dL (65-115 ) H 08/31/22 07:25 Calculated Osmolal ity 284 mOsm/kg (285- 295) L 08/31/22 07:25 Calcium 8.9 mg/dL (8.5-10 .5) 08/31/22 07:25 Total Bilirubin 0.5 mg/dL (0.15-1 .2) 08/31/22 07:25 AST 14 U/L (0-32) 08/31/22 07:25 ALT 18 U/L (0-33) 08/31/22 07:25 Alkaline Phosphata se 91 U/L (35-105) 08/31/22 07:25 Total Protein 7.2 g/dL (6.6-8.7 ) 08/31/22 07:25 Albumin 4.2 g/dL (3.5-5.2 ) 08/31/22 07:25 Globulin 3.0 g/dL (1.3-4.6 ) 08/31/22 07:25 HCG, Qual Negative (Negati ve) 08/22/22 20:14 Urine Color Yellow (Yellow) 08/26/22 08:51 Urine Appearance Cloudy (CLEAR) A 08/26/22 08:51 Urine pH 5 (5-7) 08/26/22 08:51 Ur Specific Gravit y 1.015 (1.005-1.0 30) 08/26/22 08:51 Urine Protein Neg (Negative) 08/26/22 08:51 Urine Glucose (UA) Norm (Normal) 08/26/22 08:51 Urine Ketones Negative (Negati ve) 08/26/22 08:51 Urine Blood Neg (Negative) 08/26/22 08:51 Urine Nitrate Positive (Negati ve) H 08/26/22 08:51 Urine Bilirubin Neg (Negative) 08/26/22 08:51 Urine Urobilinogen Norm mg/dL (Negat kwame) 08/26/22 08:51 Ur Leukocyte Avis ase 2+ (Negative) H 08/26/22 08:51 Urine RBC None /hpf (0-2) 08/26/22 08:51 Urine WBC 15-25 /hpf (0-5) H 08/26/22 08:51 Ur Squamous Epith Cells 0-4 /hpf (0-5) H 08/26/22 08:51 Amorphous Sediment Not Reportable 08/26/22 08:51 Urine Bacteria 3+ /hpf (NONE) H 08/26/22 08:51 Salicylates < 0.3 mg/dL (3-10 ) L 08/22/22 20:05 Urine Opiates Scre en Negative ng/mL (N egative) 08/22/22 20:14 Acetaminophen < 5.0 ug/mL (10-3 0) L 08/22/22 20:05 Ur Barbiturates Sc reen Negative ng/mL (N egative) 08/22/22 20:14 Ur Phencyclidine S crn Negative ng/mL (N egative) 08/22/22 20:14 Ur Amphetamines Sc reen Positive ng/mL (N egative) H 08/22/22 20:14 U Benzodiazepines Scrn Negative ng/mL (N egative) 08/22/22 20:14 Urine Cocaine Scre en Negative ng/mL (N egative) 08/22/22 20:14 U Marijuana (THC) Screen Positive ng/mL (N egative) H 08/22/22 20:14 Ethyl Alcohol < 10 mg/dL (0-10) 08/22/22 20:05 Vitals: Last Vital Signs Temp 98.1 F 08/31/22 20:14 Pulse 93 08/31/22 20:14 Resp 18 08/31/22 20:14 BP 132/83 08/31/22 20:14 Pulse Ox 96 08/31/22 20:14 O2 Del Method Room Air 08/30/22 22:00 Discharge Plan Discharge Patient Disposition: Home Condition: Stable Prescriptions: New quetiapine 150 mg tablet extended release 24 hr 150 mg PO QPM 30 Days Qty: 30 1RF bisacodyl 5 mg Tablet,Delayed Release (Dr/Ec) 10 mg PO DAILY PRN (Reason: Constipation) 30 Days Qty: 60 0RF hydrocodone-acetaminophen 10-325 mg Tablet 1 - 2 tab PO Q4H PRN (Reason: post op pain) Qty: 40 0RF cefdinir 300 mg capsule 300 mg PO BID 5 Days Qty: 10 0RF Continued medroxyprogesterone [Depo-Provera] 150 mg/mL suspension 150 mg IM Q90D Rx Instructions: Inject 1mL subcut every 3 months trazodone 50 mg tablet 100 mg PO .q hs PRN (Reason: insomnia) Qty: 30 0RF Rx Instructions: Take one or two at bedtime, if needed for insomnia omeprazole 20 mg capsule,delayed release(DR/EC) 20 mg PO DAILY Rx Instructions: Take one capsule by mouth every day. Zanaflex 4 mg tablet 4 mg PO TID PRN (Reason: Muscle Spasm) cyclobenzaprine 10 mg tablet 10 mg PO TID PRN (Reason: Muscle Spasm) acetaminophen [Acetaminophen Extra Strength] 500 mg Tablet 1,000 mg PO TID PRN (Reason: Pain) ondansetron 4 mg tablet,disintegrating 4 mg PO TID PRN (Reason: nausea and vomiting) duloxetine 30 mg Capsule,Delayed Release(Dr/Ec) 60 mg PO DAILY 30 Days Qty: 60 1RF magnesium hydroxide [Milk Of Magnesia Concentrated] 2,400 mg/10 mL suspension 15 ml PO BID PRN (Reason: constipation) Qty: 1000 0RF Discharge Orders: Discharge Order (Routine); Ordered 09/03/22 Ordered By: Macario Gonzales Referrals: Shay Swenson DO [Physician] - 09/17/22 2:15 pm Sonali Ball APRN [Nurse Practitioner] - 09/12/22 8:45 am Stephany Ha FNP-C [Primary Care Provider] - 09/18/22 2:45 pm Discharge Diet: Advance as tolerated Discharge Activity: Limit activity as instructed Patient Instructions: Oxycodone, Rapid Release (By mouth) (ETH-Oxydose, Oxy IR,..., Quetiapine (By mouth) (Seroquel, Seroquel XR, Seroquel XR 14-Day..., Bisacodyl (By mouth), Depression (ED), Help Prevent Suicide (GEN), Suicide Prevention (GEN), Laminectomy (GEN), Opioid Safety Activity Restrictions/Additional Instructions: Thank you for [facility] for your care! The following is a list of instructions, from your provider, to follow upon your discharge to ensure you have the optimal recovery from your recent injury or surgery. Follow-up care is a lou part of your treatment and safety. Be sure to make and go to all appointments and call your doctor if you are having problems. If you do not already have a follow-up appointment made, call Dr. Swenson's] office in the next 1-3 days to make follow up appointment for 1 weeks at [phone]. It is also a good idea to know your test results and keep a list of the medicines you take. Medications will be prescribed for you at your provider's discretion. These medications are to be used as instructed; if they are taken more often that prescribed they will not be refilled early and in most cases will not be refilled at all. > When a refill is needed,you should contact radha callahan 2-3 business days before your prescription runs out. Medications will NOT be refilled by rn lactation consultant providers after hours! > Many pain medications contain Tylenol (Acetaminophen). Do not consume more than 4,000 mg of Tylenol per day in total with any combination ofmedications. > Pain medications can cause constipation. Please use an over the counter stool softener as directed, while taking pain medications. Consult your local pharmacist with questions or recommendations on stool softeners. If constipation persists, contact our office or your primary care provider. > While under our care, you are not to receive pain medications or other controlled substances from any other provider unless our office is notified and approves. Any attempts to do so will result in refusal to prescribe any further pain medications and possible dismissal from our practice. Your wound and/or dressing should remain clean and dry for 2 days after surgery. On postoperative day 2 (48 hours after your surgery) the dressing (if present) should be removed and it is okay to shower and get the incision wet. Pad dry afterwards. No further dressing should be required from that point on. Do not put any creams or ointments on theincision > It is normal for there to be a small amount of discharge (bloody or blood tinged) present from a surgical wound for the first 1-3days. > The wound should be examined twice a day for signs of infection. Mild redness or bruising is to be expected but indications that an infection maybe starting would include; An increase in redness, swelling, or discharge, a foul odor present around the incision, and/or a fever greater than 101 ?F ? Showering is permitted, however we ask that you do not take a bath, sit in a whirlpool / Jacuzzi, or go swimming for 1 month. For only the first 2 days after surgery, lt will be necessary for you to cover your wound/dressing with plastic and tape to keep it dry. ? Walking is essential for the healing process after surgery. We would like you to slowly advance your walking. This should be done on relatively flat clear ground (inside or out) or can be done on a treadmill. Remember this goal does not have to happen all at once, slowly increase your distance and duration. This can be broken into more more than one walk per day as tolerated. Patients who walk as directed after surgery rarely require Physical Therapy. In the unlikely event this issue arises your provider will direct hospital staff to make the appropriate arrangements. ? No lifting over 5 pounds {a gallon of milk) or bending/twisting until further notice. Each of these activities places an unnecessary amount of stress onto the body and can impede the delicate healing process. > Instead of bending at the waist, keep your back straight and bend at the knees. > Instead of twisting your torso, keep your back straight and turn your entire body with your feet. ? You may sleep in any position which makes you comfortable. Many patients find comfort sleeping in a reclining chair. It is not abnormal to have difficulty sleeping for the first several weeks following your surgery. We recommend trying Benadry! or Tylenol PM as directed to help with your sleeping difficulties. Both medications are over the counter and available without prescription. ? NO SMOKING!!! Smoking dramatically increases the probability of developing postoperative wound infections. ? Common complaints after lumbar and/or thoracic spine surgery include, but are not limited to: numbness and/or tingling in the legs, pain around the incision and surrounding tissues, muscle spasms, or stiffness of the middle to low back. Contact our office if these symptoms persist or if an acute change occurs. ? No driving for the first 3-5days, and not while taking narcotics until seen at your follow-up appointment and cleared. There are no restrictions for riding on short trips, however if you take a longer trip, arrangements should be made to make regular stops to get out of the vehicle and stretch . ? Swelling is an unfortunate event that will take place with any surgery and is the primary source of your postoperative discomfort. While walking and regular approved activities helps control inflammation, there are additional steps you can take to minimizeswelling. > Place ice over the surgical site and surrounding tissue for twenty minutes, followed by applying a low/medium heat (heating pad) for an additional twenty minutes every 1-2 hours as needed for painrelief. > You may use of over the counter anti-inflammatory medications (Ibuprofen, Motrin, Aleve, Advil, etc) as directed on the package label. These types of medicines wm significantly reduce the amount of discomfort you experience after surgery from swelling. It should be noted that if you have and allergy to any of these medications, or a history of ulcers or kidney disease you should consult you primary care provider prior to starting these medications. Discharge Attestations NPU Time Spent in Discharge Care*: less than 30 min Status at Discharge: Cognitive status at discharge: cognitively intact , Behavioral status at discharge: cooperative , Coding Level of Care Code Acute g FW [place] note Diagnoses Constipation K59.00
== END 2022-09-03 14:41 | disposition home or self-care (01) | DRG 876 ==
LOC: ER 20:39 → NP 21:56 → MEDSURG 09-01 16:53
PROVIDERS: Internal Medicine; Orthopaedic Surgery; Psychiatry & Neurology Psychiatry; Admitting Provider Psychiatry & Neurology Psychiatry; Emergency Provider Emergency Medicine; PCP Nurse Practitioner Family; Visit Provider Family Medicine
PROC: 0ST40ZZ Resection of Lumbosacral Disc, Open Approach (ICD-10-PCS; principal; 2022-09-02 17:00)
DX: F31.9 Bipolar disorder, unspecified (principal); R45.851 Suicidal ideations; N39.0 Urinary tract infection, site not specified; G83.4 Cauda equina syndrome; R45.850 Homicidal ideations; Z59.00 Homelessness unspecified; G89.29 Other chronic pain; F60.3 Borderline personality disorder; F12.10 Cannabis abuse, uncomplicated; F63.9 Impulse disorder, unspecified; F15.11 Other stimulant abuse, in remission; F17.290 Nicotine dependence, other tobacco product, uncomplicated; F41.9 Anxiety disorder, unspecified; R32 Unspecified urinary incontinence; M51.27 Other intervertebral disc displacement, lumbosacral region; M51.37 Other intervertebral disc degeneration, lumbosacral region; K59.00 Constipation, unspecified
CPT/HCPCS: 36415; 51798; 72020; 72148; 74019; 74176; 74177; 76000; 80053; 80074; 80306; 80307; 81001; 81025; 82550; 82607; 82746; 83036; 84443; 84702; 85025; 85651; 87040; 87077; 87086; 87186; 87806; 93005; 94664; 96372; 97116; 97150; 97161; 97165; C9113; J0690; J1100; J1650; J2250; J2405; J2704; J3010; J3370; J3490; J7030; J7120; Q9967

== ENCOUNTER 2022-09-17 13:23 | Outpatient (CLI) | payer OTHER, SELFPAY ==
[2022-01-03 16:36] VITALS: BP 138/88; BMI 35.0
--- NOTE | 2022-09-17 13:31 | W.CSC.CMN ---
CSC Case Management Note Current Presentation: Client stopped in today for snacks. Intervention: CSS provided snacks for client. Client Response: Client was appreciative of services. Client Barriers: Unknown Outcome of Encounter: left the office. Current SI: None Current HI: None
--- NOTE | 2022-09-17 13:38 | CSC.DSPLAN ---
CSC Discharge Plan Current SI: None Current HI: None Safety Plan Completed: No Client Presentation upon Discharge: Appreciative of the snacks Current Progress Towards Recovery and Well-Being: unknown Continued Stability Barriers: unknown Services Referred: Other local/state community services (none) Is client being admitted to CSC: No CSC Outcome: Crisis Stabilized CSC Disposition: Unknown
== END 2022-09-17 13:29 | disposition home or self-care (01) ==
LOC: BHC CSC 13:25
PROVIDERS: PCP Nurse Practitioner Family; Visit Provider Psychiatry & Neurology Neurology
DX: Z47.89 Encounter for other orthopedic aftercare (principal)

== ENCOUNTER → 2022-09-17 13:37 | Outpatient (BNVA) | payer MEDICAID, SELFPAY ==
[2022-01-03 16:36] VITALS: BP 138/88; BMI 35.0
== END ==
PROVIDERS: PCP Nurse Practitioner Family; Visit Provider Orthopaedic Surgery
DX: Z47.89 Encounter for other orthopedic aftercare (principal)
CPT/HCPCS: 99024

== ENCOUNTER 2023-03-31 01:50 | Emergency (ER) | payer MEDICAID, SELFPAY ==
[2022-01-03 16:36] VITALS: BP 138/88; BMI 35.0
[2023-03-31 01:51] VITALS: BP 129/89; PULSE 99; RESP 16; TEMP 36.5; O2SAT 98; BMI 37.3
[2023-03-31 03:31] VITALS: BP 129/89; PULSE 99; RESP 16; TEMP 36.5; O2SAT 98
--- NOTE | 2023-03-31 05:03 | W.ED.GENADLT ---
HPI - General Adult General: Chief complaint: General Medical Stated complaint: FEELS WEIRD AFTER TAKING MEDS Time Seen by Provider: 03/31/23 02:31 History of Present Illness: 27-year-old female who could not sleep. She took an extra half Seroquel, and extra hydroxyzine this evening. She notes this made her feel weird . Symptoms included hot flashes, with brief trouble breathing. Symptoms are resolved currently. No seizure, no tachycardia, no chest pain, no vomiting. Associated symptoms: Deny chest pain, confusion, dyspnea, headache(s), nausea, rash, palpitations or vomiting Review of Systems Const: Denies: fever(s), chills or body aches Eyes: Denies: change in vision Card: Denies: chest pain or palpitations Resp: Denies: dyspnea, productive cough, non-productive cough or wheezing GI: Denies: abdominal pain, nausea, vomiting, diarrhea or hematochezia : Denies: difficulty voiding Skin/Breast: Denies: rash Neuro: Denies: headache(s), weakness in extremities, dizziness or confusion PFSH ED PFSH: Medical History Major depressive disorder, recurrent episode with anxious distress Major depressive disorder, recurrent severe without psychotic features Nausea alone Psychiatric care Evaluation regarding contraception options COVID-19 Suicidal ideation Methamphetamine abuse Cannabis abuse Impulse control disorder Borderline personality disorder Major depression Surgical History History of knee surgery Status post myringotomy with tube placement of both ears Family History Other Diabetes Lung disease Rheumatoid arthritis Social History Smoking and tobacco/nicotine status: current every day tobacco/nicotine user e-cigarettes E-Cigarette Details: with nicotine E-cig/vape details: 1 week to go through a tank Quit status (tobacco/nicotine): considering quitting Second hand smoke exposure: Yes Alcohol intake: former Year of sobriety/quit date alcohol: 2021 Substance/Drug Use: former Date of last use: 08/10 Adopted: No Caregiver/support person: No Lives independently: No Household members: other Details: SOC Housing: Homeless Marital status: Single Number of children: 2 Highest education level completed: Some College, No Degree service: No Current occupational status: employed 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 Pets and animals: No Leisure activites: music Sexually active: No Do you think of yourself as: Straight/Heterosexual Current gender identity: Female Briseida/Jew: None Special briseida needs: No Agree to transfusion: Yes Female Reproductive History: Para: 2 Spontaneous abortions: Yes Physical Exam Const: COMMON NORMALS: no acute distress GENERAL APPEARANCE: cooperative; not ill appearing and not frail appearing HENMT: COMMON NORMALS: normocephalic, atraumatic and Normal external nose present HEAD & SCALP: normocephalic and atraumatic FACE & SINUS: normal facial exam and face symmetric NOSE: Normal external nose present Eye: COMMON NORMALS: Equal, round and reactive pupils present and EOMs intact bilaterally PUPIL: Yes Equal, round and reactive pupils present Neck/C-Spine: GENERAL: Yes trachea midline Chest: CHEST: Yes Symmetrical chest wall rise Resp: COMMON NORMALS: normal respiratory effort, No retractions, No use of accessory muscles and clear to auscultation bilaterally AUSCULTATION: clear to auscultation bilaterally Cardio: COMMON NORMALS: regular rate and regular rhythm RATE: regular rate RHYTHM: regular rhythm GI: COMMON NORMALS: Normal to inspection, nondistended, normoactive bowel sounds present Extremity: COMMON NORMALS: no pedal edema Neuro: ADEN COMA SCALE: document GCS findings [place] coma scale eye opening: Spontaneous Aden coma scale verbal response: Orientated [place] coma scale motor response: Obey commands [place] coma scale total score: 15 SENSORY EXAM: Yes extremities (intact) Psych: COMMON NORMALS: speech normal SPEECH: Yes normal speech Skin: COMMON NORMALS: no rashes or lesions noted GENERAL SKIN EXAM: no rashes or lesions noted Course Vital Signs: Vital signs: Vital Signs Temperature 97.7 F 03/31/23 03:31 Pulse Rate 99 03/31/23 03:31 Respiratory Rate 16 03/31/23 03:31 Blood Pressure 129/89 03/31/23 03:31 Pulse Oximetry 98 03/31/23 03:31 MDM - General Adult Medical Decision Making Patient took nontoxic doses of medication. She is not homicidal or suicidal. Symptoms are resolved. She will be allowed discharge. No radiology studies performed this visit Discharge Plan Discharge Patient Disposition: Home Clinical Impression: Insomnia, Adverse reaction to drug Condition: Stable Prescriptions: No Action medroxyprogesterone [Depo-Provera] 150 mg/mL suspension 150 mg IM Q90D Rx Instructions: Inject 1mL subcut every 3 months trazodone 50 mg tablet 100 mg PO .q hs PRN (Reason: insomnia) Qty: 30 0RF Rx Instructions: Take one or two at bedtime, if needed for insomnia hydrocodone-acetaminophen 10-325 mg tablet 1 tab PO .q4-6hrs PRN (Reason: post op pain) 5 Days Qty: 30 0RF hydrocodone-acetaminophen 10-325 mg tablet 1 tab PO Q6H PRN (Reason: pain) 7 Days Qty: 30 0RF tramadol 50 mg tablet 50 mg PO Q6H PRN (Reason: pain) Qty: 30 0RF omeprazole 20 mg capsule,delayed release(DR/EC) 20 mg PO DAILY Rx Instructions: Take one capsule by mouth every day. Zanaflex 4 mg tablet 4 mg PO TID PRN (Reason: Muscle Spasm) cyclobenzaprine 10 mg tablet 10 mg PO TID PRN (Reason: Muscle Spasm) quetiapine 150 mg tablet extended release 24 hr 150 mg PO QPM 30 Days Qty: 30 1RF acetaminophen [Acetaminophen Extra Strength] 500 mg Tablet 1,000 mg PO TID PRN (Reason: Pain) ondansetron 4 mg tablet,disintegrating 4 mg PO TID PRN (Reason: nausea and vomiting) duloxetine 30 mg Capsule,Delayed Release(Dr/Ec) 60 mg PO DAILY 30 Days Qty: 60 1RF magnesium hydroxide [Milk Of Magnesia Concentrated] 2,400 mg/10 mL suspension 15 ml PO BID PRN (Reason: constipation) Qty: 1000 0RF Discharge Orders: Discharge ED (Routine); Ordered 03/31/23 Ordered By: Lit Washington Referrals: Jayden Daily MD [Primary Care Provider] - 1-3 days Patient Instructions: Adverse Drug Reaction (ED), Opioid Safety, Pain Management Activity Restrictions/Additional Instructions: Return for any concerning symptoms. See your doctor this week. Coding Level of Care Code ED Marketing Technology Coordinator for Estrella Hou
== END 2023-03-31 03:32 | disposition home or self-care (01) ==
PROVIDERS: Emergency Provider Emergency Medicine; PCP Family Medicine
DX: G47.00 Insomnia, unspecified (principal); T88.7XXA Unspecified adverse effect of drug or medicament, initial encounter; T43.595A Adverse effect of other antipsychotics and neuroleptics, initial encounter; F17.290 Nicotine dependence, other tobacco product, uncomplicated
CPT/HCPCS: 99281

== ENCOUNTER 2023-08-10 16:51 | Emergency (ER) | payer MEDICAID, SELFPAY ==
[2022-01-03 16:36] VITALS: BP 138/88; BMI 35.0
[2023-08-10 17:17] VITALS: BP 141/95; PULSE 96; RESP 17; TEMP 36.7; O2SAT 97; BMI 35.5
--- NOTE | 2023-08-10 17:40 | XRR_ITS ---
PROCEDURE INFORMATION: Exam: XR Chest Exam date and time: 08/10/2023 6:40 PM Age: 28 years old Clinical indication: Other: Clearance; Additional info: Clearance for psych placement TECHNIQUE: Imaging protocol: Radiologic exam of the chest. Views: 1 view. COMPARISON: CR XR chest 1V portable [id number] 04/10/2022 1:44 PM FINDINGS: Lungs: No focal consolidation. Pleural spaces: No evidence of pneumothorax. No evidence of pleural effusion. Heart/Mediastinum: Cardiomediastinal silhouette is within normal limits. Bones/joints: No evidence of acute osseous abnormality. XR/XR chest 1V portable [id number] IMPRESSION: 1. No acute cardiopulmonary abnormality.
--- NOTE | 2023-08-10 17:41 | ECG_ITS ---
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 Measurements Intervals [place] Rate: 92 P: 62 FL: 144 QRS: 76 QRSD: 84 T: 36 QT: 340 QTc: 421 Interpretive Statements SINUS RHYTHM POSSIBLE LEFT ATRIAL ENLARGEMENT [-0.1mV P-WAVE IN V1/V2] Compared to ECG 09/02/2022 09:44:26 T-wave abnormality no longer present Electronically Signed On 08-11-2023 15:01:31 CDT by David Eaton M.D. [id number]
--- NOTE | 2023-08-10 17:48 | ED.C_ITS ---
HPI - Psych 2 General: Chief Complaint: Psychiatric Symptoms Stated Complaint: confused Time Seen by Provider: 08/10/23 17:24 History of Present Illness: Patient says she has been feeling more anxious and feels like maybe her PTSD symptoms are worse. She says she feels somewhat confused. She says the last time this happened she had a pneumonia. She does not have a cough or any other symptoms at this time. She felt like she needed to be checked out this hoping to find some sort of medication to help with her PTSD. She does not have an appointment with a psychiatrist for couple of weeks. She denies any homicidal or suicidal ideations. Review of Systems 2 Narrative: Constitutional symptoms: Negative except as documented in HPI. Skin symptoms: Negative except as documented in HPI. Eye symptoms: Negative except as documented in HPI. ENMT symptoms: Negative except as documented in HPI. Respiratory symptoms: Negative except as documented in HPI. Cardiovascular symptoms: Negative except as documented in HPI. Gastrointestinal symptoms: Negative except as documented in HPI. Genitourinary symptoms: Negative except as documented in HPI. Musculoskeletal symptoms: Negative except as documented in HPI. Neurologic symptoms: Negative except as documented in HPI. Psychiatric symptoms: Negative except as documented in HPI. Endocrine symptoms: Negative except as documented in HPI. PFSH ED 2 PFSH: Medical History Major depressive disorder, recurrent episode with anxious distress Major depressive disorder, recurrent severe without psychotic features Nausea alone Psychiatric care Evaluation regarding contraception options COVID-19 Suicidal ideation Methamphetamine abuse Cannabis abuse Impulse control disorder Borderline personality disorder Major depression Surgical History History of knee surgery Status post myringotomy with tube placement of both ears Family History Other Diabetes Lung disease Rheumatoid arthritis Social History Smoking and tobacco/nicotine status: current every day tobacco/nicotine user e- cigarettes E-Cigarette Details: with nicotine E-cig/vape details: 1 week to go through a tank Quit status (tobacco/nicotine): considering quitting Second hand smoke exposure: Yes Alcohol intake: former Year of sobriety/quit date alcohol: 2022 Substance/Drug Use: former Date of last use: 08/10 Adopted: No Caregiver/support person: No Lives independently: No Household members: other Details: SOC Housing: Homeless Marital status: Single Number of children: 2 Highest education level completed: Some College, No Degree service: No Current occupational status: employed 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 Skin: Warm, dry. Head: Normocephalic, atraumatic. Neck: Supple, trachea midline. Eye: Extraocular movements are intact. Ears, nose, mouth and throat: mucosa moist. Cardiovascular: Regular, Normal peripheral perfusion. Respiratory: Lungs are clear to auscultation, respirations are non-labored, breath sounds are equal, Symmetrical chest wall expansion. Gastrointestinal: Soft, Nontender, Non distended, Normal bowel sounds. Musculoskeletal: Normal ROM, no deformity. Neurological: Alert and oriented, No focal neurological deficit observed. Psychiatric: Cooperative, flat affect, somewhat anxious Course 2 Vital Signs: Vital signs: Vital Signs Temperature 98.1 F 08/10/23 17:17 Pulse Rate 96 08/10/23 17:17 Respiratory Rate 17 08/10/23 17:17 Blood Pressure 141/95 08/10/23 17:17 Pulse Oximetry 97 08/10/23 17:17 Oxygen Delivery Me thod Room Air 08/10/23 17:17 MDM - Psych Medical Decision Making Medical decision making: Differential diagnosis including but not limited to and based on the above HPI, review of systems and physical exam: Patient basically requested medical evaluation to be sure she is not having some underlying symptoms causing her worsening psychiatric symptoms. Orders placed to evaluate differential diagnosis based on the above differential, HPI and physical exam Lab Review: Laboratory results were reviewed and interpreted by myself the emergency room physician. Lab work and x-ray showed no acute process. Chest x-ray: No changes from previous x-ray other than the addition of what appears to be nipple rings. No acute process. No infiltrate. No pneumothorax. No cardiomegaly. This was reviewed and interpreted by myself the ER physician. EKG: Time 1802 rate 92. Normal sinus rhythm, No ST-T changes, no ectopy, normal KS & QRS intervals, This was reviewed and interpreted by myself the ER physician at 1805. I reviewed the patient's medical record. Lab Data 08/10/23 19:17 08/10/23 19:17 Radiology Impressions Chest X-Ray 08/10/23 17:40 IMPRESSION: 1. No acute cardiopulmonary abnormality. Laboratory Results WBC 10.43 10^3/uL (3.29-11.43) 08/10/23 19:17 RBC 4.66 10^6/uL (3.85-5.65) 08/10/23 19:17 Hgb 13.50 g/dL (11.27-16.99) 08/10/23 19:17 Hct 41.8 % (36-47) 08/10/23 19:17 MCV 89.7 fl (85-98) 08/10/23 19:17 MCH 29.0 pg (27-33) 08/10/23 19:17 MCHC 32.3 g/dL (30-55) 08/10/23 19:17 RDW 13.0 % (12.1-15.1) 08/10/23 19:17 Plt Count 312 10^3/cmm (157-399) 08/10/23 19:17 MPV 10.3 fL (7.4-10.4) 08/10/23 19:17 Neut % (Auto) 61.9 % 08/10/23 19:17 Lymph % (Auto) 29.9 % 08/10/23 19:17 [place] % (Auto) 5.4 % 08/10/23 19:17 Eos % (Auto) 1.9 % 08/10/23 19:17 Baso % (Auto) 0.7 % 08/10/23 19:17 Neut # (Auto) 6.46 10^3/uL (1.8-7.7) 08/10/23 19:17 Lymph # (Auto) 3.1 10^3/uL (0.8-4.8) 08/10/23 19:17 [place] # (Auto) 0.6 10^3/uL (0.2-0.9) 08/10/23 19:17 Eos # (Auto) 0.2 10^3/uL (0.0-0.8) 08/10/23 19:17 Baso # (Auto) 0.1 10^3/uL (0.0-0.1) 08/10/23 19:17 Nucleated RBC % (auto) 0 % 08/10/23 19:17 Nucleated RBCs # 0.0 /100WBC 08/10/23 19:17 Sodium 142 mmol/L (136-145) 08/10/23 19:17 Potassium 4.3 mmol/L (3.5-5.1) 08/10/23 19:17 Chloride 107 mmol/L (98-107) 08/10/23 19:17 Carbon Dioxide 26 mmol/L (22-29) 08/10/23 19:17 Anion Gap 13.3 (5-19) 08/10/23 19:17 BUN 11 mg/dL (6-20) 08/10/23 19:17 Creatinine 0.6 mg/dL (0.5-0.9) 08/10/23 19:17 GFR Calculation 117.4 mL/min (90-130) 08/10/23 19:17 Glucose 110 mg/dL (65-115) 08/10/23 19:17 Calculated Osmolality 294 mOsm/kg (285-295) 08/10/23 19:17 Calcium 9.3 mg/dL (8.5-10.5) 08/10/23 19:17 Total Bilirubin 0.3 mg/dL (0.15-1.2) 08/10/23 19:17 AST 18 U/L (0-32) 08/10/23 19:17 ALT 10 U/L (0-33) 08/10/23 19:17 Alkaline Phosphatase 112 U/L (35-105) H 08/10/23 19:17 Total Protein 7.4 g/dL (6.6-8.7) 08/10/23 19:17 Albumin 4.2 g/dL (3.5-5.2) 08/10/23 19:17 Globulin 3.2 g/dL (1.3-4.6) 08/10/23 19:17 TSH 1.81 uIU/mL (0.27-4.20) 08/10/23 19:17 HCG, Qual Negative (Negative) 08/10/23 16:54 Salicylates < 0.3 mg/dL (3-10) L 08/10/23 19:17 Acetaminophen < 5.0 ug/mL (10-30) L 08/10/23 19:17 Ethyl Alcohol < 10 mg/dL (0-10) 08/10/23 19:17 All radiology interpretation(s) finalized by discharge Other Data Assessment and plan: Anxiety/PTSD - Discharged home - Discussed findings and plan with patient. Answered any questions. - All laboratory values were reviewed and interpreted personally by myself, the ER physician - All imaging was reviewed and interpreted personally by myself, the ER physician. - Evaluation and treatment of this problem were appropriate in the emergency setting Discharge Plan Discharge Patient Disposition: Home Clinical Impression: Acute anxiety Condition: Stable Prescriptions: New hydroxyzine HCl 25 mg tablet 25 mg PO BID PRN (Reason: anxiety) Qty: 30 0RF No Action medroxyprogesterone [Depo-Provera] 150 mg/mL suspension 150 mg IM Q90D Rx Instructions: Inject 1mL subcut every 3 months trazodone 50 mg tablet 100 mg PO .q hs PRN (Reason: insomnia) Qty: 30 0RF Rx Instructions: Take one or two at bedtime, if needed for insomnia hydrocodone-acetaminophen 10-325 mg tablet 1 tab PO .q4-6hrs PRN (Reason: post op pain) 5 Days Qty: 30 0RF hydrocodone-acetaminophen 10-325 mg tablet 1 tab PO Q6H PRN (Reason: pain) 7 Days Qty: 30 0RF tramadol 50 mg tablet 50 mg PO Q6H PRN (Reason: pain) Qty: 30 0RF omeprazole 20 mg capsule,delayed release(DR/EC) 20 mg PO DAILY Rx Instructions: Take one capsule by mouth every day. Zanaflex 4 mg tablet 4 mg PO TID PRN (Reason: Muscle Spasm) cyclobenzaprine 10 mg tablet 10 mg PO TID PRN (Reason: Muscle Spasm) quetiapine 150 mg tablet extended release 24 hr 150 mg PO QPM 30 Days Qty: 30 1RF acetaminophen [Acetaminophen Extra Strength] 500 mg Tablet 1,000 mg PO TID PRN (Reason: Pain) ondansetron 4 mg tablet,disintegrating 4 mg PO TID PRN (Reason: nausea and vomiting) duloxetine 30 mg Capsule,Delayed Release(Dr/Ec) 60 mg PO DAILY 30 Days Qty: 60 1RF magnesium hydroxide [Milk Of Magnesia Concentrated] 2,400 mg/10 mL suspension 15 ml PO BID PRN (Reason: constipation) Qty: 1000 0RF Discharge Orders: Discharge ED (Routine); Ordered 08/10/23 Ordered By: Dang Kirk Referrals: Jayden Daily MD [Primary Care Provider] - (You have been screened and evaluated and felt safe for discharge. Health conditions do change or evolve sometimes and as such it is important that you follow up with your Primary Doctor to be re checked, 3-5 days is a general good time frame for follow up. You are always welcome to return to the ED for re assessment if your symptoms are worsening or you have new concerns) Discharge Diet: Usual diet Discharge Activity: Resume usual activity Patient Instructions: Anxiety (ED) Coding Level of Care Code ED Product Sales Representative for Estrella Hou
[2023-08-10 18:18] LABS: HCG Qualitative Urine. Negative (Negative)
[2023-08-10] MEDS: LORazepam 2 mg/mL INJ 10 mL MDV 1 MG IV (19:02)
[2023-08-10 19:26] LABS: Basophils # 0.1 10^3/uL (0.0-0.1); Basophils % 0.7 %; Eosinophils # 0.2 10^3/uL (0.0-0.8); Eosinophils % 1.9 %; Hematocrit 41.8 % (36-47); Lymphocytes # 3.1 10^3/uL (0.8-4.8); Lymphocytes % 29.9 %; Mean Corpuscular HGB Conc 32.3 g/dL (30-55); Mean Corpuscular Volume 89.7 fl (85-98); Mean Platelet Volume 10.3 fL (7.4-10.4); Monocytes # 0.6 10^3/uL (0.2-0.9); Monocytes % 5.4 %; Neutrophils # 6.46 10^3/uL (1.8-7.7); Neutrophils % 61.9 %; Nucleated Red Blood Cells % 0 %; Platelet Count 312 10^3/cmm (157-399); Red Blood Count 4.66 10^6/uL (3.85-5.65); White Blood Count 10.43 10^3/uL (3.29-11.43)
[2023-08-10 19:54] LABS: Alanine Aminotransferase 10 U/L (0-33); Albumin Level 4.2 g/dL (3.5-5.2); Alkaline Phosphatase 112 U/L (35-105); Anion Gap 13.3 (5-19); Aspartate Amino Transferase 18 U/L (0-32); Blood Urea Nitrogen 11 mg/dL (6-20); Calcium 9.3 mg/dL (8.5-10.5); Carbon Dioxide 26 mmol/L (22-29); Chloride 107 mmol/L (98-107); Creatinine Clr Calc Pharmacy 169.1354; Globulin 3.2 g/dL (1.3-4.6); Glomerular Filtration Rate 117.4 mL/min (90-130); Glucose 110 mg/dL (65-115); Osmolality Calculated 294 mOsm/kg (285-295); Potassium 4.3 mmol/L (3.5-5.1); Sodium 142 mmol/L (136-145); Thyroid Stimulating Hormone 1.81 uIU/mL (0.27-4.20); Total Bilirubin 0.3 mg/dL (0.15-1.2); Total Protein 7.4 g/dL (6.6-8.7)
[2023-08-10 19:55] LABS: Acetaminophen < 5.0 ug/mL (10-30); Alcohol Level < 10 mg/dL (0-10); Salicylate < 0.3 mg/dL (3-10)
[2023-08-10 21:00] VITALS: BP 136/100; PULSE 98; RESP 16; O2SAT 98
== END 2023-08-10 21:03 | disposition home or self-care (01) ==
PROVIDERS: Emergency Provider Emergency Medicine; PCP Family Medicine
DX: F41.9 Anxiety disorder, unspecified (principal); F17.290 Nicotine dependence, other tobacco product, uncomplicated
CPT/HCPCS: 36415; 71045; 80053; 80307; 81025; 84443; 85025; 93005; 96374; 99285; J2060

== ENCOUNTER 2023-08-28 17:37 | Emergency (ER) | payer MEDICAID, SELFPAY ==
[2022-01-03 16:36] VITALS: BP 138/88; BMI 35.0
[2023-08-28 17:54] VITALS: BP 125/73; PULSE 67; RESP 18; TEMP 36.4; O2SAT 98; BMI 35.0
--- NOTE | 2023-08-28 19:02 | ED_ITS ---
HPI - Back Pain/Injury General: Chief Complaint: Back Pain/Injury Stated Complaint: back pain Time Seen by Provider: 08/28/23 19:01 History of Present Illness: Patient has been having low back pain for the last couple of days. She says she has episodes of sciatica. It has been a long time since she has had it. She has a 3-year-old daughter that she is having to carry around. She says usually a steroid pack will help. No saddle numbness, no urinary retention or incontinence, no focal motor deficit, no sensory deficit. no recent fever. no cough. no shortness of breath. no chest pain. no abdominal pain. no nausea or vomiting. no dysuria. no altered mental status. no edema. Review of Systems Narrative: Constitutional symptoms: Negative except as documented in HPI. Skin symptoms: Negative except as documented in HPI. Eye symptoms: Negative except as documented in HPI. ENMT symptoms: Negative except as documented in HPI. Respiratory symptoms: Negative except as documented in HPI. Cardiovascular symptoms: Negative except as documented in HPI. Gastrointestinal symptoms: Negative except as documented in HPI. Genitourinary symptoms: Negative except as documented in HPI. Musculoskeletal symptoms: Negative except as documented in HPI. Neurologic symptoms: Negative except as documented in HPI. Psychiatric symptoms: Negative except as documented in HPI. Endocrine symptoms: Negative except as documented in HPI. PFSH ED PFSH: Medical History Major depressive disorder, recurrent episode with anxious distress Major depressive disorder, recurrent severe without psychotic features Nausea alone Psychiatric care Evaluation regarding contraception options COVID-19 Suicidal ideation Methamphetamine abuse Cannabis abuse Impulse control disorder Borderline personality disorder Major depression Surgical History History of knee surgery Status post myringotomy with tube placement of both ears Family History Other Diabetes Lung disease Rheumatoid arthritis Social History Smoking and tobacco/nicotine status: current every day tobacco/nicotine user e- cigarettes E-Cigarette Details: with nicotine E-cig/vape details: 1 week to go through a tank Quit status (tobacco/nicotine): considering quitting Second hand smoke exposure: Yes Alcohol intake: former Year of sobriety/quit date alcohol: 2021 Substance/Drug Use: former Date of last use: 08/10 Adopted: No Caregiver/support person: No Lives independently: No Household members: other Details: SOC Housing: Homeless Marital status: Single Number of children: 2 Highest education level completed: Some College, No Degree service: No Current occupational status: employed 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 Pets and animals: No Leisure activites: music Sexually active: No Do you think of yourself as: Straight/Heterosexual Current gender identity: Female Briseida/Spiritism: None Special briseida needs: No Agree to transfusion: Yes Female Reproductive History: Para: 2 Spontaneous abortions: Yes Physical Exam Narrative: EXAM NARRATIVE: General: Alert, no acute distress. Head: Normocephalic Neck: Trachea midline Eye: Extraocular movements are intact. Ears, nose, mouth and throat: Oral mucosa moist Respiratory: Respirations are non-labored Musculoskeletal: Normal ROM Back: no step off, no focal tenderness, some paraspinal muscle tenderness Neurological: Alert and oriented to person, place, time, and situation, No focal neurological deficit observed. Psychiatric: Cooperative, appropriate mood & affect. Course Vital Signs: Vital signs: Vital Signs Temperature 97.6 F 08/28/23 17:54 Pulse Rate 67 08/28/23 17:54 Respiratory Rate 18 08/28/23 17:54 Blood Pressure 125/73 08/28/23 17:54 Pulse Oximetry 98 08/28/23 17:54 Oxygen Delivery Me thod Room Air 08/28/23 17:54 MDM - Back Pain/Injury Medical Decision Making Patient has no neurologic symptoms so no imaging is needed. Also no trauma. Assessment and plan: Sciatica - Discharged home - Discussed plan with patient. Answered any questions. - Evaluation and treatment of this problem were appropriate in the emergency setting. No radiology studies performed this visit Discharge Plan Discharge Patient Disposition: Home Clinical Impression: Sciatica Condition: Stable Prescriptions: New dexamethasone 6 mg tablet 6 mg PO DAILY 5 Days Qty: 5 0RF diclofenac sodium 50 mg tablet,delayed release (DR/EC) 50 mg PO Q12H Qty: 20 0RF No Action medroxyprogesterone [Depo-Provera] 150 mg/mL suspension 150 mg IM Q90D Rx Instructions: Inject 1mL subcut every 3 months trazodone 50 mg tablet 100 mg PO .q hs PRN (Reason: insomnia) Qty: 30 0RF Rx Instructions: Take one or two at bedtime, if needed for insomnia hydrocodone-acetaminophen 10-325 mg tablet 1 tab PO .q4-6hrs PRN (Reason: post op pain) 5 Days Qty: 30 0RF hydrocodone-acetaminophen 10-325 mg tablet 1 tab PO Q6H PRN (Reason: pain) 7 Days Qty: 30 0RF tramadol 50 mg tablet 50 mg PO Q6H PRN (Reason: pain) Qty: 30 0RF omeprazole 20 mg capsule,delayed release(DR/EC) 20 mg PO DAILY Rx Instructions: Take one capsule by mouth every day. Zanaflex 4 mg tablet 4 mg PO TID PRN (Reason: Muscle Spasm) cyclobenzaprine 10 mg tablet 10 mg PO TID PRN (Reason: Muscle Spasm) quetiapine 150 mg tablet extended release 24 hr 150 mg PO QPM 30 Days Qty: 30 1RF hydroxyzine HCl 25 mg tablet 25 mg PO BID PRN (Reason: anxiety) Qty: 30 0RF acetaminophen [Acetaminophen Extra Strength] 500 mg Tablet 1,000 mg PO TID PRN (Reason: Pain) ondansetron 4 mg tablet,disintegrating 4 mg PO TID PRN (Reason: nausea and vomiting) duloxetine 30 mg Capsule,Delayed Release(Dr/Ec) 60 mg PO DAILY 30 Days Qty: 60 1RF magnesium hydroxide [Milk Of Magnesia Concentrated] 2,400 mg/10 mL suspension 15 ml PO BID PRN (Reason: constipation) Qty: 1000 0RF Discharge Orders: Discharge ED (Routine); Ordered 08/28/23 Ordered By: Dang Kirk Referrals: Jayden Daily MD [Primary Care Provider] - 4-7 days Discharge Diet: Usual diet Discharge Activity: Increase activity as tolerated Patient Instructions: Sciatica (ED) Activity Restrictions/Additional Instructions: Thank you for choosing [facility] for your healthcare needs today. Please realize this is an emergency room and that we are providing you with a medical screening exam and this may not be complete and all inclusive of all the testing and or work up that you may need to determine your ailment or severity of your illness. You have been screened and evaluated and felt safe for discharge. Health conditions do change or evolve sometimes and as such it is important that you follow up with your Primary Doctor to be re checked, 3-5 days is a general good time frame for follow up. You are always welcome to return to the ED for re assessment if your symptoms are worsening or you have new concerns Coding Level of Care Code ED [employer] for Estrella Hou
[2023-08-28] MEDS: dexamethasone 10 mg/mL INJ IM (19:24)
== END 2023-08-28 19:29 | disposition home or self-care (01) ==
PROVIDERS: Emergency Provider Emergency Medicine; PCP Family Medicine
DX: M54.30 Sciatica, unspecified side (principal); F17.290 Nicotine dependence, other tobacco product, uncomplicated
CPT/HCPCS: 96372; 99284; J1100

== ENCOUNTER → 2023-09-16 10:41 | Outpatient (BNVA) | payer MEDICAID, SELFPAY ==
[2022-01-03 16:36] VITALS: BP 138/88; BMI 35.0
== END ==
PROVIDERS: PCP Family Medicine; Visit Provider Orthopaedic Surgery
DX: M54.50 Low back pain, unspecified (principal)
CPT/HCPCS: 72110

== ENCOUNTER 2024-01-12 09:57 | Emergency (ER) | payer SELFPAY ==
[2022-01-03 16:36] VITALS: BP 138/88; BMI 35.0
[2024-01-12 10:19] VITALS: BP 131/84; PULSE 83; RESP 16; TEMP 36.8; O2SAT 97; BMI 34.9
[2024-01-12 12:38] LABS: Basophils # 0.1 10^3/uL (0.0-0.1); Basophils % 0.4 %; Eosinophils % 0.3 %; Hematocrit 43.1 % (36-47); Lymphocytes # 2.4 10^3/uL (0.8-4.8); Lymphocytes % 20.2 %; Mean Corpuscular HGB Conc 32.3 g/dL (30-55); Mean Corpuscular Hemoglobin 29.1 pg (27-33); Mean Corpuscular Volume 90.4 fl (85-98); Mean Platelet Volume 10.2 fL (7.4-10.4); Monocytes # 0.3 10^3/uL (0.2-0.9); Monocytes % 2.9 %; Neutrophils # 8.88 10^3/uL (1.8-7.7); Neutrophils % 75.8 %; Nucleated Red Blood Cells % 0 %; Platelet Count 323 10^3/cmm (157-399); Red Blood Count 4.77 10^6/uL (3.85-5.65); Red Cell Distribution Width 12.6 % (12.1-15.1); White Blood Count 11.71 10^3/uL (3.29-11.43)
[2024-01-12 12:58] LABS: Alanine Aminotransferase 17 U/L (0-33); Albumin Level 4.6 g/dL (3.5-5.2); Alkaline Phosphatase 111 U/L (35-105); Anion Gap 15.9 (5-19); Aspartate Amino Transferase 25 U/L (0-32); Blood Urea Nitrogen 8 mg/dL (6-20); Calcium 8.6 mg/dL (8.5-10.5); Carbon Dioxide 26 mmol/L (22-29); Chloride 104 mmol/L (98-107); Creatinine Clr Calc Pharmacy 156.4861; Globulin 3.3 g/dL (1.3-4.6); Glomerular Filtration Rate 117.4 mL/min (90-130); Glucose 112 mg/dL (65-115); Lipase 17 U/L (13-60); Osmolality Calculated 291 mOsm/kg (285-295); Potassium 4.9 mmol/L (3.5-5.1); Sodium 141 mmol/L (136-145); Total Bilirubin 1.1 mg/dL (0.15-1.2); Total Protein 7.9 g/dL (6.6-8.7)
[2024-01-12 13:28] LABS: HCG, Serum Qual Negative (Negative)
--- NOTE | 2024-01-12 16:14 | CTR_ITS ---
PROCEDURE INFORMATION: Exam: CT Abdomen And Pelvis With Contrast Exam date and time: 01/12/2024 5:28 PM Age: 28 years old Clinical indication: Abdominal pain; Additional info: Abd pain TECHNIQUE: Imaging protocol: Computed tomography of the abdomen and pelvis with contrast. Axial, coronal and sagittal reformatted images were created and reviewed. Radiation optimization: All CT scans at this facility use at least one of these dose optimization techniques: automated exposure control; mA and/or kV adjustment per patient size (includes targeted exams where dose is matched to clinical indication); or iterative reconstruction. Contrast material: OMNI 350; Contrast volume: 100 ml; Contrast route: INTRAVENOUS (IV); COMPARISON: CT abdomen pelvis w con* [id number] 08/28/2022 7:11 PM RADIATION DOSE METRICS: Total DLP (mGy-cm): 894 FINDINGS: Liver: Unremarkable. Gallbladder and biliary ducts: No radiodense gallstones. No biliary ductal dilatation. Pancreas: Unremarkable. Spleen: Unremarkable. Adrenal glands: Normal. No mass. Kidneys and ureters: No mass. No radiodense calculi. No hydronephrosis. Stomach and bowel: No bowel wall thickening. No obstruction. No pneumatosis. Appendix: Normal. Intraperitoneal space: No free fluid. No organized fluid collection. No free air. Vasculature: Unremarkable. No aneurysm. Lymph nodes: No pathologically enlarged lymph nodes. Urinary bladder: Mild urinary bladder distension. Reproductive: Unremarkable. Bones/joints: No acute osseous abnormality. Degenerative changes. Soft tissues: Unremarkable. CT/CT abdomen pelvis w con* [id number]: 1[address] No [address] evidence of acute intra-abdominal or pelvic pathology. 2. Additional findings, as above.
--- NOTE | 2024-01-12 16:58 | W.ED.NAVMDI ---
Documented by User: Hubert Lua DO 01/13/24 08:27 HPI - Nausea/Vomiting/Diarrhea General: Chief complaint: Nausea/Vomiting/Diarrhea Stated complaint: n,v, fever Time Seen by Provider: 01/12/24 14:05 History of Present Illness: 28-year-old female presents emergency room stating she is generally feeling feel well. She has a couple of small lesions on the dorsum of her left hand. She also states that she scraped some residue out of marijuana pipe and tried to smoke that which she thinks may have made her sick. She has been very nauseous. She denies any hematochezia melena hematemesis calf cramps no dysuria urgency or frequency no chest pain or shortness of breath has had some nausea and vomiting low-grade subjective fever Associated symtoms: Denies chest pain or dysuria Related Data Home Medications Medication Instructions Recorded Confirmed quetiapine 200 mg tablet (Seroquel) 200 mg PO DAILY 09/09/23 09/09/23 Previous Rx's Medication Instructions Recorded magnesium hydroxide 2,400 mg/10 mL 15 ml PO BID PRN constipation 08/22/22 oral suspension (Milk Of Magnesia #1,000 mL Concentrated) hydrocodone 10 mg-acetaminophen 1 tab PO .q4-6hrs PRN post op pain 12/30/22 325 mg tablet 5 days #30 tabs hydrocodone 10 mg-acetaminophen 1 tab PO Q6H PRN pain 7 days #30 02/04/23 325 mg tablet tabs tramadol 50 mg tablet 50 mg PO Q6H PRN pain #30 tabs 03/17/23 hydroxyzine HCl 25 mg tablet 25 mg PO BID PRN anxiety #30 tabs 08/10/23 diclofenac sodium 50 mg 50 mg PO Q12H #20 tabs 08/28/23 tablet,delayed release Allergies Allergy/AdvReac Type Severity Reaction Status Date / Time sulfamethoxazole Allergy Intermediate ADR-Gastrointestinal Verified 09/16/23 10:50 [From Bactrim] Upset trimethoprim [From Bactrim] Allergy Intermediate ADR-Gastrointestinal Verified 09/16/23 10:50 Upset Review of Systems Const: Denies: fever(s) or chills Card: Denies: chest pain Resp: Denies: dyspnea GI: Denies: abdominal pain : Denies: dysuria, urinary frequency or urinary urgency Musc: Denies: neck pain or back pain Skin/Breast: Denies: rash PFSH ED PFSH: Medical History Major depressive disorder, recurrent episode with anxious distress Major depressive disorder, recurrent severe without psychotic features Cannabis abuse Nausea alone Psychiatric care Evaluation regarding contraception options COVID-19 Suicidal ideation Methamphetamine abuse Impulse control disorder Borderline personality disorder Major depression Surgical History Status post myringotomy with tube placement of both ears History of knee surgery Family History Other Diabetes Lung disease Rheumatoid arthritis Social History Smoking and tobacco/nicotine status: current every day tobacco/nicotine user e-cigarettes E-Cigarette Details: with nicotine E-cig/vape details: 1 week to go through a tank Quit status (tobacco/nicotine): considering quitting Second hand smoke exposure: Yes Alcohol intake: former Year of sobriety/quit date alcohol: 2021 Substance/Drug Use: former Date of last use: 08/10 Adopted: No Caregiver/support person: No Lives independently: No Household members: other Details: SOC Housing: Homeless Marital status: Single Number of children: 2 Highest education level completed: Some College, No Degree service: No Current occupational status: employed 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 Pets and animals: No Leisure activites: music Sexually active: No Do you think of yourself as: Straight/Heterosexual Current gender identity: Female Briseida/Faith: None Special briseida needs: No Agree to transfusion: Yes Female Reproductive History: Para: 2 Spontaneous abortions: Yes Physical Exam Const: COMMON NORMALS: no acute distress GENERAL APPEARANCE: cooperative and comfortable ORIENTATION/CONSCIOUSNESS: Yes awake, Yes oriented to person, Yes oriented to place and Yes oriented to time HENMT: COMMON NORMALS: normocephalic, atraumatic and hearing grossly normal bilaterally HEAD & SCALP: normocephalic and atraumatic Resp: COMMON NORMALS: normal respiratory effort, No retractions, No use of accessory muscles and clear to auscultation bilaterally AUSCULTATION: clear to auscultation bilaterally Cardio: COMMON NORMALS: regular rate, regular rhythm and No murmurs present (Cardio) RATE: regular rate RHYTHM: regular rhythm GI: COMMON NORMALS: Soft to palpation and No hepatosplenomegaly present AUSCULTATION: Yes normoactive bowel sounds PALPATION: Yes Soft to palpation, No Tenderness to palpation present (GI), No Guarding due to palpation present (GI) and Yes No hepatosplenomegaly present Extremity: COMMON NORMALS: normal to inspection, capillary refill normal, no clubbing, cyanosis or edema, no calf tenderness and no pedal edema Neuro: SENSORIUM/ORIENTATION: Yes oriented to person, Yes oriented to place and Yes oriented to time Skin: COMMON NORMALS: no rashes or lesions noted GENERAL SKIN EXAM: no rashes or lesions noted Course Vital Signs: Vital signs: Vital Signs Temperature 98.2 F 01/12/24 10:19 Pulse Rate 68 01/12/24 20:04 Respiratory Rate 18 01/12/24 20:04 Blood Pressure 120/71 01/12/24 20:04 Pulse Oximetry 98 01/12/24 20:04 Oxygen Delivery Wa thod Room Air 01/12/24 18:30 MDM - Nausea/Vomiting/Diarrhea Medical Decision Making Care signed out to Dr. Pimentel at change of shift. See final notes for diagnosis and disposition. Care transferred to ms at shift change, lab work came back, discussed with the patient. Patient probably has hyperemesis cannabinoid syndrome. Patient feeling much better and wanting to eat. Patient be discharged home. Lab Data 01/12/24 12:28 01/12/24 12:28 Radiology Impressions Abdomen/Pelvis CT 01/12/24 16:14 IMPRESSION: 1. No CT evidence of acute intra-abdominal or pelvic pathology. 2. Additional findings, as above. Laboratory Results WBC 11.71 10^3/uL (3.29-11.43) H 01/12/24 12:28 RBC 4.77 10^6/uL (3.85-5.65) 01/12/24 12:28 Hgb 13.90 g/dL (11.27-16.99) 01/12/24 12:28 Hct 43.1 % (36-47) 01/12/24 12:28 MCV 90.4 fl (85-98) 01/12/24 12:28 MCH 29.1 pg (27-33) 01/12/24 12:28 MCHC 32.3 g/dL (30-55) 01/12/24 12:28 RDW 12.6 % (12.1-15.1) 01/12/24 12:28 Plt Count 323 10^3/cmm (157-399) 01/12/24 12:28 MPV 10.2 fL (7.4-10.4) 01/12/24 12:28 Neut % (Auto) 75.8 % 01/12/24 12:28 Lymph % (Auto) 20.2 % 01/12/24 12:28 [place] % (Auto) 2.9 % 01/12/24 12:28 Eos % (Auto) 0.3 % 01/12/24 12:28 Baso % (Auto) 0.4 % 01/12/24 12: Neut # (Auto) 8.88 10^3/uL (1.8-7.7) H 01/12/24 12: Lymph # (Auto) 2.4 10^3/uL (0.8-4.8) 01/12/24 12:28 [place] # (Auto) 0.3 10^3/uL (0.2-0.9) 01/12/24 12:28 Eos # (Auto) 0.0 10^3/uL (0.0-0.8) 01/12/24 12: Baso # (Auto) 0.1 10^3/uL (0.0-0.1) 01/12/24 12: Nucleated RBC % (auto) 0 % 01/12/24 12: Nucleated RBCs # 0.0 /100WBC 01/12/24 12:28 Sodium 141 mmol/L (136-145) 01/12/24 12:28 Potassium 4.9 mmol/L (3.5-5.1) 01/12/24 12:28 Chloride 104 mmol/L (98-107) 01/12/24 12:28 Carbon Dioxide 26 mmol/L (22-29) 01/12/24 12:28 Anion Gap 15.9 (5-19) 01/12/24 12:28 BUN 8 mg/dL (6-20) 01/12/24 12:28 Creatinine 0.6 mg/dL (0.5-0.9) 01/12/24 12:28 GFR Calculation 117.4 mL/min (90-130) 01/12/24 12:28 Glucose 112 mg/dL (65-115) 01/12/24 12:28 Calculated Osmolality 291 mOsm/kg (285-295) 01/12/24 12:28 Calcium 8.6 mg/dL (8.5-10.5) 01/12/24 12:28 Total Bilirubin 1.1 mg/dL (0.15-1.2) 01/12/24 12:28 AST 25 U/L (0-32) 01/12/24 12:28 ALT 17 U/L (0-33) 01/12/24 12:28 Alkaline Phosphatase 111 U/L (35-105) H 01/12/24 12:28 Total Protein 7.9 g/dL (6.6-8.7) 01/12/24 12:28 Albumin 4.6 g/dL (3.5-5.2) 01/12/24 12:28 Globulin 3.3 g/dL (1.3-4.6) 01/12/24 12:28 Lipase 17 U/L (13-60) 01/12/24 12:28 HCG, Qual Negative (Negative) 01/12/24 12:28 Urine Color [place] (Yellow) A 01/12/24 16:41 Urine Appearance Clear (CLEAR) 01/12/24 16:41 Urine pH 8.5 (5-7) A 01/12/24 16:41 Ur Specific [place] 1.013 (1.005-1.030) 01/12/24 16:41 Urine Protein Negative (Negative) 01/12/24 16:41 Urine Glucose (UA) Negative (Normal) 01/12/24 16:41 Urine Ketones 1+ (Negative) H 01/12/24 16:41 Urine Blood 3+ (Negative) A 01/12/24 16:41 Urine Nitrate Negative (Negative) 01/12/24 16:41 Urine Bilirubin Negative (Negative) 01/12/24 16:41 Urine Urobilinogen 0.2 mg/dL (Negative) 01/12/24 16:41 Ur Leukocyte Esterase Negative (Negative) 01/12/24 16:41 Urine RBC >100 /hpf (0-2) H 01/12/24 16:41 Urine WBC 0-5 /hpf (0-5) 01/12/24 16:41 Ur Squamous Epith Cells 0-5 /hpf (0-5) 01/12/24 16:41 Amorphous Sediment Not Reportable 01/12/24 16:41 Urine Bacteria None seen /hpf (NONE) 01/12/24 16:41 Hyaline Casts 0-4 /lpf H 01/12/24 16:41 Urine Opiates Screen Negative ng/mL (Negative) 01/12/24 16:41 Ur Barbiturates Screen Negative ng/mL (Negative) 01/12/24 16:41 Ur Phencyclidine Scrn Negative ng/mL (Negative) 01/12/24 16:41 Ur Amphetamines Screen Negative ng/mL (Negative) 01/12/24 16:41 U Benzodiazepines Scrn Negative ng/mL (Negative) 01/12/24 16:41 Urine Cocaine Screen Negative ng/mL (Negative) 01/12/24 16:41 U Marijuana (THC) Screen Positive ng/mL (Negative) H 01/12/24 16:41 Discharge Plan Discharge Patient Disposition: Home Clinical Impression: Cannabinoid hyperemesis syndrome Condition: Stable Prescriptions: No Action quetiapine [Seroquel] 200 mg tablet 200 mg PO DAILY hydrocodone-acetaminophen 10-325 mg tablet 1 tab PO .q4-6hrs PRN (Reason: post op pain) 5 Days Qty: 30 0RF hydrocodone-acetaminophen 10-325 mg tablet 1 tab PO Q6H PRN (Reason: pain) 7 Days Qty: 30 0RF tramadol 50 mg tablet 50 mg PO Q6H PRN (Reason: pain) Qty: 30 0RF hydroxyzine HCl 25 mg tablet 25 mg PO BID PRN (Reason: anxiety) Qty: 30 0RF diclofenac sodium 50 mg tablet,delayed release (DR/EC) 50 mg PO Q12H Qty: 20 0RF magnesium hydroxide [Milk Of Magnesia Concentrated] 2,400 mg/10 mL suspension 15 ml PO BID PRN (Reason: constipation) Qty: 1000 0RF Discharge Orders: Discharge ED (Routine); Ordered 01/12/24 Ordered By: Og Pimentel Referrals: Jayden Daily MD [Primary Care Provider] - 1 week Patient Instructions: Acute Nausea and Vomiting (ED) Activity Restrictions/Additional Instructions: [facility]. Please realize that you were seen in the emergency department and that we are providing you with an emergency medical screening exam and this may not be a complete and all exclusive of all testing and/or medical workup we may need to determine your element or severity of your illness. It is very important that you follow-up as instructed with your primary care provider or specialist for the additional evaluation and to discuss your medical treatment plan. You may return to the emergency department should you have concerns or if your condition changes or worsens in any way. Coding Level of Care Code ED Yardage Tufting Machine Operator for Chg Fwd Documented by User: Og Pimentel DO 01/12/24 19:31 HPI - Nausea/Vomiting/Diarrhea General: Chief complaint: Nausea/Vomiting/Diarrhea Stated complaint: n,v, fever Time Seen by Provider: 01/12/24 14:05 Related Data Home Medications Medication Instructions Recorded Confirmed quetiapine 200 mg tablet (Seroquel) 200 mg PO DAILY 09/09/23 09/09/23 Previous Rx's Medication Instructions Recorded magnesium hydroxide 2,400 mg/10 mL 15 ml PO BID PRN constipation 08/22/22 oral suspension (Milk Of Magnesia #1,000 mL Concentrated) hydrocodone 10 mg-acetaminophen 1 tab PO .q4-6hrs PRN post op pain 12/30/22 325 mg tablet 5 days #30 tabs hydrocodone 10 mg-acetaminophen 1 tab PO Q6H PRN pain 7 days #30 02/04/23 325 mg tablet tabs tramadol 50 mg tablet 50 mg PO Q6H PRN pain #30 tabs 03/17/23 hydroxyzine HCl 25 mg tablet 25 mg PO BID PRN anxiety #30 tabs 08/10/23 diclofenac sodium 50 mg 50 mg PO Q12H #20 tabs 08/28/23 tablet,delayed release Allergies Allergy/AdvReac Type Severity Reaction Status Date / Time sulfamethoxazole Allergy Intermediate ADR-Gastrointestinal Verified 09/16/23 10:50 [From Bactrim] Upset trimethoprim [From Bactrim] Allergy Intermediate ADR-Gastrointestinal Verified 09/16/23 10:50 Upset [facility] ED PFSH: Medical History Major depressive disorder, recurrent episode with anxious distress Major depressive disorder, recurrent severe without psychotic features Cannabis abuse Nausea alone Psychiatric care Evaluation regarding contraception options COVID-19 Suicidal ideation Methamphetamine abuse Impulse control disorder Borderline personality disorder Major depression Surgical History Status post myringotomy with tube placement of both ears History of knee surgery Family History Other Diabetes Lung disease Rheumatoid arthritis Social History Smoking and tobacco/nicotine status: current every day tobacco/nicotine user e-cigarettes E-Cigarette Details: with nicotine E-cig/vape details: 1 week to go through a tank Quit status (tobacco/nicotine): considering quitting Second hand smoke exposure: Yes Alcohol intake: former Year of sobriety/quit date alcohol: 2021 Substance/Drug Use: former Date of last use: 08/10 Adopted: No Caregiver/support person: No Lives independently: No Household members: other Details: SOC Housing: Homeless Marital status: Single Number of children: 2 Highest education level completed: Some College, No Degree service: No Current occupational status: employed 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 Pets and animals: No Leisure activites: music Sexually active: No Do you think of yourself as: Straight/Heterosexual Current gender identity: Female Briseida/Faith: None Special briseida needs: No Agree to transfusion: Yes Course Vital Signs: Vital signs: Vital Signs Temperature 98.2 F 01/12/24 10:19 Pulse Rate 68 01/12/24 20:04 Respiratory Rate 18 01/12/24 20:04 Blood Pressure 120/71 01/12/24 20:04 Pulse Oximetry 98 01/12/24 20:04 Oxygen Delivery Wa thod Room Air 01/12/24 18:30 MDM - Nausea/Vomiting/Diarrhea Medical Decision Making Care transferred to ms at shift change, lab work came back, discussed with the patient. Patient probably has hyperemesis cannabinoid syndrome. Patient feeling much better and wanting to eat. Patient be discharged home. Medical Records I reviewed the patient's medical records. Lab Data I reviewed the patient's lab results. 01/12/24 12:28 01/12/24 12:28 Radiology Impressions Abdomen/Pelvis CT 01/12/24 16:14 IMPRESSION: 1. No CT evidence of acute intra-abdominal or pelvic pathology. 2. Additional findings, as above. Laboratory Results WBC 11.71 10^3/uL (3.29-11.43) H 01/12/24 12:28 RBC 4.77 10^6/uL (3.85-5.65) 01/12/24 12:28 Hgb 13.90 g/dL (11.27-16.99) 01/12/24 12:28 Hct 43.1 % (36-47) 01/12/24 12:28 MCV 90.4 fl (85-98) 01/12/24 12:28 MCH 29.1 pg (27-33) 01/12/24 12:28 MCHC 32.3 g/dL (30-55) 01/12/24 12:28 RDW 12.6 % (12.1-15.1) 01/12/24 12:28 Plt Count 323 10^3/cmm (157-399) 01/12/24 12:28 MPV 10.2 fL (7.4-10.4) 01/12/24 12:28 Neut % (Auto) 75.8 % 01/12/24 12:28 Lymph % (Auto) 20.2 % 01/12/24 12:28 [place] % (Auto) 2.9 % 01/12/24 12:28 Eos % (Auto) 0.3 % 01/12/24 12:28 Baso % (Auto) 0.4 % 01/12/24 12:28 Neut # (Auto) 8.88 10^3/uL (1.8-7.7) H 01/12/24 12:28 Lymph # (Auto) 2.4 10^3/uL (0.8-4.8) 01/12/24 12:28 [place] # (Auto) 0.3 10^3/uL (0.2-0.9) 01/12/24 12:28 Eos # (Auto) 0.0 10^3/uL (0.0-0.8) 01/12/24 12:28 Baso # (Auto) 0.1 10^3/uL (0.0-0.1) 01/12/24 12:28 Nucleated RBC % (auto) 0 % 01/12/24 12:28 Nucleated RBCs # 0.0 /100WBC 01/12/24 12:28 Sodium 141 mmol/L (136-145) 01/12/24 12:28 Potassium 4.9 mmol/L (3.5-5.1) 01/12/24 12:28 Chloride 104 mmol/L (98-107) 01/12/24 12:28 Carbon Dioxide 26 mmol/L (22-29) 01/12/24 12:28 Anion Gap 15.9 (5-19) 01/12/24 12:28 BUN 8 mg/dL (6-20) 01/12/24 12:28 Creatinine 0.6 mg/dL (0.5-0.9) 01/12/24 12:28 GFR Calculation 117.4 mL/min (90-130) 01/12/24 12:28 Glucose 112 mg/dL (65-115) 01/12/24 12:28 Calculated Osmolality 291 mOsm/kg (285-295) 01/12/24 12:28 Calcium 8.6 mg/dL (8.5-10.5) 01/12/24 12:28 Total Bilirubin 1.1 mg/dL (0.15-1.2) 01/12/24 12:28 AST 25 U/L (0-32) 01/12/24 12:28 ALT 17 U/L (0-33) 01/12/24 12:28 Alkaline Phosphatase 111 U/L (35-105) H 01/12/24 12:28 Total Protein 7.9 g/dL (6.6-8.7) 01/12/24 12:28 Albumin 4.6 g/dL (3.5-5.2) 01/12/24 12:28 Globulin 3.3 g/dL (1.3-4.6) 01/12/24 12:28 Lipase 17 U/L (13-60) 01/12/24 12:28 HCG, Qual Negative (Negative) 01/12/24 12:28 Urine Color [place] (Yellow) A 01/12/24 16:41 Urine Appearance Clear (CLEAR) 01/12/24 16:41 Urine pH 8.5 (5-7) A 01/12/24 16:41 Ur Specific [place] 1.013 (1.005-1.030) 01/12/24 16:41 Urine Protein Negative (Negative) 01/12/24 16:41 Urine Glucose (UA) Negative (Normal) 01/12/24 16:41 Urine Ketones 1+ (Negative) H 01/12/24 16:41 Urine Blood 3+ (Negative) A 01/12/24 16:41 Urine Nitrate Negative (Negative) 01/12/24 16:41 Urine Bilirubin Negative (Negative) 01/12/24 16:41 Urine Urobilinogen 0.2 mg/dL (Negative) 01/12/24 16:41 Ur Leukocyte Esterase Negative (Negative) 01/12/24 16:41 Urine RBC >100 /hpf (0-2) H 01/12/24 16:41 Urine WBC 0-5 /hpf (0-5) 01/12/24 16:41 Ur Squamous Epith Cells 0-5 /hpf (0-5) 01/12/24 16:41 Amorphous Sediment Not Reportable 01/12/24 16:41 Urine Bacteria None seen /hpf (NONE) 01/12/24 16:41 Hyaline Casts 0-4 /lpf H 01/12/24 16:41 Urine Opiates Screen Negative ng/mL (Negative) 01/12/24 16:41 Ur Barbiturates Screen Negative ng/mL (Negative) 01/12/24 16:41 Ur Phencyclidine Scrn Negative ng/mL (Negative) 01/12/24 16:41 Ur Amphetamines Screen Negative ng/mL (Negative) 01/12/24 16:41 U Benzodiazepines Scrn Negative ng/mL (Negative) 01/12/24 16:41 Urine Cocaine Screen Negative ng/mL (Negative) 01/12/24 16:41 U Marijuana (THC) Screen Positive ng/mL (Negative) H 01/12/24 16:41 All radiology interpretation(s) finalized by discharge Discharge Plan Discharge Patient Disposition: Home Clinical Impression: Cannabinoid hyperemesis syndrome Condition: Stable Prescriptions: No Action quetiapine [Seroquel] 200 mg tablet 200 mg PO DAILY hydrocodone-acetaminophen 10-325 mg tablet 1 tab PO .q4-6hrs PRN (Reason: post op pain) 5 Days Qty: 30 0RF hydrocodone-acetaminophen 10-325 mg tablet 1 tab PO Q6H PRN (Reason: pain) 7 Days Qty: 30 0RF tramadol 50 mg tablet 50 mg PO Q6H PRN (Reason: pain) Qty: 30 0RF hydroxyzine HCl 25 mg tablet 25 mg PO BID PRN (Reason: anxiety) Qty: 30 0RF diclofenac sodium 50 mg tablet,delayed release (DR/EC) 50 mg PO Q12H Qty: 20 0RF magnesium hydroxide [Milk Of Magnesia Concentrated] 2,400 mg/10 mL suspension 15 ml PO BID PRN (Reason: constipation) Qty: 1000 0RF Discharge Orders: Discharge ED (Routine); Ordered 01/12/24 Ordered By: Og Pimentel Referrals: Jayden Daily MD [Primary Care Provider] - 1 week Patient Instructions: Acute Nausea and Vomiting (ED) Activity Restrictions/Additional Instructions: Thank you for choosing [facility] for your healthcare needs today. Please realize that you were seen in the emergency department and that we are providing you with an emergency medical screening exam and this may not be a complete and all exclusive of all testing and/or medical workup we may need to determine your element or severity of your illness. It is very important that you follow-up as instructed with your primary care provider or specialist for the additional evaluation and to discuss your medical treatment plan. You may return to the emergency department should you have concerns or if your condition changes or worsens in any way. Coding Level of Care Code ED Yardage Tufting Machine Operator for Estrella Hou
[2024-01-12 17:00] VITALS: BP 121/102; PULSE 77; RESP 19; O2SAT 98
[2024-01-12] MEDS: sodium chloride 0.9% 1,000 ML 999 ML IV (17:01)
[2024-01-12] MEDS: ondansetron 2 mg/ML SDV 2 mL 4 MG IVP (17:02)
[2024-01-12] MEDS: LORazepam 2 mg/mL INJ 1 mL 1 MG IVP (17:28)
[2024-01-12] MEDS: haloperidol inj 5 mg/mL INJ 1 mL 2.5 MG IVP (17:28)
[2024-01-12] MEDS: iohexol 350 mg/mL 500 mL Btl (per mL) IV (17:31)
[2024-01-12 18:07] LABS: Bilirubin Urine Negative (Negative); Blood Urine 3+ (Negative); Glucose Urine UA Negative (Normal); Ketones Urine 1+ (Negative); Leukocyte Esterase Urine Negative (Negative); Nitrate Urine Negative (Negative); Protein Urine Negative (Negative); Specific Gravity, Urine 1.013 (1.005-1.030); Urine Appearance Clear (CLEAR); Urobilinogen Urine 0.2 mg/dL (Negative); pH Urine 8.5 (5-7)
[2024-01-12 18:12] LABS: Add Urine Microscopic? YES; Bacteria Urine None Seen /hpf; Hyaline Casts Urine 0-4 /lpf; RBC Urine >100 /hpf (0-2); Squamous Epithelial Cell Urine 0-5 /hpf (0-5); WBC Urine 0-5 /hpf (0-5)
[2024-01-12 18:13] LABS: Add Urine Culture? Yes; Urine Color Orange (Yellow)
[2024-01-12 18:14] LABS: Amphetamines Screen Urine Negative (Negative); Barbiturates Screen Urine Negative (Negative); Benzodiazepines Screen Urine Negative (Negative); Cocaine Screen Urine Negative (Negative); Opiate Screen Urine Negative (Negative); PCP Screen Urine Negative (Negative); THC Screen Urine Positive (Negative)
[2024-01-12 18:30] VITALS: BP 122/65; PULSE 58; O2SAT 97
[2024-01-12 20:04] VITALS: BP 120/71; PULSE 68; RESP 18; O2SAT 98
== END 2024-01-12 20:05 | disposition home or self-care (01) ==
PROVIDERS: Emergency Medicine; Physician Assistant; Emergency Provider Family Medicine; PCP Family Medicine
DX: R11.2 Nausea with vomiting, unspecified (principal); F12.90 Cannabis use, unspecified, uncomplicated; F17.290 Nicotine dependence, other tobacco product, uncomplicated
CPT/HCPCS: 36415; 74177; 80053; 80306; 81001; 83690; 84703; 85025; 87086; 96374; 96375; 99285; J1630; J2060; J2405; J7030

== ENCOUNTER 2024-05-05 12:42 | Emergency (ER) | payer SELFPAY ==
[2022-01-03 16:36] VITALS: BP 138/88; BMI 35.0
[2024-05-05 13:00] VITALS: BP 170/111; PULSE 106; RESP 16; TEMP 36.8; O2SAT 98; BMI 38.2
--- NOTE | 2024-05-05 14:48 | ECG_ITS ---
[facility]: [facility]24[facility]05 Pat Name: Mara Diop Department: Room: Gender: Female [employer] Business: : 1995 Requested By: Phillip Lindsey Order Number: [id number] Promise MD: JOSUE PALOMO Measurements Intervals [place] Rate: 98 P: 54 WI: 131 QRS: 59 QRSD: 94 T: -12 QT: 315 QTc: 403 Interpretive Statements SINUS RHYTHM NONSPECIFIC T-WAVE ABNORMALITY Compared to ECG 08/10/2023 18:02:58 T-wave abnormality now present Electronically Signed On 05-10-2024 23:22:43 [employer]SE[employer] RE[employer]IG[employer]ATION MECHANIC by JOSUE PALOMO [email or web address]
--- NOTE | 2024-05-05 14:49 | W.ED.DIZZY ---
HPI - Dizziness General: Chief Complaint: Dizziness Stated Complaint: high bp Time Seen by Provider: 05/05/24 14:32 Source: patient Mode of arrival: ambulatory Limitations: no limitations History of Present Illness: HPI Narrative: Patient is a 28-year-old female with history of major depressive disorder, methamphetamine abuse, and bipolar disorder who presents to the emergency department with dizziness over the past few days. She is also complaining of chronic back pain and high blood pressure readings at home. States she has a history of low back surgery, has been intermittently taking steroids for the pain. Also today and yesterday used methamphetamines for the pain, of which she has history of abuse in the past. She reports that her dizziness feels like a lightheadedness, she feels that at all times and not just when she stands up or is walking. She voices concern that her blood pressure being high and her being dizzy that she is having a stroke. Though she is not reporting any focal neurological deficits. She reports not taking any other medications for her back pain or for her dizziness. She is not reporting any chest pain, shortness of breath, syncope, palpitations, vaginal bleeding, possibility of , or other symptoms at this time. No recent illness, medication changes, or trauma. MD elicited complaint: dizziness and lightheadedness Onset (ago): day(s) Timing: gradual onset Severity: moderate Description: lightheadedness Exacerbating factors: nothing Relieving factors: nothing Associated symptoms: Denies chest pain, chills, headache(s), nausea, palpitations or vomiting Associated neuro symptoms: Deny numbness in extremities Related Data Previous Rx's Medication Instructions Recorded meclizine 25 mg tablet 25 mg PO BID PRN dizziness #30 tabs 05/05/24 Allergies Allergy/AdvReac Type Severity Reaction Status Date / Time sulfamethoxazole Allergy Intermediate ADR-Gastrointestinal Verified 09/16/23 10:50 [From Bactrim] Upset trimethoprim [From Bactrim] Allergy Intermediate ADR-Gastrointestinal Verified 09/16/23 10:50 Upset Review of Systems General: Reports: 10 or more systems reviewed and unremarkable except in HPI and below Const: Denies: fever(s), chills or fatigue Eyes: Denies: change in vision ENMT: Denies: throat pain, ear or mastoid pain or nasal discharge Card: Reports: lightheadedness and other (High blood pressure); Denies: chest pain, palpitations or swelling of feet/ankles Resp: Denies: dyspnea, productive cough or wheezing GI: Denies: abdominal pain, nausea, vomiting, diarrhea or constipation : Denies: flank pain, difficulty voiding, dysuria or urinary frequency Musc: Reports: back pain; Denies: neck pain or joint pain Skin/Breast: Denies: rash Neuro: Reports: dizziness; Denies: headache(s), numbness in extremities, weakness in extremities, sensory changes, lack of coordination, behavioral changes, Slurred speech present or seizure-like activity PFSH ED PFSH: Medical History Major depressive disorder, recurrent episode with anxious distress Major depressive disorder, recurrent severe without psychotic features Cannabis abuse Nausea alone Psychiatric care Evaluation regarding contraception options COVID-19 Suicidal ideation Methamphetamine abuse Impulse control disorder Borderline personality disorder Major depression Surgical History Status post myringotomy with tube placement of both ears History of knee surgery Family History Other Diabetes Lung disease Rheumatoid arthritis Social History Smoking and tobacco/nicotine status: current every day tobacco/nicotine user e-cigarettes E-Cigarette Details: with nicotine E-cig/vape details: 1 week to go through a tank Quit status (tobacco/nicotine): considering quitting Second hand smoke exposure: Yes Alcohol intake: former Year of sobriety/quit date alcohol: 2021 Substance/Drug Use: former Date of last use: 08/10 Adopted: No Caregiver/support person: No Lives independently: No Household members: other Details: SOC Housing: Homeless Marital status: Single Number of children: 2 Highest education level completed: Some College, No Degree service: No Current occupational status: employed 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 Pets and animals: No Leisure activites: music Sexually active: No Do you think of yourself as: Straight/Heterosexual Current gender identity: Female Briseida/Adventism: None Special briseida needs: No Agree to transfusion: Yes Female Reproductive History: Para: 2 Spontaneous abortions: Yes Physical Exam Const: COMMON NORMALS: no acute distress, patient oriented x3 and no limitations GENERAL APPEARANCE: cooperative, comfortable and well developed ORIENTATION/CONSCIOUSNESS: Yes awake, Yes oriented to person, Yes oriented to place and Yes oriented to time HENMT: COMMON NORMALS: normocephalic, atraumatic, hearing grossly normal bilaterally, TM's normal bilaterally and moist oral mucous membranes HEAD & SCALP: normocephalic and atraumatic TYMPANIC MEMBRANE: TM's normal bilaterally Eye: COMMON NORMALS: Equal, round and reactive pupils present, EOMs intact bilaterally and conjunctivae normal CONJUNCTIVA: Yes conjunctivae normal PUPIL: Yes Equal, round and reactive pupils present OTHER: No nystagmus Neck/C-Spine: COMMON NORMALS: full ROM, supple and no JVD Resp: COMMON NORMALS: normal respiratory effort, No retractions, No use of accessory muscles and clear to auscultation bilaterally AUSCULTATION: clear to auscultation bilaterally Cardio: COMMON NORMALS: no JVD, regular rate, regular rhythm, No clicks present (Cardio), No murmurs present (Cardio) and No rub (Cardio) RATE: regular rate RHYTHM: regular rhythm GI: COMMON NORMALS: Normal to inspection, nondistended, normoactive bowel sounds present, Soft to palpation and non-tender AUSCULTATION: Yes normoactive bowel sounds PALPATION: Yes Soft to palpation RECTAL EXAM: deferred Back/Pelvis: COMMON NORMALS: thoracic and lumbar spine normal to inspection and thoraco-lumbar ROM normal OTHER: Postoperative scar lumbosacral region, no abnormalities. Minor reproducible tenderness to palpation to right paralumbar region Extremity: COMMON NORMALS: normal to inspection, full ROM and capillary refill normal Neuro: COMMON NORMALS: patient oriented x3, CN's II-XII intact bilaterally, moves all extremities, no focal motor deficits and no sensory deficits noted SENSORIUM/ORIENTATION: Yes oriented to person, Yes oriented to place and Yes oriented to time Psych: COMMON NORMALS: mental status grossly normal and Normal thought process present THOUGHT PROCESS: Normal thought process present Skin: COMMON NORMALS: no rashes or lesions noted GENERAL SKIN EXAM: no rashes or lesions noted Course Vital Signs: Vital signs: Vital Signs Temperature 98.2 F 05/05/24 13:00 Pulse Rate 108 H 05/05/24 16:30 Respiratory Rate 16 05/05/24 13:00 Blood Pressure 153/81 05/05/24 16:30 Pulse Oximetry 97 05/05/24 16:30 Oxygen Delivery Me thod Room Air 05/05/24 13:00 MDM - Dizziness Medical Decision Making Patient presented with dizziness past couple of days, compared to lightheadedness. She also has been using meth to treat her back pain. Neurologically normal, physical examination overall unremarkable. She had not tried any medication for her pain other than using the meth, and specifically had not taken anything for the dizziness. All of her lab work was unremarkable, EKG reviewed with physician not demonstrating any cardiac abnormalities here. She does note improvement of her symptoms after dose of meclizine here, and back pain had improved after Toradol and Norflex. Also noted a drop in her blood pressure, I believe her hypertension secondary to the pain, also potentially secondary to opioid abuse/stress. I do not suspect any intracranial abnormalities or acute stroke, will treat with meclizine at home encourage fluids and have her abstain from meth use. Also encourage close follow-up with primary care within the next 48 hours for reevaluation, and told her to return with any focal neurological deficits or other concerning findings. She agrees with this plan and is comfortable with discharge home at this time. Lab Data 05/05/24 15:48 05/05/24 15:48 Laboratory Results WBC 12.30 10^3/uL (3.29-11.43) H 05/05/24 15:48 RBC 4.52 10^6/uL (3.85-5.65) 05/05/24 15:48 Hgb 13.20 g/dL (11.27-16.99) 05/05/24 15:48 Hct 40.4 % (36-47) 05/05/24 15:48 MCV 89.4 fl (85-98) 05/05/24 15:48 MCH 29.2 pg (27-33) 05/05/24 15:48 MCHC 32.7 g/dL (30-55) 05/05/24 15:48 RDW 13.2 % (12.1-15.1) 05/05/24 15:48 Plt Count 318 10^3/cmm (157-399) 05/05/24 15:48 MPV 10.1 fL (7.4-10.4) 05/05/24 15:48 Neut % (Auto) 61.1 % 05/05/24 15:48 Lymph % (Auto) 30.7 % 05/05/24 15:48 [place] % (Auto) 6.6 % 05/05/24 15:48 Eos % (Auto) 0.6 % 05/05/24 15:48 Baso % (Auto) 0.6 % 05/05/24 15:48 Neut # (Auto) 7.52 10^3/uL (1.8-7.7) 05/05/24 15:48 Lymph # (Auto) 3.8 10^3/uL (0.8-4.8) 05/05/24 15:48 [place] # (Auto) 0.8 10^3/uL (0.2-0.9) 05/05/24 15:48 Eos # (Auto) 0.1 10^3/uL (0.0-0.8) 05/05/24 15:48 Baso # (Auto) 0.1 10^3/uL (0.0-0.1) 05/05/24 15:48 Nucleated RBC % (auto) 0 % 05/05/24 15:48 Nucleated RBCs # 0.0 /100WBC 05/05/24 15:48 Sodium 138 mmol/L (136-145) 05/05/24 15:48 Potassium 3.8 mmol/L (3.5-5.1) 05/05/24 15:48 Chloride 100 mmol/L (98-107) 05/05/24 15:48 Carbon Dioxide 25 mmol/L (22-29) 05/05/24 15:48 Anion Gap 16.8 (5-19) 05/05/24 15:48 BUN 7 mg/dL (6-20) 05/05/24 15:48 Creatinine 0.6 mg/dL (0.5-0.9) 05/05/24 15:48 GFR Calculation 117.4 mL/min (90-130) 05/05/24 15:48 Glucose 104 mg/dL (65-115) 05/05/24 15:48 Calculated Osmolality 284 mOsm/kg (285-295) L 05/05/24 15:48 Calcium 10.0 mg/dL (8.5-10.5) 05/05/24 15:48 Total Bilirubin 0.7 mg/dL (0.15-1.2) 05/05/24 15:48 AST 17 U/L (0-32) 05/05/24 15:48 ALT 17 U/L (0-33) 05/05/24 15:48 Alkaline Phosphatase 95 U/L (35-105) 05/05/24 15:48 Total Protein 6.9 g/dL (6.6-8.7) 05/05/24 15:48 Albumin 4.3 g/dL (3.5-5.2) 05/05/24 15:48 Globulin 2.6 g/dL (1.3-4.6) 05/05/24 15:48 HCG, Qual Negative (Negative) 05/05/24 15:48 Urine Color Yellow (Yellow) 05/05/24 15:10 Urine Appearance Clear (CLEAR) 05/05/24 15:10 Urine pH 6.0 (5-7) 05/05/24 15:10 Ur Specific [place] 1.004 (1.005-1.030) L 05/05/24 15:10 Urine Protein Negative (Negative) 05/05/24 15:10 Urine Glucose (UA) Negative (Normal) 05/05/24 15:10 Urine Ketones Negative (Negative) 05/05/24 15:10 Urine Blood Negative (Negative) 05/05/24 15:10 Urine Nitrate Negative (Negative) 05/05/24 15:10 Urine Bilirubin Negative (Negative) 05/05/24 15:10 Urine Urobilinogen 0.2 mg/dL (Negative) 05/05/24 15:10 Ur Leukocyte Esterase Negative (Negative) 05/05/24 15:10 Urine RBC 0-2 /hpf (0-2) 05/05/24 15:10 Urine WBC 0-5 /hpf (0-5) 05/05/24 15:10 Ur Squamous Epith Cells 0-5 /hpf (0-5) 05/05/24 15:10 Amorphous Sediment Not Reportable 05/05/24 15:10 Urine Bacteria None seen /hpf (NONE) 05/05/24 15:10 Hyaline Casts 0-4 /lpf H 05/05/24 15:10 Urine Opiates Screen Negative ng/mL (Negative) 05/05/24 15:10 Ur Barbiturates Screen Negative ng/mL (Negative) 05/05/24 15:10 Ur Phencyclidine Scrn Negative ng/mL (Negative) 05/05/24 15:10 Ur Amphetamines Screen Positive ng/mL (Negative) H 05/05/24 15:10 U Benzodiazepines Scrn Negative ng/mL (Negative) 05/05/24 15:10 Urine Cocaine Screen Negative ng/mL (Negative) 05/05/24 15:10 U Marijuana (THC) Screen Positive ng/mL (Negative) H 05/05/24 15:10 No radiology studies performed this visit Discharge Plan Discharge Patient Disposition: Home Clinical Impression: Methamphetamine abuse Benign paroxysmal positional vertigo Qualifiers: Laterality: unspecified laterality Qualified Code(s): H81.10 - Benign paroxysmal vertigo, unspecified ear Condition: Stable Prescriptions: New meclizine 25 mg tablet 25 mg PO BID PRN (Reason: dizziness) Qty: 30 0RF Discharge Orders: Discharge ED (Routine); Ordered 05/05/24 Ordered By: Phillip Cee Referrals: Jayden Daily MD [Primary Care Provider] - Patient Instructions: Benign Paroxysmal Positional Vertigo (ED), Dizziness (ED) Activity Restrictions/Additional Instructions: Please avoid further meth use. Take meclizine for your dizziness. Make sure to drink plenty of fluids. Begin taking ibuprofen and Tylenol for your back pain. Follow-up with your primary care provider within the next 48 hours for reevaluation as we discussed. Coding Level of Care Code ED Telephonic Nurse Case Manager for Estrella Hou
--- NOTE | 2024-05-05 14:53 | PC.PHAR ---
pATIENT STATES SHE HAS TAKEN METHYLPREDNISOLONE YESTERDAY . PATIENT NOT SURE OF A STRENGTH AND IT WASN'T HER PRESCRIPTION.
[2024-05-05 15:04] VITALS: BP 148/79; PULSE 97; O2SAT 99
[2024-05-05] MEDS: orphenadrine 30 mg/mL Inj 2 mL 60 MG IM (15:07)
[2024-05-05] MEDS: ketorolac 60 mg/2 mL INJ IM (15:07)
[2024-05-05] MEDS: meclizine 25 mg tablet PO (15:07)
[2024-05-05 15:32] LABS: Bilirubin Urine Negative (Negative); Blood Urine Negative (Negative); Glucose Urine UA Negative (Normal); Ketones Urine Negative (Negative); Leukocyte Esterase Urine Negative (Negative); Nitrate Urine Negative (Negative); Protein Urine Negative (Negative); Specific Gravity, Urine 1.004 (1.005-1.030); Urine Appearance Clear (CLEAR); Urine Color Yellow (Yellow); Urobilinogen Urine 0.2 mg/dL (Negative)
[2024-05-05 15:40] LABS: Add Urine Microscopic? YES; Bacteria Urine None Seen /hpf; Hyaline Casts Urine 0-4 /lpf; RBC Urine 0-2 /hpf (0-2); Squamous Epithelial Cell Urine 0-5 /hpf (0-5); WBC Urine 0-5 /hpf (0-5)
[2024-05-05 16:01] LABS: Amphetamines Screen Urine Positive (Negative); Barbiturates Screen Urine Negative (Negative); Benzodiazepines Screen Urine Negative (Negative); Cocaine Screen Urine Negative (Negative); Opiate Screen Urine Negative (Negative); PCP Screen Urine Negative (Negative); THC Screen Urine Positive (Negative)
[2024-05-05 16:14] LABS: Basophils # 0.1 10^3/uL (0.0-0.1); Basophils % 0.6 %; Eosinophils # 0.1 10^3/uL (0.0-0.8); Eosinophils % 0.6 %; Hematocrit 40.4 % (36-47); Lymphocytes # 3.8 10^3/uL (0.8-4.8); Lymphocytes % 30.7 %; Mean Corpuscular HGB Conc 32.7 g/dL (30-55); Mean Corpuscular Hemoglobin 29.2 pg (27-33); Mean Corpuscular Volume 89.4 fl (85-98); Mean Platelet Volume 10.1 fL (7.4-10.4); Monocytes # 0.8 10^3/uL (0.2-0.9); Monocytes % 6.6 %; Neutrophils # 7.52 10^3/uL (1.8-7.7); Neutrophils % 61.1 %; Nucleated Red Blood Cells % 0 %; Platelet Count 318 10^3/cmm (157-399); Red Blood Count 4.52 10^6/uL (3.85-5.65); Red Cell Distribution Width 13.2 % (12.1-15.1)
[2024-05-05 16:28] LABS: HCG, Serum Qual Negative (Negative)
[2024-05-05 16:30] VITALS: BP 153/81; PULSE 108; O2SAT 97
[2024-05-05 16:35] LABS: Alanine Aminotransferase 17 U/L (0-33); Albumin Level 4.3 g/dL (3.5-5.2); Alkaline Phosphatase 95 U/L (35-105); Anion Gap 16.8 (5-19); Aspartate Amino Transferase 17 U/L (0-32); Blood Urea Nitrogen 7 mg/dL (6-20); Carbon Dioxide 25 mmol/L (22-29); Chloride 100 mmol/L (98-107); Creatinine Clr Calc Pharmacy 164.3401; Globulin 2.6 g/dL (1.3-4.6); Glomerular Filtration Rate 117.4 mL/min (90-130); Glucose 104 mg/dL (65-115); Osmolality Calculated 284 mOsm/kg (285-295); Potassium 3.8 mmol/L (3.5-5.1); Sodium 138 mmol/L (136-145); Total Bilirubin 0.7 mg/dL (0.15-1.2); Total Protein 6.9 g/dL (6.6-8.7)
[2024-05-05 16:47] VITALS: BP 153/83; PULSE 100; O2SAT 98
== END 2024-05-05 16:48 | disposition home or self-care (01) ==
PROVIDERS: Emergency Provider Physician Assistant; PCP Family Medicine
DX: F15.10 Other stimulant abuse, uncomplicated (principal); H81.10 Benign paroxysmal vertigo, unspecified ear; F17.290 Nicotine dependence, other tobacco product, uncomplicated
CPT/HCPCS: 36415; 80053; 80306; 81001; 84703; 85025; 93005; 96372; 99284; J1885; J2360; J8597

== ENCOUNTER 2024-08-19 16:27 | Inpatient (IN) | payer MEDICAID, SELFPAY ==
[2022-01-03 16:36] VITALS: BP 138/88; BMI 35.0
[2024-08-19 16:36] VITALS: BP 118/63; PULSE 94; RESP 20; TEMP 36.4; O2SAT 98
--- NOTE | 2024-08-19 16:40 | ED.C_ITS ---
HPI - Psych 2 General: Chief Complaint: Psychiatric Symptoms Stated Complaint: SI Time Seen by Provider: 08/19/24 16:35 Source: patient Mode of arrival: ambulatory Limitations: no limitations History of Present Illness: This patient makes her way to the emergency department today because she is quite stressed and anxious about various life events that seem to have overwhelmed her coping skills recently. She states she had thoughts of harming herself within the last 2 weeks but denies any overt plan or desire to do so today. Her desire is to go to the stress unit and be evaluated for potential medication initiation to help her symptoms. She states that she just got insurance and therefore is eligible for care now. She apparently has taken olanzapine in the past that was not prescribed but she apparently was using some other prescriptions and seemed to improve her some but she only had a limited amount of that medication. She also recently discontinued her marijuana use. She states that she continued to have difficulties stopping using it because stopping it seemed to exacerbate her constipation and therefore led to her still using marijuana on a regular basis but she has discontinued that now. She denies alcohol use. She denies any other physical symptoms to them to include fevers chills nausea vomiting diarrhea cough dysuria skin rashes etc. MD complaint: suicidal ideation Associated symptoms: Reports depression and suicidal ideation; Deny auditory hallucinations, visual hallucinations or homicidal ideation Related Data Previous Rx's ?Medication ?Instructions ?Recorded meclizine 25 mg tablet 25 mg PO BID PRN dizziness # 30 tabs 05/05/24 Allergies Allergy/AdvReac Type Severity Reaction Status Date / Time sulfamethoxazole (From Allergy Intermediate ADR-Gastrointestinal Verified 09/16/23 10:50 Bactrim) Upset trimethoprim (From Bactrim) Allergy Intermediate ADR-Gastrointestinal Verified 09/16/23 10:50 Upset Review of Systems 2 Const: Denies: fever(s) or chills Eyes: Denies: change in vision ENMT: Denies: throat pain or odynophagia Card: Denies: chest pain, irregular heart rhythm, syncope or pre-syncope Resp: Denies: dyspnea, productive cough or non-productive cough GI: Denies: abdominal pain, nausea, vomiting or diarrhea : Denies: difficulty voiding or dysuria Musc: Denies: neck pain, back pain, extremity pain or extremity swelling Skin/Breast: Denies: rash Neuro: Denies: headache(s), numbness in extremities or weakness in extremities Psych: Reports: anxiety, depression, mood swings, change in appetite and suicidal ideation; Denies: panic attacks, visual hallucinations, auditory hallucinations or homicidal ideation PFSH ED 2 PFSH: Medical History Major depressive disorder, recurrent episode with anxious distress Major depressive disorder, recurrent severe without psychotic features Cannabis abuse Nausea alone Psychiatric care Evaluation regarding contraception options COVID-19 Suicidal ideation Methamphetamine abuse Impulse control disorder Borderline personality disorder Major depression Surgical History Status post myringotomy with tube placement of both ears History of knee surgery Family History Other Diabetes Lung disease Rheumatoid arthritis Social History Smoking and tobacco/nicotine status: current every day tobacco/nicotine user e- cigarettes E-Cigarette Details: with nicotine E-cig/vape details: 1 week to go through a tank Quit status (tobacco/nicotine): considering quitting Second hand smoke exposure: Yes Alcohol intake: former Year of sobriety/quit date alcohol: 2021 Substance/Drug Use: former Date of last use: 08/10 Adopted: No Caregiver/support person: No Lives independently: No Household members: other Details: SOC Housing: Homeless Marital status: Single Number of children: 2 Highest education level completed: Some College, No Degree service: No Current occupational status: employed 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 Pets and animals: No Leisure activites: music Sexually active: No Do you think of yourself as: Straight/Heterosexual Current gender identity: Female Briseida/Rastafarian: None Special briseida needs: No Agree to transfusion: Yes Female Reproductive History: Para: 2 Spontaneous abortions: Yes Physical Exam 2 Narrative: EXAM NARRATIVE: She is appears to be in no acute distress. She answers questions in a goal- directed fashion. She makes good eye contact. Const: COMMON NORMALS: no acute distress and patient oriented x3 GENERAL APPEARANCE: cooperative NUTRITIONAL APPEARANCE: overweight HENMT: COMMON NORMALS: Normal nasal mucous membranes and turbinates present and moist oral mucous membranes NOSE: Normal nasal mucous membranes and turbinates present Eye: COMMON NORMALS: Equal, round and reactive pupils present, EOMs intact bilaterally and no scleral icterus PUPIL: Yes Equal, round and reactive pupils present Neck/C-Spine: COMMON NORMALS: full ROM and supple Resp: COMMON NORMALS: normal respiratory effort and No use of accessory muscles EFFORT & INSPECTION: Yes able to speak in complete sentences Cardio: COMMON NORMALS: regular rate and Peripheral pulses 2+ throughout R ATE: regular rate PERIPHERAL PULSES: Peripheral pulses 2+ throughout GI: COMMON NORMALS: Normal to inspection, nondistended, normoactive bowel sounds present Back/Pelvis: COMMON NORMALS: thoracic and lumbar spine normal to inspection, no thoracic nor lumbar tenderness and thoraco-lumbar ROM normal Extremity: COMMON NORMALS: normal to inspection, full ROM, no calf tenderness and no pedal edema Neuro: COMMON NORMALS: patient oriented x3, moves all extremities, no focal motor deficits and no sensory deficits noted Psych: COMMON NORMALS: mental status grossly normal and cooperative A TTITUDE: Yes calm ACTIVITY/MOTOR BEHAVIOR: Yes appropriate eye contact and Yes fidgeting SPEECH: Yes rapid MOOD & AFFECT: Yes anxious THOUGHT PROCESS: Circumstantial thought process present THOUGHT CONTENT: Yes Suicidality present ATTENTION/CONCENTRATION: Yes attention grossly intact INSIGHT: Fair insight present (Psych) JUDGEMENT: Fair judgement present (Psych) Skin: COMMON NORMALS: no rashes or lesions noted and no wounds GENERAL SKIN EXAM: no rashes or lesions noted Course 2 Reevaluation(s): Reevaluation #1: Patient has remained cooperative. Her medical screening laboratories and other ancillary studies do not reveal any surprises. No evidence of infection, etc. She is positive for THC as 1 would expect from her history but no other illicit substances noted Time: 19:09 Consultations: Consultation #1: Discussed with Dr. Soto. She has unclear suicidal risk at this time but does have a history of longstanding depression and is currently not medicated so we have agreed to place her in the neuropsychiatric unit. I did complete an affidavit should it be needed to institute a 96-hour hold. Time: 19:10 Vital Signs: Vital signs: Vital Signs Temperature 97.6 F 08/19/24 16:36 Pulse Rate 94 08/19/24 16:36 Respiratory Rate 16 08/19/24 17:45 Blood Pressure 118/63 08/19/24 16:36 Pulse Oximetry 99 08/19/24 17:45 Oxygen Delivery Me thod Room Air 08/19/24 17:45 MDM - Psych Medical Decision Making This patient should not comes to the emergency department as noted in the HPI. She desires admission. She did have some suicidal thoughts recently but no active plan today. She does have a history of mixed depression and anxiety. She also has a history of cannabis as well as methamphetamine use previously but states that latter is not been part of her habits recently and the former she is actively discontinuing. Her goal today seems to be initiation of medication to control her anxiety as well as her depressive symptoms. She has not been recently taking any medications. Her suicidality is unclear as she has expressed more recent suicide thoughts to others but has now established plan at this time. No evidence of a obvious clinical medical reason to preclude her being admitted to the neuropsychiatric unit. Will going proceed with screening laboratories as well. Lab Data I reviewed the patient's lab results. 08/19/24 17:02 08/19/24 17:02 Laboratory Results WBC 10.67 10^3/uL (3.29-11.43) 08/19/24 17:02 RBC 4.34 10^6/uL (3.85-5.65) 08/19/24 17:02 Hgb 12.90 g/dL (11.27-16.99) 08/19/24 17:02 Hct 39.9 % (36-47) 08/19/24 17:02 MCV 91.9 fl (85-98) 08/19/24 17:02 MCH 29.7 pg (27-33) 08/19/24 17:02 MCHC 32.3 g/dL (30-55) 08/19/24 17:02 RDW 12.8 % (12.1-15.1) 08/19/24 17:02 Plt Count 281 10^3/cmm (157-399) 08/19/24 17:02 MPV 10.3 fL (7.4-10.4) 08/19/24 17:02 Neut % (Auto) 59.2 % 08/19/24 17:02 Lymph % (Auto) 33.6 % 08/19/24 17:02 [place] % (Auto) 4.4 % 08/19/24 17:02 Eos % (Auto) 1.8 % 08/19/24 17:02 Baso % (Auto) 0.7 % 08/19/24 17:02 Neut # (Auto) 6.33 10^3/uL (1.8-7.7) 08/19/24 17:02 Lymph # (Auto) 3.6 10^3/uL (0.8-4.8) 08/19/24 17:02 [place] # (Auto) 0.5 10^3/uL (0.2-0.9) 08/19/24 17:02 Eos # (Auto) 0.2 10^3/uL (0.0-0.8) 08/19/24 17:02 Baso # (Auto) 0.1 10^3/uL (0.0-0.1) 08/19/24 17:02 Nucleated RBC % (auto) 0 % 08/19/24 17:02 Nucleated RBCs # 0.0 /100WBC 08/19/24 17:02 Sodium 142 mmol/L (136-145) 08/19/24 17:02 Potassium 3.8 mmol/L (3.5-5.1) 08/19/24 17:02 Chloride 106 mmol/L (98-107) 08/19/24 17:02 Carbon Dioxide 25 mmol/L (22-29) 08/19/24 17:02 Anion Gap 14.8 (5-19) 08/19/24 17:02 BUN 13 mg/dL (6-20) 08/19/24 17:02 Creatinine 0.5 mg/dL (0.5-0.9) 08/19/24 17:02 GFR Calculation 143.9 mL/min (90-130) H 08/19/24 17:02 Glucose 112 mg/dL (65-115) 08/19/24 17:02 Calculated Osmolality 295 mOsm/kg (285-295) 08/19/24 17:02 Calcium 9.3 mg/dL (8.5-10.5) 08/19/24 17:02 Total Bilirubin 0.3 mg/dL (0.15-1.2) 08/19/24 17:02 AST 24 U/L (0-32) 08/19/24 17:02 ALT 20 U/L (0-33) 08/19/24 17:02 Alkaline Phosphatase 68 U/L (35-105) 08/19/24 17:02 Total Protein 7.0 g/dL (6.6-8.7) 08/19/24 17:02 Albumin 4.1 g/dL (3.5-5.2) 08/19/24 17:02 Globulin 2.9 g/dL (1.3-4.6) 08/19/24 17:02 TSH 2.16 uIU/mL (0.27-4.20) 08/19/24 17:02 HCG, Qual Negative (Negative) 08/19/24 16:35 Urine Color Yellow (Yellow) 08/19/24 16:35 Urine Appearance Clear (CLEAR) 08/19/24 16:35 Urine pH 6.5 (5-7) 08/19/24 16:35 Ur Specific [place] 1.006 (1.005-1.030) 08/19/24 16:35 Urine Protein Negative (Negative) 08/19/24 16:35 Urine Glucose (UA) Negative (Normal) 08/19/24 16:35 Urine Ketones Negative (Negative) 08/19/24 16:35 Urine Blood Negative (Negative) 08/19/24 16:35 Urine Nitrate Negative (Negative) 08/19/24 16:35 Urine Bilirubin Negative (Negative) 08/19/24 16:35 Urine Urobilinogen 0.2 mg/dL (Negative) 08/19/24 16:35 Ur Leukocyte Esterase Negative (Negative) 08/19/24 16:35 Urine RBC 0-2 /hpf (0-2) 08/19/24 16:35 Urine WBC 0-5 /hpf (0-5) 08/19/24 16:35 Ur Squamous Epith Cells 0-5 /hpf (0-5) 08/19/24 16:35 Amorphous Sediment Not Reportable 08/19/24 16:35 Urine Bacteria 1+ /hpf (NONE) H 08/19/24 16:35 Hyaline Casts 0-4 /lpf H 08/19/24 16:35 Salicylates < 0.3 mg/dL (3-10) L 08/19/24 17:02 Urine Opiates Screen Negative ng/mL (Negative) 08/19/24 16:35 Acetaminophen < 5.0 ug/mL (10-30) L 08/19/24 17:02 Ur Barbiturates Screen Negative ng/mL (Negative) 08/19/24 16:35 Ur Phencyclidine Scrn Negative ng/mL (Negative) 08/19/24 16:35 Ur Amphetamines Screen Negative ng/mL (Negative) 08/19/24 16:35 U Benzodiazepines Scrn Negative ng/mL (Negative) 08/19/24 16:35 Urine Cocaine Screen Negative ng/mL (Negative) 08/19/24 16:35 U Marijuana (THC) Screen Positive ng/mL (Negative) H 08/19/24 16:35 No radiology studies performed this visit Discharge Plan Discharge Patient Disposition: Admitted As Inpatient Clinical Impression: Major depressive disorder, recurrent episode with anxious distress, Depression with suicidal ideation Condition: Stable Coding Level of Care Code ED Title Vehicle Service Attendant for Estrella Hou
[2024-08-19 17:08] LABS: Basophils # 0.1 10^3/uL (0.0-0.1); Basophils % 0.7 %; Eosinophils # 0.2 10^3/uL (0.0-0.8); Eosinophils % 1.8 %; Hematocrit 39.9 % (36-47); Lymphocytes # 3.6 10^3/uL (0.8-4.8); Lymphocytes % 33.6 %; Mean Corpuscular HGB Conc 32.3 g/dL (30-55); Mean Corpuscular Hemoglobin 29.7 pg (27-33); Mean Corpuscular Volume 91.9 fl (85-98); Mean Platelet Volume 10.3 fL (7.4-10.4); Monocytes # 0.5 10^3/uL (0.2-0.9); Monocytes % 4.4 %; Neutrophils # 6.33 10^3/uL (1.8-7.7); Neutrophils % 59.2 %; Nucleated Red Blood Cells % 0 %; Platelet Count 281 10^3/cmm (157-399); Red Blood Count 4.34 10^6/uL (3.85-5.65); Red Cell Distribution Width 12.8 % (12.1-15.1); White Blood Count 10.67 10^3/uL (3.29-11.43)
[2024-08-19 17:15] LABS: HCG Qualitative Urine. Negative (Negative)
[2024-08-19 17:37] LABS: Alanine Aminotransferase 20 U/L (0-33); Albumin Level 4.1 g/dL (3.5-5.2); Alkaline Phosphatase 68 U/L (35-105); Anion Gap 14.8 (5-19); Aspartate Amino Transferase 24 U/L (0-32); Blood Urea Nitrogen 13 mg/dL (6-20); Calcium 9.3 mg/dL (8.5-10.5); Carbon Dioxide 25 mmol/L (22-29); Chloride 106 mmol/L (98-107); Creatinine Clr Calc Pharmacy 190.7458; Globulin 2.9 g/dL (1.3-4.6); Glomerular Filtration Rate 143.9 mL/min (90-130); Glucose 112 mg/dL (65-115); Osmolality Calculated 295 mOsm/kg (285-295); Potassium 3.8 mmol/L (3.5-5.1); Salicylate < 0.3 mg/dL (3-10); Sodium 142 mmol/L (136-145); Thyroid Stimulating Hormone 2.16 uIU/mL (0.27-4.20); Total Bilirubin 0.3 mg/dL (0.15-1.2)
[2024-08-19 17:38] LABS: Acetaminophen < 5.0 ug/mL (10-30)
[2024-08-19 17:45] VITALS: RESP 16; O2SAT 99
[2024-08-19 18:01] LABS: Bilirubin Urine Negative (Negative); Blood Urine Negative (Negative); Glucose Urine UA Negative (Normal); Ketones Urine Negative (Negative); Leukocyte Esterase Urine Negative (Negative); Nitrate Urine Negative (Negative); Protein Urine Negative (Negative); Specific Gravity, Urine 1.006 (1.005-1.030); Urine Appearance Clear (CLEAR); Urine Color Yellow (Yellow); Urobilinogen Urine 0.2 mg/dL (Negative); pH Urine 6.5 (5-7)
[2024-08-19 18:06] LABS: Add Urine Microscopic? YES; Bacteria Urine 1+ /hpf; Hyaline Casts Urine 0-4 /lpf; RBC Urine 0-2 /hpf (0-2); Squamous Epithelial Cell Urine 0-5 /hpf (0-5); WBC Urine 0-5 /hpf (0-5)
[2024-08-19] MEDS: LORazepam 1 mg Tablet PO (18:16)
[2024-08-19 18:52] LABS: Amphetamines Screen Urine Negative (Negative); Barbiturates Screen Urine Negative (Negative); Benzodiazepines Screen Urine Negative (Negative); Cocaine Screen Urine Negative (Negative); Opiate Screen Urine Negative (Negative); PCP Screen Urine Negative (Negative); THC Screen Urine Positive (Negative)
[2024-08-19 19:07] VITALS: BP 118/75; PULSE 95; RESP 20; O2SAT 95
[2024-08-19 20:48] VITALS: BP 131/82; PULSE 98; RESP 14; O2SAT 98
[2024-08-19 22:00] VITALS: BP 118/75; PULSE 95; RESP 20; O2SAT 95
[2024-08-19] MEDS: hyDROXYzine 25 mg Capsule 50 MG PO (22:07)
[2024-08-20 06:00] VITALS: BP 106/62; PULSE 67; RESP 17; TEMP 36.5; O2SAT 96
[2024-08-20] MEDS: hyDROXYzine 25 mg Capsule 50 MG PO ×3 (07:52→20:26)
[2024-08-20] MEDS: nicotine 2 mg Gum BUCCAL ×3 (08:40→13:18)
[2024-08-20] MEDS: docusate sodium 100 mg Capsule PO (08:56)
[2024-08-20] MEDS: OLANZapine 5 mg ODT PO (12:01)
[2024-08-20] MEDS: haloperidol 5 mg Tablet PO (13:58)
--- NOTE | 2024-08-20 13:59 | PC.NURSE ---
Anxiety 11/28, unknown trigger. Administered haldol 5mg PO to patient. Will continue to monitor.
[2024-08-20 14:00] VITALS: BP 97/57; PULSE 85; RESP 16; TEMP 36.6; O2SAT 95
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
[2024-08-20] MEDS: trazodone 50 mg Tablet PO (20:25)
[2024-08-20 20:40] VITALS: BP 109/69; PULSE 90; RESP 16; TEMP 36.3; O2SAT 97
[2024-08-21] MEDS: hyDROXYzine 25 mg Capsule 50 MG PO ×4 (03:25→19:50)
[2024-08-21] MEDS: docusate sodium 100 mg Capsule PO (03:25)
[2024-08-21 06:00] VITALS: PULSE 121; RESP 19; TEMP 36.6; O2SAT 97
[2024-08-21] MEDS: nicotine 4 mg lozenge MUCOUS MEM (07:56)
[2024-08-21] MEDS: magnesium hydroxide 30 mL UDC PO (09:50)
[2024-08-21] MEDS: nicotine 2 mg Gum BUCCAL (10:20)
[2024-08-21] MEDS: OLANZapine 5 mg ODT PO (11:36)
[2024-08-21] MEDS: haloperidol 5 mg Tablet PO (13:34)
[2024-08-21 14:00] VITALS: BP 145/78; PULSE 68; RESP 16; TEMP 37; O2SAT 99
--- NOTE | 2024-08-21 15:24 | P.NPUPN_ITS ---
Subjective NPU 2 Subjective: Patient presented today medications restarted. We talked about the different mood stabilizers that she has been on she reports that Haldol has worked really well for her. We discussed that being an older medication and discussed the risks, benefits and alternatives he understood and agreed to proceed as is documented in the talk about restarting her BuSpar which has been effective in the past. She denies any current Humza. Tomorrow we will be in charge of the continued reestablishment of her medication Mental Status Exam 2 MSE Comments: This is an obese white female with hospital scrubs on with limited grooming and eye contact. No abnormal movements except for psychomotor agitation.? Mostly cooperative with exam in mild to moderate distress.? Speech was increased rate and volume.? Mood described as overwhelmed, affect irritable.? Thought process organized.? Thought content: Patient endorsed fleeting suicidal but denied homicidal ideations, there are no delusions noted but she does endorse some mild paranoia, she denied any auditory or visual hallucinations.? Attention and concentration were limited and memory appeared mostly reliable but none were formally tested.? She is alert and oriented x3.? Insight and judgment are limited, impulse control is impaired. Vitals/I&O/Wt Last Vital Signs Temp 97.9 F 08/21/24 06:00 Pulse 121 H 08/21/24 06:00 Resp 19 H 08/21/24 06:00 BP 109/69 08/20/24 20:40 Pulse Ox 97 08/21/24 06:00 O2 Del Method Room Air 08/21/24 06:00 Weight last 48 hrs Weight 99.79 kg Data NPU 08/19/24 17:02 08/19/24 17:02 A&P Assessment and plan (1) Borderline personality disorder: (2) Suicidal ideation: (3) Methamphetamine use disorder, severe, in sustained remission: (4) Nausea alone: (5) Anxiety: (6) Methamphetamine abuse: (7) Cannabis use disorder: (8) Polysubstance abuse: (9) Major depressive disorder, recurrent episode with anxious distress: Plan This is a 29-year-old white female with a history of borderline personality disorder, methamphetamine use, cannabis use and significant anxiety who presents once again reporting being overwhelmed with her situation. Plan: 1. Consider restarting medications including initiating an SSRI which she sometimes is resistant to. She has had BuSpar in the past and given her addiction issues likely that would be a good place to start. Start Haldol 5 mg p.o. daily 2. Continue every 15 minute checks for safety. 3. Encourage individual, group and milieu therapies. 4. Encourage sober living treatment after discharge at the highest level of care to which she is willing to commit. PDMP PDMP Reviewed: Not Reviewed Involuntary Hold Information 2 96 Hour Hold: 96 Hour Involuntary Admission: Yes Attestations NPU 2 Medical Necessity Statement*: Inpatient hospitalization is medically necessary and the clinically appropriate intervention at this time. We will initiate medications and make changes as indicated. Likely length of stay 3-5 days Coding Level of Care Code Acute Code for [facility] Fwd Diagnoses Borderline personality disorder F60.3 Suicidal ideation R45.851 Methamphetamine use disorder, severe, in sustained remission F15.21 Nausea alone R11.0 Anxiety F41.9 Methamphetamine abuse F15.10 Cannabis use disorder F12.90 Polysubstance abuse F19.10 Major depressive disorder, recurrent episode with anxious distress F33.9
[2024-08-21] MEDS: trazodone 50 mg Tablet PO ×2 (19:48→23:19)
[2024-08-21 22:00] VITALS: BP 118/68; PULSE 97; RESP 18; TEMP 36.7; O2SAT 96
--- NOTE | 2024-08-21 22:39 | PC.NURSE ---
PATIENT GIVEN TRAZODONE 50MG FOR SLEEP AND VISTARIL 50MG FOR ANXIETY PER PATIENT REQUEST.
[2024-08-22] MEDS: hyDROXYzine 25 mg Capsule 50 MG PO ×2 (03:28→15:30)
[2024-08-22 06:00] VITALS: RESP 18; BMI 35.4
--- NOTE | 2024-08-22 06:25 | PC.NURSE ---
Patient refused vitals charged nurse notified.
[2024-08-22] MEDS: docusate sodium 100 mg Capsule PO (07:12)
[2024-08-22] MEDS: OLANZapine 5 mg ODT PO (07:12)
[2024-08-22] MEDS: nicotine 2 mg Gum BUCCAL ×2 (07:12→09:22)
[2024-08-22] MEDS: nicotine 4 mg lozenge MUCOUS MEM ×3 (11:53→15:30)
[2024-08-22] MEDS: haloperidol 5 mg Tablet PO ×2 (12:22→19:58)
[2024-08-22 14:00] VITALS: BP 131/81; PULSE 140; RESP 17; O2SAT 97
--- NOTE | 2024-08-22 15:19 | P.NPUPN_ITS ---
Subjective NPU 2 Subjective: 29-year-old female with a history of bor derline personality disorder, and polysubstance abuse admitted with suicidal ideation. She had endorsed a history of depression as well and stated that the Seroquel initially had been overly sedating. She reported that she continued to struggle with having problems with anger. She had stated that she needed to get back on her medications. She had reported feeling calmer on Haldol but stated that she was having difficulties falling asleep. She was redirectable on the milieu and reported that her appetite was improving. She had reported recent methamphetamine use in the last few months and acknowledged that at times it did make her more angry and paranoid. Mental Status Exam 2 MSE Comments: This is an obese white female with hospital scrubs on with limited grooming and eye contact. No abnormal movements except for mild psychomotor agitation.?She was mostly cooperative with exam in mild to moderate distress.? Speech was normal in rate and volume.? Mood described as okay. Her affect was irritable and mood incongruent. ? Thought process was linear and organized.? Thought content: Patient endorsed fleeting suicidal but denied homicidal ideation, There are no delusions noted but she does endorse some mild paranoia, she denied any auditory or visual hallucinations.? Attention and concentration were limited and memory appeared mostly reliable but none were formally tested.? She is alert and oriented x3.? Insight and judgment are limited, impulse control is impaired. Vitals/I&O/Wt Last Vital Signs Temp 98.1 F 08/21/24 22:00 Pulse 97 08/21/24 22:00 Resp 18 08/22/24 06:00 BP 118/68 08/21/24 22:00 Pulse Ox 96 08/21/24 22:00 O2 Del Method Room Air 08/21/24 22:00 Weight last 48 hrs Weight 96.615 kg Data NPU 08/19/24 17:02 08/19/24 17:02 A&P Assessment and plan (1) Borderline personality disorder: (2) Suicidal ideation: (3) Methamphetamine use disorder, severe, in sustained remission: (4) Anxiety: (5) Methamphetamine abuse: (6) Cannabis use disorder: (7) Polysubstance abuse: (8) Nausea alone: (9) Major depressive disorder, recurrent episode with anxious distress: Plan This is a 29-year-old white female with a history of borderline personality disorder, methamphetamine use, cannabis use and significant anxiety who presents once again reporting being overwhelmed with her situation. Plan: 1. Continue Haldol 5 mg p.o. daily. Add Seroquel 50mg at night to target mood instability. 2. Continue every 15 minute checks for safety. 3. Encourage individual, group and milieu therapies. 4. Encourage sober living treatment after discharge at the highest level of care to which she is willing to commit. PDMP PDMP Reviewed: Not Reviewed Involuntary Hold Information 2 96 Hour Hold: 96 Hour Involuntary Admission: Yes Attestations NPU 2 Medical Necessity Statement*: Inpatient hospitalization is medically necessary and the clinically appropriate intervention at this time. We will initiate medications and make changes as indicated. Likely length of stay 3-5 days Coding Level of Care Code Acute Code for [facility] Fwd Diagnoses Borderline personality disorder F60.3 Suicidal ideation R45.851 Methamphetamine use disorder, severe, in sustained remission F15.21 Anxiety F41.9 Methamphetamine abuse F15.10 Cannabis use disorder F12.90 Polysubstance abuse F19.10 Nausea alone R11.0 Major depressive disorder, recurrent episode with anxious distress F33.9
[2024-08-22] MEDS: ondansetron 4 MG Tablet PO (16:47)
[2024-08-22] MEDS: quetiapine 25 mg Tablet 50 MG PO (19:56)
[2024-08-22 22:00] VITALS: BP 110/66; PULSE 95; RESP 16; TEMP 36.8; O2SAT 97
[2024-08-23] MEDS: haloperidol 5 mg Tablet PO (07:57)
[2024-08-23] MEDS: acetaminophen 325 mg Tablet 650 MG PO (09:46)
[2024-08-23] MEDS: hyDROXYzine 25 mg Capsule 50 MG PO (10:52)
[2024-08-23] MEDS: nicotine 4 mg lozenge MUCOUS MEM (11:30)
[2024-08-23 14:00] VITALS: BP 130/78; PULSE 87; RESP 16; TEMP 37; O2SAT 96
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
[2024-08-23 14:55] VITALS: BP 130/78; PULSE 87; RESP 16; TEMP 37; O2SAT 96
--- NOTE | 2024-08-23 15:12 | PC.NURSE ---
pt phone number [phone]
== END 2024-08-23 15:11 | disposition home or self-care (01) | DRG 885 ==
LOC: ER 19:11 → NP 20:16
PROVIDERS: Admitting Provider Psychiatry & Neurology Psychiatry; Emergency Provider Emergency Medicine; PCP Family Medicine; Visit Provider Psychiatry & Neurology Psychiatry
DX: F33.9 Major depressive disorder, recurrent, unspecified (principal); R45.851 Suicidal ideations; F60.3 Borderline personality disorder; F15.11 Other stimulant abuse, in remission; F41.9 Anxiety disorder, unspecified; F12.10 Cannabis abuse, uncomplicated; E66.9 Obesity, unspecified; Z68.35 Body mass index [BMI] 35.0-35.9, adult; F17.290 Nicotine dependence, other tobacco product, uncomplicated; F63.9 Impulse disorder, unspecified; Z86.16 Personal history of COVID-19
CPT/HCPCS: 36415; 80053; 80306; 80307; 81001; 81025; 84443; 85025; 97150; 97165; 99285; J9999; Q0162

== ENCOUNTER → 2024-10-06 12:43 | Outpatient (BNVA) | payer OTHER, SELFPAY ==
[2022-01-03 16:36] VITALS: BP 138/88; BMI 35.0
== END ==
PROVIDERS: PCP Family Medicine; Visit Provider Nurse Practitioner Psychiatric/Mental Health
DX: F41.9 Anxiety disorder, unspecified (principal); F60.3 Borderline personality disorder; Z79.899 Other long term (current) drug therapy
CPT/HCPCS: 80061; 83036

== ENCOUNTER 2025-02-03 08:44 | Inpatient (IN) | payer MEDICAID, SELFPAY ==
[2024-10-13 10:27] VITALS: BP 131/80; BMI 34.0
[2025-02-03 08:45] VITALS: BMI 29.0
--- NOTE | 2025-02-03 08:49 | PC.NURSE ---
PATIENT PACING IN ROOM AND WILL NOT SET FOR VITALS.
[2025-02-03 08:51] VITALS: BP 143/85; PULSE 66; RESP 18; TEMP 36.4; O2SAT 99
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
--- NOTE | 2025-02-03 09:33 | PC.NURSE ---
Pt was read her 96 hour hold rights at this time. Security present
[2025-02-03 09:38] LABS: Hematocrit 41.1 % (36-47); Hemoglobin 13.30 g/dL (11.27-16.99); Mean Corpuscular HGB Conc 32.4 g/dL (30-55); Mean Corpuscular Hemoglobin 29.3 pg (27-33); Mean Corpuscular Volume 90.5 fl (85-98); Nucleated Red Blood Cells % 0 %; Platelet Count 270 10^3/cmm (157-399); Red Blood Count 4.54 10^6/uL (3.85-5.65); White Blood Count 9.13 10^3/uL (3.29-11.43)
[2025-02-03 09:49] LABS: HCG, Serum Qual Negative (Negative)
[2025-02-03 09:54] LABS: Alanine Aminotransferase 23 U/L (0-33); Albumin Level 4.2 g/dL (3.5-5.2); Alkaline Phosphatase 74 U/L (35-105); Anion Gap 15.8 (5-19); Aspartate Amino Transferase 25 U/L (0-32); Blood Urea Nitrogen 8 mg/dL (6-20); Calcium 9.1 mg/dL (8.5-10.5); Carbon Dioxide 23 mmol/L (22-29); Chloride 105 mmol/L (98-107); Creatinine Clr Calc Pharmacy 146.3501; Globulin 3.0 g/dL (1.3-4.6); Glucose 105 mg/dL (65-115); Osmolality Calculated 289 mOsm/kg (285-295); Potassium 3.8 mmol/L (3.5-5.1); Sodium 140 mmol/L (136-145); Total Protein 7.2 g/dL (6.6-8.7)
[2025-02-03 09:57] LABS: Acetaminophen < 5.0 ug/mL (10-30); Salicylate < 0.3 mg/dL (3-10)
[2025-02-03 10:19] VITALS: BP 128/83; PULSE 73; RESP 20; TEMP 36.7; O2SAT 95
[2025-02-03 10:34] LABS: Slide Review Slide Review Perform
--- NOTE | 2025-02-03 10:57 | PC.NURSE ---
blue makeup instructor found while preforming skin assessment on pt. pt gave to nursing staff with out incident. pt alert and orientated x4. requesting a nicotine patch.
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
[2025-02-03 13:23] VITALS: BP 128/83; PULSE 73; RESP 20; TEMP 36.7; O2SAT 96
[2025-02-03 17:28] LABS: Glucose Urine UA Negative (Normal); Nitrate Urine Negative (Negative); Specific Gravity, Urine 1.019 (1.005-1.030)
[2025-02-03 17:31] LABS: Add Urine Microscopic? YES
[2025-02-03 17:56] LABS: UA Slide Review UA Slide Review Perf
[2025-02-03 20:40] VITALS: BP 127/81; PULSE 81; RESP 17; TEMP 36.9; O2SAT 97
[2025-02-04 02:36] LABS: PCP Screen Urine Negative (Negative)
--- NOTE | 2025-02-04 06:54 | PC.NURSE ---
pt refused vs, nurse notified, resp 16
--- NOTE | 2025-02-04 07:44 | P.NPUHP_ITS ---
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 02/03/25 20:40 O2 Del Method Room Air 02/03/25 20:40 Weight last 48 hrs Weight 81.647 kg Data NPU 02/03/25 09:30 02/03/25 09:30 A&P Assessment and plan 1. Borderline personality disorder: 2. Suicidal ideation: 3. Methamphetamine use disorder, severe, in sustained remission: 4. Nausea alone: 5. Anxiety: 6. Methamphetamine abuse: 7. Cannabis use disorder: 8. Polysubstance abuse: 9. Major depressive disorder, recurrent episode with anxious distress: Plan: This is a 29-year-old white female with a history of borderline personality disorder, methamphetamine use, cannabis use and significant anxiety who presents once again positive for cannabis and methamphetamine and with significant irritability. Plan: 1. Consider restarting medications including initiating an SSRI which she sometimes is resistant to. She has had BuSpar in the past and given her addiction issues likely that would be a good place to start. 2. Continue every 15 minute checks for safety. 3. Encourage individual, group and milieu therapies. 4. Encourage sober living treatment after discharge at the highest level of care to which she is willing to commit. 5. Obtain collateral information. 6. Observe against the backdrop of the 96-hour hold. PDMP PDMP Reviewed: Not Reviewed Involuntary Hold Information 2 Hold Status: Legal Status: 96 Hour Hold Date/Time Hold Expires: 02/09/2025 @ 0900 96 Hour Hold: 96 Hour Involuntary Admission: Yes Attestations NPU 2 Medical Necessity Statement*: Inpatient hospitalization is medically necessary and the clinically appropriate intervention at this time. We will initiate medications and make changes as indicated. She will be in the hospital for over 2 midnights. Likely length of stay 4-6 days Coding Level of Care Code Acute Code for [facility] Fwd Diagnoses Borderline personality disorder F60.3 Suicidal ideation R45.851 Methamphetamine use disorder, severe, in sustained remission F15.21 Nausea alone R11.0 Anxiety F41.9 Methamphetamine abuse F15.10 Cannabis use disorder F12.90 Polysubstance abuse F19.10 Major depressive disorder, recurrent episode with anxious distress F33.9
[2025-02-04] MEDS: diphenhydrAMINE 50 mg/mL SDV 1mL IM (16:11)
[2025-02-04] MEDS: LORazepam 1 MG/0.5 ML injection 2 MG IM (16:11)
[2025-02-04] MEDS: haloperidol inj 5 mg/mL INJ 1 mL IM (16:11)
--- NOTE | 2025-02-04 20:58 | PC.NURSE ---
vs not completed per nurse resp 16
--- NOTE | 2025-02-05 06:36 | PC.NURSE ---
vitals not completed per nurse to let patient sleep
--- NOTE | 2025-02-05 08:51 | P.NPUPN_ITS ---
Subjective NPU 2 Subjective: Patient presented today reporting that she is doing okay. She did not have an explanation for why she lost her pool yesterday and have the code 10 called because she was getting very upset because her significant other would not give her a hug after she was yelling at him. We discussed the concerns that we have based on her continued addiction and began a discussion about the need for sober living treatment. We discussed the need for probably better mood stabilization. She was fairly resistant to conversation. Mental Status Exam 2 MSE Comments: This is an overweight versus obese white female in hospital scrubs with limited grooming and eye contact. No abnormal movements except for psychomotor retardation.? Mostly cooperative with exam in mild to moderate distress.? Speech was decreased rate and volume.? Mood described as tired, affect congruent.? Thought process organized.? Thought content: Patient endorsed fleeting suicidal but denied homicidal ideations, there are no delusions noted but she does endorse some mild paranoia, she denied any auditory or visual hallucinations.? Attention and concentration were limited and memory appeared mostly reliable but none were formally tested.? She is alert and oriented x3.? Insight and judgment are limited, impulse control is impaired. Vitals/I&O/Wt Last Vital Signs Temp 98.4 F 02/03/25 20:40 Pulse 81 02/03/25 20:40 Resp 17 02/03/25 20:40 BP 127/81 02/03/25 20:40 Pulse Ox 97 02/03/25 20:40 O2 Del Method Room Air 02/03/25 20:40 Data NPU 02/03/25 09:30 02/03/25 09:30 A&P Assessment and plan 1. Borderline personality disorder: 2. Suicidal ideation: 3. Methamphetamine use disorder, severe, in sustained remission: 4. Nausea alone: 5. Anxiety: 6. Methamphetamine abuse: 7. Cannabis use disorder: 8. Polysubstance abuse: 9. Major depressive disorder, recurrent episode with anxious distress: Plan: This is a 29-year-old white female with a history of borderline personality disorder, methamphetamine use, cannabis use and significant anxiety who presents once again positive for cannabis and methamphetamine and with significant irritability. Plan: 1. Consider restarting medications including initiating an SSRI which she sometimes is resistant to. 2. Continue every 15 minute checks for safety. 3. Encourage individual, group and milieu therapies. 4. Encourage sober living treatment after discharge at the highest level of care to which she is willing to commit. 5. Obtain collateral information. 6. Observe against the backdrop of the 96-hour hold. PDMP PDMP Reviewed: Not Reviewed Involuntary Hold Information 2 Hold Status: Legal Status: 96 Hour Hold Date/Time Hold Expires: 02/09/2025 @ 0900 96 Hour Hold: 96 Hour Involuntary Admission: Yes Attestations NPU 2 Medical Necessity Statement*: Inpatient hospitalization is medically necessary and the clinically appropriate intervention at this time. We will initiate medications and make changes as indicated. Likely length of stay 4-6 days Coding Level of Care Code Acute Code for [facility] Fwd Diagnoses Borderline personality disorder F60.3 Suicidal ideation R45.851 Methamphetamine use disorder, severe, in sustained remission F15.21 Nausea alone R11.0 Anxiety F41.9 Methamphetamine abuse F15.10 Cannabis use disorder F12.90 Polysubstance abuse F19.10 Major depressive disorder, recurrent episode with anxious distress F33.9
[2025-02-05 14:00] VITALS: RESP 16
--- NOTE | 2025-02-05 14:15 | PC.NURSE ---
not done pt sleeping
[2025-02-05 17:17] VITALS: BP 112/68; PULSE 56; RESP 18; O2SAT 97
[2025-02-05 19:45] VITALS: BP 120/75; PULSE 75; RESP 16; TEMP 36.7; O2SAT 96
[2025-02-05 20:19] VITALS: BMI 28.9
[2025-02-06 06:00] VITALS: BP 103/58; PULSE 73; RESP 16; TEMP 37.1; O2SAT 99
--- NOTE | 2025-02-06 13:26 | P.NPUPN_ITS ---
Subjective NPU 2 Subjective: 29-year-old female with borderline perso nality disorder, depression, and methamphetamine abuse admitted with suicidal ideation. The patient had a significant lack of aggression requiring as needed medications after she had been upset that her boyfriend did not give the patient a hug yesterday. She continued to report feeling tired and stated that she was here because she did not receive a hug. She reported having feelings of hopelessness. She reported sleep continuity disruption. She continued to report having frequent nightmares and reported continued problems with controlling her anger. Mental Status Exam 2 MSE Comments: She was a poor historian. This is an overweight versus obese white female in hospital scrubs with limited grooming and eye contact. No abnormal movements except for psychomotor retardation.? She was non cooperative with exam in mild to moderate distress.? Speech was decreased in rate and decreased in volume.? Mood described as mad. Her affect was dysphoric. Thought process was linear and organized.? Thought content: Patient endorsed fleeting suicidal but denied homicidal ideations, there are no delusions noted but she does endorse some mild paranoia, she denied any auditory or visual hallucinations.? Attention and concentration were limited and memory appeared mostly reliable but none were formally tested.? She is alert and oriented x3.? Insight and judgment are limited, impulse control is impaired. Vitals/I&O/Wt Last Vital Signs Temp 98.7 F 02/06/25 06:00 Pulse 73 02/06/25 06:00 Resp 16 02/06/25 06:00 BP 103/58 02/06/25 06:00 Pulse Ox 99 02/06/25 06:00 O2 Del Method Room Air 02/06/25 06:00 Weight last 48 hrs Weight 81.363 kg Data NPU 02/03/25 09:30 02/03/25 09:30 Micro: Microbiology 02/03/25 17:10 Urine Culture - Final Urine,Clean Catch Microbiology 02/03/25 17:10 Urine,Clean Catch Urine Culture - Final A&P Assessment and plan 1. Major depressive disorder, recurrent episode with anxious distress: 2. Borderline personality disorder: 3. Suicidal ideation: 4. Methamphetamine use disorder, severe, in sustained remission: 5. Nausea alone: 6. Anxiety: 7. Methamphetamine abuse: 8. Cannabis use disorder: 9. Polysubstance abuse: Plan: This is a 29-year-old white female with a history of borderline personality disorder, methamphetamine use, cannabis use and significant anxiety who presents once again positive for cannabis and methamphetamine and with significant irritability. Plan: 1. Continue zoloft 50mg daily and seroquel at 100mg at night. 2. Continue every 15 minute checks for safety. 3. Encourage individual, group and milieu therapies. 4. Encourage sober living treatment after discharge at the highest level of care to which she is willing to commit. 5. Obtain collateral information. 6. Observe against the backdrop of the 96-hour hold. PDMP PDMP Reviewed: Not Reviewed Involuntary Hold Information 2 Hold Status: Legal Status: 96 Hour Hold Date/Time Hold Expires: 02/09/2025 @ 0900 96 Hour Hold: 96 Hour Involuntary Admission: Yes Attestations NPU 2 Medical Necessity Statement*: Inpatient hospitalization is medically necessary and the clinically appropriate intervention at this time. We will initiate medications and make changes as indicated. The patient's likely length of stay is 4-6 days. Coding Level of Care Code Acute Code for [facility] Fwd Diagnoses Major depressive disorder, recurrent episode with anxious distress F33.9 Borderline personality disorder F60.3 Suicidal ideation R45.851 Methamphetamine use disorder, severe, in sustained remission F15.21 Nausea alone R11.0 Anxiety F41.9 Methamphetamine abuse F15.10 Cannabis use disorder F12.90 Polysubstance abuse F19.10
[2025-02-06 14:00] VITALS: RESP 16
[2025-02-06] MEDS: multivitamin therapeutic Tablet 1 TAB PO (18:01)
[2025-02-06] MEDS: sennosides-docusate Tablet 2 TAB PO (18:01)
[2025-02-06 20:25] VITALS: BP 113/73; PULSE 80; RESP 18; O2SAT 97
[2025-02-07 06:00] VITALS: BP 99/60; PULSE 72; RESP 16; TEMP 36.8; O2SAT 96
[2025-02-07] MEDS: multivitamin therapeutic Tablet 1 TAB PO (07:42)
[2025-02-07 14:00] VITALS: BP 123/77; PULSE 80; RESP 15; TEMP 36.4; O2SAT 99
--- NOTE | 2025-02-07 15:04 | P.NPUPN_ITS ---
Subjective NPU 2 Subjective: 29-year-old female with borderline perso nality disorder, depression, and methamphetamine abuse admitted with suicidal ideation. The patient had reported that she was feeling better. She states that she has a place to live. She states she has been working at the [employer]. She had reported no thoughts of wanting to injure herself. She had reported that she was feeling less angry. She had stated that she had slept better last night. She reports that she has been hopeful about getting further help with her addiction. She did not feel that she needed to be inpatient for treatment for her substance abuse issues despite a significant history of methamphetamine abuse including a positive test for methamphetamine here on the unit during this hospitalization. She continued to report having depression but states that she had been feeling better lately. She had reported adequate appetite. Mental Status Exam 2 MSE Comments: This is an overweight versus obese white female in hospital scrubs with limited grooming and eye contact. No abnormal involuntary motor movements except for psychomotor retardation.? She was cooperative with exam in mild distress.? Speech was normal in rate and decreased in volume.? Mood described as better. Her affect was still restricted. Thought process was linear, logical and organized.? Thought content: Patient endorsed no suicidal or homicidal ideations. There are no delusions noted but she does endorse some mild paranoia. She denied any auditory or visual hallucinations.? Attention and concentration were limited and memory appeared mostly reliable but none were formally tested.? She is alert and oriented x3.? Insight and judgment are limited, impulse control is impaired. Vitals/I&O/Wt Last Vital Signs Temp 97.5 F L 02/07/25 14:00 Pulse 80 02/07/25 14:00 Resp 15 02/07/25 14:00 BP 123/77 02/07/25 14:00 Pulse Ox 99 02/07/25 14:00 O2 Del Method Room Air 02/07/25 06:00 Weight last 48 hrs Weight 81.363 kg Data NPU 02/03/25 09:30 02/03/25 09:30 A&P Assessment and plan 1. Major depressive disorder, recurrent episode with anxious distress: 2. Borderline personality disorder: 3. Suicidal ideation: 4. Methamphetamine use disorder, severe, in sustained remission: 5. Nausea alone: 6. Anxiety: 7. Methamphetamine abuse: 8. Cannabis use disorder: 9. Polysubstance abuse: Plan: This is a 29-year-old white female with a history of borderline personality disorder, methamphetamine use, cannabis use and significant anxiety who presents once again positive for cannabis and methamphetamine and with significant irritability. Plan: 1. Increase Zoloft to 75mg daily and increase seroquel to 150mg at night. 2. Continue every 15 minute checks for safety. 3. Encourage individual, group and milieu therapies. 4. Encourage sober living treatment after discharge at the highest level of care to which she is willing to commit. 5. Obtain collateral information. 6. Observe against the backdrop of the 96-hour hold. PDMP PDMP Reviewed: Not Reviewed Involuntary Hold Information 2 Hold Status: Legal Status: 96 Hour Hold Date/Time Hold Expires: 02/09/2025 @ 0900 96 Hour Hold: 96 Hour Involuntary Admission: Yes Attestations NPU 2 Medical Necessity Statement*: Inpatient hospitalization is medically necessary and the clinically appropriate intervention at this time. We will initiate medications and make changes as indicated. The patient's likely length of stay is 2-3 days. Coding Level of Care Code Acute Code for [facility] Fwd Diagnoses Major depressive disorder, recurrent episode with anxious distress F33.9 Borderline personality disorder F60.3 Suicidal ideation R45.851 Methamphetamine use disorder, severe, in sustained remission F15.21 Nausea alone R11.0 Anxiety F41.9 Methamphetamine abuse F15.10 Cannabis use disorder F12.90 Polysubstance abuse F19.10
[2025-02-07 20:06] VITALS: BP 113/74; PULSE 78; RESP 19; TEMP 36.7; O2SAT 98
[2025-02-08 06:00] VITALS: BP 96/55; PULSE 86; RESP 17; TEMP 37; O2SAT 99
[2025-02-08] MEDS: multivitamin therapeutic Tablet 1 TAB PO (08:43)
[2025-02-08 10:45] VITALS: BP 100/63; PULSE 83; RESP 16; TEMP 36.6; O2SAT 97
--- NOTE | 2025-02-08 15:20 | P.NPUDS_ITS ---
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 Nucleated RBCs # 0.0 /100WBC 02/03/25 09:30 Sodium 140 mmol/L (136-1 45) 02/03/25 09:30 Potassium 3.8 mmol/L (3.5-5 .1) 02/03/25 09:30 Chloride 105 mmol/L (98-10 7) 02/03/25 09:30 Carbon Dioxide 23 mmol/L (22-29) 02/03/25 09:30 Anion Gap 15.8 (5-19) 02/03/25 09:30 BUN 8 mg/dL (6-20) 02/03/25 09:30 Creatinine 0.6 mg/dL (0.5-0. 9) 02/03/25 09:30 GFR Calculation 116.6 mL/min (90- 130) 02/03/25 09:30 Glucose 105 mg/dL (65-115 ) 02/03/25 09:30 Calculated Osmolal ity 289 mOsm/kg (285- 295) 02/03/25 09:30 Calcium 9.1 mg/dL (8.5-10 .5) 02/03/25 09:30 Total Bilirubin 0.8 mg/dL (0.15-1 .2) 02/03/25 09:30 AST 25 U/L (0-32) 02/03/25:30 ALT 23 U/L (0-33) 02/03/25 09:30 Alkaline Phosphata se 74 U/L (35-105) 02/03/25 09:30 Total Protein 7.2 g/dL (6.6-8.7 ) 02/03/25 09:30 Albumin 4.2 g/dL (3.5-5.2 ) 02/03/25 09:30 Globulin 3.0 g/dL (1.3-4.6 ) 02/03/25 09:30 HCG, Qual Negative (Negati ve) 02/03/25 09:30 Urine Color Yellow (Yellow) 02/03/25 17:10 Urine Appearance Turbid (CLEAR) A 02/03/25 17:10 Urine pH 7.5 (5-7) 02/03/25 17:10 Ur Specific Gravit y 1.019 (1.005-1.0 30) 02/03/25 17:10 Urine Protein Negative (Negati ve) 02/03/25 17:10 Urine Glucose (UA) Negative (Normal ) 02/03/25 17:10 Urine Ketones Negative (Negati ve) 02/03/25 17:10 Urine Blood 2+ (Negative) A 02/03/25 17:10 Urine Nitrate Negative (Negati ve) 02/03/25 17:10 Urine Bilirubin Negative (Negati ve) 02/03/25 17:10 Urine Urobilinogen 1.0 mg/dL (Negati ve) 02/03/25 17:10 Ur Leukocyte Avis ase 1+ (Negative) A 02/03/25 17:10 Urine RBC 0-2 /hpf (0-2) 02/03/25 17:10 Urine WBC 11-20 /hpf (0-5) H 02/03/25 17:10 Ur Squamous Epith Cells 11-20 /hpf (0-5) H 02/03/25 17:10 Amorphous Sediment 1+ /hpf 02/03/25 17:10 Urine Bacteria Trace /hpf (NONE) 02/03/25 17:10 Hyaline Casts 1.65 /lpf 02/03/25 17:10 Salicylates < 0.3 mg/dL (3-10 ) L 02/03/25 09:30 Urine Opiates Scre en Negative ng/mL (N egative) 02/03/25 17:10 Acetaminophen < 5.0 ug/mL (10-3 0) L 02/03/25 09:30 Ur Barbiturates Sc reen Negative ng/mL (N egative) 02/03/25 17:10 Ur Phencyclidine S crn Negative ng/mL (N egative) 02/03/25 17:10 Ur Amphetamines Sc reen Positive ng/mL (N egative) H 02/03/25 17:10 U Benzodiazepines Scrn Positive ng/mL (N egative) H 02/03/25 17:10 Urine Cocaine Scre en Negative ng/mL (N egative) 02/03/25 17:10 U Marijuana (THC) Screen Positive ng/mL (N egative) H 02/03/25 17:10 Vitals: Last Vital Signs Temp 97.8 F 02/08/25 10:45 Pulse 83 02/08/25 10:45 Resp 16 02/08/25 10:45 BP 100/63 02/08/25 10:45 Pulse Ox 97 02/08/25 10:45 O2 Del Method Room Air 02/08/25 06:00 Discharge Plan Discharge Patient Disposition: Home Condition: Stable Prescriptions: New quetiapine 150 mg tablet 150 mg PO .at night Qty: 30 1RF sertraline [Zoloft] 100 mg tablet 100 mg PO DAILY Qty: 30 1RF quetiapine 150 mg tablet 150 mg PO .at night Qty: 30 1RF Continued cyclobenzaprine 10 mg tablet 10 mg PO BID omeprazole 20 mg capsule,delayed release(DR/EC) 20 mg PO DAILY Discontinued quetiapine 100 mg tablet 100 mg PO BEDTIME 30 Days Qty: 30 1RF Rx Instructions: Take one tablet daily at bedtime sertraline 50 mg tablet 50 mg PO DAILY Discharge Order = DC NOW: Discharge Order (Routine); Ordered 02/08/25 Ordered By: Cristopher Ching Referrals: Jayden Daily MD [Primary Care Provider, Family Practice] Sonali Ball APRN [Nurse Practitioner, Nurse Practitioner Psych/MH] - 02/11/25 2:15 pm Discharge Diet: Usual diet Discharge Activity: Resume usual activity Patient Instructions: Depression (DC), Anxiety (DC), Suicide Prevention (DC), Opioid Safety, Patient Portal & [facility]a Instructions Discharge Attestations NPU Time Spent in Discharge Care*: less than 30 min Specific Discharge Activities: Specific discharge activities: educating patient, discussing with case liner/social workers/dc planners and documenting/other paperwork Status at Discharge: Cognitive status at discharge: cognitively intact , Behavioral status at discharge: cooperative , Coding Level of Care Code Acute Code for [facility] Fwd Diagnoses Major depressive disorder, recurrent episode with anxious distress F33.9 Borderline personality disorder F60.3 Suicidal ideation R45.851 Methamphetamine use disorder, severe, in sustained remission F15.21 Nausea alone R11.0 Anxiety F41.9 Methamphetamine abuse F15.10 Cannabis use disorder F12.90 Polysubstance abuse F19.10
== END 2025-02-08 14:08 | disposition home or self-care (01) | DRG 885 ==
LOC: ER 09:41 → NP 09:41
PROVIDERS: Admitting Provider Psychiatry & Neurology Psychiatry; Emergency Provider Family Medicine; PCP Family Medicine; Visit Provider Psychiatry & Neurology Psychiatry
DX: F33.9 Major depressive disorder, recurrent, unspecified (principal); R45.851 Suicidal ideations; F15.20 Other stimulant dependence, uncomplicated; F41.9 Anxiety disorder, unspecified; F60.3 Borderline personality disorder; F12.90 Cannabis use, unspecified, uncomplicated; R45.850 Homicidal ideations; F17.290 Nicotine dependence, other tobacco product, uncomplicated; F90.9 Attention-deficit hyperactivity disorder, unspecified type; F43.10 Post-traumatic stress disorder, unspecified; E66.9 Obesity, unspecified; F63.9 Impulse disorder, unspecified; Z68.29 Body mass index [BMI] 29.0-29.9, adult; Z86.16 Personal history of COVID-19
CPT/HCPCS: 36415; 80053; 80306; 80307; 81001; 84703; 85025; 87086; 96372; 97150; 97165; 99285; J1200; J1630; J2060; J9999

== ENCOUNTER 2025-03-12 16:32 | Inpatient (IN) | payer MEDICAID, SELFPAY ==
[2024-10-13 10:27] VITALS: BP 131/80; BMI 34.0
[2025-03-12 16:35] VITALS: BP 120/74; PULSE 84; RESP 17; TEMP 36.9; O2SAT 98; BMI 30.3
--- OUTSIDE RECORDS SUMMARY | 2025-03-12 16:37 | XMS_ITS | Continuity of Care Document ---
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 The differential diagnosis includes allergic reaction, particularly possibly linked to environmental exposure such as carpet or unwashed linens. Allergy testing is considered necessary to identify potential triggering allergens. [email or web address] Not available 01/20/2025 15:14:57 Plan of Treatment Reminders Order Date Submit Date Provider Last Modified By Organization Details Last Modified Time Details Appointments None recorded. Lab None recorded. Referral varnish maker referral 2024 025 [email or web address] 2 Ezra Figueroa MD, [address] , [place], [address], 09:13:33 Procedures None recorded. Surgeries None recorded. Imaging None recorded. Medication Orders None recorded. Patient TargetsNo targets recorded. Patient Instructions Encounter Date Encounter Id Patient Instructions Last Modified By Organization Details Last Modified Time 01/20/2025 [id number] - Follow up with the varnish maker as soon as referral is confirmed. - Keep home environment clean and wash bedding whenever possible. - Avoid scratching to prevent further bleeding or infection. - Monitor for any new symptoms or worsening of current condition and inform healthcare provider. - Contact the office if questions or concerns arise. [email or web address] Not available 01/20/2025 15:07:51 During our discussion, I reviewed the patient's symptoms and possible causes of her skin reaction, including allergies to environmental factors such as carpets or insufficiently cleaned bedding. I explained the relevance and process of allergy testing using skin prick or blood tests, generally conducted by a specialist. Importance of hygienic bedding practices was emphasized, especially given current laundry restrictions. We discussed possible causes like dust mites and alternative possibilities such as scabies or bed bug bites, though both were considered less likely given the circumstances. The patient has been advised that referral arrangements to an varnish maker will be initiated to pursue comprehensive testing and identification of potential allergens. She is to report any progression or worsening of her condition. 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 for Aller gic disposition Referring Physician: Lalo Daily, Family Medicine, Encounter Date: 01/20/2025 Problems Name Problem SNOMED Code Status Onset Date Resolution Date Notes Provider Name and Address Organization Details Recorded Time Suicidal thoughts 3430904 Active 2022 SUICIDAL IDEATION; 06/04/2022 7:58AM by Radha Couch LPN, Office Visit; Promoted; acuity set as *; Not Available [facility] 3 03:08:18 Major depressiv e disorder 529491476 Active 2022 MAJOR DEPRESSION ; 06/04/2022 7:58AM by Radha Couch LPN, Office Visit; Promoted; acuity set as *; Not Available [facility] 3 03:08:18 Contracep tion care managemen t Active 2022 CONTRACEPT ION MANAGEMENT ; Recorded 06/04/2022 7:58AM by Radha Couch LPN, Office Visit; Promoted; acuity set as *; Not Available [facility] 3 03:08:19 Nausea 140174314 Active 2022 NAUSEA ALONE; 06/04/2022 7:58AM by Radha Couch LPN, Office Visit; Promoted; acuity set as *; Not Available [facility] 3 03:08:19 Attention deficit hyperacti vity disorder 269456905 Active 2022 JAMI nicholas [facility], RyanLRyanCRyan 3 09:01:02 Depressiv e disorder 56438096 Active 2022 JAMI CARDENASLatrice nicholas, [facility] 3 09:01:12 Harmful pattern of use of Cannabis 51221413 Active 2022 JAMI AMBRIZ [facility], [facility] 3 09:01:25 Borderlin e personali ty disorder 76950277 Active 2022 JAMI PB yu, [facility] 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 3 09:01:54 Suicidal behavior 181339975 Active 2022 JAMISA PB nicholas [facility] 3 09:02:09 Low back pain 196952356 Active 2022 JAMI nicholas, [facility] 3 09:02:23 Insomnia 514472920 Active 2022 Lalo Daily MD [address] [place] [address], [phone] , [facility] 3 14:36:33 Bacterial vaginosis 925867886 Active 2022 Lalo Daily MD [address] [place] [address], [phone] , [facility] 3 09:52:39 Gonorrhea 84535372 Active 2022 Lalo Daily MD [address] [place] [address], [phone] , [facility] 3 10:29:17 Fatigue 58759444 Active 2023 Lalo Daily MD [address] [place] [address], [phone] , [facility] 4 15:33:25 Excessive thirst 30736670 Active 2023 Lalo Daily MD [address] [place] [address], [phone] , [facility] 4 15:35:20 Vaginal discharge 515637201 Active 2023 Lalo Daily MD [address] [place] [address], [phone] , [facility] 4 14:05:29 Acute upper respirato ry infection 16705827 Active 2023 Lalo Daily MD [address] [place] [address], [phone] , [facility] 4 14:12:04 Anxiety 47939030 Active 2024 Lalo Daily MD [address] [place] [address], [phone] , [facility] 5 11:52:16 Chronic low back pain 946171754 Active 2024 Lalo Daily MD [address] [place] [address], [phone] , [facility] 5 12:00:53 Body mass index 30+ - obesity 006258528 Active 2024 Lalo Daily MD [address] [place] [address], [phone] , [facility] 5 12:04:08 Gastroeso phageal reflux disease without esophagit is 529028739 Active 2024 Lalo Daily MD [address] [place] [address], [phone] , [facility] 5 10:54:17 Inflammat ory dermatosi s 373955863 Active 2024 Lalo Daily MD [address] [place] [address], [phone] , [facility] 15:13:56 Problem Notes None recorded. Procedures Surgical History Date Name Laterality Status Provider Name and Address Organization Details Recorded Time 5 jr iud insertion completed Lalo Daily MD [address] [place] [address], [phone], [facility], LRyanLRyanCRyan 09/22/2024 17:27:37 3 Date of Last Pap Smear completed [facility], LRyanLNora 08/27/2024 11:29:35 3 [facility] L.L.CR[facility] 03/17/2023 14:12:19 Knee Surgery completed Constanza Maloney [facility] 01/20/2025 14:32:41 Imaging Results None recorded. Procedure Notes None recorded. Medical Equipment None Reported. Allergies Allergen ID Allergen Name Allergen Category Reaction Reaction Severity Criticality Documentation Date Start Date Code Code System Note Provider Name and Address Organization Details Recorded Time 1842 Bactrim medicatio n Not available Not available Not available 08/08/2022 [id number] [id number] Rx[facility] 3 09:00:44 Medications Name Sig Start Date Stop Date Status Note LastModified by Organization Details LastModified Time cyclobenz aprine 10 mg tablet TAKE 1 TABLET BY MOUTH THREE TIMES DAILY active Not Available Not Available No t Available amoxicill in 500 mg capsule take 1 capsule BY MOUTH THREE TIMES DAILY UNTIL GONE 08/27 completed Not Available Not Available Not Available nicotine 14 mg/24 hr daily transderm al patch APPLY 1 PATCH TRANSDER MAL EVERY DAY 02/10 completed Not Available Not Available Not Available haloperid ol 5 mg tablet TAKE ONE TABLET BY MOUTH DAILY for 30 days 09/21 completed Not Available Not Available Not Available trazodone 50 mg tablet TAKE 1-2 TABLETS BY MOUTH DAILY AT BEDTIME NEEDED FOR INSOMNIA 07/08 completed Not Available Not Available Not Available cetirizin e 10 mg tablet TAKE 1 TABLET BY MOUTH EVERY DAY FOR 30 DAYS 07/08 completed Not Available Not Available Not Available tizanidin e 4 mg tablet Take 1 tablet 4 times a day by oral route as needed. 07/08 completed Not Available Not Available Not Available hydrocodo ne 5 mg-acetam inophen 325 mg tablet TAKE 1 TABLET BY MOUTH EVERY 4 TO 6 HOURS NEEDED FOR PAIN 08/27 completed Not Available Not Available Not Available meloxicam 15 mg tablet TAKE 1 TABLET BY MOUTH EVERY DAY active Not Available Not Available No t Available ondansetr on HCl 4 mg tablet Take 1 tablet every 6 hours by oral route as needed for 7 days. 10/05 completed Not Available Not Available Not Available dexametha sone 6 mg tablet TAKE 1 TABLET BY MOUTH EVERY DAY FOR FIVE DAYS 08/27 completed Not Available Not Available Not Available hydroxyzi ne pamoate 50 mg capsule TAKE 1 CAPSULE BY MOUTH TWICE A DAY NEEDED FOR ANXIETY 02/10 completed Not Available Not Available Not Available metronida zole 500 mg tablet TAKE 4 TABLETS BY MOUTH DIRECTED 07/08 completed Not Available Not Available Not Available hydroxyzi ne HCl 50 mg tablet TAKE 1 TABLET BY MOUTH EVERY DAY AT BEDTIME 07/08 completed Not Available Not Available Not Available sulfameth oxazole 800 mg-trimet hoprim 160 mg tablet TAKE 1 TABLET BY MOUTH TWICE A DAY 05/25 completed Not Available Not Available Not Available hydrocodo ne 10 mg-acetam inophen 325 mg tablet TAKE 1 TABLET BY MOUTH EVERY 6 HOURS NEEDED FOR PAIN FOR 7 DAYS 05/25 completed Not Available Not Available Not Available quetiapin e 100 mg tablet TAKE 1 TABLET BY MOUTH EVERY DAY AT BEDTIME active Not Available Not Available No t Available triamcino lone acetonide 0.1 % topical cream apply a thin layer TO affected area(S) TWICE DAILY 01/20 completed Not Available Not Available Not Available buspirone 10 mg tablet TAKE 1 TABLET BY MOUTH TWICE DAILY EVERY MORNING and EVERY EVENING stop other doses of this medicati on 01/20 completed Not Available Not Available Not Available gabapenti n 300 mg capsule TAKE 1 CAPSULE BY MOUTH ONCE DAILY FOR 1 DAY THEN 1 CAP TWICE DAILY FOR 1 DAY THEN 1 CAP THREE TIMES DAILY FOR 14 DAYS 02/10 completed Not Available Not Available Not Available omeprazol e 20 mg capsule,d elayed release take 1 capsule BY MOUTH EVERY DAY active Not Available Not Available No t Available Banophen 25 mg capsule TAKE 1 CAPSULE BY MOUTH THREE TIMES DAILY, NEEDED FOR ITCHING ITCHING 02/10 completed Not Available Not Available Not Available diclofena c sodium 75 mg tablet,de layed release TAKE 1 TABLET BY MOUTH TWICE DAILY FOR 30 DAYS 07/08 completed Not Available Not Available Not Available hydroxyzi ne HCl 25 mg tablet TAKE 1 TABLET BY MOUTH TWICE DAILY NEEDED 08/27 completed Not Available Not Available Not Available mupirocin 2 % topical ointment apply a small amount TO affected area THREE TIMES DAILY 07/08 completed Not Available Not Available Not Available diclofena c sodium 50 mg tablet,de layed release TAKE 1 TABLET BY MOUTH EVERY TWELVE HOURS 08/27 completed Not Available Not Available Not Available ibuprofen 600 mg tablet TAKE 1 TABLET BY MOUTH EVERY 6 HOURS NEEDED FOR MILD PAIN 07/08 completed Not Available Not Available Not Available methylpre dnisolone 4 mg tablets in a dose pack TAKE BY MOUTH DIRECTED ON INSIDE OF PACKAGE FOR LOWER BACK PAIN 02/10 completed Not Available Not Available Not Available ondansetr on 4 mg disintegr ating tablet TAKE 1 TABLET BY MOUTH THREE TIMES A DAY NEEDED 02/10 completed Not Available Not Available Not Available cefdinir 300 mg capsule TAKE 1 CAPSULE BY MOUTH TWICE DAILY 02/10 completed Not Available Not Available Not Available fluticaso ne propionat e 50 mcg/actua tion nasal spray,[employer] USE 1 SPRAY in each nostril EVERY DAY 07/08 completed Not Available Not Available Not Available sertralin e 50 mg tablet take 1/2 tablet BY MOUTH EVERY MORNING FOR FOUR DAYS THEN increase TO ONE tablet EVERY DAY active Not Available Not Available No t Available medroxypr ogesteron e 150 mg/mL intramusc ular suspensio n INJECT 1 MILLILIT ER INTRAMUS CULARLY EVERY 3 MONTHS 07/08 completed pt rut stanley on in from pharmacy . pt tolerate d well. given in left deltoid on 03/17. depo calender given to pt. dc/ma Not Available Not Available Not Available Benadryl Allergy 25 mg tablet Take 1 tablet 3 times a day by oral route. 07/08 completed Not Available Not Available Not Available azithromy clotilde 500 mg tablet TAKE 4 TABLETS BY MOUTH ONCE 05/25 completed Not Available Not Available Not Available nitrofura ntoin monohydra te/macroc rystals 100 mg capsule take 1 capsule BY MOUTH EVERY TWELVE HOURS FOR SEVEN DAYS 05/25 completed Not Available Not Available Not Available hydroxyzi ne HCl every 6 hours as needed for pain 03/17 completed 0; Recorded 06/04/19 8:00AM by Radha Couch LPN, Office Visit; Not Available Not Available Not Available Benadryl Allergy three times daily 03/17 completed dispense one trade blister, bottle or number 30; Recorded 06/04/19 8:09AM by René Craven MD, Office Visit; Refill Quantity : 0; Not Available Not Available Not Available Depo-Prov era as needed 07/08 completed last injectio n 2; 24487; Recorded 03/07/20 11:12AM by Jami Ambriz (Authori zed through Lalo Daily MD), Injectio n Only; Not Available Not Available Not Available Trazodone as needed 03/17 completed for agitatio n; 0; Recorded 06/04/19 8:00AM by Radha Couch LPN, Office Visit; Not Available Not Available Not Available ondansetr on HCl (PF) 4 mg/2 mL injection solution Take 2 mL by injectio n route. 10/11 completed Not Available Not Available Not Available quetiapin e ER 200 mg tablet,ex tended release 24 hr TAKE 1 TABLET BY MOUTH EVERY DAY. need appointm ent 08/27 completed Not Available Not Available Not Available quetiapin e ER 150 mg tablet,ex tended release 24 hr TAKE 1 TABLET BY MOUTH ONCE DAILY IN THE EVENING 07/08 completed Not Available Not Available Not Available Liletta 20.4 mcg/24 hr (up to 8 years) 52 mg intrauter ine device Take 1 device by intraute rine route. 2024 active Not Available Not Available Not Avai lable Zepbound 5 mg/0.5 mL subcutane ous pen injector inject 5mg SUBCUTAN EOUSLY every week 01/20 completed Not Available Not Available Not Available Zepbound 2.5 mg/0.5 mL subcutane ous pen injector inject 2.5mg SUBCUTAN EOUSLY every week 01/20 completed Not Available Not Available Not Available Vitals Date Recorded Body height Body mass index (BMI) Body weight Oxygen saturation Heart rate Body temperature Respiratory rate Provider Name and Address Organization Details Last Updated DateTime 170.18 cm 29.8 kg/m2 62937.2 7 g 97 % 93 /min 97.7 [degF] 16 /min Constanza Maloney [facility] 14:31:07 Social History Question Answer Notes LastModified by Organizat ion Details LastModified Time Tobacco Smoking Status Current Every Day Smoker RAH nicholas [facility] 08/27/2024 11:32:35 Are You Blind Or Do You Have Difficulty Seeing? No Information not available 08/27/2024 What Is Your Level Of Caffeine Consumption? Occasional [email or web address] Information not available 01/20/2025 Are You Deaf Or Do You Have Serious Difficulty Hearing? No Information not available 08/27/2024 What Type Of Diet Are You Following? REGULAR Information not available 03/17/2023 What Is The Highest Grade Or Level Of School You Have Completed Or The Highest Degree You Have Received? [id number] Information not available 03/17/2023 Which Of Your Hands Is Dominant? Right Information not available 03/17/2023 What Type Of Marijuana Have You Used? Smoke [email or web address] Information not available 01/20/2025 Do You Or Have You Ever Used Marijuana? Current Every Day User [email or web address] Information not available 01/20/2025 What Was The Date Of Your Most Recent Tobacco Screening? 12/27/2024 [email or web address] Information not available 12/27/2024 Have You Ever Been Counseled For Unhealthy Alcohol Use? No [email or web address] Information not available 10/11/2024 Was Your Marijuana Use Recreational Or Medical? Medical [email or web address] Information not available 01/20/2025 What Is Your Relationship Status? Single Information not available 03/17/2023 Are You Sexually Active? Yes Information not available 03/17/2023 At What Age Did You Start Smoking Tobacco? 25 [email or web address] Information not available 01/20/2025 How Much Tobacco Do You Smoke? 0.5 PPD Information not available 08/27/2024 Have You Used IV Drugs? No [email or web address] Information not available 01/20/2025 Do You Have Difficulty Walking Or Climbing Stairs? No Information not available 08/27/2024 Do You Have Any Dietary Restrictions? No Information not available 03/17/2023 Sex: Unknown Functional Status Question Answer Note LastModified by Organization Details LastModified Time Do you use any illicit or recreational drugs? No THC vapes occassionally [email or web address] Information not available 01/20/2025 What is your level of alcohol consumption? Occasional Information not available 03/17/2023 Are you currently employed? Yes Information not available 03/17/2023 Are you able to walk independently without assistance or assistive devices? [email or web address] Information not available 03/17/2023 Do you have difficulty doing errands alone? No Information not available 08/27/2024 Are you able to care for yourself independently? Yes Information not available 03/17/2023 Do you have difficulty dressing, bathing, grooming, or toileting? No Information not available 08/27/2024 Mental Status Question Answer Note LastModified by Organization D etails LastModified Time Do you have difficulty concentrating, remembering or making decisions? No Information no t available 08/27/2024 Family History Relationship Description Onset Age of this Age Resolved Age Notes LastModified by Organization Details LastModified Time Unspecified Relation Diabetes mellitus [email or web address] Not available 2024 11:30:16 Notes:diabetes Medical History No medical history recorded. Gynecological History Statement/Question Response Abnormal Pap Y Date of Last Pap Smear 03/17/2023 Date of LMP 08/27/2024 LMP Approximate Age at First Child 17 Obstetrics History GPAL:G 3 P 2 0 1 2 Type Value Full Term 2 Spontaneous 1 Living 2 Total 3 Immunizations Vaccine Type Date Status Note Provider Nam e and Address Organization Details Recorded Time Hep B, adolescent or pediatric 4 completed Not Available [facility] 01/20/2025 14:25:23 Hep B, adolescent or pediatric 4 completed Not Available [facility] 01/20/2025 14:25:23 DTP-Hib 4 completed Not Available [facility] 01/20/2025 14:25:23 OPV, trivalent 4 completed Not Available [facility] 01/20/2025 14:25:23 DTP-Hib 4 completed Not Available [facility] 01/20/2025 14:25:23 OPV, trivalent 4 completed Not Available [facility] 01/20/2025 14:25:23 DTP-Hib 4 completed Not Available [facility] 01/20/2025 14:25:23 OPV, trivalent 4 completed Not Available [facility] 01/20/2025 14:25:23 Hep B, adolescent or pediatric 4 completed Not Available [facility] 01/20/2025 14:25:23 Hib (PRP-T) 5 completed Not Available [facility] 01/20/2025 14:25:23 MMR 5 completed Not Available [facility] 01/20/2025 14:25:23 DTaP 6 completed Not Available [facility] 01/20/2025 14:25:23 DTaP 9 completed Not Available [facility] 01/20/2025 14:25:23 OPV, trivalent 9 completed Not Available [facility] 01/20/2025 14:25:23 MMR 9 completed Not Available [facility] 01/20/2025 14:25:23 HPV, quadrivalent 9 completed Not Available [facility] 01/20/2025 14:25:23 HPV, quadrivalent 9 completed Not Available [facility] 01/20/2025 14:25:23 HPV, quadrivalent 9 completed Not Available [facility] 01/20/2025 14:25:23 Td (adult), 2 Lf tetanus toxoid, preservative free, adsorbed 9 completed Not Available [facility] 01/20/2025 14:25:23 meningococcal MCV4P 2 completed Not Available [facility] 01/20/2025 14:25:23 Tdap 3 completed Not Available [facility] 01/20/2025 14:25:23 Tdap 1 completed Not Available [facility] 01/20/2025 14:25:23 Hep A, adult 3 completed Not Available [facility] 01/20/2025 14:25:23 Hep A-Hep B 3 completed Not Available [facility] 01/20/2025 14:25:23 Past Encounters Encounter ID Performer Location Encounter Start Date Encounter Closed Date Diagnosis/Indication Diagnosis SNOMED-CT Code Diagnosis ICD10 Code Diagnosis IMO Codes Diagnosis Note [id number] KIERRA MARTINES [facility] ([facility]) [address] [place] [phone] 12/27/2024 11:17:55 12/27/2024 11:48:22 Bite of bed bug 559461471 W57.XXXA [id number] Return to clinic if the rash worsens, lasts longer than one week, shows signs of local infection (redness, oozing, or swelling). Advised to wash bedding in hot water. Recommend profession al to check for infestatio n. [id number] Lalo Daily MD [facility] ([facility]) [address] [place] [phone] 01/20/2025 14:24:54 01/20/2025 15:20:56 Allergic disposition 471767869 Z88.9 [id number] - Arrange referral for comprehens kwame allergy testing by an varnish maker. - Consider environmen ellie factors such as carpet as potential allergens. Inflammato ry dermatosis 507576148 L30.9 21783 - Advise to maintain bedding hygiene. - Educate concerning avoidance strategies after allergen or cause identifica tion.- Monitor for sources such as bed bugs or fleas. Health Concerns Section Related Observation LastModified by Organization Detai ls LastModified Time None Recorded Concern Status LastModified by Organization Details LastModified Time None Recorded Payers Encounter Date Sequence Insurance Name Policy Number Policy Vyas Covered Member ID Vyas Member ID Guarantor Name 01/20/2025 1 [facility] (MEDICAID REPLACEMENT - HMO) SOPHIA Diop [id number] Mara Diop Notes Date Note Type Note Provider Name and Address Organization Details Recorded Time 01/20/2025 text/html patient would like to have allergy testing done.she has been getting small red, itchy bumps that she thinks might be from dust mitesThe patient is a 29-year-old female presenting with an itchy rash. The rash started when she began spending nights at her boyfriend's house, which has a carpet. The rash is characterized by frequent itching and occasional bleeding when scratched, and it has started appearing at her own residence as well. She is sure no visible insects, like bed bugs or fleas, are the cause. The absence of a washing facility for her linens at her home is noted, possibly impacting her condition negatively. The patient seeks allergy testing, having previously undergone such tests as a child, to determine the potential allergens causing this reaction. She notes her boyfriend does not have similar symptoms, despite sharing the environment. Lalo Daily MD [address] [place] [address], [phone], [facility] - [facility], L.LRyanCRyan 01/20/2025 15:15:09 OBGyn [phone] No [id number]
--- OUTSIDE RECORDS SUMMARY | 2025-03-12 16:37 | XMS_ITS | Data Portability ---
Author Organization [facility] Mateusz [facility] Samara Wright [facility] Address [address] [place] [phone] Care Team Providers Care Fish Tender Name Role Phone LALO DAILY Primary Care [...] Appointments None recorded. Lab None recorded. Referral electrical solderer referral 2024 025 [email or web address] 2 Ezra Figueroa MD, [address] , [place], [address], 09:13:33 physical therapist referral [address], [address] [place], [address], 08:53:40 Procedures None recorded. Surgeries None recorded. Imaging None recorded. Medication Orders triamcinolo ne acetonide 0.1 % topical cream 2024 025 [facility] [place], [address] [place], [address], 14:44:24 cyclobenzap rine 10 mg tablet [address], [address], 16:48:31 meloxicam 15 mg tablet [address], [address], 16:48:30 omeprazole 20 mg capsule,del ayed release [address], [address], 16:48:29 Zepbound 2.5 mg/0.5 mL subcutaneou s pen injector 2024 025 [email or web address] [facility], [address] [place] [address], [address], 14:32:04 Liletta 20.4 mcg/24 hr (up to 8 years) 52 mg intrauterin e device 2024 025 [email or web address] Not available 16:49:40 Patient TargetsNo targets recorded. Patient Instructions Encounter Date Encounter Id Patient Instructions Last Modified By Organization Details Last Modified Time 01/20/2025 [id number] - Follow up with the electrical solderer as soon as referral is confirmed. - [...] been advised that referral arrangements to an electrical solderer will be initiated to pursue comprehensive testing and identification of potential allergens. She is to report any progression or worsening of her condition. [email or web address] Not available 01/20/2025 15:07:52 Reason for Referral Physical Therapist Referral for Chronic low back pain Referring Physician: Lalo Daily, Family Medicine, Encounter Date: 10/11/2024 Detasseling Crew Supervisor Referral for Aller gic disposition Referring Physician: Lalo Daily [facility] Medicine, Encounter Date: 01/20/2025 Results Created Date Observation Date Name Description Value Unit Range Abnormal Flag Note LastModifiedBy Organization Detail LastModifiedTime 08/28/1908/30/2024 HEPAT ITIS PANEL , ACUTE W/REF YOVANY TO CONFI RMATI ON hepatitis A IgM NON-RE ACTIVE non-re active normal For addit ional emiliar philip gordillo e refer to http: //VIVA yesi coronado.que stdia gnost ics.c om/fa q/FAQ 202 (This link is being provi ded for infor matio nal/ educa alex l purpo ses only. ) Not Available [facility] [address], [address], 08/30/2024 08:18:20 08/28/1908/30/2024 HEPAT ITIS PANEL , ACUTE W/REF YOVANY TO CONFI RMATI ON hepatitis B surface antigen NON-RE ACTIVE non-re active normal For addit ional emiliar anat coronado pleas e refer to http: //VIVA yesi kramer stdia gnost ics.c om/fa q/FAQ 202 (This link is being provi ded for infor matio nal/ educa alex l purpo ses only. ) Not Available [facility] [address] [address] [place], [address], 08/30/2024 08:18:20 08/28/1908/30/2024 HEPAT ITIS PANEL , ACUTE W/REF YOVANY TO CONFI RMATI ON hepatitis B core antibody (IgM) NON-RE ACTIVE non-re active normal For addit ional infor anat coronado, philip e refer to http: //[facility].que stdia gnost ics.c om/fa q/FAQ 202 (This link is being provi ded for infor matio nal/ educa alex l purpo ses only. ) Not Available [address], [address], 08/30/2024 08:18:20 08/28/1908/30/2024 HEPAT ITIS PANEL , ACUTE W/REF YOVANY TO CONFI RMATI ON hepatitis C antibody NON-RE ACTIVE non-re active normal HCV antib [place] was non-r eacti ve. There is no labor atory evide nce of HCV infec tion. In most cases , no furth er actio n is requi red. Howev er, if recen t HCV expos ure is suspe cted, a test for HCV RNA (test code 71875 ) is sugge sted. For addit ional emiliar anat palacios e refer to http: //[facility].que stdia gnost ics.c om/fa q/FAQ 22v1 (This link is being provi ded for infor matio nal/ educa alex l purpo ses only. ) Not Available [facility] [employer] [address] [facility], [place], [address], 08/30/2024 08:18:20 08/28/1908/30/2024 HIV 1/2 ANTIG EN/AN TIBOD Y,FOU RTH GENER ATION W/RFL HIV Ag/Ab, 4TH gen NON-RE ACTIVE non-re active normal HIV-1 antig en and HIV-1 /HIV- 2 antib odies were not detec ravin. There is no labor atory evide nce of HIV infec tion. PLEFELIZ E NOTE: This infor anat coronado has been discl osed to you from recor ds whose confi denti ality may be prote cted by state law. If your state requi res such prote ction , then the state law prohi bits you from lora dodge imtchell furth er discl osure of the infor matio n witho ut the speci fic writt en conse nt of the perso n to whom it perta ins, or as other cuellar permi tted by law. A gener al autho rizat ion for the relea se of medic al or other infor matio n is NOT suffi cient for this purpo se. For addit ional infor matio n pleas e refer to http: //[facility] n.que stdia gnost ics.c om/fa q/FAQ 106 (This link is being provi ded for infor matio nal/ educa alex l purpo ses only. ) The perfo rmanc e of this assay has not been clini ross valid ated in patie nts less than 2 years old. Not Available [address], [address], 08/30/2024 08:18:21 08/28/1908/30/2024 CHLAM YDIA/ N. GONOR RHOEA E RNA, TMA, UROGE NITAL chlamydia trachomatis RNA, tma, urogenital NOT DETECT ED not detect ed normal Not Available [address], [address], 08/30/2024 08:18:22 08/28/1908/30/2024 CHLAM YDIA/ N. GONOR RHOEA E RNA, TMA, UROGE NITAL neisseria gonorrhoeae RNA, tma, urogenital NOT DETECT ED not detect ed normal Not Available [facility] [address], [address], 08/30/2024 08:18:22 08/28/1908/30/2024 CHLAM YDIA/ N. GONOR RHOEA E RNA, TMA, UROGE NITAL comment The james tical perfo rmanc e izzy cteri stics of this assay , when used to test SureP ath(T M) speci mens have been deter mined by [facility]. The modif icati ons have not been clear ed or appro zac by the FDA. This assay has been valid ated pursu ant to the CLIA regul ation s and is used for clini mark purpo ses. For addit ional infor philip gordillo e refer to https ://ed ucati on.qu estMobicow. com/f aq/FA Q154 (This link is being provi ded for infor anat coronado/ educa alex l purpo ses only. ) Not Available [facility] [address] [place], [address], 08/30/2024 08:18:22 08/28/19 25 08/30/2024 RPR (DX) W/REF L TITER AND T. PALLI DUM AB, IA RPR (DX) w/refl titer and confirmatory testing NON-RE ACTIVE non-re active normal No labor atory evide nce of syphi lis. If recen t expos ure is suspe cted, submi t a new sampl e in 2-4 weeks . Not Available [facility] [address] [place], [address], 08/30/2024 08:18:22 09/22/19 25 09/21/2024 pregn antwon test, urine HCG negati ve Not Available [facility] ([facility]) [address] [place] [address], [address], 09/21/2024 08:40:34 Result Notes None recorded. Problems Name Problem SNOMED Code Status Onset Date Resolution Date Notes Provider Name and Address Organization Details Recorded Time Suicidal thoughts 8884674 Active 2022 SUICIDAL IDEATION; 06/04/2022 7:58AM by Radha Couch LPN, Office Visit; Promoted; acuity set as *; Not Available [facility] 3 03:08:18 Major depressiv e disorder 813539719 Active 2022 MAJOR DEPRESSION ; 06/04/2022 7:58AM by Radha Couch LPN, Office Visit; Promoted; acuity set as *; Not Available [facility] 3 03:08:18 Contracep tion care managemen t Active 2022 CONTRACEPT ION MANAGEMENT ; Recorded 06/04/2022 7:58AM by Radha Couch LPN, Office Visit; Promoted; acuity set as *; Not Available [facility] 3 03:08:19 Nausea 146188938 Active 2022 NAUSEA ALONE; 06/04/2022 7:58AM by Radha Couch LPN, Office Visit; Promoted; acuity set as *; Not Available [facility] 3 03:08:19 Attention deficit hyperacti vity disorder 875168330 Active 2022 JAMI nicholas [facility] 3 09:01:02 Depressiv e disorder 94193286 Active 2022 JAMI nicholas [facility] 3 09:01:12 Harmful pattern of use of Cannabis 01615808 Active 2022 JAMI nicholas [facility] 3 09:01:25 Borderlin e personali ty disorder 77633371 Active 2022 JAMI nicholas [facility] 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 3 09:01:54 Suicidal behavior 190420570 Active 2022 JAMI nicholas [facility] 3 09:02:09 Low back pain 805594986 Active 2022 JAMI nicholas [facility] 3 09:02:23 Insomnia 853591641 Active 2022 Lalo Daily MD [address] [place] [address], [address] , [facility] 3 14:36:33 Bacterial vaginosis 428048312 Active 2022 Lalo Daily MD [address] [place] [address], [phone] , [facility] 3 09:52:39 Gonorrhea 71245504 Active 2022 Lalo Daily MD [address] [place] [address], [address] , [facility] 3 10:29:17 Fatigue 94987936 Active 2023 Lalo Daily MD [address] [place] [address], [address] , [facility] 4 15:33:25 Excessive thirst 78615963 Active 2023 Lalo Daily MD [address] [place] [address], [address] , [facility] 4 15:35:20 Vaginal discharge 199778055 Active 2023 Lalo Daily MD [address] [place] [address], [address] , [facility] 4 14:05:29 Acute upper respirato ry infection 18059470 Active 2023 Lalo Daily MD [address] [place] [address], [address] , [facility] 4 14:12:04 Anxiety 87448484 Active 2024 Lalo Daily MD [address] [place] [address], [address] , [facility] 5 11:52:16 Chronic low back pain 549814531 Active 2024 Lalo Daily MD [address] [place] [address], [address] , [facility] 12:00:53 Body mass index 30+ - obesity 249391257 Active 2024 Lalo Daily MD [address] [place] [address], [address] , [facility] 12:04:08 Gastroeso phageal reflux disease without esophagit is 674100362 Active 2024 Lalo Daily MD [address] [place] [address], [address] , [facility] 10:54:17 Inflammat ory dermatosi s 784942405 Active 2024 Lalo Daily MD [address] [place] [address], [address] , [facility] 15:13:56 Problem Notes None recorded. Procedures Surgical History Date Name Laterality Status Provider Name and Address Organization Details Recorded Time 5 jr iud insertion completed Lalo Daily MD [address] [place] [address], [phone], [facility] L[facility]LR[facility]CR[facility] 09/22/2024 17:27:37 3 Date of Last Pap Smear completed RAH AN [facility], Samara 08/27/2024 11:29:35 3 Back Surgery completed RA[facility] AN [facility], TahirLRyanCRyan 03/17/2023 14:12:19 Knee Surgery completed Constanza Maloney [facility], TahirLNora 01/20/2025 14:32:41 Imaging Results None recorded. Procedure Notes None recorded. Medical Equipment None Reported. Allergies Allergen ID Allergen Name Allergen Category Reaction Reaction Severity Criticality Documentation Date Start Date Code Code System Note Provider Name and Address Organization Details Recorded Time 184 Bactrim medicatio n Not available Not available Not available 08/08/2022 36794 9 RxNorm JAMI AMBRIZ yu [facility] 3 09:00:44 Medications Name Sig Start Date [...] EVERY 3 MONTHS 07/08 completed pt rut medicati on in from pharmacy . pt tolerate [...] needed 07/08 completed last injectio n 2; 75773; Recorded 03/07/20 22 11:12AM by Jami Ambriz (i maekda through Lalo Daily MD), Injectio n Only; Not Available Not Available Not Available Trazodone as needed 03/17 completed for agitatio n; 0; Recorded 06/04/19 23 8:00AM by Radha Couch LPN, Office Visit; [...] height Body mass index (BMI) Body weight Body temperature Heart rate Oxygen saturation Systolic And Diastolic Provider Name and Address Organization Details Last Updated DateTime 5 170.18 cm 33.5 kg/m2 34877.7 7 g 97.6 [degF] 81 /min 98 % 120/84 mm[Hg] [facility] 5 13:59:30 Date Recorded Body height Body mass index (BMI) Body weight Body temperature Heart rate Oxygen saturation Systolic And Diastolic Provider Name and Address Organization Details Last Updated DateTime 5 170.18 cm 32.1 kg/m2 56587.4 4 g 97.8 [degF] 108 /min 97 % 152/90 mm[Hg] Stacey Maciel [facility] 5 11:31:09 Date Recorded Body height Body mass index (BMI) Body weight Oxygen saturation Heart rate Respiratory rate Body temperature Systolic And Diastolic Provider Name and Address Organization Details Last Updated DateTime 5 170.18 cm 33.4 kg/m2 37707.1 7 g 98 % 89 /min 18 /min 97.3 [degF] 98/60 mm[Hg] [facility] 5 15:24:20 Date Recorded Body height Body mass index (BMI) Body weight Oxygen saturation Heart rate Respiratory rate Body temperature Systolic And Diastolic Provider Name and Address Organization Details Last Updated DateTime 5 170.18 cm 30.2 kg/m2 38952.3 3 g 98 % 70 /min 16 /min 98.2 [degF] 144/84 mm[Hg] Marilyn Martinez [facility] 5 11:22:05 Date Recorded Body height Body mass index (BMI) Body weight Oxygen saturation Heart rate Body temperature Respiratory rate Provider Name and Address Organization Details Last Updated DateTime 5 170.18 cm 29.8 kg/m2 09861.2 7 g 97 % 93 /min 97.7 [degF] 16 /min Constanza Maloney [facility] 5 14:31:07 Social History Question Answer Notes LastModified by Organizat ion Details LastModified Time Tobacco Smoking Status Current Every Day Smoker RAH nicholas [facility] 08/27/2024 11:32:35 Are You Blind Or Do You Have Difficulty Seeing? No Information not available 08/27/2024 What Is Your Level Of Caffeine Consumption? Occasional Information not available 01/20/2025 Are You Deaf Or Do You Have Serious Difficulty Hearing? No Information not available 08/27/2024 What Type Of Diet Are You Following? REGULAR Information not available 03/17/2023 What Is The Highest Grade Or Level Of School You Have Completed Or The Highest Degree You Have Received? [id number] Information not available 03/17/2023 Which Of Your Hands Is Dominant? Right Information not available 03/17/2023 What Type Of Marijuana Have You Used? Smoke [email or web address] Information not available 01/20/2025 Do You Or Have You Ever Used Marijuana? Current Every Day User [email or web address] Information not available 01/20/2025 What Was The Date Of Your Most Recent Tobacco Screening? 12/27/2024 [email or web address] Information not available 12/27/2024 Have You Ever Been Counseled For Unhealthy Alcohol Use? No Information not available 10/11/2024 Was Your Marijuana Use Recreational Or Medical? Medical [email or web address] Information not available 01/20/2025 What Is Your Relationship Status? Single Information not available 03/17/2023 Are You Sexually Active? Yes Information not available 03/17/2023 At What Age Did You Start Smoking Tobacco? 25 [email or web address] Information not available 01/20/2025 How Much Tobacco Do You Smoke? 0.5 PPD Information not available 08/27/2024 Have You Used IV Drugs? No [email or web address] Information not available 01/20/2025 Do You Have Difficulty Walking Or Climbing Stairs? No Information not available 08/27/2024 Do You Have Any Dietary Restrictions? No Information not available 03/17/2023 Sex: Unknown Functional Status Question Answer Note LastModified by Organization Details LastModified Time Do you use any illicit or recreational drugs? No THC vapes occassionally [email or web address] Information not available 01/20/2025 What is your [...] adolescent or pediatric 4 completed [facility] Available [facility] 01/20/2025 14:25:23 Hep B, adolescent or pediatric 4 completed Not Available [facility] 01/20/2025 14:25:23 DTP-Hib 4 completed Not Available [facility] 01/20/2025 14:25:23 OPV, trivalent 4 completed Not Available [facility] 01/20/2025 14:25:23 DTP-Hib 4 completed Not Available [facility] 01/20/2025 14:25:23 OPV, trivalent 4 completed Not Available [facility] 01/20/2025 14:25:23 DTP-Hib 4 completed Not Available [facility] 01/20/2025 14:25:23 OPV, trivalent 4 completed Not Available [facility] 01/20/2025 14:25:23 Hep B, adolescent or pediatric 4 completed Not Available [facility] 01/20/2025 14:25:23 Hib (PRP-T) 5 completed Not Available [facility] 01/20/2025 14:25:23 MMR 5 completed Not Available [facility] 01/20/2025 14:25:23 DTaP 6 completed Not Available [facility] 01/20/2025 14:25:23 DTaP 9 completed Not Available [facility] 01/20/2025 14:25:23 OPV, trivalent 9 completed Not Available [facility] 01/20/2025 14:25:23 MMR 9 completed Not Available [facility] 01/20/2025 14:25:23 HPV, quadrivalent 9 completed Not Available [facility] 01/20/2025 14:25:23 HPV, quadrivalent 9 completed Not Available [facility] 01/20/2025 14:25:23 HPV, quadrivalent 9 completed Not Available [facility] 01/20/2025 14:25:23 Td (adult), 2 Lf tetanus toxoid, preservative free, adsorbed 9 completed Not Available [facility] 01/20/2025 14:25:23 meningococcal MCV4P 2 completed Not Available [facility] 01/20/2025 14:25:23 Tdap 3 completed Not Available [facility] 01/20/2025 14:25:23 Tdap 1 completed Not Available [facility] 01/20/2025 14:25:23 Hep A, adult 3 completed Not Available [facility] 01/20/2025 14:25:23 Hep A-Hep B 3 completed Not Available [facility] 01/20/2025 14:25:23 Past Encounters Encounter ID Performer Location Encounter Start Date Encounter Closed Date Diagnosis/Indication Diagnosis SNOMED-CT Code Diagnosis ICD10 Code Diagnosis IMO Codes Diagnosis Note [id number] [facility]URIE [facility] ([facility]) [address] [place] [address] 02/10/2023 13:44:10 02/10/2023 16:48:36 Seasonal allergic rhinitis 514050468 J30.2 Start daily Zyrtec and daily Flonase. Can take tylenol/ib uprofen as needed for pain and fevers. Recommend increasing fluids and using cool mist humidifier at night. If worsening condition or no improvemen t in 7-10 days, return for further evaluation . Patient verbalizes understand ing. [id number] [facility]URIE [facility] ([facility]) [address] [place] [id number] 03/08/2023 12:47:07 03/08/2023 14:45:37 Dysuria 79413948 R30.0 Acute urin jeannie tract infection 295044656 N39.0 Start Macrobid BID x7 days, take as prescribed . Encouraged to increase water intake and decrease caffeine and sugary drinks. If still having symptoms after completion of antibiotic s, recommend a urine re-check. Urine was sent for culture. Will call with culture results. If worsening condition or no improvemen t in 3-5 days, recommend returning for re-evaluat ion. Patient verbalized understand ing. [id number] Lalo Daily MD [facility] ([facility]) [address] [place] [id number] 03/17/2023 14:00:35 03/18/2023 12:52:59 Contraception care management 212857559 Z30.9 test is negative. Will proceed with Depo-Prove ra. Insomnia 838811442 G47.0 0 Discussed coming off Seroquel and using hydroxyzin e. Patient was agreeable with this plan. Discussed adding melatonin. Gynecologi c examination 31231586 Z01.411 Pap smear obtained. Will also reflex to high risk HPV if needed and cotest for STIs. wet prep showed clue cells and suggestive of bacterial vaginosis. Otherwise exam was grossly normal. Bacterial vaginosis 4197 01275 N76.[id number] [facility] ([facility]) [address] [place] [id number] 03/17/2023 15:08:32 03/23/2023 04:03:40 Contraception care management 855480320 Z30.[id number] [facility] ([facility]) [address] [place] [id number] 03/20/2023 11:41:02 03/25/2023 10:26:15 Gonorrhea 67747458 A54.9 Patient's symptoms are likely secondary to gonorrhea. Will treat with azithromyc in and ceftriaxon e. Orders have already been placed. Follow-up if symptoms do not improve. [id number] LAURIE [facility] ([facility]) [address] [place] [id number] 05/21/2023 17:49:12 05/21/2023 18:30:07 Furuncle 602631620 L02.92 Start mupirocin TID. Keep area clean. Discussed worsening signs of infection including increased erythema, purulent drainage, fever, and streaking. If these symptoms occur, patient should return for further evaluation . If not improving or worsening condition in 5-7 days, return for further evaluation . Patient verbalizes understand ing. [id number] Lalo Daily MD [facility] ([facility]) [address] [place] [id number] 07/09/2023 15:03:46 07/09/2023 15:40:16 Fatigue 30827436 R53.83 Hyperlipid emia screening 996879027 Z13.220 Excessive thirst 5334970 7 R63.[id number] [facility] ([facility]) [address] [place] [id number] 08/19/2023 13:28:00 08/19/2023 14:25:59 Vaginal discharge 514655924 N89.8 Based on descriptio n this is most concerning for STDs. Will send urine for evaluation . [id number] Lalo Daily MD [facility] ([facility]) [address] [place] [id number] 09/04/2023 13:25:42 09/04/2023 14:26:45 Acute upper respiratory infection 99248817 J06.9 Patient presented with symptoms of viral upper respirator y infection. Advised to drink plenty of fluids, run a cool-mist humidifier in room at night, gargle salt water for sore throat, and get plenty of rest. Patient should avoid over-exert ion and reduce exposure to irritants such as smoke, cold, dry air, and dust. Treatment currently involves symptomati c relief. Patient may take acetaminop hen or ibuprofen as directed to reduce fever and body aches. Antihistam ine and decongesta nt usage was discussed and recommenda tions made. Patient understood these instructio ns and will follow up in the office in 7-10 days if symptoms not improving. [id number] Lalo Daily MD [facility] ([facility]) [address] [place] [id number] 08/27/2024 10:57:32 08/27/2024 13:15:37 Contraception care management 967188182 Z30.9 [id number] Discussed options for the patient and the patient would like to go ahead and proceed with IUD placement. Will have her schedule this with ultrasound . Patient was encouraged to use other forms of control until then. History of clinical finding in subject 872779292 Z87.898 [id number] Given her risk factors we will go ahead and proceed with hepatitis panel and HIV testing. Venereal d isease screening 215056555 Z11.3 [id number] Patient states she is at higher risk of possible STDs and would like to be tested. Anxiety 36175921 F41.9 60826 Discussed options for treatment of her anxiety and the patient was open to starting buspirone. [id number] Lalo Daily MD [facility] ([facility]) [address] [place] [id number] 09/21/2024 13:38:47 09/21/2024 14:47:52 Insertion of intrauterine contraceptive device 85333368 Z30.430 76282297 80 placed without difficulty under ultrasound guidance. See procedure note for details. Follow-up in 1 month for IUD check [id number] Lalo Daily MD [facility] ([facility]) [address] [place] [address] [phone] 09/21/2024 13:39:13 09/22/2024 10:04:05 Insertion of intrauterine contraceptive device [id number] Z30.430 [id number] Lalo Daily MD [facility] ([facility]) [address] [place] [address] [phone] 5 10/11/2024 11:22:01 10/11/2024 13:06:47 Chronic low back pain [id number] M54.50 G89.29 [id number] Patient does have chronic back pain that is improved with recent surgery, however the patient still has flares. Given the chronicity of her back pain, physical therapy would be a good option. Will send referral. Will provide medication s to help with inflammati on and muscle spasms to use as needed. Body mass index 30+ - obesity 310477774 E66.9 [id number] Weight loss would definitely help with her overall health including her back pain. Will send an order for Zepbound. This medication was discussed at length including side effects and risks and the patient was agreeable to start. Gastroesop hageal reflux disease without esophagitis [id number] K21.9 [id number] Lalo Daily MD [facility] ([facility]) [address] [place] [address] [phone] 10/25/2024 15:13:38 10/25/2024 15:46:56 Contraception care management [id number] Z30.9 IUD appears to still be in place. Will continue to check it yearly. [id number] KIERRA MARTINES [facility] ([facility]) [address] [place] [address] [phone] 12/27/2024 11:17:55 12/27/2024 11:48:22 Bite of bed bug [id number] W57.XXXA [id number] Return to clinic if the rash worsens, lasts longer than one week, shows signs of local infection (redness, oozing, or swelling). Advised to wash bedding in hot water. Recommend profession al to check for infestatio n. [id number] Lalo Daily MD [facility] ([facility]) [address] [place] [address] [phone] 01/20/2025 14:24:54 01/20/2025 15:20:56 Allergic disposition 115454338 Z88.9 [id number] - Arrange referral for comprehens kwame allergy testing by an electrical solderer. - Consider environmen ellie factors such as carpet as potential allergens. Inflammato ry dermatosis [id number] L30.9 06308 - Advise to maintain bedding hygiene. - Educate concerning avoidance strategies after allergen or cause identifica tion.- Monitor for sources such as bed bugs or fleas. Health Concerns Section Related Observation LastModified by Organization Detai ls LastModified Time None Recorded Concern Status LastModified by Organization Details LastModified Time None Recorded Advance Directives Directive None Recorded Payers Insurance Date Sequence Insurance Name Policy Number Policy Vyas Covered Member ID Vyas Member ID Guarantor Name 01/20/2025 2 [place] Mara Diop [id number] Mara Diop 01/20/2025 [place] [facility] (INSTITUTIONAL ) Mara Diop [id number] Mara Diop 01/20/2025 1 [facility] ([place] [facility] Mara Diop [id number] Mara Diop Notes Date Note Type Note Provider Name and Address Organization Details Recorded Time 09/21/2024 text/html ROS as noted in the HPI Pt is here for IUD placement. Lalo Daily MD [address] [place] [address], [phone], [facility] 09/22/2024 17:28:30 10/11/2024 text/html Pt states she had surgery on low back for partial discectomy by Dr. Swenson. She currently has low back pain that feels tight and stiff with loss of ROM. t she has taken Flexeril, does not recall if that helped with the pain. She has had ER visits for the back pain flare ups. She would like to decrease the ER visits and have a PRN medication. He is also interested in doing PT and would like help with weight loss see if it will also help with her pain. She complains of acid reflex., acid foods causes aggravation. She does not currently take otc medications for the GERD. In the pas Lalo Daily MD [address] [place] [address], [phone], [facility] 10/12/2024 10:56:37 10/25/2024 text/html ROS as noted in the HPI patient her for an IUD f/u. Patient denies any concerns. Lalo Daily MD [address] [place], [phone], [facility], Aly. 10/27/2024 16:08:02 12/27/2024 text/html General Rash/Ski n LesionReported by PatientROS as noted in the HPI walk in patientpatient is here today for bites on her arms and back that started after staying at her Boyfriends house over the weekend. Bites are extremely itchy. KIERRA MARTINES [address] [place], [phone], [facility], Aly. 12/27/2024 11:47:17 01/20/2025 text/html patient would like to have [...] despite sharing the environment. Lalo Daily MD [address] [place], [phone], [facility], LPeter. 01/20/2025 15:15:09 OBGyn Episode No OBEpisode recorded.
--- OUTSIDE RECORDS SUMMARY | 2025-03-12 16:37 | XMS_ITS | Continuity of Care Document ---
Author Organization [facility] Mateusz Buenrostro [facility] Samara Wright, [facility] ([facility]) Address [address] [place] [address] Care Team Providers Care Advisory Application Developer Name Role Phone LALO DAILY Primary Care Provider Assessment No assessment recorded. Plan of Treatment Reminders Order Date Submit Date Provider Last Modified By Organization Details Last Modified Time Details Appointments None recorded. Lab None recorded. Referral None recorded. Procedures None recorded. Surgeries None recorded. Imaging None recorded. Medication Orders triamcinolo ne acetonide 0.1 % topical cream 2024 025 [facility] [place], [address] [place], [address], 5 14:44:24 Patient TargetsNo targets recorded. Patient InstructionsNo instructions recorded. Reason for Referral None Reported. Problems Name Problem SNOMED Code Status Onset Date Resolution Date Notes Provider Name and Address Organization Details Recorded Time Suicidal thoughts 0433807 Active 2022 SUICIDAL IDEATION; 06/04/2022 7:58AM by Radha Couch LPN, Office Visit; Promoted; acuity set as *; Not Available [facility] 3 03:08:18 Major depressiv e disorder 349659595 Active 2022 MAJOR DEPRESSION ; 06/04/2022 7:58AM by Radha Couch LPN, Office Visit; Promoted; acuity set as *; Not Available [facility] 3 03:08:18 Contracep tion care managemen t Active 2022 CONTRACEPT ION MANAGEMENT ; Recorded 06/04/2022 7:58AM by Radha Couch LPN, Office Visit; Promoted; acuity set as *; Not Available [facility] 3 03:08:19 Nausea 043738808 Active 2022 NAUSEA ALONE; 06/04/2022 7:58AM by Radha Couch LPN, Office Visit; Promoted; acuity set as *; Not Available [facility] 3 03:08:19 Attention deficit hyperacti vity disorder 262590086 Active 2022 [facility] 09:01:02 Depressiv e disorder 23223669 Active 2022 [facility]ISA [facility] 3 09:01:12 Harmful pattern of use of Cannabis 91805232 Active 2022 JAMI AMBRIZ [facility] 3 09:01:25 Borderlin e personali ty disorder 59143000 Active 2022 JAMI AMBRIZ [facility] 3 09:01:40 Harmful pattern of use of methamphe tamine 084611582 Active 2022 JAMISA AMBRIZ [facility] 3 09:01:54 Suicidal behavior 064735268 Active 2022 JAMISA AMBRIZ [facility] 3 09:02:09 Low back pain 238664880 Active 2022 [facility] 3 09:02:23 Insomnia 210862666 Active 2022 Lalo Daily MD [address] [place] [address], [phone] , [facility] 3 14:36:33 Bacterial vaginosis 994979720 Active 2022 Lalo Daily MD [address] [place] [address], [phone] , [facility] 3 09:52:39 Gonorrhea 42148181 Active 2022 Lalo Daily MD [address] [place] [address], [phone] , [facility] 3 10:29:17 Fatigue 96558238 Active 2023 Lalo Daily MD [address] [place] [address], [phone] , [facility] 4 15:33:25 Excessive thirst 62435437 Active 2023 Lalo Daily MD [address] [place] [address], [phone] , [facility] 4 15:35:20 Vaginal discharge 971732476 Active 2023 Lalo Daily MD [address] [place] [address], [phone] , [facility] 4 14:05:29 Acute upper respirato ry infection 97583535 Active 2023 Lalo Daily MD [address] [place] [address], [phone] , [facility] 4 14:12:04 Anxiety 81483021 Active 2024 Lalo Daily MD [address] [place] [address], [phone] , [facility] 5 11:52:16 Chronic low back pain 442106856 Active 2024 Lalo Daily MD [address] [place] [address], [phone] , [facility] 5 12:00:53 Body mass index 30+ - obesity 411492918 Active 2024 Lalo Daily MD [address] [place] [address], [phone] , [facility].L[facility]CR[facility] 5 12:04:08 Gastroeso phageal reflux disease without esophagit is 894188881 Active 2024 Lalo Daily MD [address] [place] [address], [address] , [facility], LLisaCRyan 5 10:54:17 Inflammat ory dermatosi s 186275578 Active 2024 Lalo Daily MD [address] [place] [address], [phone] , [facility], Samara 15:13:56 Problem Notes None recorded. Procedures Surgical History Date Name Laterality Status Provider Name and Address Organization Details Recorded Time 5 jr iud insertion completed Lalo Daily MD [address] [place] [address], [phone], [facility], RachidCRyan 09/22/2024 17:27:37 3 Date of [facility] Samara 08/27/2024 11:29:35 3 Back Surgery completed RAH AN [facility], TahirLRyanCRyan 03/17/2023 14:12:19 Knee Surgery completed Constanza Maloney [facility], Samara 01/20/2025 14:32:41 Imaging Results None recorded. Procedure Notes None recorded. Medical Equipment None Reported. Allergies Allergen ID Allergen Name Allergen Category Reaction Reaction Severity Criticality Documentation Date Start Date Code Code System Note Provider Name and Address Organization Details Recorded Time 1843 Bactrim medicatio n Not available Not available Not available 08/08/2022 06342 9 RxNorm JAMI PB null [facility], [facility] 3 09:00:44 Medications Name Sig Start [...] needed 07/08 completed last injectio n 2; 76719; Recorded 03/07/20 11:12AM by Jami Ambriz (Authori makeda through Lalo Daily MD), Injectio n Only; [...] Organization Details Last Updated DateTime 170.18 cm 30.2 kg/m2 14137.3 3 g 98 % 70 /min 16 /min 98.2 [degF] 144/84 mm[Hg] Marilyn Martinez [facility] 11:22:05 Social History Question Answer Notes LastModified by Organizat ion Details LastModified Time Tobacco Smoking Status Current Every Day Smoker RAH nicholas [facility] 08/27/2024 11:32:35 Are You Blind Or Do You Have Difficulty Seeing? No Information not available 08/27/2024 What Is Your Level Of Caffeine Consumption? Occasional [email or web address] Information not available 01/20/2025 Are You Deaf Or Do You Have Serious Difficulty Hearing? No Information not available 08/27/2024 What Type Of Diet Are You Following? REGULAR Information not available 03/17/2023 What Is The Highest Grade Or Level Of School You Have Completed Or The Highest Degree You Have Received? [id number] Information not available 03/17/2023 Which Of Your Hands Is Dominant? Right Information not available 03/17/2023 What Type Of Marijuana Have You Used? Smoke [email or web address] Information not available 01/20/2025 Do You Or Have You Ever Used Marijuana? Current Every Day User [email or web address] Information not available 01/20/2025 What Was The Date Of Your Most Recent Tobacco Screening? 12/27/2024 [email or web address] Information not available 12/27/2024 Have You Ever Been Counseled For Unhealthy Alcohol Use? No [email or web address] Information not available 10/11/2024 Was Your Marijuana Use Recreational Or Medical? Medical [email or web address] Information not available 01/20/2025 What Is Your Relationship Status? Single Information not available 03/17/2023 Are You Sexually Active? Yes Information not available 03/17/2023 At What Age Did You Start Smoking Tobacco? 25 [email or web address] Information not available 01/20/2025 How Much Tobacco Do You Smoke? 0.5 PPD Information not available 08/27/2024 Have You Used IV Drugs? No [email or web address] Information not available 01/20/2025 Do You Have Difficulty Walking Or Climbing Stairs? No Information not available 08/27/2024 Do You Have Any Dietary Restrictions? No Information not available 03/17/2023 Sex: Unknown Functional Status Question Answer Note LastModified by Organization Details LastModified Time Do you use any illicit or recreational drugs? No THC vapes occassionally [email or web address] Information not available 01/20/2025 What is your [...] adolescent or pediatric 4 completed [facility] 01/20/2025 14:25:23 Hep B, adolescent or pediatric 4 completed [facility] 01/20/2025 14:25:23 DTP-Hib 4 completed [facility] 01/20/2025 14:25:23 OPV, trivalent 4 completed Not Available [facility] 01/20/2025 14:25:23 DTP-Hib 4 completed Not Available [facility] 01/20/2025 14:25:23 OPV, trivalent 4 completed Not Available [facility] 01/20/2025 14:25:23 DTP-Hib 4 completed Not Available [facility] 01/20/2025 14:25:23 OPV, trivalent 4 completed Not Available [facility] 01/20/2025 14:25:23 Hep B, adolescent or pediatric 4 completed Not Available [facility] 01/20/2025 14:25:23 Hib (PRP-T) 5 completed [facility] Available [facility] 01/20/2025 14:25:23 MMR 5 completed Not Available [facility] 01/20/2025 14:25:23 DTaP 6 completed Not Available [facility] 01/20/2025 14:25:23 DTaP 9 completed Not Available [facility] 01/20/2025 14:25:23 OPV, trivalent 9 completed Not Available [facility] 01/20/2025 14:25:23 MMR 9 completed Not Available [facility] 01/20/2025 14:25:23 HPV, quadrivalent 9 completed Not Available [facility] 01/20/2025 14:25:23 HPV, quadrivalent 9 completed Not Available [facility] 01/20/2025 14:25:23 HPV, quadrivalent 9 completed Not Available [facility] 01/20/2025 14:25:23 Td (adult), 2 Lf tetanus toxoid, preservative free, adsorbed 9 completed Not Available [facility] 01/20/2025 14:25:23 meningococcal MCV4P 2 completed Not Available [facility] 01/20/2025 14:25:23 Tdap 3 completed Not Available [facility] 01/20/2025 14:25:23 Tdap 1 completed Not Available [facility] 01/20/2025 14:25:23 Hep A, adult 3 completed [facility] 01/20/2025 14:25:23 Hep A-Hep B 3 completed Not Available [facility] 01/20/2025 14:25:23 Past Encounters Encounter ID Performer Location Encounter Start Date Encounter Closed Date Diagnosis/Indication Diagnosis SNOMED-CT Code Diagnosis ICD10 Code Diagnosis IMO Codes Diagnosis Note [id number] KIERRA MARTINES [facility] ([facility]) [address] [place] [phone] 12/27/2024 11:17:55 12/27/2024 11:48:22 Bite of bed bug 156077153 W57.XXXA [id number] Return to clinic if the rash worsens, lasts longer than one week, shows signs of local infection (redness, oozing, or swelling). Advised to wash bedding in hot water. Recommend profession al to check for infestatio n. Health Concerns Section Related Observation LastModified by Organization Detai ls LastModified Time None Recorded Concern Status LastModified by Organization Details LastModified Time None Recorded Payers Encounter Date Sequence Insurance Name Policy Number Policy Vyas Covered Member ID Vyas Member ID Guarantor Name 12/27/2024 1 [employer] [place] SOPHIA Diop [id number] Mara Diop Notes Date Note Type Note Provider Name and Address Organization Details Recorded Time 12/27/2024 text/html General Rash/Ski n LesionReported by PatientROS as noted in the HPI walk in patientpatient is here today for bites on her arms and back that started after staying at her Boyfriends house over the weekend. Bites are extremely itchy. KIERRA MARTINES [address] [place], [address], [facility] 12/27/2024 11:47:17 OBGyn Episode No OBEpisode recorded.
--- NOTE | 2025-03-12 16:39 | W.ED.PSYCHS ---
HPI - Psych General: Chief Complaint: Psychiatric Symptoms Stated Complaint: SI Time Seen by Provider: 03/12/25 16:36 History of Present Illness: 29-year-old female with a history of depression with anxiety and psychotic features, suicidal ideation in the past, methamphetamine abuse, borderline personality disorder and impulse control disorder who presents emergency room with depression, suicidal thoughts and homicidal thoughts. When asked if she has a plan she makes a stabbing motion. Related Data Home Medications ?Medication ?Instructions ?Recorded ?Confirmed omeprazole 20 mg capsule,delayed 20 mg PO DAILY 12/23/24 02/11/25 release medroxyprogesterone 150 mg/mL mg IM Q90D 02/09/25 02/11/25 intramuscular suspension (Depo-Provera) cyclobenzaprine 5 mg tablet 5 mg PO TID PRN 02/11/25 02/11/25 meloxicam 7.5 mg tablet 7.5 mg PO DAILY 02/11/25 02/11/25 Previous Rx's ?Medication ?Instructions ?Recorded quetiapine 150 mg tablet 150 mg PO .q hs #30 tabs 02/11/25 sertraline 100 mg tablet (Zoloft) 100 mg PO DAILY #30 tabs 02/11/25 Allergies Allergy/AdvReac Type Severity Reaction Status Date / Time sulfamethoxazole (From Allergy Intermediate ADR-Gastrointestinal Verified 12/23/24 12:42 Bactrim) Upset trimethoprim (From Bactrim) Allergy Intermediate ADR-Gastrointestinal Verified 12/23/24 12:42 Upset Review of Systems Narrative: Constitutional symptoms: Negative except as documented in HPI. Skin symptoms: Negative except as documented in HPI. Eye symptoms: Negative except as documented in HPI. ENMT symptoms: Negative except as documented in HPI. Respiratory symptoms: Negative except as documented in HPI. Cardiovascular symptoms: Negative except as documented in HPI. Gastrointestinal symptoms: Negative except as documented in HPI. Genitourinary symptoms: Negative except as documented in HPI. Musculoskeletal symptoms: Negative except as documented in HPI. Neurologic symptoms: Negative except as documented in HPI. Psychiatric symptoms: Negative except as documented in HPI. Endocrine symptoms: Negative except as documented in HPI. [facility] ED PFSH: Medical History (Updated 03/12/25 @ 17:24 by Dang Kirk MD) Cannabis use disorder Psychiatric care Major depressive disorder, recurrent episode with anxious distress Major depressive disorder, recurrent severe without psychotic features Cannabis abuse Nausea alone Evaluation regarding contraception options COVID-19 Suicidal ideation Methamphetamine abuse Impulse control disorder Borderline personality disorder Major depression Surgical History Status post myringotomy with tube placement of both ears History of knee surgery Family History Other Diabetes Lung disease Rheumatoid arthritis Social History Smoking and tobacco/nicotine status: current every day tobacco/nicotine user e-cigarettes E-Cigarette Details: with nicotine E-cig/vape details: 1 week to go through a tank Quit status (tobacco/nicotine): considering quitting Second hand smoke exposure: Yes Alcohol intake: former Year of sobriety/quit date alcohol: 2021 Substance/Drug Use: former Date of last use: 08/10 Adopted: No Caregiver/support person: No Lives independently: No Household members: other Details: SOC Housing: Homeless Marital status: Single Number of children: 2 Highest education level completed: Some College, No Degree service: No Current occupational status: employed and unemployed Pets and animals: No Leisure activites: exercise and music Sexually active: No Do you think of yourself as: Straight/Heterosexual Current gender identity: Female Briseida/Synagogue: None Special briseida needs: No Agree to transfusion: Yes Female Reproductive History: Para: 2 Spontaneous abortions: Yes Physical Exam Narrative: EXAM NARRATIVE: General: Alert. no acute distress Skin: Warm, dry Head: Normocephalic, atraumatic. Neck: Supple, trachea midline. Eye: Extraocular movements are intact. Ears, nose, mouth and throat: Oral mucosa moist. Cardiovascular: Regular rate and rhythm, Normal peripheral perfusion. Respiratory: Lungs are clear to auscultation, respirations are non-labored, breath sounds are equal, Symmetrical chest wall expansion. Gastrointestinal: Soft, Nontender, Non distended Musculoskeletal: Normal ROM, no deformity. Neurological: Alert and oriented. No focal neurological deficit observed. Psychiatric: Cooperative, depressed, expresses suicidal ideation. Course Vital Signs: Vital signs: Vital Signs Temperature 98.4 F 03/12/25 16:35 Pulse Rate 84 03/12/25 16:35 Respiratory Rate 17 03/12/25 16:35 Blood Pressure 120/74 03/12/25 16:35 Pulse Oximetry 98 03/12/25 16:35 Oxygen Delivery Me thod Room Air 03/12/25 16:35 MDM - Psych Medical Decision Making Medical decision making: Patient's reason for coming to the emergency room Social determinants I reviewed the patient's medical record. I reviewed the patient's current home meds Alternate historians: Differential diagnosis: Patient with reported depression and suicidal ideation. concerns for infection, alcohol intoxication, cardiac issues or other medical problems prior to psychiatric admission. Workup: labwork, ekg ordered to evaluate the pathologies and to clear the patient medically prior to psychiatric admission Assessment of risk: - Level of risk high risk - Was hospitalization considered? Yes patient is being admitted Consultation: I spoke with Dr. Ching agrees to admission Assessment and plan: Suicidal ideation and depression -Admission to neuropsychiatric unit for continued evaluation and treatment. - All lab work was reviewed and interpreted personally by myself, the ER physician - Evaluation and treatment of this problem were appropriate in the emergency setting Lab Data Laboratory Results HCG, Qual Negative (Negative) 03/12/25 16:47 Urine Color Yellow (Yellow) 03/12/25 16:47 Urine Appearance Cloudy (CLEAR) A 03/12/25 16:47 Urine pH 5.5 (5-7) 03/12/25 16:47 Ur Specific [place] 1.020 (1.005-1.030) 03/12/25 16:47 Urine Protein Negative (Negative) 03/12/25 16:47 Urine Glucose (UA) Negative (Normal) 03/12/25 16:47 Urine Ketones Negative (Negative) 03/12/25 16:47 Urine Blood Negative (Negative) 03/12/25 16:47 Urine Nitrate Negative (Negative) 03/12/25 16:47 Urine Bilirubin Negative (Negative) 03/12/25 16:47 Urine Urobilinogen 1.0 mg/dL (Negative) 03/12/25 16:47 Ur Leukocyte Esterase Trace (Negative) A 03/12/25 16:47 Urine RBC 3-5 /hpf (0-2) 03/12/25 16:47 Urine WBC 6-10 /hpf (0-5) 03/12/25 16:47 Ur Squamous Epith Cells 51-100 /hpf (0-5) 03/12/25 16:47 Amorphous Sediment Not Reportable 03/12/25 16:47 Urine Bacteria 4+ /hpf (NONE) H 03/12/25 16:47 Hyaline Casts 0.40 /lpf 03/12/25 16:47 Urine Opiates Screen Negative ng/mL (Negative) 03/12/25 16:47 Ur Barbiturates Screen Negative ng/mL (Negative) 03/12/25 16:47 Ur Phencyclidine Scrn Negative ng/mL (Negative) 03/12/25 16:47 Ur Amphetamines Screen Negative ng/mL (Negative) 03/12/25 16:47 U Benzodiazepines Scrn Negative ng/mL (Negative) 03/12/25 16:47 Urine Cocaine Screen Negative ng/mL (Negative) 03/12/25 16:47 U Marijuana (THC) Screen Positive ng/mL (Negative) H 03/12/25 16:47 No radiology studies performed this visit Discharge Plan Discharge Patient Disposition: Admitted As Inpatient Clinical Impression: Depression with suicidal ideation Condition: Stable Coding Level of Care Code ED [place] for Estrella Hou
[2025-03-12 16:54] LABS: HCG Qualitative Urine. Negative (Negative)
[2025-03-12 16:55] LABS: Glucose Urine UA Negative (Normal); Nitrate Urine Negative (Negative); Specific Gravity, Urine 1.020 (1.005-1.030)
[2025-03-12 16:57] LABS: Add Urine Microscopic? YES
[2025-03-12 17:04] LABS: PCP Screen Urine Negative (Negative)
[2025-03-12 17:06] LABS: UA Slide Review UA Slide Review Perf
[2025-03-12 17:28] LABS: Hematocrit 37.0 % (36-47); Hemoglobin 11.80 g/dL (11.27-16.99); Mean Corpuscular HGB Conc 31.9 g/dL (30-55); Mean Corpuscular Hemoglobin 29.8 pg (27-33); Mean Corpuscular Volume 93.4 fl (85-98); Nucleated Red Blood Cells % 0 %; Platelet Count 284 10^3/cmm (157-399); Red Blood Count 3.96 10^6/uL (3.85-5.65); White Blood Count 11.09 10^3/uL (3.29-11.43)
--- NOTE | 2025-03-12 17:37 | ECG_ITS ---
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 Measurements Intervals [place] Rate: 68 P: 63 [place]: 133 QRS: 74 QRSD: 94 T: 53 QT: 389 QTc: 414 Interpretive Statements SINUS RHYTHM Compared to ECG 05/05/2024 15:05:38 T-wave abnormality no longer present Electronically Signed On 03-13-2025 17:27:08 STUDENT SUPPORT ADVISOR by Dewayne Aldridge M.D. [email or web address]
--- NOTE | 2025-03-12 17:39 | PC.NURSE ---
PT PERSONAL KNIVES REMOVED FROM PT BELONGINGS BY SECURITY AND PLACED IN THE SECURITY OFFICE.
[2025-03-12 17:54] LABS: Alanine Aminotransferase 12 U/L (0-33); Albumin Level 3.9 g/dL (3.5-5.2); Alkaline Phosphatase 74 U/L (35-105); Anion Gap 13.9 (5-19); Aspartate Amino Transferase 14 U/L (0-32); Blood Urea Nitrogen 11 mg/dL (6-20); Calcium 8.8 mg/dL (8.5-10.5); Carbon Dioxide 25 mmol/L (22-29); Chloride 106 mmol/L (98-107); Globulin 2.5 g/dL (1.3-4.6); Glucose 99 mg/dL (65-115); Osmolality Calculated 291 mOsm/kg (285-295); Potassium 3.9 mmol/L (3.5-5.1); Sodium 141 mmol/L (136-145); Thyroid Stimulating Hormone 0.48 uIU/mL (0.27-4.20); Total Protein 6.4 g/dL (6.6-8.7)
[2025-03-12 17:55] LABS: Acetaminophen < 5.0 ug/mL (10-30); Alcohol Level < 10 mg/dL (0-10); Salicylate < 0.3 mg/dL (3-10)
[2025-03-12 17:57] VITALS: BP 131/80; PULSE 74; RESP 20; TEMP 37.1; O2SAT 97
--- NOTE | 2025-03-12 18:01 | PC.NURSE ---
96 hr rights reviewed with pt @1178 with assistance of [facility] u.s. revenue officer Doug Mayfield All education reviewed at this time. Pt verbalized understanding to hold parameters. Pt copy given to pt. Pt declined wanting a snack, and was simultaneously transferred to inpt room in NPU at the time of rights being served.
--- NOTE | 2025-03-12 18:19 | PC.NURSE ---
medications reconciled.
[2025-03-12 20:40] VITALS: BP 125/75; PULSE 114; RESP 19; O2SAT 96
[2025-03-13 06:00] VITALS: BP 104/63; PULSE 88; RESP 17; TEMP 37.1; O2SAT 98; BMI 31.1
[2025-03-13] MEDS: sennosides-docusate Tablet 1 TAB PO (11:31)
--- NOTE | 2025-03-13 11:51 | W.PM.NPUH&PS ---
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 psychosis was resolving.? Mood and anxiety were well managed.? The patient endorsed a plan to avoid all drugs of abuse and follow up with the aftercare recommendations of the treatment team.? The patient was evaluated and deemed to be absent credible lethality and had achieved the maximum benefit from an inpatient hospitalization, and so was discharged. ? Meds NPU Home Medications ?Medication ?Instructions ?Recorded ?Confirmed ?Last Taken ?Type quetiapine 150 mg tablet 150 mg PO .q hs #30 tabs 02/11/25 03/12/25 Unknown Rx sertraline 100 mg tablet (Zoloft) 100 mg PO DAILY #30 tabs 02/11/25 03/12/25 Unknown Rx Allergies Allergy/AdvReac Type Severity Reaction Status Date / Time sulfamethoxazole (From Allergy Intermediate ADR-Gastrointestinal Verified 12/23/24 12:42 Bactrim) Upset trimethoprim (From Bactrim) Allergy Intermediate ADR-Gastrointestinal Verified 12/23/24 12:42 Upset PFSH NPU PFSH: Medical History (Updated 03/12/25 @ 17:24 by Dang Kirk MD) Cannabis use disorder Psychiatric care Major depressive disorder, recurrent episode with anxious distress Major depressive disorder, recurrent severe without psychotic features Cannabis abuse Nausea alone Evaluation regarding contraception options COVID-19 Suicidal ideation Methamphetamine abuse Impulse control disorder Borderline personality disorder Major depression Surgical History Status post myringotomy with tube placement of both ears History of knee surgery Family History Other Diabetes Lung disease Rheumatoid arthritis Social History Smoking and tobacco/nicotine status: current every day tobacco/nicotine user e-cigarettes E-Cigarette Details: with nicotine E-cig/vape details: 1 week to go through a [employer] Quit status (tobacco/nicotine): considering quitting Second hand smoke exposure: Yes Alcohol intake: former Year of sobriety/quit date alcohol: 2021 Substance/Drug Use: former Date of last use: 08/10 Adopted: No Caregiver/support person: No Lives independently: No Household members: other Details: SOC Housing: Homeless Marital status: Single Number of children: 2 Highest education level completed: Some College, No Degree service: No Current occupational status: employed and unemployed Pets and animals: No Leisure activites: exercise and music Sexually active: No Do you think of yourself as: Straight/Heterosexual Current gender identity: Female Briseida/Rastafarian: None Special briseida needs: No Agree to transfusion: Yes Female Reproductive History: Para: 2 Spontaneous abortions: Yes Mental Status Exam MSE Comments: This is an overweight versus obese white female in hospital scrubs with limited grooming and eye contact. No abnormal movements except for psychomotor retardation.? She was cooperative with exam in mild distress.? Speech was decreased in rate and normal in volume.? Mood described as tired. Affect was restricted in range and mood congruent. ? Thought process was linear and organized.? Thought content: Patient endorsed fleeting suicidal but denied homicidal ideations. There were no overt delusions although there was some reports of overvalued ideas. She denied any auditory or visual hallucinations. Attention and concentration were limited and memory appeared mostly reliable but none were formally tested.? She is alert and oriented x3.? Insight and judgment are limited, impulse control is impaired. Vitals/I&O/Wt Last Vital Signs Temp 98.7 F 03/13/25 06:00 Pulse 88 03/13/25 06:00 Resp 17 03/13/25 06:00 BP 104/63 03/13/25 06:00 Pulse Ox 98 03/13/25 06:00 O2 Del Method Room Air 03/13/25 06:00 Weight last 48 hrs Weight 87.657 kg Weight 85.275 kg Data NPU 03/12/25 17:02 03/12/25 17:02 A&P Assessment and plan 1. Major depressive disorder, recurrent episode with anxious distress: 2. Cannabis use disorder: 3. Borderline personality disorder: 4. Suicidal ideation: 5. Methamphetamine use disorder, severe, in sustained remission: 6. Anxiety: 7. Methamphetamine abuse: 8. Polysubstance abuse: Plan: This is a 29-year-old white female with a history of borderline personality disorder, past methamphetamine use, active cannabis use and significant anxiety who presents with depression and suicidal ideation and requesting medication changes. Plan: 1. Restart Seroquel at 150mg at night and taper zoloft to 50mg daily with plan to discontinue and begin another antidepressant. 2. Continue every 15 minute checks for safety. 3. Encourage individual, group and milieu therapies. 4. Encourage sober living treatment after discharge at the highest level of care to which she is willing to commit. 5. Obtain collateral information. 6. Observe against the backdrop of the 96-hour hold. PDMP PDMP Reviewed: Not Reviewed Involuntary Hold Information Hold Status: Legal Status: 96 Hour Hold Date/Time Hold Expires: 03/21/25 0001 96 Hour Hold: 96 Hour Involuntary Admission: Yes Attestations NPU Medical Necessity Statement*: Inpatient hospitalization is medically necessary and the clinically appropriate intervention at this time. We will initiate medications and make changes as indicated. She will be in the hospital for over 2 midnights. Likely length of stay 4-6 days Coding Level of Care Code Acute Code for [facility] Fwd Diagnoses Major depressive disorder, recurrent episode with anxious distress F33.9 Cannabis use disorder F12.90 Borderline personality disorder F60.3 Suicidal ideation R45.851 Methamphetamine use disorder, severe, in sustained remission F15.21 Anxiety F41.9 Methamphetamine abuse F15.10 Polysubstance abuse F19.10
[2025-03-13 14:00] VITALS: BP 141/83; PULSE 93; RESP 18; TEMP 36.8; O2SAT 97
--- NOTE | 2025-03-13 22:36 | PC.NURSE ---
pt refused vs, nurse notified, resp 17
[2025-03-14 07:39] VITALS: BP 136/82; PULSE 81; RESP 20; O2SAT 98
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
[2025-03-14] MEDS: haloperidol inj 5 mg/mL INJ 1 mL IM (08:23)
[2025-03-14] MEDS: LORazepam 2 mg/mL INJ 1 mL IM (08:24)
[2025-03-14] MEDS: diphenhydrAMINE 50 mg/mL SDV 1mL IM (08:24)
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
--- NOTE | 2025-03-14 11:13 | PC.OT ---
OT EVALUATION ATTEMPTED IN A.M. PER NURSING, PATIENT WAS AGITATED EARLIER THIS MORNING AND THEY REQUEST HOLD AT THIS TIME.
[2025-03-14 13:57] VITALS: BP 130/80; O2SAT 96
--- NOTE | 2025-03-14 16:14 | P.NPUPN_ITS ---
Subjective NPU 2 Subjective: 29-year-old female with borderline perso nality disorder, depression, and poor impulse control. Patient became acutely agitated after reporting that her boyfriend was seeing another girl and patient reported that she had felt abandoned. She had become extremely angry and required as needed Haldol as she had lifted the mattress in her room and attempted to use it as a punching bag. The patient had reported having significant problems with her anger and reported that she continued to feel angry. She remained motivated to discontinue her previous medications stating that they had not been helpful with managing her anxiety as she continued to have episodes of anger and some reports of continued PTSD symptoms including flashbacks and nightmares. Mental Status Exam 2 MSE Comments: This is an overweight versus obese white female in hospital scrubs with limited grooming and eye contact. No abnormal movements except for psychomotor retardation.? She was cooperative with exam in mild distress.? Speech was decreased in rate and normal in volume.? Mood described as angry. Affect was restricted in range and mood congruent. ? Thought process was linear and organized.? Thought content: Patient endorsed some homicidal ideation currently but no suicidal ideation. There were no overt delusions although there was some reports of overvalued ideas. She denied any auditory or visual hallucinations. Attention and concentration were limited and memory appeared mostly reliable but none were formally tested.? She is alert and oriented x3.? Insight and judgment are limited, impulse control is impaired. Vitals/I&O/Wt Last Vital Signs Temp 98.3 F 03/13/25 14:00 Pulse 81 03/14/25 07:39 Resp 20 H 03/14/25 07:39 BP 130/80 03/14/25 13:57 Pulse Ox 96 03/14/25 13:57 O2 Del Method Room Air 03/14/25 07:39 Weight last 48 hrs Weight 87.657 kg Weight 85.275 kg Data NPU 03/12/25 17:02 03/12/25 17:02 A&P Assessment and plan 1. Major depressive disorder, recurrent episode with anxious distress: 2. Cannabis use disorder: 3. Borderline personality disorder: 4. Suicidal ideation: 5. Methamphetamine use disorder, severe, in sustained remission: 6. Anxiety: 7. Methamphetamine abuse: 8. Polysubstance abuse: Plan: This is a 29-year-old white female with a history of borderline personality disorder, past methamphetamine use, active cannabis use and significant anxiety who presents with depression and suicidal ideation and requesting medication changes. Plan: 1. Begin invega 3mg at night, reduce Seroquel to 100mg (not effective for agitation) at night. Decrease zoloft 25mg with plan for d/c. Start depakote ER 500mg in am. 2. Continue every 15 minute checks for safety. 3. Encourage individual, group and milieu therapies. 4. Encourage sober living treatment after discharge at the highest level of care to which she is willing to commit. 5. Obtain collateral information. 6. Observe against the backdrop of the 96-hour hold. PDMP PDMP Reviewed: Not Reviewed Involuntary Hold Information 2 Hold Status: Legal Status: 96 Hour Hold Date/Time Hold Expires: 03/21/2025 @ 0001 96 Hour Hold: 96 Hour Involuntary Admission: Yes Attestations NPU 2 Medical Necessity Statement*: Inpatient hospitalization is medically necessary and the clinically appropriate intervention at this time. We will initiate medications and make changes as indicated. The patient's likely length of stay is 4-6 days. Coding Level of Care Code Acute Code for [facility] Fwd Diagnoses Major depressive disorder, recurrent episode with anxious distress F33.9 Cannabis use disorder F12.90 Borderline personality disorder F60.3 Suicidal ideation R45.851 Methamphetamine use disorder, severe, in sustained remission F15.21 Anxiety F41.9 Methamphetamine abuse F15.10 Polysubstance abuse F19.10
[2025-03-14] MEDS: divalproex ER 500 mg Tablet (24H) PO (17:15)
[2025-03-14 19:39] VITALS: BP 111/66; PULSE 68; RESP 18; TEMP 37.1; O2SAT 98
--- NOTE | 2025-03-15 06:12 | PC.NURSE ---
pt ref vs stating I did not sleep last night and do not want my vs done charge notified resp 16
[2025-03-15] MEDS: divalproex ER 500 mg Tablet (24H) PO (09:37)
--- NOTE | 2025-03-15 09:59 | PC.NURSE ---
pt pain pt complaining of pain in her right arm after injections yesterday.
[2025-03-15 14:00] VITALS: BP 120/68; PULSE 66; RESP 16; TEMP 37; O2SAT 99
[2025-03-15] MEDS: sennosides-docusate Tablet 1 TAB PO (15:12)
--- NOTE | 2025-03-15 16:40 | P.NPUPN_ITS ---
Subjective NPU 2 Subjective: 29-year-old female with borderline perso nality disorder, depression, and poor impulse control with polysubstance abuse. The patient had reported feeling less angry. She was sedated in her room this morning and stated that she did not not feel any different other than some shoulder pain from her as needed medication received yesterday. She reported no suicidal thoughts currently. She had reported no side effects from her Depakote. She had reported having chronic problems with managing her mood swings and anger particularly when triggered. She had stated that her anger often led to significant problems with her behavior with reports of intense anger outbursts when triggered by being reminded of her past trauma. She reported no nightmares last night. Patient reports problems with concentration with a history of poor frustration tolerance. Mental Status Exam 2 MSE Comments: This is an overweight versus obese white female in hospital scrubs with limited grooming and poor eye contact. No abnormal involuntary motor movements except for psychomotor retardation.? She was minimally cooperative with exam in mild distress.? Speech was decreased in rate and decreased in volume.? Mood described as okay. Affect was restricted in range and mood incongruent. ? Thought process was linear and organized.? Thought content: Patient endorsed some homicidal ideation currently but no suicidal ideation. There were no overt delusions She denied any auditory or visual hallucinations. Attention and concentration were limited and memory appeared mostly reliable but none were formally tested.? She is alert and oriented x3.? Insight and judgment are limited, impulse control is impaired. Vitals/I&O/Wt Last Vital Signs Temp 98.6 F 03/15/25 14:00 Pulse 66 03/15/25 14:00 Resp 16 03/15/25 14:00 BP 120/68 03/15/25 14:00 Pulse Ox 99 03/15/25 14:00 O2 Del Method Room Air 03/15/25 14:00 Data NPU 03/12/25 17:02 03/12/25 17:02 A&P Assessment and plan 1. Major depressive disorder, recurrent episode with anxious distress: 2. Cannabis use disorder: 3. Borderline personality disorder: 4. Suicidal ideation: 5. Methamphetamine use disorder, severe, in sustained remission: 6. Anxiety: 7. Methamphetamine abuse: 8. Polysubstance abuse: Plan: This is a 29-year-old white female with a history of borderline personality disorder, past methamphetamine use, active cannabis use and significant anxiety who presents with depression and suicidal ideation and requesting medication changes. Plan: 1. Continue invega 3mg at night, reduce Seroquel to 50mg (not effective for agitation) at night. Continue zoloft at 25mg with plan for d/c. Increase depakote ER to 750mg in am. 2. Continue every 15 minute checks for safety. 3. Encourage individual, group and milieu therapies. 4. Encourage sober living treatment after discharge at the highest level of care to which she is willing to commit. 5. Obtain collateral information. 6. Observe against the backdrop of the 96-hour hold. PDMP PDMP Reviewed: Not Reviewed Involuntary Hold Information 2 Hold Status: Legal Status: 96 Hour Hold Date/Time Hold Expires: 03/21/2025 @ 0001 96 Hour Hold: 96 Hour Involuntary Admission: Yes Attestations NPU 2 Medical Necessity Statement*: Inpatient hospitalization is medically necessary and the clinically appropriate intervention at this time. We will initiate medications and make changes as indicated. The patient's likely length of stay is 3-5 days. Coding Level of Care Code Acute Code for [facility] Fwd Diagnoses Major depressive disorder, recurrent episode with anxious distress F33.9 Cannabis use disorder F12.90 Borderline personality disorder F60.3 Suicidal ideation R45.851 Methamphetamine use disorder, severe, in sustained remission F15.21 Anxiety F41.9 Methamphetamine abuse F15.10 Polysubstance abuse F19.10
[2025-03-15 20:06] VITALS: BP 110/64; PULSE 80; RESP 16; TEMP 37.3; O2SAT 97
--- NOTE | 2025-03-16 06:37 | PC.NURSE ---
pt ref vs resp 16 charge notified
[2025-03-16] MEDS: divalproex ER 500 mg Tablet (24H) PO (08:22)
[2025-03-16 14:00] VITALS: BP 118/79; PULSE 90; RESP 16; TEMP 36.9; O2SAT 97
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
--- NOTE | 2025-03-16 20:25 | PC.NURSE ---
vs not collected resp 18 charge notified
--- NOTE | 2025-03-17 06:25 | PC.NURSE ---
pt ref vs resp 18 charge notified
[2025-03-17] MEDS: divalproex ER 500 mg Tablet (24H) PO ×2 (09:49→12:25)
[2025-03-17] MEDS: sennosides-docusate Tablet 2 TAB PO (10:52)
--- NOTE | 2025-03-17 12:13 | P.NPUPN_ITS ---
Subjective NPU 2 Subjective: 29-year-old female with borderline perso nality disorder, depression, and poor impulse control with polysubstance abuse. The patient had reported still having difficulties with falling asleep despite restarting the Seroquel at 150 mg at night. She had reported that she had not noticed much of a difference in regards to any improvement with her anger so far but reported no side effects from her Depakote initiation. She had continued to require Haldol yesterday after she would become agitated after being woken up by staff. She had reported a history of sleep disruption and frequent awakenings at night. She had reported having chronic problems with irritability and intense anger outburst. She had reported no cravings for amphetamine at this time. She had continued to report some feelings of abandonment but denied having any suicidal thoughts currently. She continued to endorse some PTSD symptoms including significant emotional turbulence when enduring flashbacks or intense reexperiencing phenomenon. Mental Status Exam 2 MSE Comments: This is an overweight versus obese white female in hospital scrubs with limited grooming and poor eye contact lying in bed. No abnormal involuntary motor movements except for psychomotor retardation.? She was more cooperative with exam in mild distress.? Speech was decreased in rate and normal in volume.? Mood described as the same. Affect was irritable today. ? Thought process was linear and organized.? Thought content: Patient endorsed no homicidal ideation but reported fleeting suicidal ideation. There were no overt delusions She denied any auditory or visual hallucinations. Attention and concentration were limited and memory appeared mostly reliable but none were formally tested.? She is alert and oriented x3.? Insight and judgment are limited, impulse control is impaired. Vitals/I&O/Wt Last Vital Signs Temp 98.5 F 03/16/25 14:00 Pulse 90 03/16/25 14:00 Resp 16 03/16/25 14:00 BP 118/79 03/16/25 14:00 Pulse Ox 97 03/16/25 14:00 O2 Del Method Room Air 03/15/25 20:06 Data NPU 03/12/25 17:02 03/12/25 17:02 A&P Assessment and plan 1. Major depressive disorder, recurrent episode with anxious distress: 2. Cannabis use disorder: 3. Borderline personality disorder: 4. Suicidal ideation: 5. Methamphetamine use disorder, severe, in sustained remission: 6. Anxiety: 7. Methamphetamine abuse: 8. Polysubstance abuse: Plan: This is a 29-year-old white female with a history of borderline personality disorder, past methamphetamine use, active cannabis use and significant anxiety who presents with depression and suicidal ideation and requesting medication changes. Plan: 1. Continue invega 3mg at night, increase seroquel to 200mg a night. D/C zoloft. Increase depakote ER to 1000mg in am. 2. Continue every 15 minute checks for safety. 3. Encourage individual, group and milieu therapies. 4. Encourage sober living treatment after discharge at the highest level of care to which she is willing to commit. 5. Obtain collateral information. 6. Observe against the backdrop of the 96-hour hold. PDMP PDMP Reviewed: Not Reviewed Involuntary Hold Information 2 Hold Status: Legal Status: 96 Hour Hold Date/Time Hold Expires: 03/21/2025 @ 0001 96 Hour Hold: 96 Hour Involuntary Admission: Yes Attestations NPU 2 Medical Necessity Statement*: Inpatient hospitalization is medically necessary and the clinically appropriate intervention at this time. We will initiate medications and make changes as indicated. The patient's likely length of stay is 3-5 days. Coding Level of Care Code Acute Code for [facility] Fwd Diagnoses Major depressive disorder, recurrent episode with anxious distress F33.9 Cannabis use disorder F12.90 Borderline personality disorder F60.3 Suicidal ideation R45.851 Methamphetamine use disorder, severe, in sustained remission F15.21 Anxiety F41.9 Methamphetamine abuse F15.10 Polysubstance abuse F19.10
[2025-03-17 13:29] LABS: Trichomonas vaginalis (PCR) NOT DETECTED (Negative)
[2025-03-17 13:53] LABS: Neisseria Gonorrhea NOT DETECTED (Negative)
[2025-03-17 14:00] VITALS: BP 120/80; PULSE 80; RESP 16; TEMP 37; O2SAT 96
[2025-03-17 21:42] VITALS: BP 129/84; PULSE 100; RESP 18; TEMP 36.8; O2SAT 97
[2025-03-18 06:00] VITALS: BP 115/71; PULSE 88; RESP 16; TEMP 37.1; O2SAT 97
[2025-03-18] MEDS: divalproex ER 500 mg Tablet (24H) 1000 MG PO (08:48)
[2025-03-18 14:00] VITALS: BP 134/81; PULSE 87; RESP 16; TEMP 36.9; O2SAT 97
--- NOTE | 2025-03-18 16:23 | P.NPUPN_ITS ---
Subjective NPU 2 Subjective: Patient presented today reporting that she was wondering if she could discontinue her antipsychotic as she has had nightmares the last 2 nights. We discussed it being unclear that the medication caused that but discussed the risks, benefits and alternatives of a trial of prazosin and she understood and agreed to proceed as is documented in this note. Mental Status Exam 2 MSE Comments: This is an overweight versus obese white female in hospital scrubs with limited grooming and improving eye contact. No abnormal involuntary motor movements except for psychomotor retardation.? She was more cooperative with exam in mild distress.? Speech was decreased in rate and normal in volume.? Mood described as the same. Affect was irritable today. ? Thought process was linear and organized.? Thought content: Patient endorsed no homicidal ideation but reported fleeting suicidal ideation. There were no overt delusions She denied any auditory or visual hallucinations. Attention and concentration were limited and memory appeared mostly reliable but none were formally tested.? She is alert and oriented x3.? Insight and judgment are limited, impulse control is impaired. Vitals/I&O/Wt Last Vital Signs Temp 98.5 F 03/18/25 14:00 Pulse 87 03/18/25 14:00 Resp 16 03/18/25 14:00 BP 134/81 03/18/25 14:00 Pulse Ox 97 03/18/25 14:00 O2 Del Method Room Air 03/18/25 14:00 Data NPU 03/12/25 17:02 03/12/25 17:02 A&P Assessment and plan 1. Major depressive disorder, recurrent episode with anxious distress: 2. Cannabis use disorder: 3. Borderline personality disorder: 4. Suicidal ideation: 5. Methamphetamine use disorder, severe, in sustained remission: 6. Anxiety: 7. Methamphetamine abuse: 8. Polysubstance abuse: Plan: This is a 29-year-old white female with a history of borderline personality disorder, past methamphetamine use, active cannabis use and significant anxiety who presents with depression and suicidal ideation and requesting medication changes. Plan: 1. Continue invega 3mg at night, increase seroquel to 200mg a night. D/C zoloft. Increase depakote ER to 1000mg in am. Initiate prazosin 1 mg p.o. nightly. 2. Continue every 15 minute checks for safety. 3. Encourage individual, group and milieu therapies. 4. Encourage sober living treatment after discharge at the highest level of care to which she is willing to commit. 5. Obtain collateral information. 6. Observe against the backdrop of the 96-hour hold. PDMP PDMP Reviewed: Not Reviewed Involuntary Hold Information 2 Hold Status: Legal Status: 96 Hour Hold Date/Time Hold Expires: 03/21/2025 @ 0001 96 Hour Hold: 96 Hour Involuntary Admission: Yes Attestations NPU 2 Medical Necessity Statement*: Inpatient hospitalization is medically necessary and the clinically appropriate intervention at this time. We will initiate medications and make changes as indicated. The patient's likely length of stay is 3-5 days. Coding Level of Care Code Acute Code for g Fwd Diagnoses Major depressive disorder, recurrent episode with anxious distress F33.9 Cannabis use disorder F12.90 Borderline personality disorder F60.3 Suicidal ideation R45.851 Methamphetamine use disorder, severe, in sustained remission F15.21 Anxiety F41.9 Methamphetamine abuse F15.10 Polysubstance abuse F19.10
--- NOTE | 2025-03-18 22:24 | PC.NURSE ---
vs not collected per nurse resp 16
--- NOTE | 2025-03-19 06:54 | PC.NURSE ---
pt refused vs, nurse notified, resp 16
[2025-03-19] MEDS: divalproex ER 500 mg Tablet (24H) 1000 MG PO (07:57)
--- NOTE | 2025-03-19 08:09 | PC.NURSE ---
PRN ZYPREXA ZYDIS 5 MG GIVEN PO PER PT C/O FURTHER ANXIETY. NOT RELIEVED BY VISTARIL PREVIOUSLY GIVEN BY [employer] INSPECTOR NURSE. MOOD SEEMS PLEASANT CURRENTLY
--- NOTE | 2025-03-19 08:55 | P.NPUPN_ITS ---
Subjective NPU 2 Subjective: Patient presented today reporting that she was doing all right. We discussed her weight loss and she expressed some frustration with her weight loss identifying that she lost my ass and then lost my boyfriend. She reported that she needs to do something to restore her shape if she is going to have a chance and romance. She reports that she continued to have nightmares last night and we discussed giving the prazosin a little time and possibly increasing the dose as long as her blood pressure appears to tolerate it. She denied any other side effects of medications but is somewhat concerned about continuing the antipsychotic for concerns that it is the cause of her nightmares. Mental Status Exam 2 MSE Comments: This is an overweight versus obese white female in hospital scrubs with limited grooming and improving eye contact. No abnormal involuntary motor movements except for psychomotor retardation.? She was more cooperative with exam in mild distress.? Speech was decreased in rate and normal in volume.? Mood described as the same. Affect was less irritable today. Thought process was linear and organized.? Thought content: Patient endorsed no homicidal ideation but reported fleeting suicidal ideation. There were no overt delusions She denied any auditory or visual hallucinations. Attention and concentration were limited and memory appeared mostly reliable but none were formally tested.? She is alert and oriented x3.? Insight and judgment are limited, impulse control is impaired. Vitals/I&O/Wt Last Vital Signs Temp 98.5 F 03/18/25 14:00 Pulse 87 03/18/25 14:00 Resp 16 03/18/25 14:00 BP 134/81 03/18/25 14:00 Pulse Ox 97 03/18/25 14:00 O2 Del Method Room Air 03/18/25 14:00 Data NPU 03/12/25 17:02 03/12/25 17:02 A&P Assessment and plan 1. Major depressive disorder, recurrent episode with anxious distress: 2. Cannabis use disorder: 3. Borderline personality disorder: 4. Suicidal ideation: 5. Methamphetamine use disorder, severe, in sustained remission: 6. Anxiety: 7. Methamphetamine abuse: 8. Polysubstance abuse: Plan: This is a 29-year-old white female with a history of borderline personality disorder, past methamphetamine use, active cannabis use and significant anxiety who presents with depression and suicidal ideation and requesting medication changes. Plan: 1. Continue invega 3mg at night, increased seroquel to 200mg a night. D/C zoloft. Increase depakote ER to 1000mg in am. Initiated prazosin 1 mg p.o. nightly. 2. Continue every 15 minute checks for safety. 3. Encourage individual, group and milieu therapies. 4. Encourage sober living treatment after discharge at the highest level of care to which she is willing to commit. 5. Obtain collateral information. 6. Observe against the backdrop of the 96-hour hold. PDMP PDMP Reviewed: Not Reviewed Involuntary Hold Information 2 Hold Status: Legal Status: 96 Hour Hold Date/Time Hold Expires: 03/21/2025 @ 0001 96 Hour Hold: 96 Hour Involuntary Admission: Yes Attestations NPU 2 Medical Necessity Statement*: Inpatient hospitalization is medically necessary and the clinically appropriate intervention at this time. We will initiate medications and make changes as indicated. The patient's likely length of stay is 3-5 days. Coding Level of Care Code Acute Code for [facility] Fwd Diagnoses Major depressive disorder, recurrent episode with anxious distress F33.9 Cannabis use disorder F12.90 Borderline personality disorder F60.3 Suicidal ideation R45.851 Methamphetamine use disorder, severe, in sustained remission F15.21 Anxiety F41.9 Methamphetamine abuse F15.10 Polysubstance abuse F19.10
[2025-03-19 14:00] VITALS: BP 122/76; PULSE 61; RESP 15; TEMP 36.7; O2SAT 97
--- NOTE | 2025-03-19 16:21 | PC.NURSE ---
PRN VISTARIL 50 MG GIVEN PO PER PT C/O MY FEET HURTING OFFERED PRN MOTRIN, PT DENIED WANTING ANY. ASKING FOR ANXIETY MED SEEKING PRN MEDS OFTEN
[2025-03-19 20:43] VITALS: BP 141/74; PULSE 113; RESP 18; O2SAT 97
--- NOTE | 2025-03-20 07:01 | PC.NURSE ---
pt refused vs, nurse notified, resp 17
[2025-03-20] MEDS: divalproex ER 500 mg Tablet (24H) 1000 MG PO (08:11)
--- NOTE | 2025-03-20 09:46 | P.NPUPN_ITS ---
Subjective NPU 2 Subjective: Patient presented today reporting that things are going fairly well. She reports that she desires discharge sooner rather than later and we discussed working with the social work team tomorrow about possibilities. Also the discussed her considering the long-acting injectable as 1 way we could feel more comfortable about a plan for discharge. She reported sleeping better overall last night. She denied any side effects to the medication. Mental Status Exam 2 MSE Comments: This is an overweight versus obese white female in hospital scrubs with limited grooming and improving eye contact. No abnormal involuntary motor movements except for psychomotor retardation.? She was more cooperative with exam in mild distress.? Speech was decreased in rate and normal in volume.? Mood described as better, affect was congruent. Thought process was linear and organized.? Thought content: Patient endorsed no homicidal or suicidal ideation. There were no overt delusions She denied any auditory or visual hallucinations. Attention and concentration were limited and memory appeared mostly reliable but none were formally tested.? She is alert and oriented x3.? Insight and judgment are limited, but improving, impulse control is limited. Vitals/I&O/Wt Last Vital Signs Temp 98.1 F 03/19/25 14:00 Pulse 113 H 03/19/25 20:43 Resp 18 03/19/25 20:43 BP 141/74 03/19/25 20:43 Pulse Ox 97 03/19/25 20:43 O2 Del Method Room Air 03/19/25 20:43 Weight last 48 hrs Weight 87.203 kg Data NPU 03/12/25 17:02 03/12/25 17:02 A&P Assessment and plan 1. Major depressive disorder, recurrent episode with anxious distress: 2. Cannabis use disorder: 3. Borderline personality disorder: 4. Suicidal ideation: 5. Methamphetamine use disorder, severe, in sustained remission: 6. Anxiety: 7. Methamphetamine abuse: 8. Polysubstance abuse: Plan: This is a 29-year-old white female with a history of borderline personality disorder, past methamphetamine use, active cannabis use and significant anxiety who presents with depression and suicidal ideation and requesting medication changes. Plan: 1. Continue invega 3mg at night, increased seroquel to 200mg a night. D/C zoloft. Increase depakote ER to 1000mg in am. Initiated prazosin 1 mg p.o. nightly. May consider utilizing a long-acting injectable as a precursor to discharge. 2. Continue every 15 minute checks for safety. 3. Encourage individual, group and milieu therapies. 4. Encourage sober living treatment after discharge at the highest level of care to which she is willing to commit. 5. Obtain collateral information. 6. Observe against the backdrop of the 96-hour hold. PDMP PDMP Reviewed: Not Reviewed Involuntary Hold Information 2 Hold Status: Legal Status: 96 Hour Hold Date/Time Hold Expires: 03/21/2025 @ 0001 96 Hour Hold: 96 Hour Involuntary Admission: Yes Attestations NPU 2 Medical Necessity Statement*: Inpatient hospitalization is medically necessary and the clinically appropriate intervention at this time. We will initiate medications and make changes as indicated. The patient's likely length of stay is 1-4 days. Coding Level of Care Code Acute Code for g Fwd Diagnoses Major depressive disorder, recurrent episode with anxious distress F33.9 Cannabis use disorder F12.90 Borderline personality disorder F60.3 Suicidal ideation R45.851 Methamphetamine use disorder, severe, in sustained remission F15.21 Anxiety F41.9 Methamphetamine abuse F15.10 Polysubstance abuse F19.10
[2025-03-20 14:00] VITALS: BP 133/77; PULSE 68; RESP 18; TEMP 36.7; O2SAT 95
[2025-03-20 20:29] VITALS: BP 130/91; PULSE 88; RESP 17; TEMP 36.6; O2SAT 98
--- NOTE | 2025-03-21 05:09 | PC.NURSE ---
pt refused vs stating I am not trying to get my vs done I am just trying to go back to sleep . resp 18 nurse notified
[2025-03-21] MEDS: multivitamin therapeutic Tablet 1 TAB PO (08:08)
[2025-03-21] MEDS: divalproex ER 500 mg Tablet (24H) 1000 MG PO (08:08)
[2025-03-21 13:32] VITALS: BP 111/77; PULSE 83; RESP 16; TEMP 36.8; O2SAT 98
[2025-03-21 14:07] VITALS: BP 117/77; PULSE 83; RESP 16; TEMP 36.8; O2SAT 98
== END 2025-03-21 15:20 | disposition home or self-care (01) | DRG 751 ==
LOC: ER 17:28 → NP 17:31
PROVIDERS: Admitting Provider Psychiatry & Neurology Psychiatry; Emergency Provider Emergency Medicine; PCP Family Medicine; Visit Provider Psychiatry & Neurology Psychiatry
DX: F33.9 Major depressive disorder, recurrent, unspecified (principal); F60.3 Borderline personality disorder; R45.851 Suicidal ideations; F15.21 Other stimulant dependence, in remission; F41.9 Anxiety disorder, unspecified; F19.10 Other psychoactive substance abuse, uncomplicated; E66.9 Obesity, unspecified; Z68.31 Body mass index [BMI] 31.0-31.9, adult; F17.290 Nicotine dependence, other tobacco product, uncomplicated; Z81.8 Family history of other mental and behavioral disorders; Z91.410 Personal history of adult physical and sexual abuse; Z62.810 Personal history of physical and sexual abuse in childhood
CPT/HCPCS: 36415; 80053; 80306; 80307; 81001; 81025; 84443; 85025; 87491; 87591; 87661; 93005; 96372; 97150; 97165; 99285; J1200; J1630; J2060; J9999

== ENCOUNTER → 2025-04-12 13:06 | Outpatient (BNVA) | payer MEDICAID, SELFPAY ==
[2024-10-13 10:27] VITALS: BP 131/80; BMI 34.0
== END ==
PROVIDERS: PCP Family Medicine; Visit Provider Family Medicine Adult Medicine
DX: R09.81 Nasal congestion (principal)
CPT/HCPCS: 87400; 87426